=== PATIENT | female | born 2000 | race Caucasian/White ===

== ENCOUNTER 2018-04-25 20:24 | Emergency (ER) | payer OTHER ==
--- NOTE | 2018-04-25 21:20 | EDPHYS ---
Physician Documentation [facility] Name: Lara Zamorano Age: 17 yrs Sex: Female : 2000 Arrival Date: 04/25/2018 Time: 20:29 Bed 16 Private MD: Rajesh Ortega ED Physician Sami Alfaro HPI: 04/25 21:10 This 17 yrs old Female presents to ER via Ambulatory with complaints of Skin gs Problem. 21:10 The patient presents with an abscess of the right wrist, The patient presents with gs cellulitis of the right wrist. Description: The affected area is small, confluent, localized. Onset: The symptoms/episode began/occurred 5 day(s) ago. Associated signs and symptoms: Pertinent negatives: fever. Modifying factors: the symptoms are aggravated by squeezing the lesion and expressing the contents. Severity of symptoms: At their worst the symptoms were moderate, in the emergency department the symptoms are unchanged. The patient has experienced similar episodes in the past, a few times. 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 - Social history:: Smoking status: Patient/guardian denies using tobacco. - Ebola Screening: : Patient negative for fever greater than or equal to 101.5 degrees Fahrenheit, and additional compatible Ebola Virus Disease symptoms Patient denies exposure to infectious person Patient denies travel to an Ebola-affected area in the 21 days before illness onset No symptoms or risks identified at this time. ROS: 21:10 All other systems are negative. gs Exam: 21:10 Chest/axilla: Normal chest wall appearance and motion. Nontender with no deformity. gs No lesions are appreciated. Cardiovascular: Regular rate and rhythm with a normal S1 and S2. No gallops, murmurs, or rubs. Normal PMI, no JVD. No pulse deficits. Respiratory: Lungs have equal breath sounds bilaterally, clear to auscultation and percussion. No rales, rhonchi or wheezes noted. No increased work of breathing, no retractions or nasal flaring. Abdomen/GI: Soft, non-tender, with normal bowel sounds. No distension or tympany. No guarding or rebound. No evidence of tenderness throughout. Neuro: Awake and alert, GCS 15, oriented to person, place, time, and situation. Cranial nerves II-XII grossly intact. Motor strength 5/5 in all extremities. Sensory grossly intact. Cerebellar exam normal. Normal gait. 21:10 Constitutional: The patient appears alert, awake. 21:10 Musculoskeletal/extremity: ROM: no acute changes, Circulation is intact in all extremities. 21:10 Skin: abscess, that is small, with induration, cellulitis, that is mild, on the right wrist. Vital Signs: 20:34 BP 135 / 99; Pulse 104; Resp 20; Temp 98.6; Pulse Ox 98% on R/A; Weight 86.18 kg; aj Height 5 ft. 8 in. (172.72 cm); 21:41 BP 122 / 66; Pulse 80; Resp 18; Temp 98.2(O); Pulse Ox 98% on R/A; Pain 0/10; ea 20:34 Body Mass Index 28.89 (86.18 kg, 172.72 cm) MDM: 20:59 Patient medically screened. 21:10 Differential diagnosis: abscess, cellulitis, insect bite. Data reviewed: vital signs, nurses notes. ED course: discussed i and d lack of fluctuance pt would like to try abx for 2 days will return if worse. Administered Medications: 21:39 Drug: Clindamycin 300 mg Route: PO; ea 21:47 Follow up: Response: No adverse reaction ea Disposition: 04/25/18 21:20 Discharged to Home. Impression: Cutaneous abscess of right upper limb. - Condition is Stable. - Discharge Instructions: Skin Abscess. - Prescriptions for Clindamycin HCl 150 mg Oral Capsule - take 2 capsule by ORAL route every 8 hours for 7 days; 42 capsule. - Medication Reconciliation Form, Thank You Letter, Antibiotic Education, Prescription Opioid Use form. - Follow up: Private Physician; When: 2 - 3 days; Reason: Re-evaluation by your physician. Signatures: Margarita Al RN Winter Al RN RN ea Starr, Gregory, MD MD Corrections: (The following items were deleted from the chart) 21:47 21:20 04/25/2018 21:20 Discharged to Home. Impression: Cutaneous abscess of right upper ea limb. Condition is Stable. Forms are Medication Reconciliation Form, Thank You Letter, Antibiotic Education, Prescription Opioid Use. Follow up: Private Physician; When: 2 - 3 days; Reason: Re-evaluation by your physician. gs
--- NOTE | 2018-04-25 21:20 | ER ---
Nurse's Notes [facility] Name: Lara Zamorano Age: 17 yrs Sex: Female : 2000 Arrival Date: 04/25/2018 Time: 20:29 Bed 16 Private MD: Rajesh Ortega Diagnosis: Cutaneous abscess of right upper limb Presentation: 04/25 20:33 Presenting complaint: Patient states: Abscess to right forearm for 2 days. Transition aj of care: patient was not received from another setting of care. Onset of symptoms was April 23, 2018. Risk Assessment: Do you want to hurt yourself or someone else? Patient reports no desire to harm self or others. Initial Sepsis Screen: Does the patient meet any 2 criteria? No. Patient's initial sepsis screen is negative. Does the patient have a suspected source of infection? No. Patient's initial sepsis screen is negative. Care prior to arrival: None. 20:33 Method Of Arrival: Ambulatory aj 20:33 Acuity: SHEYLA 4 aj Triage Assessment: 20:34 General: Appears in no apparent distress. comfortable, Behavior is calm, cooperative, aj appropriate for age. Pain: Complains of pain in right wrist. Neuro: Level of Consciousness is awake, alert, obeys commands, Oriented to person, place, time, situation, Appropriate for age. Respiratory: Airway is patent Respiratory effort is even, unlabored, Respiratory pattern is regular, symmetrical. Derm: Skin is intact, is healthy with good turgor, Skin is pink, warm \T\ dry. normal, Abscess located on right wrist is nickel sized, is red, is raised. 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 - Social history:: Smoking status: Patient/guardian denies using tobacco. - Ebola Screening: : Patient negative for fever greater than or equal to 101.5 degrees Fahrenheit, and additional compatible Ebola Virus Disease symptoms Patient denies exposure to infectious person Patient denies travel to an Ebola-affected area in the 21 days before illness onset No symptoms or risks identified at this time. Screenin:52 Abuse screen: Denies threats or abuse. Nutritional screening: No deficits noted. ea Tuberculosis screening: No symptoms or risk factors identified. Fall Risk None identified. Assessment: 20:50 General: Appears in no apparent distress. Behavior is calm, cooperative, appropriate ea for age. Pain: Complains of pain in right wrist Pain does not radiate. Pain currently is 6 out of 10 on a pain scale. Quality of pain is described as tender, Pain began 2-3 days ago. Neuro: Level of Consciousness is awake, alert, obeys commands, Oriented to person, place, time, situation. Cardiovascular: Patient's skin is warm and dry. Respiratory: Airway is patent Respiratory effort is even, unlabored, Respiratory pattern is regular, symmetrical. GI: No signs and/or symptoms were reported involving the gastrointestinal system. : No signs and/or symptoms were reported regarding the genitourinary system. EENT: No signs and/or symptoms were reported regarding the EENT system. Derm: Abscess located on right wrist is nickel sized, has no drainage. 21:39 Reassessment: Patient and/or family updated on plan of care and expected duration. Pain ea level reassessed. Patient is alert, oriented x 3, equal unlabored respirations, skin warm/dry/pink. Discharge instructions given to patient, verbalized the understanding of instruction. Vital Signs: 20:34 BP 135 / 99; Pulse 104; Resp 20; Temp 98.6; Pulse Ox 98% on R/A; Weight 86.18 kg; aj Height 5 ft. 8 in. (172.72 cm); 21:41 BP 122 / 66; Pulse 80; Resp 18; Temp 98.2(O); Pulse Ox 98% on R/A; Pain 0/10; ea 20:34 Body Mass Index 28.89 (86.18 kg, 172.72 cm) aj ED Course: 20:29 Patient arrived in ED. do 20:29 Rajesh Ortega MD is Private Physician. do 20:34 Triage completed. aj 20:34 Arm band placed on left wrist. Patient placed in an exam room. aj 20:38 Sami Alfaro MD is Attending Physician. gs 20:50 Winter Haile, ASTRID is Primary Nurse. ea 20:53 Patient has correct armband on for positive identification. Bed in low position. Call ea light in reach. Side rails up X 1. 21:40 No provider procedures requiring assistance completed. Patient did not have IV access ea during this emergency room visit. Administered Medications: 21:39 Drug: Clindamycin 300 mg Route: PO; ea 21:47 Follow up: Response: No adverse reaction ea Outcome: 21:20 Discharge ordered by . gs 21:40 Condition: good ea 21:40 Discharge instructions given to patient, Instructed on discharge instructions, follow up and referral plans. medication usage, Demonstrated understanding of instructions, follow-up care, medications, Prescriptions given X 1. :47 Discharged to home ambulatory, with friend. ea 21:47 Patient left the ED. ea Signatures: Margarita Al, RN RN Haven Foley Elena RN Sami Chandler ea, MD MD
[2018-04-25] MEDS ORDERED: CLINDAMYCIN HCL 150 MG CAP ONE (21:38)
== END 2018-04-25 21:47 | disposition home or self-care (01) ==
LOC: ER 20:24
DX: L02.413 Cutaneous abscess of right upper limb (principal); Z88.4 Allergy status to anesthetic agent
CPT/HCPCS: 99283

== ENCOUNTER 2018-10-30 15:11 | Emergency (ER) | payer OTHER ==
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
[2018-10-30] MEDS ORDERED: IBUPROFEN 400 MG TAB ONE (16:49)
--- NOTE | 2018-10-30 17:01 | RAD REPORT ---
EXAM DESCRIPTION: RAD - Wrist Right 3 View - 10/30/2018 4:45 pm CLINICAL HISTORY: Wrist pain following trauma COMPARISON: None. FINDINGS: No fracture is identified. There is no dislocation or periosteal reaction noted. Epiphyses and growth plates are Normal in appearance. No foreign body or other soft tissue abnormality. IMPRESSION: Negative right wrist examination.
== END 2018-10-30 16:51 | disposition home or self-care (01) ==
LOC: ER 15:11
DX: M25.531 Pain in right wrist (principal); Z88.4 Allergy status to anesthetic agent
CPT/HCPCS: 99283

== ENCOUNTER 2023-08-21 21:55 | Observation (INO) | payer OTHER, SELFPAY ==
--- OUTSIDE RECORDS SUMMARY | 2023-08-21 22:05 | XMS REPORT | Continuity of Care Document ---
:2000 Author Organization [facility] t Address [address] [facility] [address] [place] [address] Care Team Providers Name Role Phone PCP, PATIENT DOES NOT HAVE A Primary Care Physician Unavaila moses VASQUEZ Attending Clinician Unavailable KATHY BEE Attending Clinician Unavailable KATHY BEE Attending Clinician Unavailable Avni Ackerman Attending Clinician [phone] MILAGRO FRANKLIN Attending Clinician Unavailable PEDRO Admitting Clinician Unavailable Payers Payer Name Policy Type Policy Number Effective Date Expiration Date Percy VÁSQUEZ - [id number] [employer]ET[employer] (PPO) 00:00:00 COMMERCIAL [id number] 2019 NON-CONTRACT 00:00:00 GENERIC CIGNA - ACS BENEFIT [id number] 2019 SERVICES (PPO) 00:00:00 Problems Condition Condition Condition Status Onset Resolution Last Treating Co mments Source Name Details Category Date Date Treatment Clinician Date Insomnia Insomnia Problem Active [facility] 5[facility]06 [facility] 00:[facility] ty [facility] Bulimia Bulimia Problem Active 2020-10 [place] nervosa, Nervosa, 1-10 [facility] i purging Purging 00:00: ty type Type 00 [facility] Active or Active or Problem Active Swe moiess passive Passive 7-14 [facility] immunizati Immunizati 00:00: ty on on [facility]ospita l Clinics Abnormal Abnormal Problem Active [facility] blood Blood 7-14 [facility] pressure Pressure 00:00: ty 00 [facility] Allergies, Adverse Reactions, Alerts Allergy Allergy Status Severity Reaction(s) Onset Inactive Treating Comm ents Source Name Type Date Date Clinician LIDOCAIN DRUG Active SOB 2019-10 [facility]y of 00:00: [address] NO KNOWN Drug Active Univers ALLERGIE Class [facility] Lidocain Allergy Active Severe Hives [place] e to [facility]i substanc ty e [facility]osp[facility] l Clinics Social History Smoking Status Start Date Stop Date Source Former Smoker [facility] Medications Ordered Filled Start Stop Current Ordering Indication Dosage Frequency Signature Comments Components Source Medication Medication Date Date Medication? Clinician (SIG) Name Name Kevin Brown CR No 1 Kevin JULIEN [place] 6.25 mg 6.25 mg 6.25 mg Commun i tablet,exte tablet,exte tablet,ext ty nded nded ended Hospita release release release l Take 1 Take 1 Take 1 Clinics tablet as tablet as tablet as needed by needed by needed by oral route oral route oral route at bedtime. at bedtime. at bedtime. ergocalcife ergocalcife No ergocalcif [place] rol rol ta [facility] (vitamin (vitamin (vitamin ty D2) 1,250 D2) 1,250 D2) 1,250 [facility]ospita mcg (50,000 mcg (50,000 mcg l unit) unit) (50,000 Clinics capsule capsule unit) TAKE 1 TAKE 1 capsule CAPSULE CAPSULE TAKE 1 EVERY WEEK EVERY WEEK CAPSULE BY ORAL BY ORAL EVERY WEEK ROUTE. ROUTE. BY ORAL ROUTE. lisinopril lisinopril No lisinopril [place] 10 mg 10 mg 10 mg [facility] tablet TAKE tablet TAKE tablet ty 1 TABLET BY 1 TABLET BY TAKE 1 Hospita MOUTH EVERY MOUTH EVERY TABLET BY l DAY DAY MOUTH Clinics EVERY DAY sertraline sertraline No sertraline [place] 100 mg 100 mg 100 mg [facility] tablet TAKE tablet TAKE tablet ty 1 TABLET BY 1 TABLET BY TAKE 1 [facility]ospita MOUTH EVERY MOUTH EVERY TABLET BY l DAY DAY MOUTH Clinics EVERY DAY acetaminoph acetaminoph No acetaminop [place] en 300 en 300 hen 300 [facility] mg-codeine mg-codeine mg-codeine ty 30 mg 30 mg 30 mg [facility]ospita tablet TAKE tablet TAKE tablet l 1 TABLET BY 1 TABLET BY TAKE 1 Clinics MOUTH EVERY MOUTH EVERY TABLET BY 6 HOURS 6 HOURS MOUTH NEEDED NEEDED EVERY 6 HOURS NEEDED drospirenon drospirenon No drospireno [place] e 3 e 3 ne 3 [facility] mg-ethinyl mg-ethinyl mg-ethinyl ty estradiol estradiol estradiol [facility]osp[facility] 0.02 mg 0.02 mg 0.02 mg l tablet Take tablet Take tablet Clinics 1 active 1 active Take 1 tablet tablet active orally once orally once tablet daily at daily at orally the same the same once daily time. Take time. Take at the active active same time. pills only. pills only. Take active pills only. ergocalcife ergocalcife No ergocalcif [place] rol rol ta [facility] (vitamin (vitamin (vitamin ty D2) 1,250 D2) 1,250 D2) 1,250 [facility] mcg (50,000 mcg (50,000 mcg l unit) unit) (50,000 Clinics capsule capsule unit) TAKE 1 TAKE 1 capsule CAPSULE CAPSULE TAKE 1 EVERY WEEK EVERY WEEK CAPSULE BY ORAL BY ORAL EVERY WEEK ROUTE. ROUTE. BY ORAL ROUTE. hydrochloro hydrochloro No 1capsul Q1D hydrochlor [place] thiazide thiazide e(s) othiazide Co mmuni 12.5 mg 12.5 mg 12.5 mg ty capsule capsule capsule Hospit a Take 1 Take 1 Take 1 l capsule capsule capsule Clinic s every day every day every day by oral by oral by oral route for route for route for 90 days. 90 days. 90 days. phentermine phentermine No 1 Q1D phentermin [place] 37.5 mg 37.5 mg e 37.5 mg Comm uni tablet Take tablet Take tablet ty 1 tablet 1 tablet Take 1 Hospi ta every day every day tablet l by oral by oral every day Clin ics route. route. by oral route. sertraline sertraline No sertraline [place] 100 mg 100 mg 100 mg [facility] tablet TAKE tablet TAKE tablet ty 1 TABLET BY 1 TABLET BY TAKE 1 [facility]ospita MOUTH EVERY MOUTH EVERY TABLET BY l DAY DAY MOUTH Clinics EVERY DAY zolpidem ER zolpidem ER No zolpidem [place] 6.25 mg 6.25 mg ER 6.25 mg Com yue tablet,exte tablet,exte tablet,ext ty nded nded ended [facility]ospita release,mul release,mul release,mu l tiphase tiphase ltiphase Clini cs TAKE 1 TAKE 1 TAKE 1 TABLET BY TABLET BY TABLET BY MOUTH EVERY MOUTH EVERY MOUTH DAY AT DAY AT EVERY DAY BEDTIME BEDTIME AT BEDTIME NEEDED NEEDED NEEDED Bystolic 10 Bystolic 10 No 1 Q1D Bystolic [place] mg tablet mg tablet 10 mg Comm uni Take 1 Take 1 tablet ty tablet tablet Take 1 Hospita every day every day tablet l by oral by oral every day Clin ics route for route for by oral 90 days. 90 days. route for 90 days. drospirenon drospirenon No drospireno [place] e 3 e 3 ne 3 [facility]i mg-ethinyl mg-ethinyl mg-ethinyl ty estradiol estradiol estradiol [facility]osp[facility] 0.02 mg 0.02 mg 0.02 mg l tablet Take tablet Take tablet Clinics 1 active 1 active Take 1 tablet tablet active orally once orally once tablet daily at daily at orally the same the same once daily time. Take time. Take at the active active same time. pills only. pills only. Take active pills only. ergocalcife ergocalcife No ergocalcif [place] rol rol ta [facility] (vitamin (vitamin (vitamin ty D2) 1,250 D2) 1,250 D2) 1,250 [facility] mcg (50,000 mcg (50,000 mcg l unit) unit) (50,000 Clinics capsule capsule unit) TAKE 1 TAKE 1 capsule CAPSULE CAPSULE TAKE 1 EVERY WEEK EVERY WEEK CAPSULE BY ORAL BY ORAL EVERY WEEK ROUTE. ROUTE. BY ORAL ROUTE. hydrochloro hydrochloro No 1 Q1D hydrochlor [place] thiazide 25 thiazide 25 othiazide Commun[facility] mg tablet mg tablet 25 mg ty Take 1 Take 1 tablet [facility]ospita tablet tablet Take 1 l every day every day tablet Cli nics by oral by oral every day route for route for by oral 90 days. 90 days. route for 90 days. sertraline sertraline No sertraline [place] 100 mg 100 mg 100 mg [facility] tablet TAKE tablet TAKE tablet ty 1 TABLET BY 1 TABLET BY TAKE 1 [facility]ospita MOUTH EVERY MOUTH EVERY TABLET BY l DAY DAY MOUTH Clinics EVERY DAY zolpidem ER zolpidem ER No zolpidem [place] 6.25 mg 6.25 mg ER 6.25 mg Com yue tablet,exte tablet,exte tablet,ext ty nded nded ended [facility]ospita release,mul release,mul release,mu l tiphase tiphase ltiphase Clini cs TAKE 1 TAKE 1 TAKE 1 TABLET BY TABLET BY TABLET BY MOUTH EVERY MOUTH EVERY MOUTH DAY AT DAY AT EVERY DAY BEDTIME BEDTIME AT BEDTIME NEEDED NEEDED NEEDED drospirenon drospirenon No drospireno [place] e 3 e 3 ne 3 [facility]i mg-ethinyl mg-ethinyl mg-ethinyl ty estradiol estradiol estradiol [facility]osp[facility] 0.02 mg 0.02 mg 0.02 mg l tablet Take tablet Take tablet Clinics 1 active 1 active Take 1 tablet tablet active orally once orally once tablet daily at daily at orally the same the same once daily time. Take time. Take at the active active same time. pills only. pills only. Take active pills only. ergocalcife ergocalcife No ergocalcif [place] rol rol ta [facility] (vitamin (vitamin (vitamin ty D2) 1,250 D2) 1,250 D2) 1,250 [facility] mcg (50,000 mcg (50,000 mcg l unit) unit) (50,000 Clinics capsule capsule unit) TAKE 1 TAKE 1 capsule CAPSULE CAPSULE TAKE 1 EVERY WEEK EVERY WEEK CAPSULE BY ORAL BY ORAL EVERY WEEK ROUTE. ROUTE. BY ORAL ROUTE. hydrochloro hydrochloro No hydrochlor [place] thiazide 25 thiazide 25 othiazide Communi mg tablet mg tablet 25 mg ty TAKE 1 TAKE 1 tablet [facility]ospita TABLET BY TABLET BY TAKE 1 l MOUTH EVERY MOUTH EVERY TABLET BY Clinics DAY DAY MOUTH EVERY DAY nebivolol nebivolol No nebivolol [place] 10 mg 10 mg 10 mg [facility] tablet TAKE tablet TAKE tablet ty 1 TABLET BY 1 TABLET BY TAKE 1 [facility]ospita MOUTH EVERY MOUTH EVERY TABLET BY l DAY DAY MOUTH Clinics EVERY DAY phentermine phentermine No phentermin [place] 37.5 mg 37.5 mg e 37.5 mg Comm uni tablet TAKE tablet TAKE tablet ty 1 TABLET BY 1 TABLET BY TAKE 1 [facility]ospita MOUTH EVERY MOUTH EVERY TABLET BY l DAY DAY MOUTH Clinics EVERY DAY sertraline sertraline No sertraline [place] 100 mg 100 mg 100 mg [facility] tablet TAKE tablet TAKE tablet ty 1 TABLET BY 1 TABLET BY TAKE 1 [facility]ospita MOUTH EVERY MOUTH EVERY TABLET BY l DAY DAY MOUTH Clinics EVERY DAY Ubrelvy 100 Ubrelvy 100 No Ubrelvy [place] mg tablet mg tablet 100 mg Com yue Take 1 Take 1 tablet ty tablet at tablet at Take 1 [facility] onset of onset of tablet at l headache, headache, onset of C linics may repeat may repeat headache, x 1 in 2 x 1 in 2 may repeat hours if hours if x 1 in 2 not not hours if relieved. relieved. not Max dose Max dose relieved. 200 mg/24 200 mg/24 Max dose hours hours 200 mg/24 hours zolpidem ER zolpidem ER No zolpidem [place] 6.25 mg 6.25 mg ER 6.25 mg Com yue tablet,exte tablet,exte tablet,ext ty nded nded ended [facility]osp[facility] release,mul release,mul release,mu l tiphase tiphase ltiphase Clini cs TAKE 1 TAKE 1 TAKE 1 TABLET BY TABLET BY TABLET BY MOUTH EVERY MOUTH EVERY MOUTH DAY AT DAY AT EVERY DAY BEDTIME BEDTIME AT BEDTIME NEEDED NEEDED NEEDED compounded compounded No compounded [place] medication medication medication [facility] semaglutide semaglutide semaglutid ty 0.3 ml 0.15 0.3 ml 0.15 e 0.3 ml Hospita ml today ml today 0.15 ml l (1st half (1st half today (1st Clinics dose) dose) half dose) $22.50 $22.50 $22.50 ergocalcife ergocalcife No ergocalcif [place] rol rol ta [facility] (vitamin (vitamin (vitamin ty D2) 1,250 D2) 1,250 D2) 1,250 [facility] mcg (50,000 mcg (50,000 mcg l unit) unit) (50,000 Clinics capsule capsule unit) TAKE 1 TAKE 1 capsule CAPSULE CAPSULE TAKE 1 EVERY WEEK EVERY WEEK CAPSULE BY ORAL BY ORAL EVERY WEEK ROUTE. ROUTE. BY ORAL ROUTE. hydrochloro hydrochloro No hydrochlor [place] thiazide 25 thiazide 25 othiazide Commun[facility] mg tablet mg tablet 25 mg ty TAKE 1 TAKE 1 tablet [facility]osp[facility] TABLET BY TABLET BY TAKE 1 l MOUTH EVERY MOUTH EVERY TABLET BY Clinics DAY DAY MOUTH EVERY DAY nebivolol nebivolol No nebivolol [place] 10 mg 10 mg 10 mg [facility] tablet TAKE tablet TAKE tablet ty 1 TABLET BY 1 TABLET BY TAKE 1 [facility]ospita MOUTH EVERY MOUTH EVERY TABLET BY l DAY DAY MOUTH Clinics EVERY DAY phentermine phentermine No 1 Q1D phentermin [place] 37.5 mg 37.5 mg e 37.5 mg Comm uni tablet Take tablet Take tablet ty 1 tablet 1 tablet Take 1 Hospi ta every day every day tablet l by oral by oral every day Clin ics route. route. by oral route. Qulipta 60 Qulipta 60 No Qulipta 60 [place] mg tablet mg tablet mg tablet Communi TAKE 1 TAKE 1 TAKE 1 ty TABLET BY TABLET BY TABLET BY [facility]ospita MOUTH EVERY MOUTH EVERY MOUTH l DAY FOR 30 DAY FOR 30 EVERY DAY Clinics DAYS DAYS FOR 30 DAYS sertraline sertraline No sertraline [place] 100 mg 100 mg 100 mg [facility] tablet TAKE tablet TAKE tablet ty 1 TABLET BY 1 TABLET BY TAKE 1 [facility]ospita MOUTH EVERY MOUTH EVERY TABLET BY l DAY DAY MOUTH Clinics EVERY DAY Ubrelvy 100 Ubrelvy 100 No Ubrelvy [place] mg tablet mg tablet 100 mg Com yue Take 1 Take 1 tablet ty tablet at tablet at Take 1 [facility] onset of onset of tablet at l headache, headache, onset of C linics may repeat may repeat headache, x 1 in 2 x 1 in 2 may repeat hours if hours if x 1 in 2 not not hours if relieved. relieved. not Max dose Max dose relieved. 200 mg/24 200 mg/24 Max dose hours hours 200 mg/24 hours zolpidem ER zolpidem ER No zolpidem [place] 6.25 mg 6.25 mg ER 6.25 mg Com yue tablet,exte tablet,exte tablet,ext ty nded nded ended [facility]ospita release,mul release,mul release,mu l tiphase tiphase ltiphase Clini cs TAKE 1 TAKE 1 TAKE 1 TABLET BY TABLET BY TABLET BY MOUTH EVERY MOUTH EVERY MOUTH DAY AT DAY AT EVERY DAY BEDTIME BEDTIME AT BEDTIME NEEDED NEEDED NEEDED compounded compounded No compounded [place] medication medication medication [facility] semaglutide semaglutide semaglutid ty 0.3 ml 0.15 0.3 ml 0.15 e 0.3 ml Hospita ml today ml today 0.15 ml l (1st half (1st half today (1st Clinics dose) dose) half dose) $22.50 $22.50 $22.50 compounded compounded No compounded [place] medication medication medication [facility]i semaglutide semaglutide semaglutid ty 0.3 ml 0.15 0.3 ml 0.15 e 0.3 ml [facility]ospita ml today ml today 0.15 ml l (1st half (1st half today (1st Clinics dose) dose) half dose) $22.50 $22.50 $22.50 ergocalcife ergocalcife No ergocalcif [place] nancy nancy chappell Laceyjohnnie (vitamin (vitamin (vitamin ty D2) 1,250 D2) 1,250 D2) 1,250 [facility] mcg (50,000 mcg (50,000 mcg l unit) unit) (50,000 Clinics capsule capsule unit) TAKE 1 TAKE 1 capsule CAPSULE CAPSULE TAKE 1 EVERY WEEK EVERY WEEK CAPSULE BY ORAL BY ORAL EVERY WEEK ROUTE. ROUTE. BY ORAL ROUTE. hydrochloro hydrochloro No hydrochlor [place] thiazide 25 thiazide 25 othiazide Communi mg tablet mg tablet 25 mg ty TAKE 1 TAKE 1 tablet [facility] TABLET BY TABLET BY TAKE 1 l MOUTH EVERY MOUTH EVERY TABLET BY Clinics DAY DAY MOUTH EVERY DAY nebivolol nebivolol No nebivolol [place] 10 mg 10 mg 10 mg [facility] tablet TAKE tablet TAKE tablet ty 1 TABLET BY 1 TABLET BY TAKE 1 [facility]ospita MOUTH EVERY MOUTH EVERY TABLET BY l DAY DAY MOUTH Clinics EVERY DAY ondansetron ondansetron No ondansetro [place] 4 mg 4 mg n 4 mg Communi disintegrat disintegrat disintegra ty ing tablet ing tablet ting [facility] ALLOW 2 ALLOW 2 tablet l TABLETS TO TABLETS TO ALLOW 2 Clinics DISSOLVE ON DISSOLVE ON TABLETS TO TOP OF THE TOP OF THE DISSOLVE TONGUE TONGUE ON TOP OF TWICE A DAY TWICE A DAY THE TONGUE TWICE A DAY Qulipta 60 Qulipta 60 No Qulipta 60 [place] mg tablet mg tablet mg tablet [facility]i TAKE 1 TAKE 1 TAKE 1 ty TABLET BY TABLET BY TABLET BY [facility]ospita MOUTH EVERY MOUTH EVERY MOUTH l DAY FOR 30 DAY FOR 30 EVERY DAY Clinics DAYS DAYS FOR 30 DAYS sertraline sertraline No sertraline [place] 100 mg 100 mg 100 mg [facility] tablet TAKE tablet TAKE tablet ty 1 TABLET BY 1 TABLET BY TAKE 1 [facility]ospita MOUTH EVERY MOUTH EVERY TABLET BY l DAY DAY MOUTH Clinics EVERY DAY Ubrelvy 100 Ubrelvy 100 No Ubrelvy [place] mg tablet mg tablet 100 mg Com yue Take 1 Take 1 tablet ty tablet at tablet at Take 1 [facility] onset of onset of tablet at l headache, headache, onset of C linics may repeat may repeat headache, x 1 in 2 x 1 in 2 may repeat hours if hours if x 1 in 2 not not hours if relieved. relieved. not Max dose Max dose relieved. 200 mg/24 200 mg/24 Max dose hours hours 200 mg/24 hours zolpidem ER zolpidem ER No zolpidem [place] 6.25 mg 6.25 mg ER 6.25 mg Com yue tablet,exte tablet,exte tablet,ext ty nded nded ended [facility] release,mul release,mul release,mu l tiphase tiphase ltiphase Clini cs TAKE 1 TAKE 1 TAKE 1 TABLET BY TABLET BY TABLET BY MOUTH AT MOUTH AT MOUTH AT BEDTIME BEDTIME BEDTIME NEEDED NEEDED NEEDED compounded compounded No compounded [place] medication medication medication [facility] Semaglutide Semaglutide Semaglutid ty one one e one [facility]ospita injections injections injections l [facility] compounded compounded No compounded [place] medication medication medication [facility] semaglutide semaglutide semaglutid ty 0.3 ml 0.15 0.3 ml 0.15 e 0.3 ml [facility]osp[facility] ml today ml today 0.15 ml l (1st half (1st half today (1st Clinics dose) dose) half dose) $22.50 $22.50 $22.50 compounded compounded No compounded [place] medication medication medication [facility] semaglutide semaglutide semaglutid ty 0.3 ml 0.15 0.3 ml 0.15 e 0.3 ml [facility]osp[facility] ml today ml today 0.15 ml l (1st half (1st half today (1st Clinics dose) dose) half dose) $22.50 $22.50 $22.50 ergocalcife ergocalcife No ergocalcif [place] rol rol ta [place] (vitamin (vitamin (vitamin ty D2) 1,250 D2) 1,250 D2) 1,250 [facility] mcg (50,000 mcg (50,000 mcg l unit) unit) (50,000 Clinics capsule capsule unit) TAKE 1 TAKE 1 capsule CAPSULE CAPSULE TAKE 1 EVERY WEEK EVERY WEEK CAPSULE BY ORAL BY ORAL EVERY WEEK ROUTE. ROUTE. BY ORAL ROUTE. ondansetron ondansetron No ondansetro [place] 4 mg 4 mg n 4 mg [facility] disintegrat disintegrat disintegra ty ing tablet ing tablet ting [facility] ALLOW 2 ALLOW 2 tablet l TABLETS TO TABLETS TO ALLOW 2 Clinics DISSOLVE ON DISSOLVE ON TABLETS TO TOP OF THE TOP OF THE DISSOLVE TONGUE TONGUE ON TOP OF TWICE A DAY TWICE A DAY THE TONGUE TWICE A DAY Qulipta 60 Qulipta 60 No Qulipta 60 [place] mg tablet mg tablet mg tablet [facility]i TAKE 1 TAKE 1 TAKE 1 ty TABLET BY TABLET BY TABLET BY [facility]ospita MOUTH EVERY MOUTH EVERY MOUTH l DAY FOR 30 DAY FOR 30 EVERY DAY Clinics DAYS DAYS FOR 30 DAYS sertraline sertraline No sertraline [place] 100 mg 100 mg 100 mg [facility] tablet TAKE tablet TAKE tablet ty 1 TABLET BY 1 TABLET BY TAKE 1 [facility]ospita MOUTH EVERY MOUTH EVERY TABLET BY l DAY DAY MOUTH Clinics EVERY DAY Ubrelvy 100 Ubrelvy 100 No Ubrelvy [place] mg tablet mg tablet 100 mg Com yue Take 1 Take 1 tablet ty tablet at tablet at Take 1 [facility] onset of onset of tablet at l headache, headache, onset of C linics may repeat may repeat headache, x 1 in 2 x 1 in 2 may repeat hours if hours if x 1 in 2 not not hours if relieved. relieved. not Max dose Max dose relieved. 200 mg/24 200 mg/24 Max dose hours hours 200 mg/24 hours zolpidem ER zolpidem ER No zolpidem [place] 6.25 mg 6.25 mg ER 6.25 mg Com yue tablet,exte tablet,exte tablet,ext ty nded nded ended [facility] release,mul release,mul release,mu l tiphase tiphase ltiphase Clini cs TAKE 1 TAKE 1 TAKE 1 TABLET BY TABLET BY TABLET BY MOUTH EVERY MOUTH EVERY MOUTH DAY AT DAY AT EVERY DAY BEDTIME BEDTIME AT BEDTIME NEEDED NEEDED NEEDED compounded compounded No compounded [place] medication medication medication [facility] semaglutide semaglutide semaglutid ty 0.3 ml 0.15 0.3 ml 0.15 e 0.3 ml [facility]osp[facility] ml today ml today 0.15 ml l (1st half (1st half today (1st Clinics dose) dose) half dose) $22.50 $22.50 $22.50 compounded compounded No compounded [place] medication medication medication [facility] Semaglutide Semaglutide Semaglutid ty one one e one [facility]osp[facility] injections [facility] compounded compounded No compounded [place] medication medication medication [facility] semaglutide semaglutide semaglutid ty 0.3 ml 0.15 0.3 ml 0.15 e 0.3 ml [facility]osp[facility] ml today ml today 0.15 ml l (1st half (1st half today (1st Clinics dose) dose) half dose) $22.50 $22.50 $22.50 Effexor XR Effexor XR No 1capsul Q1D Effexor XR [place] 75 mg 75 mg e(s) 75 mg [facility] capsule,ext capsule,ext capsule,ex ty ended ended tended [facility] release release release l Take 1 Take 1 Take 1 Clinics capsule capsule capsule every day every day every day by oral by oral by oral route for route for route for 90 days. 90 days. 90 days. ondansetron ondansetron No 2 BID ondansetro [place] 4 mg 4 mg n 4 mg [facility]i disintegrat disintegrat disintegra ty ing tablet ing tablet ting [facility] 2 Place 2 tablet l tablets tablets Place 2 Clinic s twice a day twice a day tablets by by twice a translingua translingua day by l route. l route. translingu al route. Qulipta 60 Qulipta 60 No Qulipta 60 [place] mg tablet mg tablet mg tablet [facility] TAKE 1 TAKE 1 TAKE 1 ty TABLE[facility]TH EVERY MOUTH l DAY FOR 30 DAY FOR 30 EVERY DAY Clinics DAYS DAYS FOR 30 DAYS trazodone trazodone No trazodone [place] 50 mg 50 mg 50 mg [facility] tablet Take tablet Take tablet ty 1-2 tablets 1-2 tablets Take 1-2 [facility]ospita PO PRN QHS PO PRN QHS tablets PO l PRN QHS Clinics Ubrelvy 100 Ubrelvy 100 No Ubrelvy [place] mg tablet mg tablet 100 mg Com yue Take 1 Take 1 tablet ty tablet at tablet at Take 1 [facility] onset of onset of tablet at l headache, headache, onset of C linics may repeat may repeat headache, x 1 in 2 x 1 in 2 may repeat hours if hours if x 1 in 2 not not hours if relieved. relieved. not Max dose Max dose relieved. 200 mg/24 200 mg/24 Max dose hours hours 200 mg/24 hours compounded compounded No compounded [place] medication medication medication [facility] semaglutide semaglutide semaglutid ty 0.3 ml 0.15 0.3 ml 0.15 e 0.3 ml [facility]osp[facility] ml today ml today 0.15 ml l (1st half (1st half today (1st Clinics dose) dose) half dose) $22.50 $22.50 $22.50 compounded compounded No compounded [place] medication medication medication [facility] semaglutide semaglutide semaglutid ty 0.3 ml 0.15 0.3 ml 0.15 e 0.3 ml [facility] ml today ml today 0.15 ml l (1st half (1st half today (1st Clinics dose) dose) half dose) $22.50 $22.50 $22.50 compounded compounded No compounded [place] medication medication medication [facility] Semaglutide Semaglutide Semaglutid ty one one e one [facility]osp[facility] injections injections injections l [facility] drospirenon drospirenon No drospireno [place] e 3 e 3 ne 3 [facility] mg-ethinyl mg-ethinyl mg-ethinyl ty estradiol estradiol estradiol [facility] 0.02 mg 0.02 mg 0.02 mg l tablet Take tablet Take tablet Clinics 1 active 1 active Take 1 tablet tablet active orally once orally once tablet daily at daily at orally the same the same once daily time. Take time. Take at the active active same time. pills only. pills only. Take active pills only. Effexor XR Effexor XR No 1capsul Q1D Effexor XR [place] 75 mg 75 mg e(s) 75 mg [facility] capsule,ext capsule,ext capsule,ex ty ended ended tended [facility] release release release l Take 1 Take 1 Take 1 Clinics capsule capsule capsule every day every day every day by oral by oral by oral route for route for route for 90 days. 90 days. 90 days. ondansetron ondansetron No 2 BID ondansetro [place] 4 mg 4 mg n 4 mg Communi disintegrat disintegrat disintegra ty ing tablet ing tablet ting [facility] 2 Place 2 tablet l tablets tablets Place 2 Clinic s twice a day twice a day tablets by by twice a translingua translingua day by l route. l route. translingu al route. Qulipta 60 Qulipta 60 No Qulipta 60 [place] mg tablet mg tablet mg tablet [facility]i TAKE 1 TAKE 1 TAKE 1 ty TABLET BY TABLET BY TABLET BY [facility]ospita MOUTH EVERY MOUTH EVERY MOUTH l DAY FOR 30 DAY FOR 30 EVERY DAY Clinics DAYS DAYS FOR 30 DAYS trazodone trazodone No trazodone [place] 50 mg 50 mg 50 mg [facility]i tablet Take tablet Take tablet ty 1-2 tablets 1-2 tablets Take 1-2 [facility]ospita PO PRN QHS PO PRN QHS tablets PO l PRN QHS Clinics Ubrelvy 100 Ubrelvy 100 No Ubrelvy [place] mg tablet mg tablet 100 mg Com yue Take 1 Take 1 tablet ty tablet at tablet at Take 1 [facility] onset of onset of tablet at l headache, headache, onset of C linics may repeat may repeat headache, x 1 in 2 x 1 in 2 may repeat hours if hours if x 1 in 2 not not hours if relieved. relieved. not Max dose Max dose relieved. 200 mg/24 200 mg/24 Max dose hours hours 200 mg/24 hours compounded compounded No compounded [place] medication medication medication [facility] semaglutide semaglutide semaglutid ty 0.3 ml 0.15 0.3 ml 0.15 e 0.3 ml [facility]osp[facility] ml today ml today 0.15 ml l (1st half (1st half today (1st Clinics dose) dose) half dose) $22.50 $22.50 $22.50 compounded compounded No compounded [place] medication medication medication [facility] semaglutide semaglutide semaglutid ty 0.3 ml 0.15 0.3 ml 0.15 e 0.3 ml [facility]osp[facility] ml today ml today 0.15 ml l (1st half (1st half today (1st Clinics dose) dose) half dose) $22.50 $22.50 $22.50 compounded compounded No compounded [place] medication medication medication [facility] Semaglutide Semaglutide Semaglutid ty one one e one [facility]ospita injections injections injections [facility] drospirenon drospirenon No drospireno [place] e 3 e 3 ne 3 Communi mg-ethinyl mg-ethinyl mg-ethinyl ty estradiol estradiol estradiol Hospita 0.02 mg 0.02 mg 0.02 mg l tablet Take tablet Take tablet Clinics 1 active 1 active Take 1 tablet tablet active orally once orally once tablet daily at daily at orally the same the same once daily time. Take time. Take at the active active same time. pills only. pills only. Take active pills only. Effexor XR Effexor XR No 1capsul Q1D Effexor XR [place] 75 mg 75 mg e(s) 75 mg Communi capsule,ext capsule,ext capsule,ex ty ended ended tended Hospita release release release l Take 1 Take 1 Take 1 Clinics capsule capsule capsule every day every day every day by oral by oral by oral route for route for route for 90 days. 90 days. 90 days. ondansetron ondansetron No 2 BID ondansetro [place] 4 mg 4 mg n 4 mg Communi disintegrat disintegrat disintegra ty ing tablet ing tablet ting [facility] 2 Place 2 tablet l tablets tablets Place 2 Clinic s twice a day twice a day tablets by by twice a translingua translingua day by l route. l route. translingu al route. Qulipta 60 Qulipta 60 No Qulipta 60 [place] mg tablet mg tablet mg tablet Communi TAKE 1 TAKE 1 TAKE 1 ty TABLET BY TABLET BY TABLET BY Hospita MOUTH EVERY MOUTH EVERY MOUTH l DAY FOR 30 DAY FOR 30 EVERY DAY Clinics DAYS DAYS FOR 30 DAYS trazodone trazodone No trazodone [place] 50 mg 50 mg 50 mg Communi tablet Take tablet Take tablet ty 1-2 tablets 1-2 tablets Take 1-2 Hospita PO PRN QHS PO PRN QHS tablets PO l PRN QHS Clinics Ubrelvy 100 Ubrelvy 100 No Ubrelvy [place] mg tablet mg tablet 100 mg Com yue Take 1 Take 1 tablet ty tablet at tablet at Take 1 Hos sage onset of onset of tablet at l headache, headache, onset of C linics may repeat may repeat headache, x 1 in 2 x 1 in 2 may repeat hours if hours if x 1 in 2 not not hours if relieved. relieved. not Max dose Max dose relieved. 200 mg/24 200 mg/24 Max dose hours hours 200 mg/24 hours Vraylar 1.5 Vraylar 1.5 No 1capsul Q1D Vraylar [place] mg capsule mg capsule e(s) 1.5 mg C ommuni Take 1 Take 1 capsule ty capsule capsule Take 1 Hospita every day every day capsule l by oral by oral every day Clin ics route for route for by oral 30 days. 30 days. route for 30 days. acetaminoph acetaminoph No acetaminop [place] en 300 en 300 hen 300 Communi mg-codeine mg-codeine mg-codeine ty 30 mg 30 mg 30 mg Hospita tablet TAKE tablet TAKE tablet l 1 TABLET BY 1 TABLET BY TAKE 1 Clinics MOUTH EVERY MOUTH EVERY TABLET BY 6 HOURS 6 HOURS MOUTH NEEDED NEEDED EVERY 6 HOURS NEEDED drospirenon drospirenon No drospireno [place] e 3 e 3 ne 3 Communi mg-ethinyl mg-ethinyl mg-ethinyl ty estradiol estradiol estradiol Hospita 0.02 mg 0.02 mg 0.02 mg l tablet Take tablet Take tablet Clinics 1 active 1 active Take 1 tablet tablet active orally once orally once tablet daily at daily at orally the same the same once daily time. Take time. Take at the active active same time. pills only. pills only. Take active pills only. ergocalcife ergocalcife No ergocalcif [place] rol rol ta Communi (vitamin (vitamin (vitamin ty D2) 1,250 D2) 1,250 D2) 1,250 Hospita mcg (50,000 mcg (50,000 mcg l unit) unit) (50,000 Clinics capsule capsule unit) TAKE 1 TAKE 1 capsule CAPSULE CAPSULE TAKE 1 EVERY WEEK EVERY WEEK CAPSULE BY ORAL BY ORAL EVERY WEEK ROUTE. ROUTE. BY ORAL ROUTE. lisinopril lisinopril No lisinopril [place] 10 mg 10 mg 10 mg [facility]i tablet TAKE tablet TAKE tablet ty 1 TABLET BY 1 TABLET BY TAKE 1 Hospita MOUTH EVERY MOUTH EVERY TABLET BY l DAY DAY MOUTH Clinics EVERY DAY phentermine phentermine No 1 Q1D phentermin [place] 37.5 mg 37.5 mg e 37.5 mg Comm uni tablet Take tablet Take tablet ty 1 tablet 1 tablet Take 1 Hospi ta every day every day tablet l by oral by oral every day Clin ics route. route. by oral route. sertraline sertraline No sertraline [place] 100 mg 100 mg 100 mg Communi tablet TAKE tablet TAKE tablet ty 1 TABLET BY 1 TABLET BY TAKE 1 Hospita MOUTH EVERY MOUTH EVERY TABLET BY l DAY DAY MOUTH Clinics EVERY DAY zolpidem ER zolpidem ER No zolpidem [place] 6.25 mg 6.25 mg ER 6.25 mg Com yue tablet,exte tablet,exte tablet,ext ty nded nded ended Hospita release,mul release,mul release,mu l tiphase tiphase ltiphase Clini cs TAKE 1 TAKE 1 TAKE 1 TABLET BY TABLET BY TABLET BY MOUTH EVERY MOUTH EVERY MOUTH DAY AT DAY AT EVERY DAY BEDTIME BEDTIME AT BEDTIME NEEDED NEEDED NEEDED lisinopril lisinopril No 1 Q1D lisinopril [place] 10 mg 10 mg 10 mg Communi tablet Take tablet Take tablet ty 1 tablet 1 tablet Take 1 Hospi ta every day every day tablet l by oral by oral every day Clin ics route for route for by oral 90 days. 90 days. route for 90 days. sertraline sertraline No sertraline [place] 100 mg 100 mg 100 mg Communi tablet tablet tablet ty [facility] ergocalcife ergocalcife No ergocalcif [place] rol rol ta Communi (vitamin (vitamin (vitamin ty D2) 1,250 D2) 1,250 D2) 1,250 Hospita mcg (50,000 mcg (50,000 mcg l unit) unit) (50,000 Clinics capsule capsule unit) TAKE 1 TAKE 1 capsule CAPSULE CAPSULE TAKE 1 EVERY WEEK EVERY WEEK CAPSULE BY ORAL BY ORAL EVERY WEEK ROUTE. ROUTE. BY ORAL ROUTE. lisinopril lisinopril No lisinopril [place] 10 mg 10 mg 10 mg Communi tablet TAKE tablet TAKE tablet ty 1 TABLET BY 1 TABLET BY TAKE 1 Hospita MOUTH EVERY MOUTH EVERY TABLET BY l DAY DAY MOUTH Clinics EVERY DAY sertraline sertraline No sertraline [place] 100 mg 100 mg 100 mg Communi tablet tablet tablet ty [facility] Immunizations Ordered Filled Immunization Date Status Comments [facility] e Immunization Name Name meningococcal MCV4P meningococcal MCV4P 2020-04-17 Completed [place] 11:48:00 [facility] meningococcal MCV4P meningococcal MCV4P 2020-04-17 Completed [place] 11:48:00 [facility] meningococcal MCV4P meningococcal MCV4P 2020-04-17 Completed [place] 11:48:00 [facility] meningococcal MCV4P meningococcal MCV4P 2020-04-17 Completed [place] 11:48:00 [facility] meningococcal MCV4P meningococcal MCV4P 2020-04-17 Completed [place] 11:48:00 [facility] meningococcal MCV4P meningococcal MCV4P 2020-04-17 Completed [place] 11:48:00 [facility] meningococcal MCV4P meningococcal MCV4P 2020-04-17 Completed [place] 11:48:00 [facility] meningococcal MCV4P meningococcal MCV4P 2020-04-17 Completed [place] 11:48:00 [facility] meningococcal MCV4P meningococcal MCV4P 2020-04-17 Completed [place] 11:48:00 [facility] meningococcal MCV4P meningococcal MCV4P 2020-04-17 Completed [place] 11:48:00 [facility] meningococcal MCV4P meningococcal MCV4P 2020-04-17 Completed [place] 11:48:00 [facility] meningococcal MCV4P meningococcal MCV4P 2020-04-17 Completed [place] 11:48:00 [facility] meningococcal MCV4P meningococcal MCV4P Unknown Completed [facility] Vital Signs Vital Name Observation Time Observation Value Comments Source Body Weight 2023-08-14 00:00:00 2928 [oz_av] [facility] Height 2023-08-14 00:00:00 68 [in_i] [facility] s BMI (Body Mass 2023-08-14 00:00:00 27.8 kg/m2 [facility] s BP Systolic 2023-05-19 00:00:00 140 mm[Hg] [facility] s Body Weight 2023-05-19 00:00:00 2666 [oz_av] [facility] s BP Diastolic 2023-05-19 00:00:00 87 mm[Hg] [facility] Height 2023-05-19 00:00:00 68 [in_i] [facility] s BMI (Body Mass 2023-05-19 00:00:00 25.3 kg/m2 [facility] s BP Diastolic 2023-04-14 00:00:00 74 mm[Hg] [facility] s Height 2023-04-14 00:00:00 68 [in_i] [facility] s BMI (Body Mass 2023-04-14 00:00:00 25.1 kg/m2 [facility] s BP Systolic 2023-04-14 00:00:00 111 mm[Hg] [facility] s Body Weight 2023-04-14 00:00:00 2645 [oz_av] [facility] s BP Diastolic 2023-01-01 00:00:00 77 mm[Hg] [facility] s Height 2023-01-01 00:00:00 68 [in_i] [facility] s BMI (Body Mass 2023-01-01 00:00:00 26.9 kg/m2 [facility] s BP Systolic 2023-01-01 00:00:00 109 mm[Hg] [facility] s Body Weight 2023-01-01 00:00:00 2832 [oz_av] [facility] s BP Diastolic 2022-12-03 00:00:00 84 mm[Hg] [facility] Height 2022-12-03 00:00:00 68 [in_i] [facility] s BMI (Body Mass 2022-12-03 00:00:00 27.8 kg/m2 [facility] s BP Systolic 2022-12-03 00:00:00 133 mm[Hg] [facility] Body Weight 2022-12-03 00:00:00 2930.4 [oz_av] [facility] s BP Diastolic 2022-10-31 00:00:00 84 mm[Hg] [facility] s Height 2022-10-31 00:00:00 68 [in_i] [facility] s BMI (Body Mass 2022-10-31 00:00:00 30.7 kg/m2 [facility] s BP Systolic 2022-10-31 00:00:00 140 mm[Hg] [facility] Body Weight 2022-10-31 00:00:00 3232 [oz_av] [facility] s BP Diastolic 2022-10-07 00:00:00 92 mm[Hg] [facility] Height 2022-10-07 00:00:00 68 [in_i] [facility] s BMI (Body Mass 2022-10-07 00:00:00 31.2 kg/m2 [facility]) [facility] s BP Systolic 2022-10-07 00:00:00 140 mm[Hg] [facility] Body Weight 2022-10-07 00:00:00 3280 [oz_av] [facility] s BP Diastolic 2022-09-03 00:00:00 99 mm[Hg] [facility] Height 2022-09-03 00:00:00 68 [in_i] [facility] s BMI (Body Mass 2022-09-03 00:00:00 30.2 kg/m2 [facility]) [facility] s BP Systolic 2022-09-03 00:00:00 147 mm[Hg] [facility] s Body Weight 2022-09-03 00:00:00 3176 [oz_av] [facility] s BP Diastolic 2022-07-31 00:00:00 92 mm[Hg] [facility] s Height 2022-07-31 00:00:00 68 [in_i] [facility] s BMI (Body Mass 2022-07-31 00:00:00 30.7 kg/m2 [facility] s BP Systolic 2022-07-31 00:00:00 144 mm[Hg] [facility] Body Weight 2022-07-31 00:00:00 3232 [oz_av] [facility] s BP Diastolic 2022-07-03 00:00:00 84 mm[Hg] [facility] Height 2022-07-03 00:00:00 68 [in_i] [facility] BMI (Body Mass 2022-07-03 00:00:00 30.7 kg/m2 [facility] s BP Systolic 2022-07-03 00:00:00 138 mm[Hg] [facility] s Body Weight 2022-07-03 00:00:00 3232 [oz_av] [facility] s BP Diastolic 2022-01-31 00:00:00 90 mm[Hg] [facility] s Height 2022-01-31 00:00:00 68 [in_i] [facility] s BMI (Body Mass 2022-01-31 00:00:00 31.6 kg/m2 [facility] BP Systolic 2022-01-31 00:00:00 149 mm[Hg] [facility] s Body Weight 2022-01-31 00:00:00 3328 [oz_av] [facility] s BMI (Body Mass 2021-08-14 00:00:00 28.9 kg/m2 [facility]) [facility] BP Systolic 2021-08-14 00:00:00 121 mm[Hg] [facility] s Body Weight 2021-08-14 00:00:00 3040 [oz_av] [facility] s BP Diastolic 2021-08-14 00:00:00 82 mm[Hg] [facility] Height 2021-08-14 00:00:00 68 [in_i] [facility] s BP Diastolic 2021-05-29 00:00:00 92 mm[Hg] [facility] Height 2021-05-29 00:00:00 68 [in_i] [facility] s BMI (Body Mass 2021-05-29 00:00:00 30.4 kg/m2 [facility] s BP Systolic 2021-05-29 00:00:00 143 mm[Hg] [facility] s Body Weight 2021-05-29 00:00:00 3200 [oz_av] [facility] s Procedures This patient has no known procedures. Plan of Care Planned Activity Planned Date Details Comments Source Diagnostic Test 2022-07-03 CMP, serum or [place] [facility] Pending 00:00:00 plasma [code = Hospital Clin ics CMP, serum or plasma] Diagnostic Test 2022-07-03 lipid panel, [place] [facility] Pending 00:00:00 serum [code = Hospital Clini cs lipid panel, serum] Diagnostic Test 2022-07-03 CBC w/ auto diff [facility] Pending 00:00:00 [code = CBC w/ Hospital Clin ics auto diff] Diagnostic Test 2022-07-03 vitamin D, [place] [facility] Pending 00:00:00 25-hydroxy, [facility] total, serum [code = vitamin D, 25-hydroxy, total, serum] Diagnostic Test 2022-07-03 HbA1c (hemoglobin [facility] Pending 00:00:00 A1c), blood [code [facility] linics = HbA1c (hemoglobin A1c), blood] Diagnostic Test 2022-07-03 TSH + free T4, [place] [facility]unity Pending 00:00:00 serum [code = TSH [facility] + free T4, serum] Diagnostic Test 2022-07-03 vitamin B12 + [place] [facility] Pending 00:00:00 folate, serum or Hospital Cl inics blood [code = vitamin B12 + folate, serum or blood] Future Appointment 2023-09-01 [place] Leal [facility] 13:30:00 Eulogio [facility] [address]; [place] [address] Encounters Start End Encounter Admission Attending Care Care Encounter Source Date/Time Date/Time Type Type Clinicians Facility Department ID 2023-08-14 2023-08-14 Outpatient NEREYDAKarly [facility] [id number] [place] 00:00:00 00:00:00 110 [facility] 2023-08-14 2023-08-14 [facility] [place] [id number] [place] 00:00:00 00:00:00 Tyron, [facility] MSN, [employer], Hospital - ty WELDING INSTRUCTOR-C: [address] [place] [facility] [address] [facility], Clinic s [address], [address], [place], [place] MSN, [employer]C [id number] , Ph. 2023-06-16 2023-06-16 Outpatient SISSON_C [facility] [id number] [place] 00:00:00 00:00:00 912 Commun i ty Hospita l [facility] 2023-05-25 2023-05-25 Outpatient R KATHY BEE [facility] [id number] [facility] 15:30:00 15:30:00 CRISTAL KATHY [facility] 2023-05-19 2023-05-19 Outpatient SISSON_C [facility] [id number] [place] 00:00:00 00:00:00 815 Commun i ty Hospita l Clinics 2023-05-19 2023-05-19 [facility] [place] 15 [place] 00:00:00 00:00:00 Tyron [facility] MSN, [employer], Hospital - ty WELDING INSTRUCTOR-C: [address] [place] [facility] [address] [facility], Clinic s [address], [address], [place], [place] MSN, [facility] [id number] , Ph. 2023-04-14 2023-04-14 Outpatient SISSON_C [facility] [id number] [place] 00:00:00 00:00:00 711 Commun i ty Hospita l [facility] 2023-04-14 2023-04-14 [facility] [place] [id number] [place] 00:00:00 00:00:00 [facility]ron[facility]N, [employer], Hospital - ty WELDING INSTRUCTOR-C: [address] [place] [address] [facility], Clinic s [address], [address], [place] MSN, [employer]C [id number] , Ph. 2023-02-12 2023-02-12 Outpatient SISSON_C [facility] [id number] [place] 00:00:00 00:00:00 511 Commun i ty Hospita l Clinics 2023-01-01 2023-01-01 Outpatient SISSON_C [facility] [id number] [place] 00:00:00 00:00:00 330 Commun i ty Hospita l Clinics 2023-01-01 2023-01-01 [facility] [place] 00:00:00 00:00:00 Tyron [facility] uni MSN, [employer], Hospital - ty WELDING INSTRUCTOR-C: [address] [place] [facility], [facility] s [address], [facility] [address], [place] MSN, [employer]C [id number] , Ph. 2022-12-03 2022-12-03 [facility] [place] 00:00:00 00:00:00 Tyron [facility] MSN, [employer], Hospital - ty WELDING INSTRUCTOR-C: [address] [place] [facility]. [facility], [facility] s [address], [facility] [address], [place] MSN, [employer]C [id number] , Ph. 2022-11-19 2022-11-19 Outpatient SISSON_C [facility] [id number] [place] 00:00:00 00:00:00 215 Commun i ty Hospita l Clinics 2022-11-19 2022-11-19 Outpatient SISSON_C [facility] [id number] [place] 00:00:00 00:00:00 301 Commun i ty Hospita l Clinics 2022-10-31 2022-10-31 Outpatient SISSON_C [facility] [id number] [place] 00:00:00 00:00:00 127 Commun i ty Hospita l [facility] 2022-10-31 2022-10-31 [facility] [place] 00:00:00 00:00:00 Tyron, [facility] MSN, [employer], Hospital - ty WELDING INSTRUCTOR-C: [address] [place] [facility] [address] [facility], Clinic s [address], [address], [place] MSN, [employer]C [id number] , Ph. 2022-10-08 2022-10-08 Outpatient SISSON_C [facility] [id number] [place] 00:00:00 00:00:00 104 [facility] i ty Hospita l Clinics 2022-10-07 2022-10-07 Outpatient SISSON_C [facility] [id number] [place] 00:00:00 00:00:00 103 Commun i ty Hospita l Clinics 2022-10-07 2022-10-07 [facility] [place] 00:00:00 00:00:00 Tyron [facility] MSN, [employer], Hospital - ty WELDING INSTRUCTOR-C: [address] [place] [address] [facility], Clinic s [address], [address], [place] MSN, [employer]C [id number] , Ph. 2022-09-03 2022-09-03 Outpatient SISSON_C [facility] [id number] [place] 00:00:00 00:00:00 130 Commun i ty Hospita l Clinics 2022-09-03 2022-09-03 [facility] [place] [id number] [place] 00:00:00 00:00:00 Tyron [facility] MSN, [employer], Hospital - ty WELDING INSTRUCTOR-C: [address] [place] [address] [facility], Clinic s [address], [address], [place] MSN, [employer]C [id number] , Ph. 2022-07-31 2022-07-31 Outpatient SISSON_C [facility] [id number] [place] 00:00:00 00:00:00 027 Commun i ty Hospita l Clinics 2022-07-31 2022-07-31 [facility] [place] 00:00:00 00:00:00 Tyron [facility] uni MSN, [employer]EL[employer], Hospital - ty WELDING INSTRUCTOR-C: [address] [place] [facility] [facility], Clinic s [address], [facility] [address], [place] MSN, [employer]C [id number] , Ph. 2022-07-03 2022-07-03 Outpatient SISSON_C [facility] [id number] [place] 00:00:00 00:00:00 929 Commun i ty Hospita l [facility] 2022-07-03 2022-07-03 [facility] [place] 00:00:00 00:00:00 Tyron [facility] MSN, [employer]ELTER LINER, Hospital - ty WELDING INSTRUCTOR-C: [address] [place] [facility] [facility], Clinic s [address], [facility] [address], [place] MSN, [employer]-C [id number] , Ph. 2022-05-13 2022-05-13 Outpatient SISSON_C [facility] [id number] [place] 00:00:00 00:00:00 809 Commun i ty Hospita l Clinics 2022-04-09 2022-04-09 Outpatient SISSON_C [facility] [id number] [place] 12:50:00 12:50:00 706 Commun i ty Hospita l Clinics 2022-03-04 2022-03-04 Outpatient SISSON_C [facility] [id number] [place] 01:10:00 01:10:00 531 Commun i ty Hospita l Clinics 2022-01-31 2022-01-31 Outpatient SISSON_C [facility] [id number] [place] 09:22:00 09:22:00 429 Commun i ty Hospita l Clinics 2022-01-31 2022-01-31 Avni [facility] [place] 00:00:00 00:00:00 TyronPatience [facility] MSN, SMELTER LINER, Hospital - ty WELDING INSTRUCTOR-C: [address] [place] [facility] [facility], Clinic s [address], [facility] [address], Tyron, [place], [place] MSN, [employer]C [address] , Ph. 2022-01-31 2022-01-31 Outpatient Tyron [facility] [id number] 00:00:00 00:00:00 Avni [id number] 2022-01-14 2022-01-14 Outpatient SISSON_C [facility] [id number] [place] 02:34:00 02:34:00 412 Commun i ty Hospita l Clinics 2021-12-10 2021-12-10 Outpatient SISSON_C [facility] [id number] [place] 02:49:00 02:49:00 308 Commun i ty Hospita l Clinics 2021-11-07 2021-11-07 Outpatient SISSON_C [facility] [id number] [place] 04:48:00 04:48:00 203 Commun i ty Hospita l Clinics 2021-11-05 2021-11-05 Outpatient SISSON_C [facility] [id number] [place] 02:12:00 02:12:00 201 Commun i ty Hospita l Clinics 2021-10-01 2021-10-01 Outpatient SISSON_C [facility] [id number] [place] 04:32:00 04:32:00 228 Commun i ty Hospita l Clinics 2021-08-14 2021-08-14 Outpatient SISSON_C [facility] [id number] [place] 04:01:00 04:01:00 110 Commun i ty H[facility]ita [facility] Clinics 2021-08-14 2021-08-14 [id number] 00:00:00 00:00:00 Avni [id number] 2021-08-14 2021-08-14 [facility] [place] [facility] [place] [id number] [place] 00:00:00 00:00:00 Tyron, [facility] MSN, SMELTER LINER, Hospital - ty WELDING INSTRUCTOR-C: [address] [place] [facility], [facility] s [address], [facility] [address], [place] MSN, [employer]-C [id number] , Ph. 2021-05-29 2021-05-29 Outpatient SISSON_C [facility] [id number] [place] 11:58:00 11:58:00 825 Commun i ty Hospita l [facility] 2021-05-29 2021-05-29 [facility] [id number] 00:00:00 00:00:00 Avni [id number] 2021-05-29 2021-05-29 [facility] [place] 00:00:00 00:00:00 Tyron, [facility] MSN, SMELTER LINER, Hospital - ty WELDING INSTRUCTOR-C: [address] [place] [facility], [facility] s [address], [facility] [address], [place], [place] MSN, WELDING IN[employer]CTOR-C [address] , Ph. 2021-05-28 2021-05-28 Outpatient SISSON_C [facility] [id number] [place] 04:39:00 04:39:00 824 Commun i ty Hospita [facility] Clinics 2020-07-30 2020-07-30 Outpatient [facility] [id number] [facility] 16:00:00 16:00:00 [facility] Results This patient has no known results.
[2023-08-21] MEDS ORDERED: MORPHINE 4 MG/ML SYR ONE ×2 (22:26→23:54)
[2023-08-21] MEDS ORDERED: CEFTRIAXONE 1000 MG/VIAL ONE (22:26)
[2023-08-21] MEDS ORDERED: NA CHLORIDE 0.9% 50 ML ONE (22:27)
[2023-08-21] MEDS ORDERED: NA CHLORIDE 0.9% 2,000 ML ONE (22:27)
[2023-08-21] MEDS ORDERED: METRONIDAZOLE 500mg IVPB 500 MG/100 ML BAG IV ONE (22:27)
[2023-08-21 22:36] LABS: Absolute Lymphocytes (CBC) 0.7 K/uL (0.7-4.9); Hematocrit 34.4 % (36.0-45.0); Lymphocytes % 4.2 % (15.3-44.8); MPV 7.2 fL (7.6-11.3); Platelets 391 thou/uL (152-406); RBC Red Blood Cell Count 3.86 M/uL (3.86-4.86)
[2023-08-21] MEDS ORDERED: ONDANSETRON 4 MG/2 ML VIAL ONE (22:42)
[2023-08-21 23:02] LABS: Albumin 3.8 g/dL (3.4-5.0); Bilirubin Total 0.7 mg/dL (0.2-1.0); Potassium 3.5 mEq/L (3.5-5.1); Protein, Total 7.3 g/dL (6.4-8.2)
[2023-08-21 23:17] LABS: Specific Gravity 1.012 (1.005-1.030); Urine Bacteria None Seen /HPF (<20); Urine Bilirubin NEGATIVE (Negative); Urine Blood Trace (Negative); Urine Clarity Turbid (Clear); Urine Color Colorless (Yellow); Urine Crystals Unidentified Few /HPF (None Seen); Urine Glucose NEGATIVE (Negative); Urine Protein NEGATIVE (Negative); Urine RBC <5 /HPF (None Seen); Urine Urobilinogen Normal (Normal); Urine WBC Clump Rare /HPF (None Seen); Urine pH 5.5 (5.0-7.0)
[2023-08-21 23:18] LABS: Urine Mucus Slight /HPF (None Seen)
[2023-08-22 00:12] LABS: Specific Gravity 1.012 (1.005-1.030)
[2023-08-22] MEDS ORDERED: FENTANYL CITR 100 MCG/2 ML ONE (00:40)
[2023-08-22] MEDS ORDERED: HALOPERIDOL LACT 5 MG/ML INJ ONE (00:41)
--- NOTE | 2023-08-22 02:40 | EDPHYS ---
Physician Documentation [facility] Name: Lara Zamorano Age: 22 yrs Sex: Female : 2000 Arrival Date: 08/21/2023 Time: 21:55 Bed 6 Private MD: ED Physician Ponce Caceres HPI: 08/21 22:09 This 22 yrs old Female presents to ER via EMS with complaints of abd pain. ec2 22:09 Patient arrives today for evaluation of right lower quadrant abdominal pain. States ec2 that the pain started approximately 10 hours prior to arrival. Patient reports associated nausea, fever, no diarrhea symptoms. Patient reports no previous abdominal surgeries, does have a history of ovarian cyst. Patient reports no urinary complaints or vaginal complaints. 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 - Social history:: Smoking status: Patient denies any tobacco usage or history of. ROS: 22:09 Constitutional: as per hpi ec2 Exam: 22:09 Constitutional: GEN: NAD Head: atraumatic Eyes: EOMI Ears: External ears are ec2 normal. CV: tachycardia LUNGS: no respiratory distress ABD: non-distended, soft, tender in the right lower quadrant, no guarding, not rigid SKIN: no evidence of rashes MSK: no evidence of trauma NEURO: moves all extremities equally Vital Signs: 22:03 BP 140 / 84; Pulse 132; Resp 17; Temp 100.4(O); Pulse Ox 98% on R/A; Weight 65 kg; Pain nw1 8/10; 1118 01:16 BP 112 / 80; Pulse 107; Resp 16; Pulse Ox 99% ; la4 03:22 BP 105 / 79; Pulse 108; Resp 16; Temp 99.7; Pulse Ox 99% on R/A; la4 08/21 22:03 Pain Scale: Adult nw1 08/21 22:03 with movement, 1/10 with no movement. nw [place] Coma Score: 08/22 01:16 Eye Response: spontaneous(4). Motor Response: obeys commands(6). Verbal Response: la4 oriented(5). Total: 15. MDM: 08/21 22:00 Patient medically screened. ec2 22:09 Data reviewed: vital signs. ED course: Patient arrives today due to concern for right ec2 lower quadrant abdominal pain. Examination remarkable for tachycardic individual was objectively febrile who has right lower quadrant TTP. Will obtain septic work-up, CT abdomen pelvis, treat the patient pain with IV morphine and Zofran and give her crystalloid as well. Currently considering processes such as UTI, pyelonephritis, appendicitis. Will empirically give antibiotic therapy for abdominal pathology however no source identified.. 23:24 ED course: CBC remarkable for leukocytosis at 15.4. Metabolic profile with appropriate ec2 renal function. Urine is pertinent for leuk esterase present. Lactic within normal ranges. Negative testing. . 08/22 00:36 ED course: CT abdomen pelvis negative per radiology. Will obtain pelvic ultrasound to [facility] evaluate for ovarian pathology. We will also send COVID and flu swab.. 02:17 ED course: Sided ovarian cysts. Does show thickened endometrium with questionable fluid ec2 collection, patient is negative for . . 08/21 22:09 Order name: Blood Culture Adult (2) ec2 08/21 22:09 Order name: CBC with Diff; Complete Time: 23:24 ec2 08/21 22:09 Order name: CMP; Complete Time: 23:24 ec2 08/21 22:09 Order name: Lactate w/ 2H reflex if indic.; Complete Time: 23:24 ec2 08/21 22:09 Order name: Urinalysis w/ reflexes; Complete Time: 00:15 ec2 08/21 23:09 Order name: Test, Urine; Complete Time: 00:15 EDMS 08/22 00:36 Order name: COVID-19 SARS RT PCR; Complete Time: 01:18 ec2 08/22 00:36 Order name: Influenza Screen (a \T\ B); Complete Time: 01:18 ec2 08/22 03:06 Order name: Basic Metabolic Panel EDMS 08/22 03:06 Order name: Basic Metabolic Panel EDMS 08/22 03:06 Order name: Basic Metabolic Panel EDMS 08/22 03:06 Order name: Basic Metabolic Panel EDMS 08/22 03:06 Order name: CBC with Automated Diff EDMS 08/22 03:06 Order name: CBC with Automated Diff EDMS 08/22 03:06 Order name: CBC with Automated Diff EDMS 08/22 03:06 Order name: CBC with Automated Diff EDMS 08/22 03:06 Order name: Magnesium EDMS 08/22 03:06 Order name: Magnesium EDMS 08/22 03:06 Order name: Magnesium EDMS 08/22 03:06 Order name: Magnesium EDMS 08/22 03:06 Order name: Phosphorus EDMS 08/22 03:06 Order name: Phosphorus EDMS 08/22 03:06 Order name: Phosphorus EDMS 08/22 03:06 Order name: Phosphorus EDMS 08/21 22:09 Order name: CT Abd/Pelvis - IV Contrast Only ec2 08/22 00:35 Order name: US Pelvis Complete ec2 08/21 22:09 Order name: EKG; Complete Time: 22:10 ec2 08/21 22:09 Order name: Accucheck; Complete Time: 00:18 ec2 08/21 22:09 Order name: Cardiac monitoring; Complete Time: 23:46 ec2 08/21 22:09 Order name: EKG - Nurse/Tech; Complete Time: 23:47 ec2 08/21 22:09 Order name: IV Saline Lock - Large Bore; Complete Time: 23:47 ec2 08/21 22:09 Order name: Labs collected and sent; Complete Time: 23:47 ec2 08/21 22:09 Order name: O2 Per Protocol; Complete Time: 23:47 ec2 08/21 22:09 Order name: O2 Sat Monitoring; Complete Time: 23:47 ec2 08/21 22:09 Order name: Vital Signs; Complete Time: 23:47 ec2 Administered Medications: 08/21 22:41 Drug: Rocephin IV 1 grams IV at calculated rate once; Given slow IV push per pharmacy la4 instructions Route: IV; Rate: calculated rate; Site: right hand; 22:42 Drug: metroNIDAZOLE IVPB 500 mg 100 ml IVPB at 200 ml/hr once over 30 mins Volume: 100 la4 ml; Route: IVPB; Rate: 200 ml/hr; Infused Over: 30 mins; Site: right hand; 22:42 Drug: morphine IVP or IV 4 mg IVP once over 4 mins Route: IVP; Infused Over: 4 mins; la4 Site: right hand; 22:42 Drug: NS 0.9% IV 1000 ml IV at 1 bolus Per protocol; 1000 mL bolus Route: IV; Rate: 1 la4 bolus; Site: right hand; 22:42 Drug: Ondansetron IVP 4 mg IVP once; over 2 minutes Route: IVP; Site: right hand; la4 23:46 Drug: morphine IVP or IV 4 mg IVP once over 4 mins Route: IVP; Infused Over: 4 mins; la4 Site: right hand; 08/22 00:43 Drug: Haloperidol IVP 2.5 mg/50 mL 2.5 mg IVP once; Place patient on a front desk monitor la4 Route: IVP; Site: right hand; 00:43 Drug: fentaNYL (PF) IVP 50 mcg IVP once Route: IVP; Site: right hand; la4 Disposition Summary: 08/22/23 02:40 Hospitalization Ordered Notes: Hospitalization Status: Inpatient Admission ec2 Location: Telemetry/[facility] (Inpatient) ec2 Condition: Stable ec2 Problem: new ec2 Symptoms: have improved ec2 Bed/Room Type: Standard ec2 Provider: Skip Aguilar(08/22/23 02:46) ec2 Room Assignment: [facility](08/22/23 03:05) rv1 Diagnosis - Abdominal pain, unspecified ec2 Forms: - Medication Reconciliation Form ec2 - SBAR form ec2 - Leadership Thank You Letter ec2 Signatures: Dispatcher [employer] [facility] Graciela Velasco rv1 Ponce Caceres MD MD ec2 Good Byrd RN RN la4 Lelia Kaur RN RN nw1 Corrections: (The following items were deleted from the chart) 08/21 23:09 22:10 TEST, SERUM+SC.LAB.BRZ ordered. [facility] 08/22 02:46 02:40 Nilson Yeboah ec2 ec2 03:05 02:40 ec2 rv1
--- NOTE | 2023-08-22 02:40 | ER ---
Nurse's Notes [facility] Name: Lara Zamorano Age: 22 yrs Sex: Female : 2000 Arrival Date: 08/21/2023 Time: 21:55 Bed 6 Private MD: Diagnosis: Abdominal pain, unspecified Presentation: 08/21 22:03 Chief complaint: EMS states: Non radiating RLQ pain since noon today. States vomiting nw1 x2 since 1700. 100mcg of fentanyl and 4 mg of Zofran given. Coronavirus screen: Client denies travel out of the [place] in the last 14 days. At this time, the client does not indicate any symptoms associated with coronavirus-19. Ebola Screen: Patient negative for fever greater than or equal to 101.5 degrees Fahrenheit, and additional compatible Ebola Virus Disease symptoms Patient denies exposure to infectious person. Patient denies travel to an Ebola-affected area in the 21 days before illness onset. Initial Sepsis Screen: Does the patient meet any 2 criteria? HR > 90 bpm. Does the patient have a suspected source of infection? No. Patient's initial sepsis screen is negative. Risk Assessment: Do you want to hurt yourself or someone else? Patient reports no desire to harm self or others. Onset of symptoms was August 21, 2023 at 12:00. 22:03 Method Of Arrival: EMS: [facility] nw1 22:03 Acuity: SHEYLA 3 nw1 Triage Assessment: 22:07 General: Appears uncomfortable, well groomed, well developed, well nourished, Behavior nw1 is calm, cooperative, appropriate for age. Pain: Complains of pain in right lower quadrant. 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 - Social history:: Smoking status: Patient denies any tobacco usage or history of. Screenin:09 [facility] ED Fall Risk Assessment (Adult) History of falling in the last 3 months, nw1 including since admission No falls in past 3 months (0 pts) Confusion or Disorientation No (0 pts) Intoxicated or Sedated No (0 pts) Impaired Gait No (0 pts) Mobility Assist Device Used No (0 pt) Altered Elimination No (0 pt) Score/Fall Risk Level 0 - 2 = Low Risk. Abuse screen: Denies threats or abuse. Denies injuries from another. Nutritional screening: No deficits noted. Tuberculosis screening: No symptoms or risk factors identified. Assessment: 22:09 General: Appears uncomfortable, well groomed, well developed, well nourished, Behavior nw1 is calm, cooperative, appropriate for age, Reports fever for 0-12 hours. Pain: Complains of pain in abdomen and right lower quadrant Pain does not radiate. Pain at worst was 8 out of 10 on a pain scale. Quality of pain is described as aching, Pain began at noon today (08/21/23). Cardiovascular: Capillary refill < 3 seconds Rhythm is sinus tachycardia. Respiratory: Airway is patent Respiratory effort is even, unlabored, Respiratory pattern is regular, symmetrical. GI: Reports nausea, vomiting, since 1700 today- 08/21/23. 08/22 00:43 General: Appears distressed, uncomfortable, Behavior is cooperative, appropriate for la4 age, doubled over in pain guarding right lower quadrant abdomen. Mother and at pt bedside. Dr. Caceres notified and additional pain medication ordered. In to speak to pt and family concerning CT results and updated on plan of care to obtain ultrasound of ovaries. LMP reported to have been 08/10/2023. GI: Abdomen is flat, non-distended, Bowel sounds present X 4 quads. Abdomen is tender to palpation in right lower quadrant Patient currently denies. 03:21 General: Attempted to call report, notified nurse Bob RESENDIZ who will be caring for la4 patient is not available at this time and will return call to [facility] [id number] when available. 03:57 General: Hydrocodone not given at this time due to pt sleeping.. la4 Vital Signs: 08/21 22:03 BP 140 / 84; Pulse 132; Resp 17; Temp 100.4(O); Pulse Ox 98% on R/A; Weight 65 kg; Pain nw1 05/14; 08/22 01:16 BP 112 / 80; Pulse 107; Resp 16; Pulse Ox 99% ; la4 03:22 BP 105 / 79; Pulse 108; Resp 16; Temp 99.7; Pulse Ox 99% on R/A; la4 08/21 22:03 Pain Scale: Adult nw1 08/21 22:03 with movement, 1/10 with no movement. nw1 [place] Coma Score: 08/22 01:16 Eye Response: spontaneous(4). Motor Response: obeys commands(6). Verbal Response: la4 oriented(5). Total: 15. ED Course: 08/21 22:00 Patient arrived in ED. rv1 22:00 Ponce Caceres MD is Attending Physician. ec2 22:03 Lelia Kaur RN is Primary Nurse. nw1 22:07 Triage completed. nw1 22:07 Arm band placed on right wrist. nw1 22:09 Patient has correct armband on for positive identification. Placed in gown. Bed in low nw1 position. Call light in reach. Side rails up X2. Adult w/ patient. Provided Education on: POC. Client placed on continuous cardiac and pulse oximetry monitoring. NIBP monitoring applied. copy chief on. Pulse ox on. NIBP on. Door closed. Noise minimized. Warm blanket given. Ice pack to injury. 22:09 No provider procedures requiring assistance completed. nw1 23:46 CT Abd/Pelvis - IV Contrast Only Sent. la4 23:59 CT Abd/Pelvis - IV Contrast Only In Process Unspecified. EDMS 08/22 00:39 COVID-19 SARS RT PCR Sent. nw1 00:39 Influenza Screen (a \T\ B) Sent. nw1 01:23 US Pelvis Complete Sent. la4 01:37 US Pelvis Complete In Process Unspecified. EDMS 02:40 Nilson Yeboah MD is Hospitalizing Provider. ec2 02:46 Skip Aguilar is Hospitalizing Provider. ec2 03:49 Patient admitted, IV remains in place. la4 Administered Medications: 08/21 22:41 Drug: Rocephin IV 1 grams IV at calculated rate once; Given slow IV push per pharmacy la4 instructions Route: IV; Rate: calculated rate; Site: right hand; 22:42 Drug: metroNIDAZOLE IVPB 500 mg 100 ml IVPB at 200 ml/hr once over 30 mins Volume: 100 la4 ml; Route: IVPB; Rate: 200 ml/hr; Infused Over: 30 mins; Site: right hand; 22:42 Drug: morphine IVP or IV 4 mg IVP once over 4 mins Route: IVP; Infused Over: 4 mins; la4 Site: right hand; 22:42 Drug: NS 0.9% IV 1000 ml IV at 1 bolus Per protocol; 1000 mL bolus Route: IV; Rate: 1 la4 bolus; Site: right hand; 22:42 Drug: Ondansetron IVP 4 mg IVP once; over 2 minutes Route: IVP; Site: right hand; la4 23:46 Drug: morphine IVP or IV 4 mg IVP once over 4 mins Route: IVP; Infused Over: 4 mins; la4 Site: right hand; 08/22 00:43 Drug: Haloperidol IVP 2.5 mg/50 mL 2.5 mg IVP once; Place patient on a private security guard la4 Route: IVP; Site: right hand; 00:43 Drug: fentaNYL (PF) IVP 50 mcg IVP once Route: IVP; Site: right hand; la4 Medication: 08/21 22:09 VIS not applicable for this client. nw1 Outcome: 08/22 02:40 Decision to Hospitalize by Provider. ec2 03:49 Admitted to Med/surg accompanied by tech, via stretcher, Report called to Bob segovia 03:49 Condition: stable 03:49 Instructed on the need for admit, 04:08 Patient left the ED. nw1 Signatures: Dispatcher [employer] Graciela Huerta rv1 Ponce Caceres MD MD ec2 Good Byrd RN RN la4 Lelia Kaur RN RN nw1
[2023-08-22] MEDS ORDERED: ACETAMINOPHEN 500 MG TAB PO PRN (03:00)
[2023-08-22] MEDS ORDERED: MAGNESIUM HYDROXIDE 8% 30 ML PO PRN (03:00)
[2023-08-22] MEDS ORDERED: SODIUM CHLORIDE 0.9% 10ML INJ IV PRN (03:07)
--- NOTE | 2023-08-22 03:15 | P.HP ---
Certification for Inpatient Patient admitted to: Observation With expected LOS: <2 Midnights Practitioner: I am a practitioner with admitting privileges, knowledge of patient current condition, hospital course, and medical plan of care. Services: Services provided to patient in accordance with Admission requirements found in Title 42 Section 412.3 of the Code of Federal Regulations Patient History Date of Service: 08/22/23 Reason for admission: Abdominal pain right lower quadrant History of Present Illness: Ms. Bermudez is a 22-year-old female patient presenting to the emergency room via EMS with complaints of abdominal pain patient reports that the pain started almost 10 hours before the patient's arrival to the ED. Patient report the pain is associated with nausea, fever. Patient patient reports the pain is on the right lower quadrant. Pain severity 10 out of 10 relieved with analgesics given in the emergency room. Patient denies no diarrhea symptoms. Patient denies chest pain, discomfort or shortness of breath. Patient reports her LMP is 08/10/2023. ED course Blood pressure 140/84, heart rate 132/min respiration 17, temperature 100.4, SPO2 98% on room air. EKG showing sinus tachycardia. Initial CBC remarkable for leukocytosis at 15.[address] abdomen and pelvis is negative. Patient is negative for . Admitting the patient for abdominal pain, UTI. Allergies lidocaine Allergy (Unverified 04/25/18 21:52) Unknown Home medications list reviewed: Yes - Past Medical/Surgical History Diabetic: No -: Left ovarian cyst rupture -: none Psychosocial/ Personal History: Lives at home - Family History Father -: Heart disease Mother -: Other (see notes) (Ovarian cyst) - Social History Smoking Status: Never smoker Alcohol use: Yes CD- Drugs: No Review of Systems 10-point ROS is otherwise unremarkable Physical Examination - Physical Exam General: Alert, Oriented x3 HEENT: Atraumatic, Normocephalic, PERRLA Neck: Supple, 2+ carotid pulse no bruit Respiratory: Clear to auscultation bilaterally, Normal air movement Cardiovascular: No edema, Normal pulses, Regular rate/rhythm, Normal S1 S2 Capillary refill: <2 Seconds Gastrointestinal: Normal bowel sounds, Soft and benign, Other (Right lower quadrant pain ), Tenderness, Guarding Musculoskeletal: No clubbing, No swelling, No contractures Integumentary: No rashes, No breakdown, No significant lesion Neurological: Normal gait, Normal speech, Normal affect - Studies Laboratory Data (last 24 hrs) 08/21/23 08/21/23 22:21 22:21 WBC 15.40 H Hgb 11.6 L Hct 34.4 L Plt Count 391 Sodium 135 L Potassium 3.5 BUN 12 Creatinine 0.71 Glucose 117 H Total Bilirubin 0.7 AST 19 ALT 25 Alkaline Phosphatase 61 Microbiology Data (last 24 hrs): 08/22/23 00:38 Nasopharnyx Influenza Type A Antigen Screen - Final 08/22/23 00:38 Nasopharnyx Influenza Type B Antigen Screen - Final Assessment and Plan - Problems (Diagnosis) (1) Abdominal pain, right lower quadrant Current Visit: No Status: Acute Plan: Acute, abdominal pain started about 10 hours before arriving to the ER. Patient is febrile, tachycardic. WBC 15.4, initial lactic acid is negative. Initial CT scan and ultrasound negative Patient was given analgesics in the ER Admitted the patient for further management of abdominal pain pain and to monitor IV hydration, antibiotics Start diet as tolerated (2) UTI (urinary tract infection) Current Visit: No Status: Acute Plan: Acute right lower abdominal pain UA shows very turbid urine Patient started on IV hydration IV antibiotics, will continue to monitor (3) Sepsis Current Visit: No Status: Acute Plan: Acute, likely secondary to UTI Patient meets SIRS criteria based on temperature > 100.4 F HR > 90 bpm, and WBC > 12,000 or < 4,000, or > 10% bands and the suspected source is unidentified. Vital signs blood pressure 140/84, heart rate 132, temperature 100.4, SPO2 98% on room air Initial leukocytosis 15.4, turbid urine normal lactic acid 1.4, Plan: - Sepsis order set was initiated - Initial Lactate was1.4 - Blood cultures drawn before antibiotics were given after antibiotics were given - Broad spectrum antibiotics started - In regards to fluids: Normal saline 100 mL/h, - 30 mL/kg of IV fluids was not administered given SBP > 90, MAP > 65, lactic acid < 4 Qualifiers: Sepsis type: sepsis due to unspecified organism Severe sepsis acute organ dysfunction type: unspecified Severe sepsis shock status: without septic shock Discharge Plan: Home Plan to discharge in: 24 Hours - Advance Directives Does patient have a Living Will: No Does patient have a Durable POA for Healthcare: No - Code Status/Comfort Care Code Status Assessed: Yes (Full code) Code Status: Full Code Physician Review: Patient Assessed, Agree with Above Assessment and Plan Critical Care: No Time Spent Managing Pts Care (In Minutes): 55 (Minutes)
[2023-08-22 04:15] VITALS: O2SAT 99
[2023-08-22] MEDS ORDERED: ONDANSETRON 4 MG/2 ML VIAL IV PRN (04:30)
[2023-08-22 04:39] VITALS: BMI 27.9
[2023-08-22] MEDS: NA CHLORIDE 0.9% 1,000 ML IV SCH ×2 (04:44→15:54)
[2023-08-22] MEDS ORDERED: POTASSIUM CL SA 10 MEQ TAB PO ONE (09:00)
[2023-08-22] MEDS ORDERED: METRONIDAZOLE 500mg IVPB 500 MG/100 ML BAG IV SCH (09:00)
[2023-08-22] MEDS ORDERED: PANTOPRAZOLE 40 MG INJ IVP SCH (09:00)
[2023-08-22] MEDS ORDERED: ENOXAPARIN 40 MG/0.4 ML SQ SCH (09:00)
[2023-08-22] MEDS ORDERED: CEFTRIAXONE 1,000 MG in NA CHLORIDE 0.9% 50 ML IVPB SCH (09:00)
[2023-08-22] MEDS ORDERED: HYDROCODONE/APAP 5/325 MG TAB PO ONE (09:01)
[2023-08-22 10:15] LABS: Absolute Lymphocytes (CBC) 0.6 K/uL (0.7-4.9); Hematocrit 37.4 % (36.0-45.0); MCV 89.6 fL (80-100); MPV 7.2 fL (7.6-11.3); Platelets 356 thou/uL (152-406); RBC Red Blood Cell Count 4.17 M/uL (3.86-4.86)
[2023-08-22 10:31] LABS: Potassium 3.6 mEq/L (3.5-5.1)
[2023-08-22] MEDS ORDERED: HYDROCODONE/APAP 5/325 MG TAB PO PRN (11:48)
[2023-08-22] MEDS ORDERED: KETOROLAC 30 MG/ML INJ IV ONE (15:49)
[2023-08-22 16:30] VITALS: BP 131/86; TEMP 97.8
--- NOTE | 2023-08-22 17:28 | P.DS ---
Admission Date: 08/22/23 Discharge Date: 08/22/23 Disposition: ROUTINE DISCHARGE Discharge Condition: FAIR Reason for Admission: Abdominal pain right lower quadrant - Problems (1) Abdominal pain, right lower quadrant Current Visit: No Status: Acute (2) Leukocytosis Current Visit: No Status: Acute (3) UTI (urinary tract infection) Current Visit: No Status: Acute (4) Sepsis Current Visit: No Status: Acute Qualifiers: Sepsis type: sepsis due to unspecified organism Severe sepsis acute organ dysfunction type: unspecified Severe sepsis shock status: without septic shock Brief History of Present Illness: Ms. Bermudez is a 22-year-old female patient presenting to the emergency room via EMS with complaints of abdominal pain. Patient reported that the pain started almost 10 hours before the patient's arrival to the ED. Patient the pain was associated with nausea, fever. Patient patient reports the pain is on the right lower quadrant. Pain severity 10 out of 10 relieved with analgesics given in the emergency room. Patient denies no diarrhea symptoms. Patient denies chest pain, discomfort or shortness of breath. Patient reports her LMP is 08/10/2023. ED course Blood pressure 140/84, heart rate 132/min respiration 17, temperature 100.4, SPO2 98% on room air. EKG showing sinus tachycardia. Initial CBC remarkable for leukocytosis at 15.[address] abdomen and pelvis is negative. test negative Patient hospitalized for further management. Hospital Course: Patient was treated with supportive measures including IV hydration, IV Rocephin for possible UTI. UA did not show significant evidence of UTI and did not meet criteria for culture. Patient nausea and vomiting resolved. She tolerated regular diet. She denied any dysuria or urinary frequency. She had initial leukocytosis which resolved. Patient's pain probably related to ovarian cyst. She is discharged with analgesics for pain and antibiotics for possible UTI. Vital Signs/Physical Exam: Temp Pulse Resp BP Pulse Ox 97.8 F 91 H 18 131/86 98 08/22/23 16:00 08/22/23 16:00 08/22/23 16:00 08/22/23 16:00 08/22/23 16:00 General: Alert, In no apparent distress HEENT: Mucous membr. moist/pink Neck: Supple, JVD not distended Respiratory: Clear to auscultation bilaterally, Normal air movement Cardiovascular: No edema, Regular rate/rhythm, Normal S1 S2 Gastrointestinal: Normal bowel sounds, Soft and benign, Non-distended Musculoskeletal: No swelling Integumentary: No rashes, No cyanosis Neurological: Normal strength at 5/5 x4 extr Laboratory Data at Discharge: WBC 7.60 thou/uL (4.3-10.9) 08/22/23 10:00 Hgb 12.6 g/dL (12.0-15.0) D 08/22/23 10:00 Hct 37.4 % (36.0-45.0) 08/22/23 10:00 Plt Count 356 thou/uL (152-406) 08/22/23 10:00 Sodium 139 mEq/L (136-145) 08/22/23 10:00 Potassium 3.6 mEq/L (3.5-5.1) 08/22/23 10:00 BUN 6 mg/dL (7-18) L 08/22/23 10:00 Creatinine 0.72 mg/dL (0.55-1.02) 08/22/23 10:00 Glucose 120 mg/dL (74-106) H 08/22/23 10:00 Total Bilirubin 0.7 mg/dL (0.2-1.0) 08/21/23 22:21 AST 19 U/L (15-37) 08/21/23 22:21 ALT 25 U/L (13-56) 08/21/23 22:21 Alkaline Phosphatase 61 U/L (45-117) 08/21/23 22:21 Home Medications: Cariprazine HCl [Vraylar] 1 tab PO DAILY 08/22/23 Ciprofloxacin HCl [Cipro] 500 mg PO BID #14 tab 08/22/23 Hydrocodone 10/APAP 325 [[place] 10/325] 1 tab PO Q6H PRN #15 tab 08/22/23 Venlafaxine HCl *Xr* [Effexor XR] 1 cap PO DAILY 08/22/23 New Medications: Ciprofloxacin HCl [Cipro] 500 mg PO BID #14 tab Hydrocodone 10/APAP 325 [[place] 10/325] 1 tab PO Q6H PRN #15 tab PRN Reason: Pain Diet: Regular Activity: Ad gaviota Followup: NONE,NONE [Primary Care Provider] - Time spent managing pt's care (in minutes): 28
--- NOTE | 2023-08-22 20:43 | RAD REPORT ---
EXAM DESCRIPTION: US - Pelvis Complete - 08/22/2023 1:35 am CLINICAL HISTORY: ABD PAIN TECHNIQUE: Real-time complete transabdominal pelvic ultrasound with image documentation. COMPARISON: Abdomen pelvis CT dated 08/21/2023 FINDINGS: Uterus/cervix: The uterus is anteverted and measures 7.3 x 3.2 x 4.8 cm. The endometri al stripe measures 15 mm in thickness. There is a small elongated area of fluid density within the endometrium measuring 11 x 4 mm. No myometrial mass. Right ovary: The right ovary measures 3.4 x 1.8 x 2.3 cm. Normal blood flow. Left ovary: The left ovary measures 4 x 3.3 x 3.8 cm. There is a 1.9 x 2.4 x 2.3 cm anechoic/simp le cyst. Normal blood flow. Free fluid: No free fluid. Bladder: Unremarkable as visualized. Wall is normal thickness for degree of distention. IMPRESSION: 1. 2.4 cm left ovarian cyst. No follow-up imaging is necessary. 2. Top normal thickness endometrium which can be seen during the secretory phase of menstruation. Small elongated fluid collection/cyst within the endometrium of uncertain etiology. This may repre sent small amount of endometrial fluid, a subendometrial cyst or in the appropriate clinical setting an early gestational sac. Please correlate clinically. If not already done, consider correlation with beta hCG levels. Electronically signed by: Brock Denis MD 08/22/2023 02:12 AM DENTURE WAXER Due to temporary technical issues with the PACS/Fluency reporting system, reports are being signed by the in house radiologists without review as a courtesy to insure prompt reporting. The interpreting radiologist is fully responsible for the content of the report.
== END 2023-08-22 18:06 | disposition home or self-care (01) ==
LOC: ER 21:55 → 4TH 08-22 03:28
PROVIDERS: ADMIT Internal Medicine; ATTEND Internal Medicine
DX: A41.9 Sepsis, unspecified organism (principal); D72.829 Elevated white blood cell count, unspecified; R10.31 Right lower quadrant pain; R11.2 Nausea with vomiting, unspecified; N83.202 Unspecified ovarian cyst, left side; Z11.52 Encounter for screening for COVID-19
CPT/HCPCS: 36415; 74177; 76856; 80048; 80053; 81001; 81025; 83605; 85025; 87040; 87635; 87804; 96374; 96375; 99285; C9113; G0378; J0696; J1630; J1650; J2405; J3010; J7030; Q9967

== ENCOUNTER → 2023-11-11 | Emergency (ER) | payer OTHER, SELFPAY ==
[~2023-11-11] MED LIST: HYDROCODONE/APAP 5/325 MG TAB ONE; IBUPROFEN 200 MG TAB PO ONE; MORPHINE 4 MG/ML SYR ONE
--- OUTSIDE RECORDS SUMMARY | 2023-11-11 17:11 | XMS REPORT | Continuity of Care Document ---
Author Name Unknown Address [address] [facility] [address] [place] [address] [facility] Address [address] [facility] [place] [address] Care Team Providers Care Dean For Student Affairs Name Role Phone AVNI ACKERMAN Primary Care Physician Unavailab le DAISHA_GCBZW_Kalylea_S Attending Clinician Unavaila ble SISSON_C Attending Clinician Unavailable GRACE SHIELDS Attending Clinician Unavailable Grace Shields NP Attending Clinician [phone] KATHY BEE Attending Clinician UnavailKATHY Giraldo Attending Clinician Unavaila Avni Loco Attending Clinician [phone] MILAGRO FRANKLIN Attending Clinician Unavailable DAISHA_GCBZW_Kadiyala_S Admitting Clinician Unavaila moses GOMESSON_C Admitting Clinician Unavailable GRACE SHIELSD Admitting Clinician Unavailable Payers Payer Name Policy Type Policy Number Effective Date Expirati on Date Source AETSAULO (PPO) [id number] 2002 00:00:00 2004 00:00:00 HARPER EDDY (PPO) [id number] 2022 00:00:00 TUTULAN SARAH BETH [id number] 2022 00:00:00 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 Active or passive immunizati on Active or Passive Immunizati on Problem Active 04-17 00:00: 00 [facility] Abnormal blood pressure Abnormal Blood Pressure Problem Active 04-17 00:00: 00 [facility] Allergies, Adverse Reactions, Alerts Allergy Name Allergy Type Status Severity Reaction(s) Onset Date Inactive Date Treating Clinician Comments Source Lidocain e Propensi ty to adverse reaction s Active Shortness of Breath 2019-10 00:00: 00 [facility] LIDOCAIN E DRUG INGREDI Active SOB 2019-10 00:00: 00 [facility] Lidocain e Allergy to substanc e Active Severe Hives [facility] NO KNOWN ALLERGIE S Drug Class Active [facility] Social History Social Habit Start Date Stop Date Quantity Comments [facility] use and exposure 2020-07-30 00:00:00 2020-07-30 00:00:00 Former smokeless tobacco user [facility] Alcohol intake 2020-07-30 00:00:00 2020-07-30 00:00:00 Current drinker of alcohol (finding) [facility] History of Social function 2020-07-30 00:00:00 2020-07-30 00:00:00 [facility] History of tobacco use 2019-09-28 00:00:00 Cigarette Smoker [facility] Sex Assigned At 2000 00:00:00 2000 00:00:00 [facility] Smoking Status Start Date Stop Date Source Ex-smoker 2020-07-30 00:00:2020-07-30 00:00:00 [facility] Medications Ordered Medication Name Filled Medication Name Start Date Stop Date Current Medication? Ordering Clinician Indication Dosage Frequency Signature (SIG) Comments Components Source naproxen (NAPROSYN) tablet 500 mg 10-28 23:00: 00 Yes 500mg 500 mg, Oral, BID MEALS, First dose on Thu10/28/23 at 1700, Until Discontinu ed, Routine [facility] iopamidol (ISOVUE 370-500 mL) injection 80 mL 10-28 19:30: 00 10-28 19:30 :00 No [id number] 80mL 80 mL, Intravenou s, ONCE, 1 dose, On Thu10/28/23 at 1330, Routine [facility] dicyclomine (BENTYL) tablet 20 mg 10-28 19:15: 00 10-28 19:23 :00 No 20mg 20 mg, Oral, ONCE, 1 dose, On Thu10/28/23 at 1315, DEVENDRA [facility] ketorolac (TORADOL) injection 30 mg 10-28 17:15: 00 10-28 16:22 :00 No 30mg 30 mg, Slow IV Push, ONCE, 1 dose, On Thu10/28/23 at 1115, Routine [facility] ondansetron (ZOFRAN (PF)) injection 4 mg 10-28 16:15: 00 10-28 16:21 :00 No 4mg 4 mg, Slow IV Push, ONCE, 1 dose, On Thu10/28/23 at 1015, DEVENDRA [facility] venlafaxine HCl (EFFEXOR ORAL) 10-28 14:04: 01 Yes Take by mouth. [facility] clonazepam (KLONOPIN ORAL) 10-28 14:04: 01 Yes Take by mouth. [facility] oxybutynin 10 mg 24 hr tablet 10-28 00:00: 00 Yes [id number] 10mg Take 1 tablet by mouth every 24 (twenty-fo ur) hours as needed for Pain (scale 4-6) or Pain (scale 7-10) for up to [address] [facility] naproxen 500 mg tablet 1-24 00:00: 00 11-05 05:59 :00 Yes [id number] 500mg Take 1 tablet by mouth in the morning and 1 tablet in the evening. Take with meals. Do all this for [address] [facility] LICE TREATMENT, PERMETHRIN, 1 % lotion 8-19 00:00: 00 10-28 00:00 :00 No APPLY TOPICALLY DIRECTED FOR [address] [facility] hydrOXYzine 25 mg tablet 7- 00:00: 10-28 00:00 :00 No 1 po q 4-6 hours as needed for itching [facility] Ambien CR 6.25 mg tablet,exte nded release Take 1 tablet as needed by oral route at bedtime. Ambien CR 6.25 mg tablet,exte nded release Take 1 tablet as needed by oral route at bedtime. No 1 Ambien CR 6.25 mg tablet,ext ended release Take 1 tablet as needed by oral route at bedtime. [facility] ergocalcife rol (vitamin D2) 1,250 mcg (50,000 unit) capsule TAKE 1 CAPSULE EVERY WEEK BY ORAL ROUTE. ergocalcife rol (vitamin D2) 1,250 mcg (50,000 unit) capsule TAKE 1 CAPSULE EVERY WEEK BY ORAL ROUTE. No ergocalcif ta (vitamin D2) 1,250 mcg (50,000 unit) capsule TAKE 1 CAPSULE EVERY WEEK BY ORAL ROUTE. [facility] lisinopril 10 mg tablet TAKE 1 TABLET BY MOUTH EVERY DAY lisinopril 10 mg tablet TAKE 1 TABLET BY MOUTH EVERY DAY No lisinopril 10 mg tablet TAKE 1 TABLET BY MOUTH EVERY DAY [facility] sertraline 100 mg tablet TAKE 1 TABLET BY MOUTH EVERY DAY sertraline 100 mg tablet TAKE 1 TABLET BY MOUTH EVERY DAY No sertraline 100 mg tablet TAKE 1 TABLET BY MOUTH EVERY DAY [facility] acetaminoph en 300 mg-codeine 30 mg tablet TAKE 1 TABLET BY MOUTH EVERY 6 HOURS NEEDED acetaminoph en 300 mg-codeine 30 mg tablet TAKE 1 TABLET BY MOUTH EVERY 6 HOURS NEEDED No acetaminop hen 300 mg-codeine 30 mg tablet TAKE 1 TABLET BY MOUTH EVERY 6 HOURS NEEDED [facility] drospirenon e 3 mg-ethinyl estradiol 0.02 mg tablet Take 1 active tablet orally once daily at the same time. Take active pills only. drospirenon e 3 mg-ethinyl estradiol 0.02 mg tablet Take 1 active tablet orally once daily at the same time. Take active pills only. No drospireno ne 3 mg-ethinyl estradiol 0.02 mg tablet Take 1 active tablet orally once daily at the same time. Take active pills only. [facility] ergocalcife rol (vitamin D2) 1,250 mcg (50,000 unit) capsule TAKE 1 CAPSULE EVERY WEEK BY ORAL ROUTE. ergocalcife rol (vitamin D2) 1,250 mcg (50,000 unit) capsule TAKE 1 CAPSULE EVERY WEEK BY ORAL ROUTE. No ergocalcif ta (vitamin D2) 1,250 mcg (50,000 unit) capsule TAKE 1 CAPSULE EVERY WEEK BY ORAL ROUTE. [facility] hydrochloro thiazide 12.5 mg capsule Take 1 capsule every day by oral route for 90 days. hydrochloro thiazide 12.5 mg capsule Take 1 capsule every day by oral route for 90 days. No 1capsul e(s) Q1D hydrochlor othiazide 12.5 mg capsule Take 1 capsule every day by oral route for 90 days. [facility] phentermine 37.5 mg tablet Take 1 tablet every day by oral route. phentermine 37.5 mg tablet Take 1 tablet every day by oral route. No 1 Q1D phentermin e 37.5 mg tablet Take 1 tablet every day by oral route. [facility] sertraline 100 mg tablet TAKE 1 TABLET BY MOUTH EVERY DAY sertraline 100 mg tablet TAKE 1 TABLET BY MOUTH EVERY DAY No sertraline 100 mg tablet TAKE 1 TABLET BY MOUTH EVERY DAY [facility] zolpidem ER 6.25 mg tablet,exte nded release,mul tiphase TAKE 1 TABLET BY MOUTH EVERY DAY AT BEDTIME NEEDED zolpidem ER 6.25 mg tablet,exte nded release,mul tiphase TAKE 1 TABLET BY MOUTH EVERY DAY AT BEDTIME NEEDED No zolpidem ER 6.25 mg tablet,ext ended release,mu ltiphase TAKE 1 TABLET BY MOUTH EVERY DAY AT BEDTIME NEEDED [facility] Bystolic 10 mg tablet Take 1 tablet every day by oral route for 90 days. Bystolic 10 mg tablet Take 1 tablet every day by oral route for 90 days. No 1 Q1D Bystolic 10 mg tablet Take 1 tablet every day by oral route for 90 days. [facility] drospirenon e 3 mg-ethinyl estradiol 0.02 mg tablet Take 1 active tablet orally once daily at the same time. Take active pills only. drospirenon e 3 mg-ethinyl estradiol 0.02 mg tablet Take 1 active tablet orally once daily at the same time. Take active pills only. No drospireno ne 3 mg-ethinyl estradiol 0.02 mg tablet Take 1 active tablet orally once daily at the same time. Take active pills only. [facility] ergocalcife rol (vitamin D2) 1,250 mcg (50,000 unit) capsule TAKE 1 CAPSULE EVERY WEEK BY ORAL ROUTE. ergocalcife rol (vitamin D2) 1,250 mcg (50,000 unit) capsule TAKE 1 CAPSULE EVERY WEEK BY ORAL ROUTE. No ergocalcif ta (vitamin D2) 1,250 mcg (50,000 unit) capsule TAKE 1 CAPSULE EVERY WEEK BY ORAL ROUTE. [facility] hydrochloro thiazide 25 mg tablet Take 1 tablet every day by oral route for 90 days. hydrochloro thiazide 25 mg tablet Take 1 tablet every day by oral route for 90 days. No 1 Q1D hydrochlor othiazide 25 mg tablet Take 1 tablet every day by oral route for 90 days. [facility] sertraline 100 mg tablet TAKE 1 TABLET BY MOUTH EVERY DAY sertraline 100 mg tablet TAKE 1 TABLET BY MOUTH EVERY DAY No sertraline 100 mg tablet TAKE 1 TABLET BY MOUTH EVERY DAY [facility] zolpidem ER 6.25 mg tablet,exte nded release,mul tiphase TAKE 1 TABLET BY MOUTH EVERY DAY AT BEDTIME NEEDED zolpidem ER 6.25 mg tablet,exte nded release,mul tiphase TAKE 1 TABLET BY MOUTH EVERY DAY AT BEDTIME NEEDED No zolpidem ER 6.25 mg tablet,ext ended release,mu ltiphase TAKE 1 TABLET BY MOUTH EVERY DAY AT BEDTIME NEEDED [facility] drospirenon e 3 mg-ethinyl estradiol 0.02 mg tablet Take 1 active tablet orally once daily at the same time. Take active pills only. drospirenon e 3 mg-ethinyl estradiol 0.02 mg tablet Take 1 active tablet orally once daily at the same time. Take active pills only. No drospireno ne 3 mg-ethinyl estradiol 0.02 mg tablet Take 1 active tablet orally once daily at the same time. Take active pills only. [facility] ergocalcife rol (vitamin D2) 1,250 mcg (50,000 unit) capsule TAKE 1 CAPSULE EVERY WEEK BY ORAL ROUTE. ergocalcife rol (vitamin D2) 1,250 mcg (50,000 unit) capsule TAKE 1 CAPSULE EVERY WEEK BY ORAL ROUTE. No ergocalcif ta (vitamin D2) 1,250 mcg (50,000 unit) capsule TAKE 1 CAPSULE EVERY WEEK BY ORAL ROUTE. [facility] hydrochloro thiazide 25 mg tablet TAKE 1 TABLET BY MOUTH EVERY DAY hydrochloro thiazide 25 mg tablet TAKE 1 TABLET BY MOUTH EVERY DAY No hydrochlor othiazide 25 mg tablet TAKE 1 TABLET BY MOUTH EVERY DAY [facility] nebivolol 10 mg tablet TAKE 1 TABLET BY MOUTH EVERY DAY nebivolol 10 mg tablet TAKE 1 TABLET BY MOUTH EVERY DAY No nebivolol 10 mg tablet TAKE 1 TABLET BY MOUTH EVERY DAY [facility] phentermine 37.5 mg tablet TAKE 1 TABLET BY MOUTH EVERY DAY phentermine 37.5 mg tablet TAKE 1 TABLET BY MOUTH EVERY DAY No phentermin e 37.5 mg tablet TAKE 1 TABLET BY MOUTH EVERY DAY [facility] sertraline 100 mg tablet TAKE 1 TABLET BY MOUTH EVERY DAY sertraline 100 mg tablet TAKE 1 TABLET BY MOUTH EVERY DAY No sertraline 100 mg tablet TAKE 1 TABLET BY MOUTH EVERY DAY [facility] Ubrelvy 100 mg tablet Take 1 tablet at onset of headache, may repeat x 1 in 2 hours if not relieved. Max dose 200 mg/24 hours Ubrelvy 100 mg tablet Take 1 tablet at onset of headache, may repeat x 1 in 2 hours if not relieved. Max dose 200 mg/24 hours No Ubrelvy 100 mg tablet Take 1 tablet at onset of headache, may repeat x 1 in 2 hours if not relieved. Max dose 200 mg/24 hours [facility] zolpidem ER 6.25 mg tablet,exte nded release,mul tiphase TAKE 1 TABLET BY MOUTH EVERY DAY AT BEDTIME NEEDED zolpidem ER 6.25 mg tablet,exte nded release,mul tiphase TAKE 1 TABLET BY MOUTH EVERY DAY AT BEDTIME NEEDED No zolpidem ER 6.25 mg tablet,ext ended release,mu ltiphase TAKE 1 TABLET BY MOUTH EVERY DAY AT BEDTIME NEEDED [facility] compounded medication semaglutide 0.3 ml 0.15 ml today (1st half dose) $22.50 compounded medication semaglutide 0.3 ml 0.15 ml today (1st half dose) $22.50 No compounded medication semaglutid e 0.3 ml 0.15 ml today (1st half dose) $22.50 [facility] ergocalcife rol (vitamin D2) 1,250 mcg (50,000 unit) capsule TAKE 1 CAPSULE EVERY WEEK BY ORAL ROUTE. ergocalcife rol (vitamin D2) 1,250 mcg (50,000 unit) capsule TAKE 1 CAPSULE EVERY WEEK BY ORAL ROUTE. No ergocalcif ta (vitamin D2) 1,250 mcg (50,000 unit) capsule TAKE 1 CAPSULE EVERY WEEK BY ORAL ROUTE. [facility] hydrochloro thiazide 25 mg tablet TAKE 1 TABLET BY MOUTH EVERY DAY hydrochloro thiazide 25 mg tablet TAKE 1 TABLET BY MOUTH EVERY DAY No hydrochlor othiazide 25 mg tablet TAKE 1 TABLET BY MOUTH EVERY DAY [facility] nebivolol 10 mg tablet TAKE 1 TABLET BY MOUTH EVERY DAY nebivolol 10 mg tablet TAKE 1 TABLET BY MOUTH EVERY DAY No nebivolol 10 mg tablet TAKE 1 TABLET BY MOUTH EVERY DAY [facility] phentermine 37.5 mg tablet Take 1 tablet every day by oral route. phentermine 37.5 mg tablet Take 1 tablet every day by oral route. No 1 Q1D phentermin e 37.5 mg tablet Take 1 tablet every day by oral route. [facility] Qulipta 60 mg tablet TAKE 1 TABLET BY MOUTH EVERY DAY FOR 30 DAYS Qulipta 60 mg tablet TAKE 1 TABLET BY MOUTH EVERY DAY FOR 30 DAYS No Qulipta 60 mg tablet TAKE 1 TABLET BY MOUTH EVERY DAY FOR 30 DAYS [facility] sertraline 100 mg tablet TAKE 1 TABLET BY MOUTH EVERY DAY sertraline 100 mg tablet TAKE 1 TABLET BY MOUTH EVERY DAY No sertraline 100 mg tablet TAKE 1 TABLET BY MOUTH EVERY DAY [facility] Ubrelvy 100 mg tablet Take 1 tablet at onset of headache, may repeat x 1 in 2 hours if not relieved. Max dose 200 mg/24 hours Ubrelvy 100 mg tablet Take 1 tablet at onset of headache, may repeat x 1 in 2 hours if not relieved. Max dose 200 mg/24 hours No Ubrelvy 100 mg tablet Take 1 tablet at onset of headache, may repeat x 1 in 2 hours if not relieved. Max dose 200 mg/24 hours [facility] zolpidem ER 6.25 mg tablet,exte nded release,mul tiphase TAKE 1 TABLET BY MOUTH EVERY DAY AT BEDTIME NEEDED zolpidem ER 6.25 mg tablet,exte nded release,mul tiphase TAKE 1 TABLET BY MOUTH EVERY DAY AT BEDTIME NEEDED No zolpidem ER 6.25 mg tablet,ext ended release,mu ltiphase TAKE 1 TABLET BY MOUTH EVERY DAY AT BEDTIME NEEDED [facility] compounded medication semaglutide 0.3 ml 0.15 ml today (1st half dose) $22.50 compounded medication semaglutide 0.3 ml 0.15 ml today (1st half dose) $22.50 No compounded medication semaglutid e 0.3 ml 0.15 ml today (1st half dose) $22.50 [facility] compounded medication semaglutide 0.3 ml 0.15 ml today (1st half dose) $22.50 compounded medication semaglutide 0.3 ml 0.15 ml today (1st half dose) $22.50 No compounded medication semaglutid e 0.3 ml 0.15 ml today (1st half dose) $22.50 [facility] ergocalcife rol (vitamin D2) 1,250 mcg (50,000 unit) capsule TAKE 1 CAPSULE EVERY WEEK BY ORAL ROUTE. ergocalcife rol (vitamin D2) 1,250 mcg (50,000 unit) capsule TAKE 1 CAPSULE EVERY WEEK BY ORAL ROUTE. No ergocalcif ta (vitamin D2) 1,250 mcg (50,000 unit) capsule TAKE 1 CAPSULE EVERY WEEK BY ORAL ROUTE. [facility] hydrochloro thiazide 25 mg tablet TAKE 1 TABLET BY MOUTH EVERY DAY hydrochloro thiazide 25 mg tablet TAKE 1 TABLET BY MOUTH EVERY DAY No hydrochlor othiazide 25 mg tablet TAKE 1 TABLET BY MOUTH EVERY DAY [facility] nebivolol 10 mg tablet TAKE 1 TABLET BY MOUTH EVERY DAY nebivolol 10 mg tablet TAKE 1 TABLET BY MOUTH EVERY DAY No nebivolol 10 mg tablet TAKE 1 TABLET BY MOUTH EVERY DAY [facility] ondansetron 4 mg disintegrat ing tablet ALLOW 2 TABLETS TO DISSOLVE ON TOP OF THE TONGUE TWICE A DAY ondansetron 4 mg disintegrat ing tablet ALLOW 2 TABLETS TO DISSOLVE ON TOP OF THE TONGUE TWICE A DAY No ondansetro n 4 mg disintegra ting tablet ALLOW 2 TABLETS TO DISSOLVE ON TOP OF THE TONGUE TWICE A DAY [facility] Qulipta 60 mg tablet TAKE 1 TABLET BY MOUTH EVERY DAY FOR 30 DAYS Qulipta 60 mg tablet TAKE 1 TABLET BY MOUTH EVERY DAY FOR 30 DAYS No Qulipta 60 mg tablet TAKE 1 TABLET BY MOUTH EVERY DAY FOR 30 DAYS [facility] sertraline 100 mg tablet TAKE 1 TABLET BY MOUTH EVERY DAY sertraline 100 mg tablet TAKE 1 TABLET BY MOUTH EVERY DAY No sertraline 100 mg tablet TAKE 1 TABLET BY MOUTH EVERY DAY [facility] Ubrelvy 100 mg tablet Take 1 tablet at onset of headache, may repeat x 1 in 2 hours if not relieved. Max dose 200 mg/24 hours Ubrelvy 100 mg tablet Take 1 tablet at onset of headache, may repeat x 1 in 2 hours if not relieved. Max dose 200 mg/24 hours No Ubrelvy 100 mg tablet Take 1 tablet at onset of headache, may repeat x 1 in 2 hours if not relieved. Max dose 200 mg/24 hours [facility] zolpidem ER 6.25 mg tablet,exte nded release,mul tiphase TAKE 1 TABLET BY MOUTH AT BEDTIME NEEDED zolpidem ER 6.25 mg tablet,exte nded release,mul tiphase TAKE 1 TABLET BY MOUTH AT BEDTIME NEEDED No zolpidem ER 6.25 mg tablet,ext ended release,mu ltiphase TAKE 1 TABLET BY MOUTH AT BEDTIME NEEDED [facility] compounded medication Semaglutide one injections welanny compounded medication Semaglutide one injections harley No compounded medication Semaglutid e one injections harley [facility] compounded medication semaglutide 0.3 ml 0.15 ml today (1st half dose) $22.50 compounded medication semaglutide 0.3 ml 0.15 ml today (1st half dose) $22.50 No compounded medication semaglutid e 0.3 ml 0.15 ml today (1st half dose) $22.50 [facility] compounded medication semaglutide 0.3 ml 0.15 ml today (1st half dose) $22.50 compounded medication semaglutide 0.3 ml 0.15 ml today (1st half dose) $22.50 No compounded medication semaglutid e 0.3 ml 0.15 ml today (1st half dose) $22.50 [facility] ergocalcife rol (vitamin D2) 1,250 mcg (50,000 unit) capsule TAKE 1 CAPSULE EVERY WEEK BY ORAL ROUTE. ergocalcife rol (vitamin D2) 1,250 mcg (50,000 unit) capsule TAKE 1 CAPSULE EVERY WEEK BY ORAL ROUTE. No ergocalcif ta (vitamin D2) 1,250 mcg (50,000 unit) capsule TAKE 1 CAPSULE EVERY WEEK BY ORAL ROUTE. [facility] ondansetron 4 mg disintegrat ing tablet ALLOW 2 TABLETS TO DISSOLVE ON TOP OF THE TONGUE TWICE A DAY ondansetron 4 mg disintegrat ing tablet ALLOW 2 TABLETS TO DISSOLVE ON TOP OF THE TONGUE TWICE A DAY No ondansetro n 4 mg disintegra ting tablet ALLOW 2 TABLETS TO DISSOLVE ON TOP OF THE TONGUE TWICE A DAY [facility] Qulipta 60 mg tablet TAKE 1 TABLET BY MOUTH EVERY DAY FOR 30 DAYS Qulipta 60 mg tablet TAKE 1 TABLET BY MOUTH EVERY DAY FOR 30 DAYS No Qulipta 60 mg tablet TAKE 1 TABLET BY MOUTH EVERY DAY FOR 30 DAYS [facility] sertraline 100 mg tablet TAKE 1 TABLET BY MOUTH EVERY DAY sertraline 100 mg tablet TAKE 1 TABLET BY MOUTH EVERY DAY No sertraline 100 mg tablet TAKE 1 TABLET BY MOUTH EVERY DAY [facility] Ubrelvy 100 mg tablet Take 1 tablet at onset of headache, may repeat x 1 in 2 hours if not relieved. Max dose 200 mg/24 hours Ubrelvy 100 mg tablet Take 1 tablet at onset of headache, may repeat x 1 in 2 hours if not relieved. Max dose 200 mg/24 hours No Ubrelvy 100 mg tablet Take 1 tablet at onset of headache, may repeat x 1 in 2 hours if not relieved. Max dose 200 mg/24 hours [facility] zolpidem ER 6.25 mg tablet,exte nded release,mul tiphase TAKE 1 TABLET BY MOUTH EVERY DAY AT BEDTIME NEEDED zolpidem ER 6.25 mg tablet,exte nded release,mul tiphase TAKE 1 TABLET BY MOUTH EVERY DAY AT BEDTIME NEEDED No zolpidem ER 6.25 mg tablet,ext ended release,mu ltiphase TAKE 1 TABLET BY MOUTH EVERY DAY AT BEDTIME NEEDED [facility] compounded medication semaglutide 0.3 ml 0.15 ml today (1st half dose) $22.50 compounded medication semaglutide 0.3 ml 0.15 ml today (1st half dose) $22.50 No compounded medication semaglutid e 0.3 ml 0.15 ml today (1st half dose) $22.50 [facility] compounded medication Semaglutide one injections weelky compounded medication Semaglutide one injections weleticiaindira No compounded medication Semaglutid e one injections helgaindira [facility] compounded medication semaglutide 0.3 ml 0.15 ml today (1st half dose) $22.50 compounded medication semaglutide 0.3 ml 0.15 ml today (1st half dose) $22.50 No compounded medication semaglutid e 0.3 ml 0.15 ml today (1st half dose) $22.50 [facility] Effexor XR 75 mg capsule,ext ended release Take 1 capsule every day by oral route for 90 days. Effexor XR 75 mg capsule,ext ended release Take 1 capsule every day by oral route for 90 days. No 1capsul e(s) Q1D Effexor XR 75 mg capsule,ex tended release Take 1 capsule every day by oral route for 90 days. [facility] ondansetron 4 mg disintegrat ing tablet Place 2 tablets twice a day by translingua l route. ondansetron 4 mg disintegrat ing tablet Place 2 tablets twice a day by translingua l route. No 2 BID ondansetro n 4 mg disintegra ting tablet Place 2 tablets twice a day by translingu al route. [facility] Qulipta 60 mg tablet TAKE 1 TABLET BY MOUTH EVERY DAY FOR 30 DAYS Qulipta 60 mg tablet TAKE 1 TABLET BY MOUTH EVERY DAY FOR 30 DAYS No Qulipta 60 mg tablet TAKE 1 TABLET BY MOUTH EVERY DAY FOR 30 DAYS [facility] trazodone 50 mg tablet Take 1-2 tablets PO PRN [facility]HS trazodone 50 mg tablet Take 1-2 tablets PO PRN [facility] No trazodone 50 mg tablet Take 1-2 tablets PO PRN QHS [facility] Ubrelvy 100 mg tablet Take 1 tablet at onset of headache, may repeat x 1 in 2 hours if not relieved. Max dose 200 mg/24 hours Ubrelvy 100 mg tablet Take 1 tablet at onset of headache, may repeat x 1 in 2 hours if not relieved. Max dose 200 mg/24 hours No Ubrelvy 100 mg tablet Take 1 tablet at onset of headache, may repeat x 1 in 2 hours if not relieved. Max dose 200 mg/24 hours [facility] compounded medication semaglutide 0.3 ml 0.15 ml today (1st half dose) $22.50 compounded medication semaglutide 0.3 ml 0.15 ml today (1st half dose) $22.50 No compounded medication semaglutid e 0.3 ml 0.15 ml today (1st half dose) $22.50 [facility] compounded medication semaglutide 0.3 ml 0.15 ml today (1st half dose) $22.50 compounded medication semaglutide 0.3 ml 0.15 ml today (1st half dose) $22.50 No compounded medication semaglutid e 0.3 ml 0.15 ml today (1st half dose) $22.50 [facility] compounded medication Semaglutide one injections weelky compounded medication Semaglutide one injections harley No compounded medication Semaglutid e one injections weleticiaky [facility] drospirenon e 3 mg-ethinyl estradiol 0.02 mg tablet Take 1 active tablet orally once daily at the same time. Take active pills only. drospirenon e 3 mg-ethinyl estradiol 0.02 mg tablet Take 1 active tablet orally once daily at the same time. Take active pills only. No drospireno ne 3 mg-ethinyl estradiol 0.02 mg tablet Take 1 active tablet orally once daily at the same time. Take active pills only. [facility] Effexor XR 75 mg capsule,ext ended release Take 1 capsule every day by oral route for 90 days. Effexor XR 75 mg capsule,ext ended release Take 1 capsule every day by oral route for 90 days. No 1capsul e(s) Q1D Effexor XR 75 mg capsule,ex tended release Take 1 capsule every day by oral route for 90 days. [facility] ondansetron 4 mg disintegrat ing tablet Place 2 tablets twice a day by translingua l route. ondansetron 4 mg disintegrat ing tablet Place 2 tablets twice a day by translingua l route. No 2 BID ondansetro n 4 mg disintegra ting tablet Place 2 tablets twice a day by translingu al route. [facility] Qulipta 60 mg tablet TAKE 1 TABLET BY MOUTH EVERY DAY FOR 30 DAYS Qulipta 60 mg tablet TAKE 1 TABLET BY MOUTH EVERY DAY FOR 30 DAYS No Qulipta 60 mg tablet TAKE 1 TABLET BY MOUTH EVERY DAY FOR 30 DAYS [facility] trazodone 50 mg tablet Take 1-2 tablets PO PRN QHS trazodone 50 mg tablet Take 1-2 tablets PO PRN QHS No trazodone 50 mg tablet Take 1-2 tablets PO PRN QHS [facility] Ubrelvy 100 mg tablet Take 1 tablet at onset of headache, may repeat x 1 in 2 hours if not relieved. Max dose 200 mg/24 hours Ubrelvy 100 mg tablet Take 1 tablet at onset of headache, may repeat x 1 in 2 hours if not relieved. Max dose 200 mg/24 hours No Ubrelvy 100 mg tablet Take 1 tablet at onset of headache, may repeat x 1 in 2 hours if not relieved. Max dose 200 mg/24 hours [facility] compounded medication semaglutide 0.3 ml 0.15 ml today (1st half dose) $22.50 compounded medication semaglutide 0.3 ml 0.15 ml today (1st half dose) $22.50 No compounded medication semaglutid e 0.3 ml 0.15 ml today (1st half dose) $22.50 [facility] compounded medication semaglutide 0.3 ml 0.15 ml today (1st half dose) $22.50 compounded medication semaglutide 0.3 ml 0.15 ml today (1st half dose) $22.50 No compounded medication semaglutid e 0.3 ml 0.15 ml today (1st half dose) $22.50 [facility] compounded medication Semaglutide one injections harley compounded medication Semaglutide one injections harley No compounded medication Semaglutid e one injections harley [facility] drospirenon e 3 mg-ethinyl estradiol 0.02 mg tablet Take 1 active tablet orally once daily at the same time. Take active pills only. drospirenon e 3 mg-ethinyl estradiol 0.02 mg tablet Take 1 active tablet orally once daily at the same time. Take active pills only. No drospireno ne 3 mg-ethinyl estradiol 0.02 mg tablet Take 1 active tablet orally once daily at the same time. Take active pills only. [facility] Effexor XR 75 mg capsule,ext ended release Take 1 capsule every day by oral route for 90 days. Effexor XR 75 mg capsule,ext ended release Take 1 capsule every day by oral route for 90 days. No 1capsul e(s) Q1D Effexor XR 75 mg capsule,ex tended release Take 1 capsule every day by oral route for 90 days. [facility] ondansetron 4 mg disintegrat ing tablet Place 2 tablets twice a day by translingua l route. ondansetron 4 mg disintegrat ing tablet Place 2 tablets twice a day by translingua l route. No 2 BID ondansetro n 4 mg disintegra ting tablet Place 2 tablets twice a day by translingu al route. [facility] Qulipta 60 mg tablet TAKE 1 TABLET BY MOUTH EVERY DAY FOR 30 DAYS Qulipta 60 mg tablet TAKE 1 TABLET BY MOUTH EVERY DAY FOR 30 DAYS No Qulipta 60 mg tablet TAKE 1 TABLET BY MOUTH EVERY DAY FOR 30 DAYS [facility] trazodone 50 mg tablet Take 1-2 tablets PO PRN QHS trazodone 50 mg tablet Take 1-2 tablets PO PRN [facility] No trazodone 50 mg tablet Take 1-2 tablets PO PRN QHS [facility] Ubrelvy 100 mg tablet Take 1 tablet at onset of headache, may repeat x 1 in 2 hours if not relieved. Max dose 200 mg/24 hours Ubrelvy 100 mg tablet Take 1 tablet at onset of headache, may repeat x 1 in 2 hours if not relieved. Max dose 200 mg/24 hours No Ubrelvy 100 mg tablet Take 1 tablet at onset of headache, may repeat x 1 in 2 hours if not relieved. Max dose 200 mg/24 hours [facility] Vraylar 1.5 mg capsule Take 1 capsule every day by oral route for 30 days. Vraylar 1.5 mg capsule Take 1 capsule every day by oral route for 30 days. No 1capsul e(s) Q1D Vraylar 1.5 mg capsule Take 1 capsule every day by oral route for 30 days. [facility] compounded medication semaglutide 0.3 ml 0.15 ml today (1st half dose) $22.50 compounded medication semaglutide 0.3 ml 0.15 ml today (1st half dose) $22.50 No compounded medication semaglutid e 0.3 ml 0.15 ml today (1st half dose) $22.50 [facility] compounded medication Semaglutide one injections weelky compounded medication Semaglutide one injections weelky No compounded medication Semaglutid e one injections weelky [facility] compounded medication semaglutide 0.3 ml 0.15 ml today (1st half dose) $22.50 compounded medication semaglutide 0.3 ml 0.15 ml today (1st half dose) $22.50 No compounded medication semaglutid e 0.3 ml 0.15 ml today (1st half dose) $22.50 [facility] Effexor XR 150 mg capsule,ext ended release Take 1 capsule every day by oral route for 90 days. Effexor XR 150 mg capsule,ext ended release Take 1 capsule every day by oral route for 90 days. No 1capsul e(s) Q1D Effexor XR 150 mg capsule,ex tended release Take 1 capsule every day by oral route for 90 days. [facility] Effexor XR 75 mg capsule,ext ended release Take 1 capsule every day by oral route for 90 days. Effexor XR 75 mg capsule,ext ended release Take 1 capsule every day by oral route for 90 days. No 1capsul e(s) Q1D Effexor XR 75 mg capsule,ex tended release Take 1 capsule every day by oral route for 90 days. [facility] hydrocodone 7.5 mg-acetamin ophen 325 mg tablet TAKE 1 TABLET BY MOUTH EVERY 6 HOURS NEEDED FOR PAIN hydrocodone 7.5 mg-acetamin ophen 325 mg tablet TAKE 1 TABLET BY MOUTH EVERY 6 HOURS NEEDED FOR PAIN No hydrocodon e 7.5 mg-acetami nophen 325 mg tablet TAKE 1 TABLET BY MOUTH EVERY 6 HOURS NEEDED FOR PAIN [facility] Klonopin 0.5 mg tablet Take 1 tablet 3 times a day by oral route as needed for 10 days. Klonopin 0.5 mg tablet Take 1 tablet 3 times a day by oral route as needed for 10 days. No 1 TID Klonopin 0.5 mg tablet Take 1 tablet 3 times a day by oral route as needed for 10 days. [facility] ondansetron 4 mg disintegrat ing tablet Place 2 tablets twice a day by translingua l route. ondansetron 4 mg disintegrat ing tablet Place 2 tablets twice a day by translingua l route. No 2 BID ondansetro n 4 mg disinte[address] ting tablet Place 2 tablets twice a day by translingu al route. [facility] oseltamivir 75 mg capsule Take 1 capsule twice a day by oral route. oseltamivir 75 mg capsule Take 1 capsule twice a day by oral route. No 1capsul e(s) BID oseltamivi r 75 mg capsule Take 1 capsule twice a day by oral route. [facility] Qulipta 60 mg tablet TAKE 1 TABLET BY MOUTH EVERY DAY FOR 30 DAYS Qulipta 60 mg tablet TAKE 1 TABLET BY MOUTH EVERY DAY FOR 30 DAYS No Qulipta 60 mg tablet TAKE 1 TABLET BY MOUTH EVERY DAY FOR 30 DAYS [facility] trazodone 50 mg tablet Take 1-2 tablets PO PRN QHS trazodone 50 mg tablet Take 1-2 tablets PO PRN QHS No trazodone 50 mg tablet Take 1-2 tablets PO PRN QHS [facility] Ubrelvy 100 mg tablet Take 1 tablet at onset of headache, may repeat x 1 in 2 hours if not relieved. Max dose 200 mg/24 hours Ubrelvy 100 mg tablet Take 1 tablet at onset of headache, may repeat x 1 in 2 hours if not relieved. Max dose 200 mg/24 hours No Ubrelvy 100 mg tablet Take 1 tablet at onset of headache, may repeat x 1 in 2 hours if not relieved. Max dose 200 mg/24 hours [facility] acetaminoph en 300 mg-codeine 30 mg tablet TAKE 1 TABLET BY MOUTH EVERY 6 HOURS NEEDED acetaminoph en 300 mg-codeine 30 mg tablet TAKE 1 TABLET BY MOUTH EVERY 6 HOURS NEEDED No acetaminop hen 300 mg-codeine 30 mg tablet TAKE 1 TABLET BY MOUTH EVERY 6 HOURS NEEDED [facility] drospirenon e 3 mg-ethinyl estradiol 0.02 mg tablet Take 1 active tablet orally once daily at the same time. Take active pills only. drospirenon e 3 mg-ethinyl estradiol 0.02 mg tablet Take 1 active tablet orally once daily at the same time. Take active pills only. No drospireno ne 3 mg-ethinyl estradiol 0.02 mg tablet Take 1 active tablet orally once daily at the same time. Take active pills only. [facility] ergocalcife rol (vitamin D2) 1,250 mcg (50,000 unit) capsule TAKE 1 CAPSULE EVERY WEEK BY ORAL ROUTE. ergocalcife rol (vitamin D2) 1,250 mcg (50,000 unit) capsule TAKE 1 CAPSULE EVERY WEEK BY ORAL ROUTE. No ergocalcif ta (vitamin D2) 1,250 mcg (50,000 unit) capsule TAKE 1 CAPSULE EVERY WEEK BY ORAL ROUTE. [facility] lisinopril 10 mg tablet TAKE 1 TABLET BY MOUTH EVERY DAY lisinopril 10 mg tablet TAKE 1 TABLET BY MOUTH EVERY DAY No lisinopril 10 mg tablet TAKE 1 TABLET BY MOUTH EVERY DAY [facility] phentermine 37.5 mg tablet Take 1 tablet every day by oral route. phentermine 37.5 mg tablet Take 1 tablet every day by oral route. No 1 Q1D phentermin e 37.5 mg tablet Take 1 tablet every day by oral route. [facility] sertraline 100 mg tablet TAKE 1 TABLET BY MOUTH EVERY DAY sertraline 100 mg tablet TAKE 1 TABLET BY MOUTH EVERY DAY No sertraline 100 mg tablet TAKE 1 TABLET BY MOUTH EVERY DAY [facility] zolpidem ER 6.25 mg tablet,exte nded release,mul tiphase TAKE 1 TABLET BY MOUTH EVERY DAY AT BEDTIME NEEDED zolpidem ER 6.25 mg tablet,exte nded release,mul tiphase TAKE 1 TABLET BY MOUTH EVERY DAY AT BEDTIME NEEDED No zolpidem ER 6.25 mg tablet,ext ended release,mu ltiphase TAKE 1 TABLET BY MOUTH EVERY DAY AT BEDTIME NEEDED [facility] lisinopril 10 mg tablet Take 1 tablet every day by oral route for 90 days. lisinopril 10 mg tablet Take 1 tablet every day by oral route for 90 days. No 1 Q1D lisinopril 10 mg tablet Take 1 tablet every day by oral route for 90 days. [facility] sertraline 100 mg tablet sertraline 100 mg tablet No sertraline 100 mg tablet [facility] ergocalcife rol (vitamin D2) 1,250 mcg (50,000 unit) capsule TAKE 1 CAPSULE EVERY WEEK BY ORAL ROUTE. ergocalcife rol (vitamin D2) 1,250 mcg (50,000 unit) capsule TAKE 1 CAPSULE EVERY WEEK BY ORAL ROUTE. No ergocalcif ta (vitamin D2) 1,250 mcg (50,000 unit) capsule TAKE 1 CAPSULE EVERY WEEK BY ORAL ROUTE. [facility] lisinopril 10 mg tablet TAKE 1 TABLET BY MOUTH EVERY DAY lisinopril 10 mg tablet TAKE 1 TABLET BY MOUTH EVERY DAY No lisinopril 10 mg tablet TAKE 1 TABLET BY MOUTH EVERY DAY [facility] sertraline 100 mg tablet sertraline 100 mg tablet No sertraline 100 mg tablet [facility] Immunizations Ordered Immunization Name Filled Immunization Name Date Status Comments Source meningococcal MCV4P meningococcal MCV4P 11:48:00 [facility] meningococcal MCV4P meningococcal MCV4P 11:48:00 [facility] meningococcal MCV4P meningococcal MCV4P 11:48:00 [facility] meningococcal MCV4P meningococcal MCV4P 11:48:00 [facility] meningococcal MCV4P meningococcal MCV4P 11:48:00 [facility] meningococcal MCV4P meningococcal MCV4P 11:48:00 Completed [facility] meningococcal MCV4P meningococcal MCV4P 11:48:00 Completed [facility] meningococcal MCV4P meningococcal MCV4P 11:48:00 Completed [facility] meningococcal MCV4P meningococcal MCV4P 11:48:00 Completed [facility] meningococcal MCV4P meningococcal MCV4P 11:48:00 Completed [facility] meningococcal MCV4P meningococcal MCV4P 11:48:00 Completed [facility] meningococcal MCV4P meningococcal MCV4P 11:48:00 Completed [facility] meningococcal MCV4P meningococcal MCV4P Unknown Completed [facility] meningococcal MCV4P meningococcal MCV4P Unknown Completed [facility] Vital Signs Vital Name Observation Time Observation Value Comments S ource Systolic blood pressure 2023-10-28 15:44:00 140 mm[Hg] [facility] Diastolic blood pressure 2023-10-28 15:44:00 99 mm[Hg] [facility] Heart rate 2023-10-28 15:44:00 94 /min [facility] Body temperature 2023-10-28 15:44:00 37 Venus [facility] Respiratory rate 2023-10-28 15:44:00 18 /min [facility] Body weight 2023-10-28 15:44:00 91.173 kg [facility] BMI 2023-10-28 15:44:00 30.56 kg/m2 [facility] Oxygen saturation in Arterial blood by Pulse oximetry 2023-10-28 15:44:00 99 /min [facility] BP Systolic 2023-09-08 00:00:00 121 mm[Hg] [facility] BP Diastolic 2023-09-08 00:00:00 84 mm[Hg] [facility] Height 2023-09-08 00:00:00 68 [in_i] [facility] BMI (Body Mass Index) 2023-09-08 00:00:00 28 kg/m2 [facility] Body Weight 2023-09-08 00:00:00 2943 [oz_av] [facility] Body Weight 2023-08-14 00:00:00 2928 [oz_av] [facility] Height 2023-08-14 00:00:00 68 [in_i] [facility] BMI (Body Mass Index) 2023-08-14 00:00:00 27.8 kg/m2 [facility] BP Systolic 2023-05-19 00:00:00 140 mm[Hg] [facility] Body Weight 2023-05-19 00:00:00 2666 [oz_av] [facility] BP Diastolic 2023-05-19 00:00:00 87 mm[Hg] [facility] Height 2023-05-19 00:00:00 68 [in_i] [facility] BMI (Body Mass Index) 2023-05-19 00:00:00 25.3 kg/m2 [facility] BP Diastolic 2023-04-14 00:00:00 74 mm[Hg] [facility] Height 2023-04-14 00:00:00 68 [in_i] [facility] BMI (Body Mass Index) 2023-04-14 00:00:00 25.1 kg/m2 [facility] BP Systolic 2023-04-14 00:00:00 111 mm[Hg] [facility] Body Weight 2023-04-14 00:00:00 2645 [oz_av] [facility] BP Diastolic 2023-01-01 00:00:00 77 mm[Hg] [facility] Height 2023-01-01 00:00:00 68 [in_i] [facility] BMI (Body Mass Index) 2023-01-01 00:00:00 26.9 kg/m2 [facility] BP Systolic 2023-01-01 00:00:00 109 mm[Hg] [facility] Body Weight 2023-01-01 00:00:00 2832 [oz_av] [facility] BP Diastolic 2022-12-03 00:00:00 84 mm[Hg] [facility] Height 2022-12-03 00:00:00 68 [in_i] [facility] BMI (Body Mass Index) 2022-12-03 00:00:00 27.8 kg/m2 [facility] BP Systolic 2022-12-03 00:00:00 133 mm[Hg] [facility] Body Weight 2022-12-03 00:00:00 2930.4 [oz_av] [facility] BP Diastolic 2022-10-31 00:00:00 84 mm[Hg] [facility] Height 2022-10-31 00:00:00 68 [in_i] [facility] BMI (Body Mass Index) 2022-10-31 00:00:00 30.7 kg/m2 [facility] BP Systolic 2022-10-31 00:00:00 140 mm[Hg] [facility] Body Weight 2022-10-31 00:00:00 3232 [oz_av] [facility] BP Diastolic 2022-10-07 00:00:00 92 mm[Hg] [facility] Height 2022-10-07 00:00:00 68 [in_i] [facility] BMI (Body Mass Index) 2022-10-07 00:00:00 31.2 kg/m2 [facility] BP Systolic 2022-10-07 00:00:00 140 mm[Hg] [facility] Body Weight 2022-10-07 00:00:00 3280 [oz_av] [facility] BP Diastolic 2022-09-03 00:00:00 99 mm[Hg] [facility] Height 2022-09-03 00:00:00 68 [in_i] [facility] BMI (Body Mass Index) 2022-09-03 00:00:00 30.2 kg/m2 [facility] BP Systolic 2022-09-03 00:00:00 147 mm[Hg] [facility] Body Weight 2022-09-03 00:00:00 3176 [oz_av] [facility] BP Diastolic 2022-07-31 00:00:00 92 mm[Hg] [facility] Height 2022-07-31 00:00:00 68 [in_i] [facility] BMI (Body Mass Index) 2022-07-31 00:00:00 30.7 kg/m2 [facility] BP Systolic 2022-07-31 00:00:00 144 mm[Hg] [facility] Body Weight 2022-07-31 00:00:00 3232 [oz_av] [facility] BP Diastolic 2022-07-03 00:00:00 84 mm[Hg] [facility] Height 2022-07-03 00:00:00 68 [in_i] [facility] BMI (Body Mass Index) 2022-07-03 00:00:00 30.7 kg/m2 [facility] BP Systolic 2022-07-03 00:00:00 138 mm[Hg] [facility] Body Weight 2022-07-03 00:00:00 3232 [oz_av] [facility] BP Diastolic 2022-01-31 00:00:00 90 mm[Hg] [facility] Height 2022-01-31 00:00:00 68 [in_i] [facility] BMI (Body Mass Index) 2022-01-31 00:00:00 31.6 kg/m2 [facility] BP Systolic 2022-01-31 00:00:00 149 mm[Hg] [facility] Body Weight 2022-01-31 00:00:00 3328 [oz_av] [facility] BMI (Body Mass Index) 2021-08-14 00:00:00 28.9 kg/m2 [facility] BP Systolic 2021-08-14 00:00:00 121 mm[Hg] [facility] Body Weight 2021-08-14 00:00:00 3040 [oz_av] [facility] BP Diastolic 2021-08-14 00:00:00 82 mm[Hg] [facility] Height 2021-08-14 00:00:00 68 [in_i] [facility] BP Diastolic 2021-05-29 00:00:00 92 mm[Hg] [facility] Height 2021-05-29 00:00:00 68 [in_i] [facility] BMI (Body Mass Index) 2021-05-29 00:00:00 30.4 kg/m2 [facility] BP Systolic 2021-05-29 00:00:00 143 mm[Hg] [facility] Body Weight 2021-05-29 00:00:00 3200 [oz_av] [facility] Procedures Procedure Date / Time Performed Performing Clinicia n Source CT ABDOMEN PELVIS W CONTRAST 2023-10-28 18:34:20 Grace Shields [facility] COMP. METABOLIC PANEL (63966) 2023-10-28 16:20:00 Grace Shields [facility] CBC WITH DIFF 2023-10-28 16:20:00 Grace Shields [facility] URINALYSIS 2023-10-28 16:17:00 Grace Shields [facility] POCT TEST 2023-10-28 16:17:00 Grace Shields [facility] NOTICE OF PRIVACY PRACTICES 2023-10-28 15:39:08 Doctor Unassigned, [place] [facility] CONSENT/REFUSAL FOR DIAGNOSIS AND TREATMENT 2023-10-28 15:38:38 Doctor Unassigned, [place] [facility] Plan of Care Planned Activity Planned Date Details Comments Source Diagnostic Test Pending 2022-07-03 00:00:00 CMP, serum or plasma [code = CMP, serum or plasma] [facility] Diagnostic Test Pending 2022-07-03 00:00:00 lipid panel, serum [code = lipid panel, serum] [facility] Diagnostic Test Pending 2022-07-03 00:00:00 CBC w/ auto diff [code = CBC w/ auto diff] [facility] Diagnostic Test Pending 2022-07-03 00:00:00 vitamin D, 25-hydroxy, total, serum [code = vitamin D, 25-hydroxy, total, serum] [facility] Diagnostic Test Pending 2022-07-03 00:00:00 HbA1c (hemoglobin A1c), blood [code = HbA1c (hemoglobin A1c), blood] [facility] Diagnostic Test Pending 2022-07-03 00:00:00 TSH + free T4, serum [code = TSH + free T4, serum] [facility] Diagnostic Test Pending 2022-07-03 00:00:00 vitamin B12 + folate, serum or blood [code = vitamin B12 + folate, serum or blood] [facility] Encounters Start Date/Time End Date/Time Encounter Type Admission Type Attending [facility] Facility Care Department Encounter ID Source 2023-10-31 00:00:00 2023-10-31 00:00:00 Outpatient [email or web address] diyala_S [facility] [id number] [facility] 2023-10-30 00:00:00 2023-10-30 00:00:00 Outpatient SISSON_C [facility] [id number] [place] [facility] 2023-10-28 09:45:00 2023-10-28 14:04:00 Emergency X GRACE SHIELDS [facility] ERT [id number] [facility] 2023-10-28 09:45:00 2023-10-28 14:04:00 Emergency Dannymehdi Grace [facility] [id number] [facility] 2023-10-21 00:00:00 2023-10-21 00:00:00 Outpatient SISSON_C [facility] [id number] [place] [facility] 2023-10-13 00:00:00 2023-10-13 00:00:00 Outpatient SISSON_C [facility] [id number] [place] [facility] 2023-10-02 00:00:00 2023-10-02 00:00:00 Outpatient [id number] diyala_S PRIV PRIV [id number] [facility] 2023-10-01 00:00:00 2023-10-01 00:00:00 Outpatient GC_GCBZW_Ka diyala_S PRIV PRIV [id number] [facility] 2023-09-25 00:00:00 2023-09-25 00:00:00 Outpatient SISSON_C [facility] [id number] [place] [facility] 2023-09-22 00:00:00 2023-09-22 00:00:00 Outpatient [id number]_Ka diyala_S PRIV PRIV [id number] [facility] 2023-09-21 00:00:00 2023-09-21 00:00:00 Outpatient GC_GCBZW_Ka diyala_S PRIV PRIV [id number] [facility] 2023-09-08 00:00:00 2023-09-08 00:00:00 Avni Ackerman, MSN, DIRECTOR QUALITY ASSURANCE, TURBINE OPERATOR-C: [address], [address], [place] [address] , Ph. [facility], Avni Ackerman, ALEJANDRO, TURBINE OPERATOR-C [id number] [facility] 2023-08-14 00:00:00 2023-08-14 00:00:00 Outpatient SISSON_C [facility] [id number] [place] 2023-08-14 00:00:00 2023-08-14 00:00:00 Outpatient SISSON_C [facility] [id number] [place] [facility] 2023-08-14 00:00:00 2023-08-14 00:00:00 Outpatient SISSON_C [facility] [id number] [place] [facility] 2023-08-14 00:00:00 2023-08-14 00:00:00 Avni Ackerman, MSN, DIRECTOR QUALITY ASSURANCE, TURBINE OPERATOR-C: [address], [place] [address] , Ph. [facility], Avni Ackerman, MSN, TURBINE OPERATOR-C [id number] [facility] 2023-06-16 00:00:00 2023-06-16 00:00:00 Outpatient SISSON_C [facility] [facility] [id number] 2023-05-25 15:30:00 2023-05-25 15:30:00 Outpatient KATHY JONES CHERYAL [facility] [id number] [facility] 2023-05-19 00:00:00 2023-05-19 00:00:00 Outpatient SISSON_C [facility] [id number] [facility] 2023-05-19 00:00:00 2023-05-19 00:00:00 Avni Ackerman MSN, DIRECTOR QUALITY ASSURANCE, TURBINE OPERATOR-C: [address], [address], [place] [address] , Ph. [facility], Avni Ackerman, MSN, TURBINE OPERATOR-C [id number] [facility] 2023-04-14 00:00:00 2023-04-14 00:00:00 Outpatient SISSON_C [facility] [id number] [facility] 2023-04-14 00:00:00 2023-04-14 00:00:00 Avni Ackerman MSN, DIRECTOR QUALITY ASSURANCE, TURBINE OPERATOR-C: [address], [address], [place] [address] , Ph. [facility], Avni Ackerman, MSN, TURBINE OPERATOR-C [id number] [facility] 2023-02-12 00:00:00 2023-02-12 00:00:00 Outpatient SISSON_C [facility] [id number] [facility] 2023-01-01 00:00:00 2023-01-01 00:00:00 Outpatient SISSON_C [facility] [id number] [facility] 2023-01-01 00:00:00 2023-01-01 00:00:00 Avni Ackerman, MSN, DIRECTOR QUALITY ASSURANCE, TURBINE OPERATOR-C: Justin Lozano, [address], [place] [address] , Ph. [facility], Avni Ackerman MSN, TURBINE OPERATOR-C [id number] [facility] 2022-12-03 00:00:00 2022-12-03 00:00:00 ALEJANDRO Leal, DIRECTOR QUALITY ASSURANCE, TURBINE OPERATOR-C: Justin Lozano, [address], [place] [address] , Ph. [facility], ALEJANDRO Leal, TURBINE OPERATOR-C [id number] [facility] 2022-11-19 00:00:00 2022-11-19 00:00:00 Outpatient SISSON_C [facility] [id number] [facility] 2022-11-19 00:00:00 2022-11-19 00:00:00 Outpatient SISSON_C [facility] [id number] [facility] 2022-10-31 00:00:00 2022-10-31 00:00:00 Outpatient SISSON_C [facility] [id number] [facility] 2022-10-31 00:00:00 2022-10-31 00:00:00 ALEJANDRO Leal, DIRECTOR QUALITY ASSURANCE, TURBINE OPERATOR-C: Justin Lozano, [address], [place] [address] , Ph. [facility], ALEJANDRO Leal, TURBINE OPERATOR-C [id number] [facility] 2022-10-08 00:00:00 2022-10-08 00:00:00 Outpatient SISSON_C [facility] [id number] [facility] 2022-10-07 00:00:00 2022-10-07 00:00:00 Outpatient SISSON_C [facility] [id number] [facility] 2022-10-07 00:00:00 2022-10-07 00:00:00 ALEJANDRO Leal, DIRECTOR QUALITY ASSURANCE, TURBINE OPERATOR-C: Justin Lozano, [address], [place] [address] , Ph. [facility], ALEJANDRO Leal, TURBINE OPERATOR-C [id number] [facility] 2022-09-03 00:00:00 2022-09-03 00:00:00 Outpatient SISSON_C [facility] [id number] [facility] 2022-09-03 00:00:00 2022-09-03 00:00:00 Avni Ackerman MSN, DIRECTOR QUALITY ASSURANCE, TURBINE OPERATOR-C: Justin Lozano, [address], [place] [address] , Ph. [facility], Avni Ackerman, MSN, TURBINE OPERATOR-C [id number] [facility] 2022-07-31 00:00:00 2022-07-31 00:00:00 Outpatient SISSON_C [facility] [id number] [facility] 2022-07-31 00:00:00 2022-07-31 00:00:00 Avni Ackerman, MSN, DIRECTOR QUALITY ASSURANCE, TURBINE OPERATOR-C: [address], [address], [place] [address] , Ph. [facility], Avni Ackerman, MSN, TURBINE OPERATOR-C [id number] [facility] 2022-07-03 00:00:00 2022-07-03 00:00:00 Outpatient SISSON_C [facility] [id number] [facility] 2022-07-03 00:00:00 2022-07-03 00:00:00 Avni Ackerman MSN, DIRECTOR QUALITY ASSURANCE, TURBINE OPERATOR-C: [address], [address], [place] [address] , Ph. [facility], Avni Ackerman, MSN, TURBINE OPERATOR-C [id number] [facility] 2022-05-13 00:00:00 2022-05-13 00:00:00 Outpatient SISSON_C [facility] [id number] [facility] 2022-04-09 12:50:00 2022-04-09 12:50:00 Outpatient SISSON_C [facility] [id number] [facility] 2022-03-04 01:10:00 2022-03-04 01:10:00 Outpatient SISSON_C [facility] [id number] [facility] 2022-01-31 09:22:00 2022-01-31 09:22:00 Outpatient SISSON_C [facility] [id number] [facility] 2022-01-31 00:00:00 2022-01-31 00:00:00 Avni Ackerman, MSN, DIRECTOR QUALITY ASSURANCE, TURBINE OPERATOR-C: [address], [address], [place] [address] , Ph. [facility], Avni Ackerman, MSN, TURBINE OPERATOR-C [id number] [facility] 2022-01-31 00:00:00 2022-01-31 00:00:00 Outpatient TyronAvni [facility] [id number] 2022-01-14 02:34:00 2022-01-14 02:34:00 Outpatient SISSON_C [facility] [id number] [facility] 2021-12-10 02:49:00 2021-12-10 02:49:00 Outpatient SISSON_C [facility] [id number] [facility] 2021-11-07 04:48:00 2021-11-07 04:48:00 Outpatient SISSON_C [facility] [id number] [facility] 2021-11-05 02:12:00 2021-11-05 02:12:00 Outpatient SISSON_C [facility] [id number] [facility] 2021-10-01 04:32:00 2021-10-01 04:32:00 Outpatient SISSON_C [facility] [id number] [facility] 2021-08-14 04:01:00 2021-08-14 04:01:00 Outpatient SISSON_C [facility] [id number] [facility] 2021-08-14 00:00:00 2021-08-14 00:00:00 Outpatient Avni Ackerman [facility] [id number] 2021-08-14 00:00:00 2021-08-14 00:00:00 Avni Ackerman, MSN, DIRECTOR QUALITY ASSURANCE, TURBINE OPERATOR-C: [address], [address], [place] [address] , Ph. [facility], Avni Ackerman, MSN, TURBINE OPERATOR-C [id number] [facility] 2021-05-29 11:58:00 2021-05-29 11:58:00 Outpatient SISSON_C [facility] [id number] [facility] 2021-05-29 00:00:00 2021-05-29 00:00:00 Outpatient Avni Ackerman [facility] [id number] 2021-05-29 00:00:00 2021-05-29 00:00:00 Avni Ackerman, MSN, DIRECTOR QUALITY ASSURANCE, TURBINE OPERATOR-C: [address], [address], [place] [address] , Ph. [facility], Avni Ackerman, MSN, TURBINE OPERATOR-C [id number] [facility] 2021-05-28 04:39:00 2021-05-28 04:39:00 Outpatient SISSON_C [facility] [id number] [facility] 2020-07-30 16:00:00 2020-07-30 16:00:00 Outpatient MILAGRO HARRISON [facility] [id number] [facility] Results Test Description Test Time Test Comments Results Result Comments Source CT ABDOMEN PELVIS W CONTRAST 2023-10 18:46:[address] Abdomen and Pelvis with intravenous contrast. CLINICAL HISTORY: RLQ Abdominal pain. DOSE: Up-to-date CT equipment and radiation dose reduction techniques wereemployed. CTDIvol: ?10.13 mGy. DLP: ?554.58 mGy-cm. TECHNIQUE : Contiguous axial imaging from the level of the lung basesthrough the pubic symphysis were performed after the uncomplicatedadministration of 80 mL of nonionic contrast material. ?Coronal andsagittal reconstructions were obtained. Auto mA and/or iterativereconstruction were used to reduce radiation dose. FINDINGS: ? Lower lungs: Clear. No pleural effusion or pericardial effusion. Liver, Gallbladder and Spleen: Liver is 16.4 cm in length and showed nofocal enhancing lesions. Spleen measures approximately 10.4 x 3.6 cm. Nocalcified gallstones or any CT findings of acute cholecystitis. Peritoneum: ?No free air or free fluid. Subcentimeter small size lymphnodes are seen in the right lower quadrant of the abdomen. Pancreas and Adrenals: ?Unremarkable pancreas and adrenal glands. Kidneys and Ureters: ?No visible calculi in the renal collecting systems. No hydroureter or hydronephrosis. No enhancing kidney lesions. Vessels: Normal. Circumaortic left renal veins noted. Retroperitoneum: No abnormal fluid or lymphadenopathy. Bowel: ?No signs of acute appendicitis. Mild diverticulosis of the sigmoidcolon noted without any definite CT findings of acute diverticulitis. Smallbowel gas pattern is unremarkable. Bladder and Reproductive Organs: ?Free fluid is seen in the cul-de-sac andovaries contain small cysts, largest of 18 mm size in the right ovary,consistent with physiologic changes. Grossly unremarkable unopacifiedurinary bladder. Bones: ?No acute findings. Soft tissues: Unremarkable. CONCLUSION:1. No acute findings detected in CT scan of abdomen and pelvis. Mildcolonic diverticulosis noted without any acute changes.2. Bilateral ovarian cysts, largest over 18 mm in the right ovary withsmall amount of fluid in the cul-de-sac, consistent with physiologicchanges. [facility] WITH [id number] 16:35:58* Test Item Value Reference Range Interpretation Comme nts WBC (test code = 6690-2) 9.98 See_Comment [Automated Meas[employer]abla [employer]] The system which generated this result transmitted reference range: 4.30 - 11.10 10*3/?L. The reference range was not used to interpret this result as normal/abnormal. RBC (test code = 789-8) 4.32 See_Comment [Automated messa ge] The system which generated this result transmitted reference range: 3.93 - 5.25 10*6/?L. The reference range was not used to interpret this result as normal/abnormal. HGB (test code = 718-7) 13.3 g/dL 11.6-15.0 HCT (test code = 4544-3) 39.7 % 35.7-45.2 MCV (test code = 787-2) 91.9 fL 80.6-95.5 MCH (test code = 785-6) 30.8 pg 25.9-32.8 MCHC (test code = 786-4) 33.5 g/dL 31.6-35.1 RDW-SD (test code = 53453-7) 42.3 fL 39.0-49.9 RDW-CV (test code = 788-0) 12.5 % 12.0-15.5 PLT (test code = 777-3) 431 See_Comment H [Automated messa ge] The system which generated this result transmitted reference range: 166 - 358 10*3/?L. The reference range was not used to interpret this result as normal/abnormal. MPV (test code = 83425-8) 9.0 fL 9.5-12.9 L NRBC/100 WBC (test code = 6391014087) 0.0 See_Comment [Automated Cordium ssage] The system which generated this result transmitted reference range: 0.0 - 10.0 /100 WBCs. The reference range was not used to interpret this result as normal/abnormal. NRBC x10^3 (test code = 1489892534) See_Comment [Automated messa ge] The system which generated this result transmitted reference range: 10*3/?L. The reference range was not used to interpret this result as normal/abnormal. GRAN MAT (NEUT) % (test code = 770-8) 67.8 % IMM GRAN % (test code = 2715532204) 0.30 % LYMPH % (test code = 736-9) 23.1 % MONO % (test code = 5905-5) 6.6 % EOS % (test code = 713-8) 1.6 % BASO % (test code = 706-2) 0.6 % GRAN MAT x10^3(ANC) (test code = 4627046088) 6.76 10*3/uL 1.88-7.09 IMM GRAN x10^3 (test code = 1551181828) 0.03 10*3/uL 0.00-0.06 LYMPH x10^3 (test code = 731-0) 2.31 10*3/uL 1.32-3.29 MONO x10^3 (test code = 742-7) 0.66 10*3/uL 0.33-0.92 EOS x10^3 (test code = 711-2) 0.16 10*3/uL 0.03-0.39 BASO x10^3 (test code = 704-7) 0.06 10*3/uL 0.01-0.07 Lab Interpretation (test code = 31624-7) [id number] 16:17:00* Test Item Value Reference Range Interpretation Comme nts POCT PREG (test code = 1605) Negative On board controls acceptable with C Line (test code = 3574) Yes POCT PREG LOT # (test code = 3575) [id number] POCT PREG TEST DATE ( test code = 3576) 01-10-25 Lab Interpretation (test cod e = 28843-3) Normal [facility] Notes Date/Time Note Provider Source 2023-10-28 13:29:39 8ZpsX3n9vK0sivk13BJx DWgUo1W4Q7GJo CQ5Dvc1arbIAdtnmepRr2xLxQHcz9za67 28-10-23T13:29:39 Patient discharged. Pain controlled. Follow up with OBGYN. 03272-2Edjsjqgre department OcnfAO5095-41-21J93:29:55Emergenc y department NoteTXT1.2.840.513693.1.13.104.2. 7.2.879256|[id number] for patient svld06678-4QstaZIOLDKGSZPCKyaxisx ed C-CDA narrative textUT99 Smith StreetWvirVhebrkaiaGfnlezaxrKMQP7781010 509MKKGVIFKMZRELHPTZABPZL5617-84- 24T13:29:551.2.840.877410.1.72.3. 15|1.2.840.193657.1.13.104.2.7.2. [id number] [facility] 2023-10-28 09:42:41 aQ6OZqFGtrt01XiVnJtj awAgMB2luHcqo TSDI4I28nkmiPViay95Y+Kig2S2aDwJ76 28-10-23T09:42:41 Patient to ED RLQ pain that started at 2 am. Reports she had the same pain that happened last month and went to [facility] and was diagnosed with a UTI and cyst on left ovary. Reports this feels the same. Reports of nausea and 1 episode of vomiting at 4 am. 45880-7Tffyfcqpx department Triage fsxkDT9478-79-06Q81:44:27[facility] Triage noteTXT1.2.840.280889.1.13.104.2. 7.2.908216|[id number] for patient juzq38804-8Npsneueau department NoteLNNARRATIVEFormatted C-CDA narrative [id number] LOYD30 [address] StreetGalvestonGalvestonTXTX7755577 583XCZEVMYUAMYGYNTUTVVVDE5484-64- 24T09:44:271.2.840.375042.1.72.3. 15|1.2.840.467577.1.13.104.2.7.2. [id number] Edison Nielson RN [facility]"
--- NOTE | 2023-11-11 19:32 | RAD REPORT ---
EXAM DESCRIPTION: RAD - Ankle Right 3 View - 11/11/2023 6:12 pm CLINICAL HISTORY: PAIN COMPARISON: No comparisons TECHNIQUE: Right ankle, 3 views. FINDINGS: No fracture, dislocation or periosteal reaction. No joint effusion seen. No joint space na rrowing. Soft tissue swelling most pronounced laterally. IMPRESSION: No acute osseous abnormality. Soft tissue swelling most pronounced laterally.
--- NOTE | 2023-11-11 19:49 | ER ---
Nurse's Notes [facility] Name: Lara Zamorano Age: 22 yrs Sex: Female : 2000 Arrival Date: 11/11/2023 Time: 17:08 Bed 10 Private MD: Diagnosis: Sprain of ankle Presentation: 11/11 17:24 Chief complaint: Patient states: she fell off a 3ft stool today at 1600. patient also ap3 reports she took a 7.5mg hydrocodone at the same time. patient complains of pain to her right ankle. Coronavirus screen: At this time, the client does not indicate any symptoms associated with coronavirus-19. Ebola Screen: No symptoms or risks identified at this time. Initial Sepsis Screen: Does the patient meet any 2 criteria? No. Patient's initial sepsis screen is negative. Does the patient have a suspected source of infection? No. Patient's initial sepsis screen is negative. Risk Assessment: Do you want to hurt yourself or someone else? Patient reports no desire to harm self or others. Onset of symptoms was November 11, 2023 at 16:00. 17:24 Method Of Arrival: Wheelchair ap3 17:24 Acuity: SHEYLA 4 ap3 Triage Assessment: 17:29 General: Appears uncomfortable, Behavior is calm, cooperative, appropriate for age. ap3 Pain: Complains of pain in right ankle Pain currently is 10 out of 10 on a pain scale. Neuro: Level of Consciousness is awake, alert, obeys commands, Oriented to person, place, time, situation, Appropriate for age. Cardiovascular: Patient's skin is warm and dry. Respiratory: Airway is patent Respiratory effort is even, unlabored, Respiratory pattern is regular, symmetrical. Musculoskeletal: Swelling present in right ankle. Historical: - Allergies: 17:26 Lidocaine; ap3 - Home Meds: 17:27 Caplyta oral [Active]; Effexor Oral [Active]; trazodone Oral [Active]; Ambien Oral ap3 [Active]; hydrocodone-acetaminophen 7.5-325 mg Oral tablet [Active]; - PMHx: 17:26 DVT; Bipolar disorder; ap3 - Immunization history:: Client reports receiving the 2nd dose of the Covid vaccine, Flu vaccine is not up to date. - Social history:: Smoking status: Reported history of juuling and/or vaping. Screenin:30 Abuse screen: Denies threats or abuse. Nutritional screening: No deficits noted. ap3 Tuberculosis screening: No symptoms or risk factors identified. Assessment: 19:21 General: Appears uncomfortable, Behavior is cooperative. Pain: Complains of pain in ha1 right ankle Pain does not radiate. Pain currently is 5 out of 10 on a pain scale. Quality of pain is described as throbbing, Pain began gradually. Neuro: Level of Consciousness is awake, alert, obeys commands, Oriented to person, place, time, situation. Cardiovascular: Patient's skin is warm and dry. Respiratory: Airway is patent Respiratory effort is even, unlabored, Respiratory pattern is regular, symmetrical. Musculoskeletal: Circulation, motion, and sensation intact. 20:04 Reassessment: Patient and/or family updated on plan of care and expected duration. Pain ha1 level reassessed. Patient is alert, oriented x 3, equal unlabored respirations, skin warm/dry/pink. Vital Signs: 17:24 BP 132 / 98; Pulse 95; Resp 17; Temp 98.7; Pulse Ox 100% ; Weight 90.72 kg; Pain 10/10; ap3 20:04 BP 135 / 90; Pulse 98; Resp 17 S; Pulse Ox 100% on R/A; ha1 17:24 Pain Scale: Adult ap3 ED Course: 17:12 Patient arrived in ED. im 17:16 Florencia [facility]-C [facility] kb 17:16 Naeem Sanders MD is Attending Physician. kb 17:26 Triage completed. ap3 17:30 Arm band placed on right wrist. ap3 17:30 Patient has correct armband on for positive identification. Call light in reach. Adult ap3 w/ patient. Pulse ox on. NIBP on. 18:13 Ankle Right 3 View XRAY In Process Unspecified. EDMS 20:05 Provided Education on: following up with orthopedic. ha1 20:05 No provider procedures requiring assistance completed. Patient did not have IV access ha1 during this emergency room visit. Administered Medications: 17:49 Drug: Ibuprofen PO 800 mg PO once Route: PO; ap3 18:30 Drug: HYDROcodone-acetaminophen PO 5 mg-325 mg 1 tabs PO once Route: PO; ap3 19:00 Follow up: Response: No adverse reaction; Pain is unchanged, physician notified ha1 19:40 Drug: morphine IM 4 mg IM once Route: IM; Site: right deltoid; ha1 20:06 Follow up: Response: No adverse reaction; Pain is decreased; RASS: Alert and Calm (0) ha1 Medication: 20:06 VIS not applicable for this client. ha1 Outcome: 19:48 Discharge ordered by MD. laughlin 20:05 Discharged to home with crutches, with family, ha1 20:05 Condition: stable 20:05 Discharge instructions given to patient, family, Instructed on discharge instructions, follow up and referral plans. Demonstrated understanding of instructions, follow-up care, 20:06 Patient left the ED. ha1 Signatures: Dispatcher [employer] EDMS Florencia Santos, ALEYDA-C ALEYDA-Margarita Colin RN RN ap3 Ansley Peres RN RN ha1 Lisset Benavides
--- NOTE | 2023-11-11 19:49 | EDPHYS ---
Physician Documentation [facility] Name: Lara Zamorano Age: 22 yrs Sex: Female : 2000 Arrival Date: 11/11/2023 Time: 17:08 Bed 10 Private MD: ED Physician Naeem Sanders HPI: 11/11 20:50 This 22 yrs old Female presents to ER via Wheelchair with complaints of Ankle Injury - kb Right. 20:50 Patient is a 22-year-old female who presents for right ankle pain and swelling that kb started at 4:00 today after falling off of a 3 foot stool and twisting ankle. States she has fracture that ankle before and believes that she refractured it today. Unable to bear weight. Patient reports she took half of a [place] 7.5 prior to arrival. Historical: - Allergies: 17:26 Lidocaine; ap3 - Home Meds: 17:27 Caplyta oral [Active]; Effexor Oral [Active]; trazodone Oral [Active]; Ambien Oral ap3 [Active]; hydrocodone-acetaminophen 7.5-325 mg Oral tablet [Active]; - PMHx: 17:26 DVT; Bipolar disorder; ap3 - Immunization history:: Client reports receiving the 2nd dose of the Covid vaccine, Flu vaccine is not up to date. - Social history:: Smoking status: Reported history of juuling and/or vaping. ROS: 20:50 Constitutional: Negative for fever, chills, and weight loss, kb 20:50 MS/extremity: Positive for decreased range of motion, pain, swelling, tenderness, of the right ankle, 20:50 All other systems are negative, Exam: 20:50 Constitutional: This is a well developed, well nourished patient who is awake, alert, kb and in no acute distress. Head/Face: Normocephalic, atraumatic. ENT: Moist Mucous membranes Cardiovascular: Regular rate Respiratory: Respirations even and unlabored. No increased work of breathing. Talking in full sentences Skin: Warm, dry with normal turgor. Normal color. Neuro: Awake and alert, GCS 15, oriented to person, place, time, and situation. Moves all extremities. Normal gait. 20:50 Musculoskeletal/extremity: Extremities: grossly normal except: noted in the right ankle: decreased ROM, pain, swelling, tenderness, ROM: limited active range of motion due to pain, Circulation is intact in all extremities. Sensation intact. Weight bearing: is unable to bear weight, Vital Signs: 17:24 BP 132 / 98; Pulse 95; Resp 17; Temp 98.7; Pulse Ox 100% ; Weight 90.72 kg; Pain 10/10; ap3 20:04 BP 135 / 90; Pulse 98; Resp 17 S; Pulse Ox 100% on R/A; ha1 17:24 Pain Scale: Adult ap3 MDM: 17:16 Patient medically screened. kb 20:50 Differential diagnosis: fracture, sprain. Data reviewed: vital signs, nurses notes. kb 20:51 Counseling: I had a detailed discussion with the patient and/or guardian regarding the kb historical points, exam findings, and any diagnostic results supporting the discharge/admit diagnosis, radiology results, the need for outpatient follow up, a orthopedic surgeon, to return to the emergency department if symptoms worsen or persist or if there are any questions or concerns that arise at home. 11/11 17:26 Order name: Ankle Right 3 View XRAY; Complete Time: 19:35 kb 11/11 17:26 Order name: Ice pack; Complete Time: 17:49 kb 11/11 19:35 Order name: Crutches; Complete Time: 19:54 kb 11/11 19:56 Order name: Walking boot; Complete Time: 20:01 kb Administered Medications: 17:49 Drug: Ibuprofen PO 800 mg PO once Route: PO; ap3 18:30 Drug: HYDROcodone-acetaminophen PO 5 mg-325 mg 1 tabs PO once Route: PO; ap3 19:00 Follow up: Response: No adverse reaction; Pain is unchanged, physician notified ha1 19:40 Drug: morphine IM 4 mg IM once Route: IM; Site: right deltoid; ha1 20:06 Follow up: Response: No adverse reaction; Pain is decreased; RASS: Alert and Calm (0) ha1 Disposition Summary: 11/11/23 19:48 Discharge Ordered Notes: Location: Home Condition: Stable kb Diagnosis - Sprain of ankle kb Followup: kb - With: Emergency Department - When: As needed - Reason: Worsening of condition Followup: kb - With: Private Physician - When: 2 - 3 days - Reason: Recheck today's complaints, Continuance of care, Re-evaluation by your physician Discharge Instructions: - Discharge Summary Sheet kb - Ankle Sprain, Kkzy-gh-Zaxc kb Forms: - Medication Reconciliation Form kb - Thank You Letter kb - Antibiotic Education kb - Prescription Opioid Use kb - Patient Portal Instructions kb - Leadership Thank You Letter kb - Work release form ha1 Signatures: Dispatcher [employer] EDFlorencia Sparrow FNP-C FNP-Ckb Prokisch, Amanda, RN RN ap3 Ansley Peres RN RN ha1 Corrections: (The following items were deleted from the chart) 19:54 19:35 Splint - Leg: Short Leg ordered. kb ha1
== END ==
LOC: ER 17:08
DX: S93.401A Sprain of unspecified ligament of right ankle, initial encounter (principal); Z88.4 Allergy status to anesthetic agent

== ENCOUNTER 2024-01-18 12:12 | Emergency (ER) | payer OTHER ==
--- OUTSIDE RECORDS SUMMARY | 2024-01-18 12:16 | XMS REPORT | Continuity of Care Document ---
Author Name Unknown Address [address] [facility] [place] [address] [facility] thconnect Address [address] [facility] [address] [place] [address] Care Team Providers Care Bond Clerk Name Role Phone AVNI ACKERMAN Primary Care Physician Unavailab melanie VASQUEZ Attending Clinician Unavailable EZEQUIEL_Mercedes_[place] Attending Clinician UnavailGRACE Gutierrez Attending Clinician Unavailable Grace Naqvi NP Attending Clinician [phone] KATHY BEE Attending Clinician UnavailKATHY Giraldo Attending Clinician UnavailAvni Crabtree Attending Clinician [phone] MILAGRO FRANKLIN Attending Clinician Unavailable SISWILSON_Karly Admitting Clinician Unavailable EZEQUIEL_Mercedes_S Admitting Clinician UnavailGRACE Gutierrez Admitting Clinician Unavailable Payers Payer Name Policy Type Policy Number Effective Date Expirati on Date Source HARPER EDDY (PPO) [id number] 2022 00:00:00 [employer] (PPO) [id number] 2002 00:00:00 2004 00:00:00 MULTIPLAN SARAH BETH [id number] 2022 00:00:00 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 2019 00:00:00 [employer] - [employer]IT [employer] (PPO) [id number] 2019 00:00:00 Problems Condition Name Condition Details Condition Category Status Onset Date Resolution Date Last Treatment Date Treating Clinician Comments Source Insomnia Insomnia Problem Active -06 00:00: 00 [facility] Bulimia nervosa, purging type Bulimia Nervosa, Purging Type Problem Active 2020-10 00:00: 00 [facility] Dysmenorrh ea Dysmenorrh ea Disease Active 2019-10 00:00: 00 [facility] Active or passive immunizati on Active or Passive Immunizati on Problem Active 04-17 00:00: 00 [facility] Abnormal blood pressure Abnormal Blood Pressure Problem Active 04-17 00:00: 00 [facility] Allergies, Adverse Reactions, Alerts Allergy Name Allergy Type Status Severity Reaction(s) Onset Date Inactive Date Treating Clinician Comments Source Lidocain e Propensi ty to adverse reaction s Active Shortness of Breath 2019-10 00:00: 00 [facility] LIDOCAIN E DRUG INGREDI Active SOB 2019-10 00:00: 00 [facility] Lidocain e Allergy to substanc e Active Severe Hives [facility] NO KNOWN ALLERGIE S Drug Class Active [facility] Social History Social Habit Start Date Stop Date Quantity Comments [facility] use and exposure 2020-07-30 00:00:00 2020-07-30 00:00:00 Former smokeless tobacco user [facility] Alcohol intake 2020-07-30 00:00:00 2020-07-30 00:00:00 Current drinker of alcohol (finding) [facility] History of Social function 2020-07-30 00:00:00 2020-07-30 00:00:00 [facility] History of tobacco use 2019-09-28 00:00:00 Cigarette Smoker [facility] Sex Assigned At 2000 00:00:00 2000 00:00:00 [facility] Smoking Status Start Date Stop Date Source Ex-smoker 2020-07-30 00:00:00 2020-07-30 00:00:00 [facility] Medications Ordered Medication Name Filled Medication Name Start Date Stop Date Current Medication? Ordering Clinician Indication Dosage Frequency Signature (SIG) Comments Components Source iopamidol (ISOVUE 370-500 mL) injection 80 mL 10-28 19:30: 00 10-28 19:30 :00 No [id number] 80mL 80 mL, Intravenou s, ONCE, 1 dose, On Thu10/28/23 at 1330, Routine [facility] dicyclomine (BENTYL) tablet 20 mg 10-28 19:15: 00 10-28 19:23 :00 No 20mg 20 mg, Oral, ONCE, 1 dose, On Thu10/28/23 at 1315, DEVENDRA [facility] ketorolac (TORADOL) injection 30 mg 10-28 17:15: 00 10-28 16:22 :00 No 30mg 30 mg, Slow IV Push, ONCE, 1 dose, On Thu10/28/23 at 1115, Routine [facility] ondansetron (ZOFRAN (PF)) injection 4 mg 10-28 16:15: 00 10-28 16:21 :00 No 4mg 4 mg, Slow IV Push, ONCE, 1 dose, On Thu10/28/23 at 1015, DEVENDRA [facility] venlafaxine HCl (EFFEXOR ORAL) 10-28 14:04: 01 Yes Take by mouth. [facility] naproxen 500 mg tablet 10-28 00:00: 00 11-05 05:59 :00 Yes [id number] 500mg Take 1 tablet by mouth in the morning and 1 tablet in the evening. Take with meals. Do all this for 7 days. [facility] LICE TREATMENT, PERMETHRIN, 1 % lotion 05-23 00:00: 00 10-28 00:00 :00 No APPLY TOPICALLY DIRECTED FOR 1 DOSE [facility] hydrOXYzine 25 mg tablet 04-25 00:00: 00 10-28 00:00 :00 No 1 po q 4-6 hours as needed for itching [facility] Ambien CR 6.25 mg tablet,exte nded release Take 1 tablet as needed by oral route at bedtime. Ambien CR 6.25 mg tablet,exte nded release Take 1 tablet as needed by oral route at bedtime. No 1 Ambien CR 6.25 mg tablet,ext ended release Take 1 tablet as needed by oral route at bedtime. [facility] ergocalcife rol (vitamin D2) 1,250 mcg (50,000 unit) capsule TAKE 1 CAPSULE EVERY WEEK BY ORAL ROUTE. ergocalcife rol (vitamin D2) 1,250 mcg (50,000 unit) capsule TAKE 1 CAPSULE EVERY WEEK BY ORAL ROUTE. No ergocalcif ta (vitamin D2) 1,250 mcg (50,000 unit) capsule TAKE 1 CAPSULE EVERY WEEK BY ORAL ROUTE. [facility] lisinopril 10 mg tablet TAKE 1 TABLET BY MOUTH EVERY DAY lisinopril 10 mg tablet TAKE 1 TABLET BY MOUTH EVERY DAY No lisinopril 10 mg tablet TAKE 1 TABLET BY MOUTH EVERY DAY [facility] sertraline 100 mg tablet TAKE 1 TABLET BY MOUTH EVERY DAY sertraline 100 mg tablet TAKE 1 TABLET BY MOUTH EVERY DAY No sertraline 100 mg tablet TAKE 1 TABLET BY MOUTH EVERY DAY [facility] acetaminoph en 300 mg-codeine 30 mg tablet TAKE 1 TABLET BY MOUTH EVERY 6 HOURS NEEDED acetaminoph en 300 mg-codeine 30 mg tablet TAKE 1 TABLET BY MOUTH EVERY 6 HOURS NEEDED No acetaminop hen 300 mg-codeine 30 mg tablet TAKE 1 TABLET BY MOUTH EVERY 6 HOURS NEEDED [facility] drospirenon e 3 mg-ethinyl estradiol 0.02 mg [...] the same time. Take active pills only. [facility] ergocalcife rol (vitamin D2) 1,250 mcg (50,000 unit) capsule TAKE 1 CAPSULE EVERY WEEK BY ORAL ROUTE. ergocalcife rol (vitamin D2) 1,250 mcg (50,000 unit) capsule TAKE 1 CAPSULE EVERY WEEK BY ORAL ROUTE. No ergocalcif ta (vitamin D2) 1,250 mcg (50,000 unit) capsule TAKE 1 CAPSULE EVERY WEEK BY ORAL ROUTE. [facility] hydrochloro thiazide 12.5 mg capsule Take 1 capsule every day by oral route for 90 days. hydrochloro thiazide 12.5 mg capsule Take 1 capsule every day by oral route for 90 days. No 1capsul e(s) Q1D hydrochlor othiazide 12.5 mg capsule Take 1 capsule every day by oral route for 90 days. [facility] phentermine 37.5 mg tablet Take 1 tablet every day by oral route. phentermine 37.5 mg tablet Take 1 tablet every day by oral route. No 1 Q1D phentermin e 37.5 mg tablet Take 1 tablet every day by oral route. [facility] sertraline 100 mg tablet TAKE 1 TABLET BY MOUTH EVERY DAY sertraline 100 mg tablet TAKE 1 TABLET BY MOUTH EVERY DAY No sertraline 100 mg tablet TAKE 1 TABLET BY MOUTH EVERY DAY [facility] zolpidem ER 6.25 mg tablet,exte nded release,mul tiphase TAKE 1 TABLET BY MOUTH EVERY DAY AT BEDTIME NEEDED zolpidem ER 6.25 mg tablet,exte nded release,mul tiphase TAKE 1 TABLET BY MOUTH EVERY DAY AT BEDTIME NEEDED No zolpidem ER 6.25 mg tablet,ext ended release,mu ltiphase TAKE 1 TABLET BY MOUTH EVERY DAY AT BEDTIME NEEDED [facility] Bystolic 10 mg tablet Take 1 tablet every day by oral route for 90 days. Bystolic 10 mg tablet Take 1 tablet every day by oral route for 90 days. No 1 Q1D Bystolic 10 mg tablet Take 1 tablet every day by oral route for 90 days. [facility] drospirenon e 3 mg-ethinyl estradiol 0.02 mg [...] the same time. Take active pills only. [facility] ergocalcife rol (vitamin D2) 1,250 mcg (50,000 unit) capsule TAKE 1 CAPSULE EVERY WEEK BY ORAL ROUTE. ergocalcife rol (vitamin D2) 1,250 mcg (50,000 unit) capsule TAKE 1 CAPSULE EVERY WEEK BY ORAL ROUTE. No ergocalcif ta (vitamin D2) 1,250 mcg (50,000 unit) capsule TAKE 1 CAPSULE EVERY WEEK BY ORAL ROUTE. [facility] hydrochloro thiazide 25 mg tablet Take 1 tablet every day by oral route for 90 days. hydrochloro thiazide 25 mg tablet Take 1 tablet every day by oral route for 90 days. No 1 Q1D hydrochlor othiazide 25 mg tablet Take 1 tablet every day by oral route for 90 days. [facility] sertraline 100 mg tablet TAKE 1 TABLET BY MOUTH EVERY DAY sertraline 100 mg tablet TAKE 1 TABLET BY MOUTH EVERY DAY No sertraline 100 mg tablet TAKE 1 TABLET BY MOUTH EVERY DAY [facility] zolpidem ER 6.25 mg tablet,exte nded release,mul tiphase TAKE 1 TABLET BY MOUTH EVERY DAY AT BEDTIME NEEDED zolpidem ER 6.25 mg tablet,exte nded release,mul tiphase TAKE 1 TABLET BY MOUTH EVERY DAY AT BEDTIME NEEDED No zolpidem ER 6.25 mg tablet,ext ended release,mu ltiphase TAKE 1 TABLET BY MOUTH EVERY DAY AT BEDTIME NEEDED [facility] drospirenon e 3 mg-ethinyl estradiol 0.02 mg [...] the same time. Take active pills only. [facility] ergocalcife rol (vitamin D2) 1,250 mcg (50,000 unit) capsule TAKE 1 CAPSULE EVERY WEEK BY ORAL ROUTE. ergocalcife rol (vitamin D2) 1,250 mcg (50,000 unit) capsule TAKE 1 CAPSULE EVERY WEEK BY ORAL ROUTE. No ergocalcif ta (vitamin D2) 1,250 mcg (50,000 unit) capsule TAKE 1 CAPSULE EVERY WEEK BY ORAL ROUTE. [facility] hydrochloro thiazide 25 mg tablet TAKE 1 TABLET BY MOUTH EVERY DAY hydrochloro thiazide 25 mg tablet TAKE 1 TABLET BY MOUTH EVERY DAY No hydrochlor othiazide 25 mg tablet TAKE 1 TABLET BY MOUTH EVERY DAY [facility] nebivolol 10 mg tablet TAKE 1 TABLET BY MOUTH EVERY DAY nebivolol 10 mg tablet TAKE 1 TABLET BY MOUTH EVERY DAY No nebivolol 10 mg tablet TAKE 1 TABLET BY MOUTH EVERY DAY [facility] phentermine 37.5 mg tablet TAKE 1 TABLET BY MOUTH EVERY DAY phentermine 37.5 mg tablet TAKE 1 TABLET BY MOUTH EVERY DAY No phentermin e 37.5 mg tablet TAKE 1 TABLET BY MOUTH EVERY DAY [facility] sertraline 100 mg tablet TAKE 1 TABLET BY MOUTH EVERY DAY sertraline 100 mg tablet TAKE 1 TABLET BY MOUTH EVERY DAY No sertraline 100 mg tablet TAKE 1 TABLET BY MOUTH EVERY DAY [facility] Ubrelvy 100 mg tablet Take 1 tablet [...] not relieved. Max dose 200 mg/24 hours [facility] zolpidem ER 6.25 mg tablet,exte nded release,mul tiphase TAKE 1 TABLET BY MOUTH EVERY DAY AT BEDTIME NEEDED zolpidem ER 6.25 mg tablet,exte nded release,mul tiphase TAKE 1 TABLET BY MOUTH EVERY DAY AT BEDTIME NEEDED No zolpidem ER 6.25 mg tablet,ext ended release,mu ltiphase TAKE 1 TABLET BY MOUTH EVERY DAY AT BEDTIME NEEDED [facility] compounded medication semaglutide 0.3 ml 0.15 ml today (1st half dose) $22.50 compounded medication semaglutide 0.3 ml 0.15 ml today (1st half dose) $22.50 No compounded medication semaglutid e 0.3 ml 0.15 ml today (1st half dose) $22.50 [facility] ergocalcife rol (vitamin D2) 1,250 mcg (50,000 unit) capsule TAKE 1 CAPSULE EVERY WEEK BY ORAL ROUTE. ergocalcife rol (vitamin D2) 1,250 mcg (50,000 unit) capsule TAKE 1 CAPSULE EVERY WEEK BY ORAL ROUTE. No ergocalcif ta (vitamin D2) 1,250 mcg (50,000 unit) capsule TAKE 1 CAPSULE EVERY WEEK BY ORAL ROUTE. [facility] hydrochloro thiazide 25 mg tablet TAKE 1 TABLET BY MOUTH EVERY DAY hydrochloro thiazide 25 mg tablet TAKE 1 TABLET BY MOUTH EVERY DAY No hydrochlor othiazide 25 mg tablet TAKE 1 TABLET BY MOUTH EVERY DAY [facility] nebivolol 10 mg tablet TAKE 1 TABLET BY MOUTH EVERY DAY nebivolol 10 mg tablet TAKE 1 TABLET BY MOUTH EVERY DAY No nebivolol 10 mg tablet TAKE 1 TABLET BY MOUTH EVERY DAY [facility] phentermine 37.5 mg tablet Take 1 tablet every day by oral route. phentermine 37.5 mg tablet Take 1 tablet every day by oral route. No 1 Q1D phentermin e 37.5 mg tablet Take 1 tablet every day by oral route. [facility] Qulipta 60 mg tablet TAKE 1 TABLET BY MOUTH EVERY DAY FOR 30 DAYS Qulipta 60 mg tablet TAKE 1 TABLET BY MOUTH EVERY DAY FOR 30 DAYS No Qulipta 60 mg tablet TAKE 1 TABLET BY MOUTH EVERY DAY FOR 30 DAYS [facility] sertraline 100 mg tablet TAKE 1 TABLET BY MOUTH EVERY DAY sertraline 100 mg tablet TAKE 1 TABLET BY MOUTH EVERY DAY No sertraline 100 mg tablet TAKE 1 TABLET BY MOUTH EVERY DAY [facility] Ubrelvy 100 mg tablet Take 1 tablet [...] not relieved. Max dose 200 mg/24 hours [facility] zolpidem ER 6.25 mg tablet,exte nded release,mul tiphase TAKE 1 TABLET BY MOUTH EVERY DAY AT BEDTIME NEEDED zolpidem ER 6.25 mg tablet,exte nded release,mul tiphase TAKE 1 TABLET BY MOUTH EVERY DAY AT BEDTIME NEEDED No zolpidem ER 6.25 mg tablet,ext ended release,mu ltiphase TAKE 1 TABLET BY MOUTH EVERY DAY AT BEDTIME NEEDED [facility] compounded medication semaglutide 0.3 ml 0.15 ml today (1st half dose) $22.50 compounded medication semaglutide 0.3 ml 0.15 ml today (1st half dose) $22.50 No compounded medication semaglutid e 0.3 ml 0.15 ml today (1st half dose) $22.50 [facility] ergocalcife rol (vitamin D2) 1,250 mcg (50,000 unit) capsule TAKE 1 CAPSULE EVERY WEEK BY ORAL ROUTE. ergocalcife rol (vitamin D2) 1,250 mcg (50,000 unit) capsule TAKE 1 CAPSULE EVERY WEEK BY ORAL ROUTE. No ergocalcif ta (vitamin D2) 1,250 mcg (50,000 unit) capsule TAKE 1 CAPSULE EVERY WEEK BY ORAL ROUTE. [facility] hydrochloro thiazide 25 mg tablet TAKE 1 TABLET BY MOUTH EVERY DAY hydrochloro thiazide 25 mg tablet TAKE 1 TABLET BY MOUTH EVERY DAY No hydrochlor othiazide 25 mg tablet TAKE 1 TABLET BY MOUTH EVERY DAY [facility] nebivolol 10 mg tablet TAKE 1 TABLET BY MOUTH EVERY DAY nebivolol 10 mg tablet TAKE 1 TABLET BY MOUTH EVERY DAY No nebivolol 10 mg tablet TAKE 1 TABLET BY MOUTH EVERY DAY [facility] ondansetron 4 mg disintegrat ing tablet ALLOW 2 TABLETS TO DISSOLVE ON TOP OF THE TONGUE TWICE A DAY ondansetron 4 mg disintegrat ing tablet ALLOW 2 TABLETS TO DISSOLVE ON TOP OF THE TONGUE TWICE A DAY No ondansetro n 4 mg disintegra ting tablet ALLOW 2 TABLETS TO DISSOLVE ON TOP OF THE TONGUE TWICE A DAY [facility] Qulipta 60 mg tablet TAKE 1 TABLET BY MOUTH EVERY DAY FOR 30 DAYS Qulipta 60 mg tablet TAKE 1 TABLET BY MOUTH EVERY DAY FOR 30 DAYS No Qulipta 60 mg tablet TAKE 1 TABLET BY MOUTH EVERY DAY FOR 30 DAYS [facility] sertraline 100 mg tablet TAKE 1 TABLET BY MOUTH EVERY DAY sertraline 100 mg tablet TAKE 1 TABLET BY MOUTH EVERY DAY No sertraline 100 mg tablet TAKE 1 TABLET BY MOUTH EVERY DAY [facility] Ubrelvy 100 mg tablet Take 1 tablet [...] not relieved. Max dose 200 mg/24 hours [facility] zolpidem ER 6.25 mg tablet,exte nded release,mul tiphase TAKE 1 TABLET BY MOUTH AT BEDTIME NEEDED zolpidem ER 6.25 mg tablet,exte nded release,mul tiphase TAKE 1 TABLET BY MOUTH AT BEDTIME NEEDED No zolpidem ER 6.25 mg tablet,ext ended release,mu ltiphase TAKE 1 TABLET BY MOUTH AT BEDTIME NEEDED [facility] compounded medication Semaglutide one injections welanny compounded medication Semaglutide one injections welanny No compounded medication Semaglutid e one injections welanny [facility] compounded medication semaglutide 0.3 ml 0.15 ml today (1st half dose) $22.50 compounded medication semaglutide 0.3 ml 0.15 ml today (1st half dose) $22.50 No compounded medication semaglutid e 0.3 ml 0.15 ml today (1st half dose) $22.50 [facility] ergocalcife rol (vitamin D2) 1,250 mcg (50,000 unit) capsule TAKE 1 CAPSULE EVERY WEEK BY ORAL ROUTE. ergocalcife rol (vitamin D2) 1,250 mcg (50,000 unit) capsule TAKE 1 CAPSULE EVERY WEEK BY ORAL ROUTE. No ergocalcif ta (vitamin D2) 1,250 mcg (50,000 unit) capsule TAKE 1 CAPSULE EVERY WEEK BY ORAL ROUTE. [facility] ondansetron 4 mg disintegrat ing tablet ALLOW 2 TABLETS TO DISSOLVE ON TOP OF THE TONGUE TWICE A DAY ondansetron 4 mg disintegrat ing tablet ALLOW 2 TABLETS TO DISSOLVE ON TOP OF THE TONGUE TWICE A DAY No ondansetro n 4 mg disintegra ting tablet ALLOW 2 TABLETS TO DISSOLVE ON TOP OF THE TONGUE TWICE A DAY [facility] Qulipta 60 mg tablet TAKE 1 TABLET BY MOUTH EVERY DAY FOR 30 DAYS Qulipta 60 mg tablet TAKE 1 TABLET BY MOUTH EVERY DAY FOR 30 DAYS No Qulipta 60 mg tablet TAKE 1 TABLET BY MOUTH EVERY DAY FOR 30 DAYS [facility] sertraline 100 mg tablet TAKE 1 TABLET BY MOUTH EVERY DAY sertraline 100 mg tablet TAKE 1 TABLET BY MOUTH EVERY DAY No sertraline 100 mg tablet TAKE 1 TABLET BY MOUTH EVERY DAY [facility] Ubrelvy 100 mg tablet Take 1 tablet [...] not relieved. Max dose 200 mg/24 hours [facility] zolpidem ER 6.25 mg tablet,exte nded release,mul tiphase TAKE 1 TABLET BY MOUTH EVERY DAY AT BEDTIME NEEDED zolpidem ER 6.25 mg tablet,exte nded release,mul tiphase TAKE 1 TABLET BY MOUTH EVERY DAY AT BEDTIME NEEDED No zolpidem ER 6.25 mg tablet,ext ended release,mu ltiphase TAKE 1 TABLET BY MOUTH EVERY DAY AT BEDTIME NEEDED [facility] compounded medication semaglutide 0.3 ml 0.15 ml today (1st half dose) $22.50 compounded medication semaglutide 0.3 ml 0.15 ml today (1st half dose) $22.50 No compounded medication semaglutid e 0.3 ml 0.15 ml today (1st half dose) $22.50 [facility] compounded medication Semaglutide one injections gerardelky compounded medication Semaglutide one injections harley No compounded medication Semaglutid e one injections weelindira [facility] Effexor XR 75 mg capsule,ext ended release Take 1 capsule every day by oral route for 90 days. Effexor XR 75 mg capsule,ext ended release Take 1 capsule every day by oral route for 90 days. No 1capsul e(s) Q1D Effexor XR 75 mg capsule,ex tended release Take 1 capsule every day by oral route for 90 days. [facility] ondansetron 4 mg disintegrat ing tablet Place 2 tablets twice a day by translingua l route. ondansetron 4 mg disintegrat ing tablet Place 2 tablets twice a day by translingua l route. No 2 BID ondansetro n 4 mg disintegra ting tablet Place 2 tablets twice a day by translingu al route. [facility] Qulipta 60 mg tablet TAKE 1 TABLET BY MOUTH EVERY DAY FOR 30 DAYS Qulipta 60 mg tablet TAKE 1 TABLET BY MOUTH EVERY DAY FOR 30 DAYS No Qulipta 60 mg tablet TAKE 1 TABLET BY MOUTH EVERY DAY FOR 30 DAYS [facility] trazodone 50 mg tablet Take 1-2 tablets PO PRN QHS trazodone 50 mg tablet Take 1-2 tablets PO PRN QHS No trazodone 50 mg tablet Take 1-2 tablets PO PRN QHS [facility] Ubrelvy 100 mg tablet Take 1 tablet [...] not relieved. Max dose 200 mg/24 hours [facility] compounded medication semaglutide 0.3 ml 0.15 ml today (1st half dose) $22.50 compounded medication semaglutide 0.3 ml 0.15 ml today (1st half dose) $22.50 No compounded medication semaglutid e 0.3 ml 0.15 ml today (1st half dose) $22.50 [facility] compounded medication Semaglutide one injections weelky compounded medication Semaglutide one injections welanny No compounded medication Semaglutid e one injections weleticiaky [facility] drospirenon e 3 mg-ethinyl estradiol 0.02 mg [...] the same time. Take active pills only. [facility] Effexor XR 75 mg capsule,ext ended release Take 1 capsule every day by oral route for 90 days. Effexor XR 75 mg capsule,ext ended release Take 1 capsule every day by oral route for 90 days. No 1capsul e(s) Q1D Effexor XR 75 mg capsule,ex tended release Take 1 capsule every day by oral route for 90 days. [facility] ondansetron 4 mg disintegrat ing tablet Place 2 tablets twice a day by translingua l route. ondansetron 4 mg disintegrat ing tablet Place 2 tablets twice a day by translingua l route. No 2 BID ondansetro n 4 mg disintegra ting tablet Place 2 tablets twice a day by translingu al route. [facility] Qulipta 60 mg tablet TAKE 1 TABLET BY MOUTH EVERY DAY FOR 30 DAYS Qulipta 60 mg tablet TAKE 1 TABLET BY MOUTH EVERY DAY FOR 30 DAYS No Qulipta 60 mg tablet TAKE 1 TABLET BY MOUTH EVERY DAY FOR 30 DAYS [facility] trazodone 50 mg tablet Take 1-2 tablets PO PRN QHS trazodone 50 mg tablet Take 1-2 tablets PO PRN QHS No trazodone 50 mg tablet Take 1-2 tablets PO PRN QHS [facility] Ubrelvy 100 mg tablet Take 1 tablet [...] not relieved. Max dose 200 mg/24 hours [facility] compounded medication semaglutide 0.3 ml 0.15 ml today (1st half dose) $22.50 compounded medication semaglutide 0.3 ml 0.15 ml today (1st half dose) $22.50 No compounded medication semaglutid e 0.3 ml 0.15 ml today (1st half dose) $22.50 [facility] compounded medication Semaglutide one injections harley compounded medication Semaglutide one injections harley No compounded medication Semaglutid e one injections weelky [facility] drospirenon e 3 mg-ethinyl estradiol 0.02 mg [...] the same time. Take active pills only. [facility] Effexor XR 75 mg capsule,ext ended release Take 1 capsule every day by oral route for 90 days. Effexor XR 75 mg capsule,ext ended release Take 1 capsule every day by oral route for 90 days. No 1capsul e(s) Q1D Effexor XR 75 mg capsule,ex tended release Take 1 capsule every day by oral route for 90 days. [facility] ondansetron 4 mg disintegrat ing tablet Place 2 tablets twice a day by translingua l route. ondansetron 4 mg disintegrat ing tablet Place 2 tablets twice a day by translingua l route. No 2 BID ondansetro n 4 mg disintegra ting tablet Place 2 tablets twice a day by translingu al route. [facility] Qulipta 60 mg tablet TAKE 1 TABLET BY MOUTH EVERY DAY FOR 30 DAYS Qulipta 60 mg tablet TAKE 1 TABLET BY MOUTH EVERY DAY FOR 30 DAYS No Qulipta 60 mg tablet TAKE 1 TABLET BY MOUTH EVERY DAY FOR 30 DAYS [facility] trazodone 50 mg tablet Take 1-2 tablets PO PRN QHS trazodone 50 mg tablet Take 1-2 tablets PO PRN QHS No trazodone 50 mg tablet Take 1-2 tablets PO PRN QHS [facility] Ubrelvy 100 mg tablet Take 1 tablet [...] not relieved. Max dose 200 mg/24 hours [facility] Vraylar 1.5 mg capsule Take 1 capsule every day by oral route for 30 days. Vraylar 1.5 mg capsule Take 1 capsule every day by oral route for 30 days. No 1capsul e(s) Q1D Vraylar 1.5 mg capsule Take 1 capsule every day by oral route for 30 days. [facility] compounded medication semaglutide 0.3 ml 0.15 ml today (1st half dose) $22.50 compounded medication semaglutide 0.3 ml 0.15 ml today (1st half dose) $22.50 No compounded medication semaglutid e 0.3 ml 0.15 ml today (1st half dose) $22.50 [facility] compounded medication Semaglutide one injections weelindira compounded medication Semaglutide one injections helgaindira No compounded medication Semaglutid e one injections weleticiaky [facility] Effexor XR 150 mg capsule,ext ended release Take 1 capsule every day by oral route for 90 days. Effexor XR 150 mg capsule,ext ended release Take 1 capsule every day by oral route for 90 days. No 1capsul e(s) Q1D Effexor XR 150 mg capsule,ex tended release Take 1 capsule every day by oral route for 90 days. [facility] Effexor XR 75 mg capsule,ext ended release Take 1 capsule every day by oral route for 90 days. Effexor XR 75 mg capsule,ext ended release Take 1 capsule every day by oral route for 90 days. No 1capsul e(s) Q1D Effexor XR 75 mg capsule,ex tended release Take 1 capsule every day by oral route for 90 days. [facility] hydrocodone 7.5 mg-acetamin ophen 325 mg tablet TAKE 1 TABLET BY MOUTH EVERY 6 HOURS NEEDED FOR PAIN hydrocodone 7.5 mg-acetamin ophen 325 mg tablet TAKE 1 TABLET BY MOUTH EVERY 6 HOURS NEEDED FOR PAIN No hydrocodon e 7.5 mg-acetami nophen 325 mg tablet TAKE 1 TABLET BY MOUTH EVERY 6 HOURS NEEDED FOR PAIN [facility] Klonopin 0.5 mg tablet Take 1 tablet 3 times a day by oral route as needed for 10 days. Klonopin 0.5 mg tablet Take 1 tablet 3 times a day by oral route as needed for 10 days. No 1 TID Klonopin 0.5 mg tablet Take 1 tablet 3 times a day by oral route as needed for 10 days. [facility] ondansetron 4 mg disintegrat ing tablet Place 2 tablets twice a day by translingua l route. ondansetron 4 mg disintegrat ing tablet Place 2 tablets twice a day by translingua l route. No 2 BID ondansetro n 4 mg disinte[address] ting tablet Place 2 tablets twice a day by translingu al route. [facility] oseltamivir 75 mg capsule Take 1 capsule twice a day by oral route. oseltamivir 75 mg capsule Take 1 capsule twice a day by oral route. No 1capsul e(s) BID oseltamivi r 75 mg capsule Take 1 capsule twice a day by oral route. [facility] Qulipta 60 mg tablet TAKE 1 TABLET BY MOUTH EVERY DAY FOR 30 DAYS Qulipta 60 mg tablet TAKE 1 TABLET BY MOUTH EVERY DAY FOR 30 DAYS No Qulipta 60 mg tablet TAKE 1 TABLET BY MOUTH EVERY DAY FOR 30 DAYS [facility] trazodone 50 mg tablet Take 1-2 tablets PO PRN QHS trazodone 50 mg tablet Take 1-2 tablets PO PRN [facility] No trazodone 50 mg tablet Take 1-2 tablets PO PRN QHS [facility] Ubrelvy 100 mg tablet Take 1 tablet [...] not relieved. Max dose 200 mg/24 hours [facility] acetaminoph en 300 mg-codeine 30 mg tablet Take 1 tablet every 6 hours by oral route as needed. acetaminoph en 300 mg-codeine 30 mg tablet Take 1 tablet every 6 hours by oral route as needed. No 1 Q6H acetaminop hen 300 mg-codeine 30 mg tablet Take 1 tablet every 6 hours by oral route as needed. [facility] clonazepam 0.5 mg tablet TAKE 1 TABLET BY MOUTH THREE TIMES A DAY NEEDED FOR 10 DAYS clonazepam 0.5 mg tablet TAKE 1 TABLET BY MOUTH THREE TIMES A DAY NEEDED FOR 10 DAYS No clonazepam 0.5 mg tablet TAKE 1 TABLET BY MOUTH THREE TIMES A DAY NEEDED FOR 10 DAYS [facility] compounded medication Semaglutide one injections welanny compounded medication Semaglutide one injections weleticiaindira No compounded medication Semaglutid e one injections weleticiaky [facility] compounded medication semaglutide 0.3 ml 0.15 ml today (1st half dose) $22.50 compounded medication semaglutide 0.3 ml 0.15 ml today (1st half dose) $22.50 No compounded medication semaglutid e 0.3 ml 0.15 ml today (1st half dose) $22.50 [facility] Effexor XR 75 mg capsule,ext ended release Take 1 capsule every day by oral route for 90 days. Effexor XR 75 mg capsule,ext ended release Take 1 capsule every day by oral route for 90 days. No 1capsul e(s) Q1D Effexor XR 75 mg capsule,ex tended release Take 1 capsule every day by oral route for 90 days. [facility] eszopiclone 2 mg tablet eszopiclone 2 mg tablet No eszopiclon e 2 mg tablet [facility] hydrocodone 7.5 mg-acetamin ophen 325 mg tablet TAKE 1 TABLET BY MOUTH EVERY 6 HOURS NEEDED FOR PAIN hydrocodone 7.5 mg-acetamin ophen 325 mg tablet TAKE 1 TABLET BY MOUTH EVERY 6 HOURS NEEDED FOR PAIN No hydrocodon e 7.5 mg-acetami nophen 325 mg tablet TAKE 1 TABLET BY MOUTH EVERY 6 HOURS NEEDED FOR PAIN [facility] naproxen 500 mg tablet naproxen 500 mg tablet No naproxen 500 mg tablet [facility] ondansetron 4 mg disintegrat ing tablet Place 2 tablets twice a day by translingua l route. ondansetron 4 mg disintegrat ing tablet Place 2 tablets twice a day by translingua l route. No 2 BID ondansetro n 4 mg disintegra ting tablet Place 2 tablets twice a day by translingu al route. [facility] oseltamivir 75 mg capsule Take 1 capsule twice a day by oral route. oseltamivir 75 mg capsule Take 1 capsule twice a day by oral route. No 1capsul e(s) BID oseltamivi r 75 mg capsule Take 1 capsule twice a day by oral route. [facility] oxybutynin chloride ER 10 mg tablet,exte nded release 24 hr oxybutynin chloride ER 10 mg tablet,exte nded release 24 hr No oxybutynin chloride ER 10 mg tablet,ext ended release 24 hr [facility] Qulipta 60 mg tablet TAKE 1 TABLET BY MOUTH EVERY DAY FOR 30 DAYS Qulipta 60 mg tablet TAKE 1 TABLET BY MOUTH EVERY DAY FOR 30 DAYS No Qulipta 60 mg tablet TAKE 1 TABLET BY MOUTH EVERY DAY FOR 30 DAYS [facility] trazodone 50 mg tablet Take 1-2 tablets PO PRN QHS trazodone 50 mg tablet Take 1-2 tablets PO PRN QHS No trazodone 50 mg tablet Take 1-2 tablets PO PRN QHS [facility] Ubrelvy 100 mg tablet Take 1 tablet [...] not relieved. Max dose 200 mg/24 hours [facility] venlafaxine ER 150 mg capsule,ext ended release 24 hr Take 1 capsule every day by oral route for 90 days. venlafaxine ER 150 mg capsule,ext ended release 24 hr Take 1 capsule every day by oral route for 90 days. No venlafaxin e ER 150 mg capsule,ex tended release 24 hr Take 1 capsule every day by oral route for 90 days. [facility] zolpidem 10 mg tablet Take 1 tablet every day by oral route for 30 days. zolpidem 10 mg tablet Take 1 tablet every day by oral route for 30 days. No 1 Q1D zolpidem 10 mg tablet Take 1 tablet every day by oral route for 30 days. [facility] acetaminoph en 300 mg-codeine 30 mg tablet TAKE 1 TABLET BY MOUTH EVERY 6 HOURS NEEDED acetaminoph en 300 mg-codeine 30 mg tablet TAKE 1 TABLET BY MOUTH EVERY 6 HOURS NEEDED No acetaminop hen 300 mg-codeine 30 mg tablet TAKE 1 TABLET BY MOUTH EVERY 6 HOURS NEEDED [facility] drospirenon e 3 mg-ethinyl estradiol 0.02 mg [...] the same time. Take active pills only. [facility] ergocalcife rol (vitamin D2) 1,250 mcg (50,000 unit) capsule TAKE 1 CAPSULE EVERY WEEK BY ORAL ROUTE. ergocalcife rol (vitamin D2) 1,250 mcg (50,000 unit) capsule TAKE 1 CAPSULE EVERY WEEK BY ORAL ROUTE. No ergocalcif ta (vitamin D2) 1,250 mcg (50,000 unit) capsule TAKE 1 CAPSULE EVERY WEEK BY ORAL ROUTE. [facility] lisinopril 10 mg tablet TAKE 1 TABLET BY MOUTH EVERY DAY lisinopril 10 mg tablet TAKE 1 TABLET BY MOUTH EVERY DAY No lisinopril 10 mg tablet TAKE 1 TABLET BY MOUTH EVERY DAY [facility] phentermine 37.5 mg tablet Take 1 tablet every day by oral route. phentermine 37.5 mg tablet Take 1 tablet every day by oral route. No 1 Q1D phentermin e 37.5 mg tablet Take 1 tablet every day by oral route. [facility] sertraline 100 mg tablet TAKE 1 TABLET BY MOUTH EVERY DAY sertraline 100 mg tablet TAKE 1 TABLET BY MOUTH EVERY DAY No sertraline 100 mg tablet TAKE 1 TABLET BY MOUTH EVERY DAY [facility] zolpidem ER 6.25 mg tablet,exte nded release,mul tiphase TAKE 1 TABLET BY MOUTH EVERY DAY AT BEDTIME NEEDED zolpidem ER 6.25 mg tablet,exte nded release,mul tiphase TAKE 1 TABLET BY MOUTH EVERY DAY AT BEDTIME NEEDED No zolpidem ER 6.25 mg tablet,ext ended release,mu ltiphase TAKE 1 TABLET BY MOUTH EVERY DAY AT BEDTIME NEEDED [facility] lisinopril 10 mg tablet Take 1 tablet every day by oral route for 90 days. lisinopril 10 mg tablet Take 1 tablet every day by oral route for 90 days. No 1 Q1D lisinopril 10 mg tablet Take 1 tablet every day by oral route for 90 days. [facility] sertraline 100 mg tablet sertraline 100 mg tablet No sertraline 100 mg tablet [facility] Immunizations Ordered Immunization Name Filled Immunization Name Date Status Comments Source meningococcal MCV4P meningococcal MCV4P 11:48:00 Completed [facility] meningococcal MCV4P meningococcal MCV4P 11:48:00 Completed [facility] meningococcal MCV4P meningococcal MCV4P 11:48:00 Completed [facility] meningococcal MCV4P meningococcal MCV4P 11:48:00 Completed [facility] meningococcal MCV4P meningococcal MCV4P 11:48:00 Completed [facility] meningococcal MCV4P meningococcal MCV4P 11:48:00 Completed [facility] meningococcal MCV4P meningococcal MCV4P 11:48:00 Completed [facility] meningococcal MCV4P meningococcal MCV4P 11:48:00 Completed [facility] meningococcal MCV4P meningococcal MCV4P 11:48:00 Completed [facility] meningococcal MCV4P meningococcal MCV4P 11:48:00 Completed [facility] meningococcal MCV4P meningococcal MCV4P 11:48:00 Completed [facility] meningococcal MCV4P meningococcal MCV4P 11:48:00 Completed [facility] meningococcal MCV4P meningococcal MCV4P Unknown Completed [facility] meningococcal MCV4P meningococcal MCV4P Unknown Completed [facility] meningococcal MCV4P meningococcal MCV4P Unknown Completed [facility] Vital Signs Vital Name Observation Time Observation Value Comments S ource BP Diastolic 2023-11-20 00:00:00 98 mm[Hg] [facility] BMI (Body Mass Index) 2023-11-20 00:00:00 32.8 kg/m2 [facility] Height 2023-11-20 00:00:00 68 [in_i] [facility] Body Weight 2023-11-20 00:00:00 3450 [oz_av] [facility] BP Systolic 2023-11-20 00:00:00 143 mm[Hg] [facility] Systolic blood pressure 2023-10-28 15:44:00 140 mm[Hg] [facility] Diastolic blood pressure 2023-10-28 15:44:00 99 mm[Hg] [facility] Heart rate 2023-10-28 15:44:00 94 /min [facility] Body temperature 2023-10-28 15:44:00 37 [facility] Respiratory rate 2023-10-28 15:44:00 18 /min [facility] Body weight 2023-10-28 15:44:00 91.173 kg [facility] BMI 2023-10-28 15:44:00 30.56 kg/m2 [facility] Oxygen saturation in Arterial blood by Pulse oximetry 2023-10-28 15:44:00 99 /min [facility] BP Systolic 2023-09-08 00:00:00 121 mm[Hg] [facility] BP Diastolic 2023-09-08 00:00:00 84 mm[Hg] [facility] Height 2023-09-08 00:00:00 68 [in_i] [facility] BMI (Body Mass Index) 2023-09-08 00:00:00 28 kg/m2 [facility] Body Weight 2023-09-08 00:00:00 2943 [oz_av] [facility] Body Weight 2023-08-14 00:00:00 2928 [oz_av] [facility] Height 2023-08-14 00:00:00 68 [in_i] [facility] BMI (Body Mass Index) 2023-08-14 00:00:00 27.8 kg/m2 [facility] BP Systolic 2023-05-19 00:00:00 140 mm[Hg] [facility] Body Weight 2023-05-19 00:00:00 2666 [oz_av] [facility] BP Diastolic 2023-05-19 00:00:00 87 mm[Hg] [facility] Height 2023-05-19 00:00:00 68 [in_i] [facility] BMI (Body Mass Index) 2023-05-19 00:00:00 25.3 kg/m2 [facility] BP Diastolic 2023-04-14 00:00:00 74 mm[Hg] [facility] Height 2023-04-14 00:00:00 68 [in_i] [facility] BMI (Body Mass Index) 2023-04-14 00:00:00 25.1 kg/m2 [facility] BP Systolic 2023-04-14 00:00:00 111 mm[Hg] [facility] Body Weight 2023-04-14 00:00:00 2645 [oz_av] [facility] BP Diastolic 2023-01-01 00:00:00 77 mm[Hg] [facility] Height 2023-01-01 00:00:00 68 [in_i] [facility] BMI (Body Mass Index) 2023-01-01 00:00:00 26.9 kg/m2 [facility] BP Systolic 2023-01-01 00:00:00 109 mm[Hg] [facility] Body Weight 2023-01-01 00:00:00 2832 [oz_av] [facility] BP Diastolic 2022-12-03 00:00:00 84 mm[Hg] [facility] Height 2022-12-03 00:00:00 68 [in_i] [facility] BMI (Body Mass Index) 2022-12-03 00:00:00 27.8 kg/m2 [facility] BP Systolic 2022-12-03 00:00:00 133 mm[Hg] [facility] Body Weight 2022-12-03 00:00:00 2930.4 [oz_av] [facility] BP Diastolic 2022-10-31 00:00:00 84 mm[Hg] [facility] Height 2022-10-31 00:00:00 68 [in_i] [facility] BMI (Body Mass Index) 2022-10-31 00:00:00 30.7 kg/m2 [facility] BP Systolic 2022-10-31 00:00:00 140 mm[Hg] [facility] Body Weight 2022-10-31 00:00:00 3232 [oz_av] [facility] BP Diastolic 2022-10-07 00:00:00 92 mm[Hg] [facility] Height 2022-10-07 00:00:00 68 [in_i] [facility] BMI (Body Mass Index) 2022-10-07 00:00:00 31.2 kg/m2 [facility] BP Systolic 2022-10-07 00:00:00 140 mm[Hg] [facility] Body Weight 2022-10-07 00:00:00 3280 [oz_av] [facility] BP Diastolic 2022-09-03 00:00:00 99 mm[Hg] [facility] Height 2022-09-03 00:00:00 68 [in_i] [facility] BMI (Body Mass Index) 2022-09-03 00:00:00 30.2 kg/m2 [facility] BP Systolic 2022-09-03 00:00:00 147 mm[Hg] [facility] Body Weight 2022-09-03 00:00:00 3176 [oz_av] [facility] BP Diastolic 2022-07-31 00:00:00 92 mm[Hg] [facility] Height 2022-07-31 00:00:00 68 [in_i] [facility] BMI (Body Mass Index) 2022-07-31 00:00:00 30.7 kg/m2 [facility] BP Systolic 2022-07-31 00:00:00 144 mm[Hg] [facility] Body Weight 2022-07-31 00:00:00 3232 [oz_av] [facility] BP Diastolic 2022-07-03 00:00:00 84 mm[Hg] [facility] Height 2022-07-03 00:00:00 68 [in_i] [facility] BMI (Body Mass Index) 2022-07-03 00:00:00 30.7 kg/m2 [facility] BP Systolic 2022-07-03 00:00:00 138 mm[Hg] [facility] Body Weight 2022-07-03 00:00:00 3232 [oz_av] [facility] BP Diastolic 2022-01-31 00:00:00 90 mm[Hg] [facility] Height 2022-01-31 00:00:00 68 [in_i] [facility] BMI (Body Mass Index) 2022-01-31 00:00:00 31.6 kg/m2 [facility] BP Systolic 2022-01-31 00:00:00 149 mm[Hg] [facility] Body Weight 2022-01-31 00:00:00 3328 [oz_av] [facility] BMI (Body Mass Index) 2021-08-14 00:00:00 28.9 kg/m2 [facility] BP Systolic 2021-08-14 00:00:00 121 mm[Hg] [facility] Body Weight 2021-08-14 00:00:00 3040 [oz_av] [facility] BP Diastolic 2021-08-14 00:00:00 82 mm[Hg] [facility] Height 2021-08-14 00:00:00 68 [in_i] [facility] BP Diastolic 2021-05-29 00:00:00 92 mm[Hg] [facility] Height 2021-05-29 00:00:00 68 [in_i] [facility] BMI (Body Mass Index) 2021-05-29 00:00:00 30.4 kg/m2 [facility] BP Systolic 2021-05-29 00:00:00 143 mm[Hg] [facility] Body Weight 2021-05-29 00:00:00 3200 [oz_av] [facility] Procedures Procedure Date / Time Performed Performing Clinician Source MRI, ankle, w/o contrast 2023-11-20 00:00:00 [facility] XR, ankle, 3 or more view 2023-11-18 00:00:[address] [facility] [address] ABDOMEN PELVIS W CONTRAST 2023-10-28 18:34:20 Grace Naqvi [facility] COMP. METABOLIC PANEL ([id number]) 2023-10-28 16:20:00 Grace Naqvi [facility] CBC WITH DIFF 2023-10-28 16:20:00 Grace Naqvi [facility] URINALYSIS 2023-10-28 16:17:00 Grace Naqvi [facility] POCT TEST 2023-10-28 16:17:00 Grace Naqvi [facility] NOTICE OF PRIVACY PRACTICES 2023-10-28 15:39:08 Doctor Unassigned, [facility] CONSENT/REFUSAL FOR DIAGNOSIS AND TREATMENT 2023-10-28 15:38:38 Doctor Unassigned, [facility] Tonsillectomy [facility] Plan of Care Planned Activity Planned Date Details Comments Source Diagnostic Test Pending 2022-07-03 00:00:00 CMP, serum or plasma [code = CMP, serum or plasma] [facility] Diagnostic Test Pending 2022-07-03 00:00:00 lipid panel, serum [code = lipid panel, serum] [facility] Diagnostic Test Pending 2022-07-03 00:00:00 CBC w/ auto diff [code = CBC w/ auto diff] [facility] Diagnostic Test Pending 2022-07-03 00:00:00 vitamin D, 25-hydroxy, total, serum [code = vitamin D, 25-hydroxy, total, serum] [facility] Diagnostic Test Pending 2022-07-03 00:00:00 HbA1c (hemoglobin A1c), blood [code = HbA1c (hemoglobin A1c), blood] [facility] Diagnostic Test Pending 2022-07-03 00:00:00 TSH + free T4, serum [code = TSH + free T4, serum] [facility] Diagnostic Test Pending 2022-07-03 00:00:00 vitamin B12 + folate, serum or blood [code = vitamin B12 + folate, serum or blood] [facility] Encounters Start Date/Time End Date/Time Encounter Type Admission Type Attending [facility] Facility Care Department Encounter ID Source 2023-12-04 00:00:00 2023-12-04 00:00:00 [facility] [id number] [facility] 2023-11-28 00:00:00 2023-11-28 00:00:00 Outpatient GC_GCBZW_Ka diyala_S PRIV PRIV [id number] [facility] 2023-11-20 00:00:00 2023-11-20 00:00:00 [facility] [id number] [facility] 2023-11-20 00:00:00 2023-11-20 00:00:00 ALEJANDRO Leal, SQL APPLICATION DEVELOPER, CORN SHREDDER-C: [address], [address] [place] [address] , Ph. [facility], ALEJANDRO Leal, CORN SHREDDER-C [id number] [facility] 2023-10-31 00:00:00 2023-10-31 00:00:00 Outpatient GC_GCBZW_Ka diyala_S PRIV PRIV [id number] [facility] 2023-10-30 00:00:00 2023-10-30 00:00:00 Outpatient SISSON_C [facility] [id number] [facility] 2023-10-28 09:45:00 2023-10-28 14:04:00 Emergency X GRACE NAQVI [facility] ERT [id number] [facility] 2023-10-28 09:45:00 2023-10-28 14:04:00 Emergency Grace Naqvi [facility] [id number] [facility] 2023-10-21 00:00:00 2023-10-21 00:00:00 Outpatient [facility]_C [facility] [id number] [facility] 2023-10-13 00:00:00 2023-10-13 00:00:00 Outpatient [facility] [id number] [facility] 2023-10-02 00:00:00 2023-10-02 00:00:00 Outpatient GC_GCBZW_Ka diyala_S PRIV PRIV [id number] [facility] 2023-10-01 00:00:00 2023-10-01 00:00:00 Outpatient GC_GCBZW_Ka diyala_S PRIV PRIV [id number] [facility] 2023-09-25 00:00:00 2023-09-25 00:00:00 Outpatient [facility]C [facility] [id number] [facility] 2023-09-22 00:00:00 2023-09-22 00:00:00 Outpatient GC_GCBZW_Ka diyala_S PRIV PRIV [id number] [facility] 2023-09-21 00:00:00 2023-09-21 00:00:00 Outpatient GC_GCBZW_Ka diyala_S PRIV PRIV [id number] [facility] 2023-09-08 00:00:00 2023-09-08 00:00:00 Avni Ackerman, MSN, SQL APPLICATION DEVELOPER, CORN SHREDDER-C: [address], [place] [address] , Ph. [facility], Avni Ackerman, MSN, CORN SHREDDER-C [id number] [facility] 2023-08-14 00:00:00 2023-08-14 00:00:00 Outpatient [facility]C [facility] [id number] [facility] 2023-08-14 00:00:00 2023-08-14 00:00:00 Outpatient [facility] [id number] [facility] 2023-08-14 00:00:00 2023-08-14 00:00:00 Outpatient [facility]C [facility] [id number] [facility] 2023-08-14 00:00:00 2023-08-14 00:00:00 Avni Ackerman, MSN, SQL APPLICATION DEVELOPER, CORN SHREDDER-C: [address], [address], [place] [address] , Ph. [facility], Avni Ackerman, MSN, CORN SHREDDER-C [id number] [facility] 2023-06-16 00:00:00 2023-06-16 00:00:00 Outpatient [facility] [id number] [facility] 2023-05-25 15:30:00 2023-05-25 15:30:00 Outpatient KATHY JONES [facility] [id number] [facility] 2023-05-19 00:00:00 2023-05-19 00:00:00 Outpatient [facility] [id number] 2023-05-19 00:00:00 2023-05-19 00:00:00 Avni Ackerman MSN, SQL APPLICATION DEVELOPER, CORN SHREDDER-C: Justin Lozano, [address], [place] [address] , Ph. [facility], Avni Ackerman MSN, CORN SHREDDER-C [id number] [facility] 2023-04-14 00:00:00 2023-04-14 00:00:00 Outpatient [facility] [id number] 2023-04-14 00:00:00 2023-04-14 00:00:00 Avni Ackerman MSN, SQL APPLICATION DEVELOPER, CORN SHREDDER-C: Justin Lozano, [address], [place] [address] , Ph. [facility], Avni Ackerman MSN, CORN SHREDDER-C [id number] [facility] 2023-02-12 00:00:00 2023-02-12 00:00:00 Outpatient [facility] [id number] [facility] 2023-01-01 00:00:00 2023-01-01 00:00:00 Outpatient [facility]C [facility] [id number] [facility] 2023-01-01 00:00:00 2023-01-01 00:00:00 Avni Ackerman MSN, SQL APPLICATION DEVELOPER, CORN SHREDDER-C: Justin Lozano, [address], [place] [address] , Ph. [facility], Avni Ackerman MSN, CORN SHREDDER-C [id number] [facility] 2022-12-03 00:00:00 2022-12-03 00:00:00 Avni Ackerman, MSN, SQL APPLICATION DEVELOPER, CORN SHREDDER-C: Justin Lozano, [address], [place] [address] , Ph. [facility], ALEJANDRO Leal, CORN SHREDDER-C [id number] [facility] 2022-11-19 00:00:00 2022-11-19 00:00:00 Outpatient [facility]C [facility] [id number] 2022-11-19 00:00:00 2022-11-19 00:00:00 Outpatient [facility]C [facility] [id number] [facility] 2022-10-31 00:00:00 2022-10-31 00:00:00 Outpatient [facility]C [facility] [id number] [facility] 2022-10-31 00:00:00 2022-10-31 00:00:00 ALEJANDRO Leal, SQL APPLICATION DEVELOPER, CORN SHREDDER-C: Justin Lozano, [address], [place] [address] , Ph. [facility], ALEJANDRO Leal, CORN SHREDDER-C [id number] [facility] 2022-10-08 00:00:00 2022-10-08 00:00:00 Outpatient SISSON_C [facility] [id number] [facility] 2022-10-07 00:00:00 2022-10-07 00:00:00 Outpatient SISSON_C [facility] [id number] [facility] 2022-10-07 00:00:00 2022-10-07 00:00:00 ALEJANDRO Leal, SQL APPLICATION DEVELOPER, CORN SHREDDER-C: Justin Lozano [address], [address], [place] [address] , Ph. [facility], Avni Ackerman, MSN, CORN SHREDDER-C [id number] [facility] 2022-09-03 00:00:00 2022-09-03 00:00:00 Outpatient SISSON_C [facility] [id number] [facility] 2022-09-03 00:00:00 2022-09-03 00:00:00 Avni Ackerman, MSN, SQL APPLICATION DEVELOPER, CORN SHREDDER-C: Justin Lozano [address], [address], [place] [address] , Ph. [facility], Avni Ackerman, MSN, CORN SHREDDER-C [id number] [facility] 2022-07-31 00:00:00 2022-07-31 00:00:00 Outpatient SISSON_C [facility] [id number] [facility] 2022-07-31 00:00:00 2022-07-31 00:00:00 Avni Ackerman, MSN, SQL APPLICATION DEVELOPER, CORN SHREDDER-C: Justin Lozano [address], [address], [place] [address] , Ph. [facility], Avni Ackerman, MSN, CORN SHREDDER-C [id number] [facility] 2022-07-03 00:00:00 2022-07-03 00:00:00 Outpatient SISSON_C [facility] [id number] [facility] 2022-07-03 00:00:00 2022-07-03 00:00:00 Avni Ackerman, MSN, SQL APPLICATION DEVELOPER, CORN SHREDDER-C: Justin Lozano [address], [address], [place] [address] , Ph. [facility], Avni Ackerman, MSN, CORN SHREDDER-C [id number] [facility] 2022-05-13 00:00:00 2022-05-13 00:00:00 Outpatient SISSON_C [facility] [id number] [facility] 2022-04-09 12:50:00 2022-04-09 12:50:00 Outpatient SISSON_C [facility] [id number] [facility] 2022-03-04 01:10:00 2022-03-04 01:10:00 Outpatient SISSON_C [facility] [id number] [facility] 2022-01-31 09:22:00 2022-01-31 09:22:00 Outpatient SISSON_C [facility] [id number] [facility] 2022-01-31 00:00:00 2022-01-31 00:00:00 Avni Ackerman, MSN, SQL APPLICATION DEVELOPER, CORN SHREDDER-C: Eulogio Morataya, [facility] [address], [address], [place] [address] , Ph. [facility], Avni Ackerman, MSN, CORN SHREDDER-C [id number] [facility] 2022-01-31 00:00:00 2022-01-31 00:00:00 Outpatient Avni Ackerman [facility] [id number] 2022-01-14 02:34:00 2022-01-14 02:34:00 Outpatient SISSON_C [facility] [id number] [facility] 2021-12-10 02:49:00 2021-12-10 02:49:00 Outpatient SISSON_C [facility] [id number] [facility] 2021-11-07 04:48:00 2021-11-07 04:48:00 Outpatient SISSON_C [facility] [id number] [facility] 2021-11-05 02:12:00 2021-11-05 02:12:00 Outpatient SISSON_C [facility] [id number] [facility] 2021-10-01 04:32:00 2021-10-01 04:32:00 Outpatient SISSON_C [facility] [id number] [facility] 2021-08-14 04:01:00 2021-08-14 04:01:00 Outpatient SISSON_C [facility] [id number] [facility] 2021-08-14 00:00:00 2021-08-14 00:00:00 Outpatient Tyron Avni [facility] [id number] 2021-08-14 00:00:00 2021-08-14 00:00:00 ALEJANDRO Leal, SQL APPLICATION DEVELOPER, CORN SHREDDER-C: Eulogio Mor[address]aya, [address] [place] [address] , Ph. [facility], ALEJANDRO eLal, CORN SHREDDER-C [id number] [facility] 2021-05-29 11:58:00 2021-05-29 11:58:00 Outpatient SISSON_C [facility] [id number] [facility] 2021-05-29 00:00:00 2021-05-29 00:00:00 Outpatient Avni Ackerman [facility] [id number] 2021-05-29 00:00:00 2021-05-29 00:00:00 Avni Ackerman, MSN, SQL APPLICATION DEVELOPER, CORN SHREDDER-C: [address], [address], [place] [address] , Ph. [facility], Avni Ackerman, ALEJANDRO, CORN SHREDDER-C [id number] [facility] 2021-05-28 04:39:00 2021-05-28 04:39:00 Outpatient TYRON_Karly [facility] [id number] 2020-07-30 16:00:00 2020-07-30 16:00:00 Outpatient MILAGRO [facility] [id number] [facility] Results Test Description Test Time Test Comments [...] fluid in the cul-de-sac, consistent with physiologicchanges. [facility] WITH [id number] 16:35:58* Test Item Value Reference Range Interpretation Comme nts WBC (test code = 6690-2) 9.98 See_Comment [Automated [employer]] The system which generated this result transmitted reference range: 4.30 - 11.10 10*3/?L. The reference range was not used to interpret this result as normal/abnormal. RBC (test code = 789-8) 4.32 See_Comment [Automated [employer]] The system which generated this result transmitted [...] 33.5 g/dL 31.6-35.1 RDW-SD (test code = 45497-4) 42.3 fL 39.0-49.9 RDW-CV (test code = 788-0) 12.5 % 12.0-15.5 PLT (test code = 777-3) 431 See_Comment H [Automated [employer]] The system which generated this result transmitted reference range: 166 - 358 10*3/?L. The reference range was not used to interpret this result as normal/abnormal. MPV (test code = 32764-1) 9.0 fL 9.5-12.9 L NRBC/100 WBC (test code = 7944136566) 0.0 See_Comment [Automated me ssage] The system which generated this result transmitted reference range: 0.0 - 10.0 /100 WBCs. The reference range was not used to interpret this result as normal/abnormal. NRBC x10^3 (test code = 6520583606) See_Comment [Automated messa ge] The system which generated this result transmitted reference range: 10*3/?L. The reference range was not used to interpret this result as normal/abnormal. GRAN MAT (NEUT) % (test code = 770-8) 67.8 % IMM GRAN % (test code = 9782710232) 0.30 % LYMPH % (test code = 736-9) 23.1 % MONO % (test code = 5905-5) 6.6 % EOS % (test code = 713-8) 1.6 % BASO % (test code = 706-2) 0.6 % GRAN MAT x10^3(ANC) (test code = 9984715138) 6.76 10*3/uL 1.88-7.09 IMM GRAN x10^3 (test code = 8282672672) 0.03 10*3/uL 0.00-0.06 LYMPH x10^3 (test code = 731-0) 2.31 10*3/uL 1.32-3.29 MONO x10^3 (test code = 742-7) 0.66 10*3/uL 0.33-0.92 EOS x10^3 (test code = 711-2) 0.16 10*3/uL 0.03-0.39 BASO x10^3 (test code = 704-7) 0.06 10*3/uL 0.01-0.07 Lab Interpretation (test code = 73193-4) [id number] 16:17:00* Test Item Value Reference Range Interpretation Comme nts POCT PREG (test code = 1605) Negative On board controls acceptable with C Line (test code = 3574) Yes POCT PREG LOT # (test code = 3575) [id number] POCT PREG TEST DATE ( test code = 3576) 01-10-25 Lab Interpretation (test cod e = 33290-1) Normal [facility] Notes Date/Time Note Provider Source 2023-10-28 13:29:39 1UsbY2n7aK8zdis96TDo LRkVa8N4I2UXg TA7Gqd1ydwBKcmcoqaIm2fFjLNux1vi53 28-10-23T13:29:39 Patient discharged. Pain controlled. Follow up with OBGYN. 16685-5Cyaazzmyi department NusgSS6738-88-20A22:29:55Emergen y department NoteTXT1.2.840.120267.1.13.104.2. 7.2.772006|[id number] for patient yyhw49924-0WssyVLDAOWSJNAHPhbpgvb ed C-CDA narrative text[address] FwotLbmipeglqCgxqvjoioRNNL8133221 130TRAYKCNSLNMOFUGVEOZMEI6276-14- 24T13:29:551.2.840.824851.1.72.3. 15|1.2.840.916385.1.13.104.2.7.2. [id number] [facility] 2023-10-28 09:42:41 bQ5QWmNDawe02CzWcOah xbDlBF7fzRlww CXDF6F75ixdbCGjmg59D+Oap5T4nSwU30 28-10-23T09:42:41 Patient to ED RLQ pain that started at 2 am. Reports she had the same pain that happened last month and went to [facility] and was diagnosed with a UTI and cyst on left ovary. Reports this feels the same. Reports of nausea and 1 episode of vomiting at 4 am. 58401-6Ainvcrycf department Triage dootWC3711-71-97K12:44:27[facility] Triage noteTXT1.2.840.600329.1.13.104.2. 7.2.668540|[id number] for patient mgob59812-1Pnmnmhsbu department NoteLNNARRATIVEFormatted C-CDA narrative [id number] D Wierzbicki RN[address] Z[id number] 271ODNFWGVSKRCESXVHXTRQRF6970-59- 24T09:44:271.2.840.279988.1.72.3. 15|1.2.840.236401.1.13.104.2.7.2. [id number] Edison Nielson RN [facility]"
[2024-01-18] MEDS ORDERED: BUPIVACAINE 0.5% PF 10 ML VIAL ONE (12:46)
--- NOTE | 2024-01-18 13:14 | EDPHYS ---
Physician Documentation [facility] Name: Lara Pina Age: 23 yrs Sex: Female : 2000 Arrival Date: 01/18/2024 Time: 12:12 Bed 9 Private MD: Avni Ackerman ED Physician Ponce Caceres HPI: 01/17 12:28 This 23 yrs old Female presents to ER via Ambulatory with complaints of Laceration To sb4 Hand. 12:28 The patient has a laceration related to: cooking, from a knife, occurred at home, and sb4 there are no complicating factors. The injury was accidental. The laceration(s) is(are) located on the Left first web space. Onset: The symptoms/episode began/occurred just prior to arrival. patient states she sustained a laceration to her hand 1 week ago while cutting an apple, went to [place], had tetanus shot, dermabond, steri strips. states she accidentally cut the same area today. 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 - Infectious Disease History:: Denies. - Social history:: Smoking status: Reported history of juuling and/or vaping. Patient denies any tobacco usage or history of. ROS: 12:28 Constitutional: Negative for fever, chills, and weight loss, sb4 12:28 Skin: Positive for laceration(s), of the Left first web space, 12:28 All other systems are negative, Exam: 12:28 Constitutional: This is a well developed, well nourished patient who is awake, alert, sb4 and in no acute distress. Head/Face: Normocephalic, atraumatic. Eyes: Extra-ocular motions intact. Periorbital areas with no swelling, redness, or edema. ENT: Mucous membranes moist. MS/ Extremity: Pulses equal, no cyanosis. Neurovascular intact. Full, normal range of motion. Neuro: Awake and alert, GCS 15, oriented to person, place, time, and situation. Motor strength 5/5 in all extremities. Sensory grossly intact. 12:28 Skin: injury, laceration(s), the wound is approximately 3 cm(s), with a depth of .5 cm(s), of the Left first web space, that can be described as clean, no foreign body, linear, with mild bleeding, Vital Signs: 12:22 BP 155 / 95; Pulse 102; Resp 16; Temp 97.9; Pulse Ox 98% ; Weight 97.52 kg; Height 5 ll1 ft. 8 in. ; Pain 8/10; 13:44 BP 129 / 91; Pulse 92; Resp 16; Pulse Ox 98% ; Pain 6/10; ll1 12:22 Body Mass Index 32.69 (97.52 kg, 172.72 cm) ll1 12:22 Pain Scale: Adult ll1 13:44 Pain Scale: Adult ll1 Laceration: 13:11 Wound Repair of 4cm ( 1.6in ) subcutaneous laceration to Left first web space. Distal sb4 neuro/vascular/tendon intact. Anesthesia: Local anesthetic administered with 4 mls of 0.25% marcaine. Wound prep: Extensive cleansing, Wound irrigation with saline by ok, Copious irrigation. Skin closed with 4 5-0 Prolene using simple sutures and sterile technique. Dressed with Kerlix. Patient tolerated well. MDM: 12:21 Patient medically screened. sb4 13:12 Data reviewed: vital signs, nurses notes, and as a result, I will discharge patient. sb4 Counseling: I had a detailed discussion with the patient and/or guardian regarding the historical points, exam findings, and any diagnostic results supporting the discharge/admit diagnosis, the need for outpatient follow up, for suture removal in 10 days, to return to the emergency department if symptoms worsen or persist or if there are any questions or concerns that arise at home. 01/17 13:11 Order name: Wound dressing; Complete Time: 13:44 sb4 Administered Medications: 13:11 Drug: Bupivacaine Infiltration (0.5 %) 10 ml 10 ml Infiltration once Volume: 10 ml; sb4 Route: Infiltration; 13:47 Follow up: Response: No adverse reaction; RASS: Alert and Calm (0) ll1 Disposition Summary: 01/18/24 13:13 Discharge Ordered Notes: Location: Home sb4 Problem: new sb4 Symptoms: have improved sb4 Condition: Stable sb4 Diagnosis - Laceration without foreign body of left hand, initial encounter sb4 Followup: sb4 - With: Private Physician - When: 7 - 10 days - Reason: Staple/Suture removal Discharge Instructions: - Discharge Summary Sheet sb4 - Laceration Care, Adult sb4 Forms: - Thank You Letter sb4 - Patient Portal Instructions sb4 - Leadership Thank You Letter sb4 Addendum: 01/19/2024 16:06 I was immediately available for consultation during this patient's visit. I did not e c2 personally see the patient or discuss the patient with the KATHYA. . Signatures: Jesus Sanford RN RN ll1 Feli Stacy PA-C PA-C sb4 Ponce Caceres MD MD ec2
--- NOTE | 2024-01-18 13:14 | ER ---
Nurse's Notes [facility] Name: Lara Pina Age: 23 yrs Sex: Female : 2000 Arrival Date: 01/18/2024 Time: 12:12 Bed 9 Private MD: Avni Ackerman Diagnosis: Laceration without foreign body of left hand, initial encounter Presentation: 01/17 12:22 Chief complaint: Patient states: Accidentally cut webbing of L hand at 1145 today while ll1 cutting a apple. Coronavirus screen: Client denies travel out of the [place] in the last 14 days. At this time, the client does not indicate any symptoms associated with coronavirus-19. Ebola Screen: Patient denies travel to an Ebola-affected area in the 21 days before illness onset. Complicating Factors: There are no complicating factors for this patient. Initial Sepsis Screen: Does the patient meet any 2 criteria? No. Patient's initial sepsis screen is negative. Does the patient have a suspected source of infection? No. Patient's initial sepsis screen is negative. Risk Assessment: Do you want to hurt yourself or someone else? Patient reports no desire to harm self or others. Onset of symptoms was January 18, 2024. 12:22 Method Of Arrival: Ambulatory ll1 12:22 Acuity: SHEYLA 4 ll1 Triage Assessment: 12:22 General: Appears uncomfortable, Behavior is calm, cooperative, appropriate for age. ll1 Pain: Complains of pain in left hand Quality of pain is described as aching. Derm: Reports laceration webbing of L hand. Musculoskeletal: Circulation, motion, and sensation intact. Capillary refill < 3 seconds. Injury Description: Laceration. 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 - Infectious Disease History:: Denies. - Social history:: Smoking status: Reported history of juuling and/or vaping. Patient denies any tobacco usage or history of. Screenin:46 [facility] ED Fall Risk Assessment (Adult) History of falling in the last 3 months, ll1 including since admission No falls in past 3 months (0 pts) Confusion or Disorientation No (0 pts) Intoxicated or Sedated No (0 pts) Impaired Gait No (0 pts) Mobility Assist Device Used No (0 pt) Altered Elimination No (0 pt) Score/Fall Risk Level 0 - 2 = Low Risk Maintained a safe environment, Hourly rounding (assess needs \T\ fall precautionary measures) done. Abuse screen: Denies threats or abuse. Nutritional screening: No deficits noted. Tuberculosis screening: No symptoms or risk factors identified. Assessment: 13:45 Reassessment: No changes from previously documented assessment. Patient and/or family ll1 updated on plan of care and expected duration. Pain level reassessed. Patient is alert, oriented x 3, equal unlabored respirations, skin warm/dry/pink. 13:46 Injury Description: Laceration is clean. ll1 Vital Signs: 12:22 BP 155 / 95; Pulse 102; Resp 16; Temp 97.9; Pulse Ox 98% ; Weight 97.52 kg; Height 5 ll1 ft. 8 in. ; Pain 8/10; 13:44 BP 129 / 91; Pulse 92; Resp 16; Pulse Ox 98% ; Pain 6/10; ll1 12:22 Body Mass Index 32.69 (97.52 kg, 172.72 cm) ll1 12:22 Pain Scale: Adult ll1 13:44 Pain Scale: Adult ll1 ED Course: 12:14 Patient arrived in ED. mr 12:14 Feli Stacy [facility]. sb4 12:14 Ponce Caceres MD is Attending Physician. sb4 12:14 Avni Ackerman is Private Physician. mr 12:23 Triage completed. ll1 12:23 Arm band placed on. ll1 13:40 Patient did not have IV access during this emergency room visit. Wound care: to ll1 laceration located on Left first web space was dressed with 4X4s, Kerlix, cling, Patient tolerated well. 13:46 Patient has correct armband on for positive identification. Provided Education on: ll1 watch for signs of infection. 13:46 No provider procedures requiring assistance completed. ll1 Administered Medications: 13:11 Drug: Bupivacaine Infiltration (0.5 %) 10 ml 10 ml Infiltration once Volume: 10 ml; sb4 Route: Infiltration; 13:47 Follow up: Response: No adverse reaction; RASS: Alert and Calm (0) ll1 Medication: 13:47 VIS not applicable for this client. ll1 Outcome: 13:13 Discharge ordered by . sb4 13:46 Discharged to home ambulatory, ll1 13:46 Condition: stable 13:46 Discharge instructions given to patient, Instructed on discharge instructions, follow up and referral plans. wound care, Demonstrated understanding of instructions, follow-up care, wound care, 13:47 Patient left the ED. ll1 Signatures: Mami Thompson, Franklin Reid mr Jesus Sanford, RN RN ll1 Feli Stacy, PA-C PA-C sb4
[2024-01-18 15:28] VITALS: BP 129/91; TEMP 97.9; O2SAT 98
== END 2024-01-18 13:47 | disposition home or self-care (01) ==
LOC: ER 12:12
PROC: 0HQGXZZ Repair Left Hand Skin, External Approach (ICD-10-PCS; principal; 2024-01-18)
DX: S61.412A Laceration without foreign body of left hand, initial encounter (principal); Z88.5 Allergy status to narcotic agent; Z88.8 Allergy status to other drugs, medicaments and biological substances
CPT/HCPCS: 99283

== ENCOUNTER 2024-01-22 13:21 | Emergency (ER) | payer OTHER ==
--- OUTSIDE RECORDS SUMMARY | 2024-01-22 13:24 | XMS REPORT | Continuity of Care Document ---
Author Name Unknown Address [address] [facility] [address]. [address] [place] [address] [facility] thconnect Address [address] [facility]. [address] [place] [address] Care Team Providers Care Physicians And Surgeons Name Role Phone AVNI ACKERMAN Primary Care Physician Unavailab melanie ACKERMAN_Karly Attending Clinician Unavailable DAISHA_GHANSHYAM_Mercedes_S Attending Clinician UnavailGRACE Gutierrez Attending Clinician Unavailable Alyson IT DIRECTORGrace Attending Clinician [phone] KATHY BEE Attending Clinician UnavailKATHY Giraldo Attending Clinician UnavailAvni Crabtree Attending Clinician [phone] MILAGRO FRANKLIN Attending Clinician Unavailable SISWILSON_Karly Admitting Clinician Unavailable DAISHA_GHANSHYAM_Mercedes_S Admitting Clinician UnavailGRACE Gutierrez Admitting Clinician Unavailable Payers Payer Name Policy Type Policy Number Effective Date Expirati on Date Source HARPER EDDY (PPO) [id number] 2022 00:00:00 [employer] (PPO) [id number] 2002 00:00:00 2004 00:00:00 MULTIPLAN SARAH BETH [id number] 2022 00:00:00 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 [id number] 2019 00:00:00 [employer] - [employer] BENEFIT SERVICES (PPO) [id number] 2019 00:00:00 Problems Condition Name Condition Details Condition Category Status Onset Date Resolution Date Last Treatment Date Treating Clinician Comments Source Insomnia Insomnia Problem Active -06 [facility]:00[facility] Bulimia nervosa, purging type Bulimia Nervosa, Purging Type Problem Active 2020-10 00:00: 00 [facility] Dysmenorrh ea Dysmenorrh ea Disease Active 2019-10 00:00: 00 [facility] Active or passive immunizati on Active or Passive Immunizati on Problem Active 04-17 00:00: 00 [facility] Abnormal blood pressure Abnormal Blood Pressure Problem Active 04-17 00:00: 00 [facility] Allergies, Adverse Reactions, Alerts Allergy Name Allergy Type Status Severity Reaction(s) Onset Date Inactive Date Treating Clinician Comments Source Lidocain e Propensi ty to adverse reaction s Active Shortness of Breath 2019-10 00:00: 00 [facility] LIDOCAIN E DRUG INGREDI Active SOB 2019-10 00:00: 00 [facility] Lidocain e Allergy to substanc e Active Severe Hives [facility] NO KNOWN ALLERGIE S Drug Class Active [facility] Social History Social Habit Start Date Stop Date Quantity Comments Source [facility] Tobacco use and exposure 2020-07-30 00:00:00 2020-07-30 00:00:00 Former smokeless tobacco user [facility] Alcohol intake 2020-07-30 00:00:00 2020-07-30 00:00:00 Current drinker of alcohol (finding) [facility] History of Social function 2020-07-30 00:00:00 2020-07-30 00:00:00 [facility] History of tobacco use 2019-09-28 00:00:00 Cigarette Smoker [facility] Sex Assigned At 2000 00:00:00 2000 00:00:00 [facility] Smoking Status Start Date Stop Date Source Ex-smoker 2020-07-30 00:002020-07-30 00:00:00 [facility] Medications Ordered Medication Name Filled Medication Name Start Date Stop Date Current Medication? Ordering Clinician Indication Dosage Frequency Signature (SIG) Comments Components Source iopamidol (ISOVUE 370-500 mL) injection 80 mL 10-28 19:30: 00 10-28 19:30 :00 No [id number] 80mL 80 mL, Intravenou s, ONCE, 1 dose, On Thu10/28/23 at 1330, Routine [facility] dicyclomine (BENTYL) tablet 20 mg 10-28 19:15: 00 10-28 19:23 :00 No 20mg 20 mg, Oral, ONCE, 1 dose, On Thu10/28/23 at 1315, DEVENDRA [facility] ketorolac (TORADOL) injection 30 mg 10-28 17:15: 00 10-28 16:22 :00 No 30mg 30 mg, Slow IV Push, ONCE, 1 dose, On Thu10/28/23 at 1115, Routine [facility] ondansetron (ZOFRAN (PF)) injection 4 mg 10-28 16:15: 00 10-28 16:21 :00 No 4mg 4 mg, Slow IV Push, ONCE, 1 dose, On Thu10/28/23 at 1015, DEVENDRA [facility] venlafaxine HCl (EFFEXOR ORAL) 10-28 14:04: 01 Yes Take by mouth. [facility] naproxen 500 mg tablet 10-28 00:00: 00 11-05 05:59 :00 Yes [id number] 500mg Take 1 tablet by mouth in the morning and 1 tablet in the evening. Take with meals. Do all this for 7 days. [facility] LICE TREATMENT, PERMETHRIN, 1 % lotion 05-23 00:00: 00 10-28 00:00 :00 No APPLY TOPICALLY DIRECTED FOR 1 DOSE [facility] hydrOXYzine 25 mg tablet 04-25 00:00: 00 10-28 00:00 :00 No 1 po q 4-6 hours as needed for itching [facility] Ambien CR 6.25 mg tablet,exte nded release Take 1 tablet as needed by oral route at bedtime. Ambien CR 6.25 mg tablet,exte nded release Take 1 tablet as needed by oral route at bedtime. No 1 Ambien CR 6.25 mg tablet,ext ended release Take 1 tablet as needed by oral route at bedtime. [facility] ergocalcife rol (vitamin D2) 1,250 mcg (50,000 unit) capsule TAKE 1 CAPSULE EVERY WEEK BY ORAL ROUTE. ergocalcife rol (vitamin D2) 1,250 mcg (50,000 unit) capsule TAKE 1 CAPSULE EVERY WEEK BY ORAL ROUTE. No ergocalcif ta (vitamin D2) 1,250 mcg (50,000 unit) capsule TAKE 1 CAPSULE EVERY WEEK BY ORAL ROUTE. [facility] lisinopril 10 mg tablet TAKE 1 TABLET BY MOUTH EVERY DAY lisinopril 10 mg tablet TAKE 1 TABLET BY MOUTH EVERY DAY No lisinopril 10 mg tablet TAKE 1 TABLET BY MOUTH EVERY DAY [facility] sertraline 100 mg tablet TAKE 1 TABLET BY MOUTH EVERY DAY sertraline 100 mg tablet TAKE 1 TABLET BY MOUTH EVERY DAY No sertraline 100 mg tablet TAKE 1 TABLET BY MOUTH EVERY DAY [facility] acetaminoph en 300 mg-codeine 30 mg tablet TAKE 1 TABLET BY MOUTH EVERY 6 HOURS NEEDED acetaminoph en 300 mg-codeine 30 mg tablet TAKE 1 TABLET BY MOUTH EVERY 6 HOURS NEEDED No acetaminop hen 300 mg-codeine 30 mg tablet TAKE 1 TABLET BY MOUTH EVERY 6 HOURS NEEDED [facility] drospirenon e 3 mg-ethinyl estradiol 0.02 [...] the same time. Take active pills only. [facility] ergocalcife rol (vitamin D2) 1,250 mcg (50,000 unit) capsule TAKE 1 CAPSULE EVERY WEEK BY ORAL ROUTE. ergocalcife rol (vitamin D2) 1,250 mcg (50,000 unit) capsule TAKE 1 CAPSULE EVERY WEEK BY ORAL ROUTE. No ergocalcif ta (vitamin D2) 1,250 mcg (50,000 unit) capsule TAKE 1 CAPSULE EVERY WEEK BY ORAL ROUTE. [facility] hydrochloro thiazide 12.5 mg capsule Take 1 capsule every day by oral route for 90 days. hydrochloro thiazide 12.5 mg capsule Take 1 capsule every day by oral route for 90 days. No 1capsul e(s) Q1D hydrochlor othiazide 12.5 mg capsule Take 1 capsule every day by oral route for 90 days. [facility] phentermine 37.5 mg tablet Take 1 tablet every day by oral route. phentermine 37.5 mg tablet Take 1 tablet every day by oral route. No 1 Q1D phentermin e 37.5 mg tablet Take 1 tablet every day by oral route. [facility] sertraline 100 mg tablet TAKE 1 TABLET BY MOUTH EVERY DAY sertraline 100 mg tablet TAKE 1 TABLET BY MOUTH EVERY DAY No sertraline 100 mg tablet TAKE 1 TABLET BY MOUTH EVERY DAY [facility] zolpidem ER 6.25 mg tablet,exte nded release,mul tiphase TAKE 1 TABLET BY MOUTH EVERY DAY AT BEDTIME NEEDED zolpidem ER 6.25 mg tablet,exte nded release,mul tiphase TAKE 1 TABLET BY MOUTH EVERY DAY AT BEDTIME NEEDED No zolpidem ER 6.25 mg tablet,ext ended release,mu ltiphase TAKE 1 TABLET BY MOUTH EVERY DAY AT BEDTIME NEEDED [facility] Bystolic 10 mg tablet Take 1 tablet every day by oral route for 90 days. Bystolic 10 mg tablet Take 1 tablet every day by oral route for 90 days. No 1 Q1D Bystolic 10 mg tablet Take 1 tablet every day by oral route for 90 days. [facility] drospirenon e 3 mg-ethinyl estradiol 0.02 [...] the same time. Take active pills only. [facility] ergocalcife rol (vitamin D2) 1,250 mcg (50,000 unit) capsule TAKE 1 CAPSULE EVERY WEEK BY ORAL ROUTE. ergocalcife rol (vitamin D2) 1,250 mcg (50,000 unit) capsule TAKE 1 CAPSULE EVERY WEEK BY ORAL ROUTE. No ergocalcif ta (vitamin D2) 1,250 mcg (50,000 unit) capsule TAKE 1 CAPSULE EVERY WEEK BY ORAL ROUTE. [facility] hydrochloro thiazide 25 mg tablet Take 1 tablet every day by oral route for 90 days. hydrochloro thiazide 25 mg tablet Take 1 tablet every day by oral route for 90 days. No 1 Q1D hydrochlor othiazide 25 mg tablet Take 1 tablet every day by oral route for 90 days. [facility] sertraline 100 mg tablet TAKE 1 TABLET BY MOUTH EVERY DAY sertraline 100 mg tablet TAKE 1 TABLET BY MOUTH EVERY DAY No sertraline 100 mg tablet TAKE 1 TABLET BY MOUTH EVERY DAY [facility] zolpidem ER 6.25 mg tablet,exte nded release,mul tiphase TAKE 1 TABLET BY MOUTH EVERY DAY AT BEDTIME NEEDED zolpidem ER 6.25 mg tablet,exte nded release,mul tiphase TAKE 1 TABLET BY MOUTH EVERY DAY AT BEDTIME NEEDED No zolpidem ER 6.25 mg tablet,ext ended release,mu ltiphase TAKE 1 TABLET BY MOUTH EVERY DAY AT BEDTIME NEEDED [facility] drospirenon e 3 mg-ethinyl estradiol 0.02 [...] the same time. Take active pills only. [facility] ergocalcife rol (vitamin D2) 1,250 mcg (50,000 unit) capsule TAKE 1 CAPSULE EVERY WEEK BY ORAL ROUTE. ergocalcife rol (vitamin D2) 1,250 mcg (50,000 unit) capsule TAKE 1 CAPSULE EVERY WEEK BY ORAL ROUTE. No ergocalcif ta (vitamin D2) 1,250 mcg (50,000 unit) capsule TAKE 1 CAPSULE EVERY WEEK BY ORAL ROUTE. [facility] hydrochloro thiazide 25 mg tablet TAKE 1 TABLET BY MOUTH EVERY DAY hydrochloro thiazide 25 mg tablet TAKE 1 TABLET BY MOUTH EVERY DAY No hydrochlor othiazide 25 mg tablet TAKE 1 TABLET BY MOUTH EVERY DAY [facility] nebivolol 10 mg tablet TAKE 1 TABLET BY MOUTH EVERY DAY nebivolol 10 mg tablet TAKE 1 TABLET BY MOUTH EVERY DAY No nebivolol 10 mg tablet TAKE 1 TABLET BY MOUTH EVERY DAY [facility] phentermine 37.5 mg tablet TAKE 1 TABLET BY MOUTH EVERY DAY phentermine 37.5 mg tablet TAKE 1 TABLET BY MOUTH EVERY DAY No phentermin e 37.5 mg tablet TAKE 1 TABLET BY MOUTH EVERY DAY [facility] sertraline 100 mg tablet TAKE 1 TABLET BY MOUTH EVERY DAY sertraline 100 mg tablet TAKE 1 TABLET BY MOUTH EVERY DAY No sertraline 100 mg tablet TAKE 1 TABLET BY MOUTH EVERY DAY [facility] Ubrelvy 100 mg tablet Take 1 [...] not relieved. Max dose 200 mg/24 hours [facility] zolpidem ER 6.25 mg tablet,exte nded release,mul tiphase TAKE 1 TABLET BY MOUTH EVERY DAY AT BEDTIME NEEDED zolpidem ER 6.25 mg tablet,exte nded release,mul tiphase TAKE 1 TABLET BY MOUTH EVERY DAY AT BEDTIME NEEDED No zolpidem ER 6.25 mg tablet,ext ended release,mu ltiphase TAKE 1 TABLET BY MOUTH EVERY DAY AT BEDTIME NEEDED [facility] compounded medication semaglutide 0.3 ml 0.15 ml today (1st half dose) $22.50 compounded medication semaglutide 0.3 ml 0.15 ml today (1st half dose) $22.50 No compounded medication semaglutid e 0.3 ml 0.15 ml today (1st half dose) $22.50 [facility] ergocalcife rol (vitamin D2) 1,250 mcg (50,000 unit) capsule TAKE 1 CAPSULE EVERY WEEK BY ORAL ROUTE. ergocalcife rol (vitamin D2) 1,250 mcg (50,000 unit) capsule TAKE 1 CAPSULE EVERY WEEK BY ORAL ROUTE. No ergocalcif ta (vitamin D2) 1,250 mcg (50,000 unit) capsule TAKE 1 CAPSULE EVERY WEEK BY ORAL ROUTE. [facility] hydrochloro thiazide 25 mg tablet TAKE 1 TABLET BY MOUTH EVERY DAY hydrochloro thiazide 25 mg tablet TAKE 1 TABLET BY MOUTH EVERY DAY No hydrochlor othiazide 25 mg tablet TAKE 1 TABLET BY MOUTH EVERY DAY [facility] nebivolol 10 mg tablet TAKE 1 TABLET BY MOUTH EVERY DAY nebivolol 10 mg tablet TAKE 1 TABLET BY MOUTH EVERY DAY No nebivolol 10 mg tablet TAKE 1 TABLET BY MOUTH EVERY DAY [facility] phentermine 37.5 mg tablet Take 1 tablet every day by oral route. phentermine 37.5 mg tablet Take 1 tablet every day by oral route. No 1 Q1D phentermin e 37.5 mg tablet Take 1 tablet every day by oral route. [facility] Qulipta 60 mg tablet TAKE 1 TABLET BY MOUTH EVERY DAY FOR 30 DAYS Qulipta 60 mg tablet TAKE 1 TABLET BY MOUTH EVERY DAY FOR 30 DAYS No Qulipta 60 mg tablet TAKE 1 TABLET BY MOUTH EVERY DAY FOR 30 DAYS [facility] sertraline 100 mg tablet TAKE 1 TABLET BY MOUTH EVERY DAY sertraline 100 mg tablet TAKE 1 TABLET BY MOUTH EVERY DAY No sertraline 100 mg tablet TAKE 1 TABLET BY MOUTH EVERY DAY [facility] Ubrelvy 100 mg tablet Take 1 [...] not relieved. Max dose 200 mg/24 hours [facility] zolpidem ER 6.25 mg tablet,exte nded release,mul tiphase TAKE 1 TABLET BY MOUTH EVERY DAY AT BEDTIME NEEDED zolpidem ER 6.25 mg tablet,exte nded release,mul tiphase TAKE 1 TABLET BY MOUTH EVERY DAY AT BEDTIME NEEDED No zolpidem ER 6.25 mg tablet,ext ended release,mu ltiphase TAKE 1 TABLET BY MOUTH EVERY DAY AT BEDTIME NEEDED [facility] compounded medication semaglutide 0.3 ml 0.15 ml today (1st half dose) $22.50 compounded medication semaglutide 0.3 ml 0.15 ml today (1st half dose) $22.50 No compounded medication semaglutid e 0.3 ml 0.15 ml today (1st half dose) $22.50 [facility] ergocalcife rol (vitamin D2) 1,250 mcg (50,000 unit) capsule TAKE 1 CAPSULE EVERY WEEK BY ORAL ROUTE. ergocalcife rol (vitamin D2) 1,250 mcg (50,000 unit) capsule TAKE 1 CAPSULE EVERY WEEK BY ORAL ROUTE. No ergocalcif ta (vitamin D2) 1,250 mcg (50,000 unit) capsule TAKE 1 CAPSULE EVERY WEEK BY ORAL ROUTE. [facility] hydrochloro thiazide 25 mg tablet TAKE 1 TABLET BY MOUTH EVERY DAY hydrochloro thiazide 25 mg tablet TAKE 1 TABLET BY MOUTH EVERY DAY No hydrochlor othiazide 25 mg tablet TAKE 1 TABLET BY MOUTH EVERY DAY [facility] nebivolol 10 mg tablet TAKE 1 TABLET BY MOUTH EVERY DAY nebivolol 10 mg tablet TAKE 1 TABLET BY MOUTH EVERY DAY No nebivolol 10 mg tablet TAKE 1 TABLET BY MOUTH EVERY DAY [facility] ondansetron 4 mg disintegrat ing tablet ALLOW 2 TABLETS TO DISSOLVE ON TOP OF THE TONGUE TWICE A DAY ondansetron 4 mg disintegrat ing tablet ALLOW 2 TABLETS TO DISSOLVE ON TOP OF THE TONGUE TWICE A DAY No ondansetro n 4 mg disintegra ting tablet ALLOW 2 TABLETS TO DISSOLVE ON TOP OF THE TONGUE TWICE A DAY [facility] Qulipta 60 mg tablet TAKE 1 TABLET BY MOUTH EVERY DAY FOR 30 DAYS Qulipta 60 mg tablet TAKE 1 TABLET BY MOUTH EVERY DAY FOR 30 DAYS No Qulipta 60 mg tablet TAKE 1 TABLET BY MOUTH EVERY DAY FOR 30 DAYS [facility] sertraline 100 mg tablet TAKE 1 TABLET BY MOUTH EVERY DAY sertraline 100 mg tablet TAKE 1 TABLET BY MOUTH EVERY DAY No sertraline 100 mg tablet TAKE 1 TABLET BY MOUTH EVERY DAY [facility] Ubrelvy 100 mg tablet Take 1 [...] not relieved. Max dose 200 mg/24 hours [facility] zolpidem ER 6.25 mg tablet,exte nded release,mul tiphase TAKE 1 TABLET BY MOUTH AT BEDTIME NEEDED zolpidem ER 6.25 mg tablet,exte nded release,mul tiphase TAKE 1 TABLET BY MOUTH AT BEDTIME NEEDED No zolpidem ER 6.25 mg tablet,ext ended release,mu ltiphase TAKE 1 TABLET BY MOUTH AT BEDTIME NEEDED [facility] compounded medication Semaglutide one injections welanny compounded medication Semaglutide one injections harley No compounded medication Semaglutid e one injections welanny [facility] compounded medication semaglutide 0.3 ml 0.15 ml today (1st half dose) $22.50 compounded medication semaglutide 0.3 ml 0.15 ml today (1st half dose) $22.50 No compounded medication semaglutid e 0.3 ml 0.15 ml today (1st half dose) $22.50 [facility] ergocalcife rol (vitamin D2) 1,250 mcg (50,000 unit) capsule TAKE 1 CAPSULE EVERY WEEK BY ORAL ROUTE. ergocalcife rol (vitamin D2) 1,250 mcg (50,000 unit) capsule TAKE 1 CAPSULE EVERY WEEK BY ORAL ROUTE. No ergocalcif ta (vitamin D2) 1,250 mcg (50,000 unit) capsule TAKE 1 CAPSULE EVERY WEEK BY ORAL ROUTE. [facility] ondansetron 4 mg disintegrat ing tablet ALLOW 2 TABLETS TO DISSOLVE ON TOP OF THE TONGUE TWICE A DAY ondansetron 4 mg disintegrat ing tablet ALLOW 2 TABLETS TO DISSOLVE ON TOP OF THE TONGUE TWICE A DAY No ondansetro n 4 mg disintegra ting tablet ALLOW 2 TABLETS TO DISSOLVE ON TOP OF THE TONGUE TWICE A DAY [facility] Qulipta 60 mg tablet TAKE 1 TABLET BY MOUTH EVERY DAY FOR 30 DAYS Qulipta 60 mg tablet TAKE 1 TABLET BY MOUTH EVERY DAY FOR 30 DAYS No Qulipta 60 mg tablet TAKE 1 TABLET BY MOUTH EVERY DAY FOR 30 DAYS [facility] sertraline 100 mg tablet TAKE 1 TABLET BY MOUTH EVERY DAY sertraline 100 mg tablet TAKE 1 TABLET BY MOUTH EVERY DAY No sertraline 100 mg tablet TAKE 1 TABLET BY MOUTH EVERY DAY [facility] Ubrelvy 100 mg tablet Take 1 [...] not relieved. Max dose 200 mg/24 hours [facility] zolpidem ER 6.25 mg tablet,exte nded release,mul tiphase TAKE 1 TABLET BY MOUTH EVERY DAY AT BEDTIME NEEDED zolpidem ER 6.25 mg tablet,exte nded release,mul tiphase TAKE 1 TABLET BY MOUTH EVERY DAY AT BEDTIME NEEDED No zolpidem ER 6.25 mg tablet,ext ended release,mu ltiphase TAKE 1 TABLET BY MOUTH EVERY DAY AT BEDTIME NEEDED [facility] compounded medication semaglutide 0.3 ml 0.15 ml today (1st half dose) $22.50 compounded medication semaglutide 0.3 ml 0.15 ml today (1st half dose) $22.50 No compounded medication semaglutid e 0.3 ml 0.15 ml today (1st half dose) $22.50 [facility] compounded medication Semaglutide one injections gerardelindira compounded medication Semaglutide one injections harley No compounded medication Semaglutid e one injections weelindira [facility] Effexor XR 75 mg capsule,ext ended release Take 1 capsule every day by oral route for 90 days. Effexor XR 75 mg capsule,ext ended release Take 1 capsule every day by oral route for 90 days. No 1capsul e(s) Q1D Effexor XR 75 mg capsule,ex tended release Take 1 capsule every day by oral route for 90 days. [facility] ondansetron 4 mg disintegrat ing tablet Place 2 tablets twice a day by translingua l route. ondansetron 4 mg disintegrat ing tablet Place 2 tablets twice a day by translingua l route. No 2 BID ondansetro n 4 mg disintegra ting tablet Place 2 tablets twice a day by translingu al route. [facility] Qulipta 60 mg tablet TAKE 1 TABLET BY MOUTH EVERY DAY FOR 30 DAYS Qulipta 60 mg tablet TAKE 1 TABLET BY MOUTH EVERY DAY FOR 30 DAYS No Qulipta 60 mg tablet TAKE 1 TABLET BY MOUTH EVERY DAY FOR 30 DAYS [facility] trazodone 50 mg tablet Take 1-2 tablets PO PRN QHS trazodone 50 mg tablet Take 1-2 tablets PO PRN QHS No trazodone 50 mg tablet Take 1-2 tablets PO PRN QHS [facility] Ubrelvy 100 mg tablet Take 1 [...] not relieved. Max dose 200 mg/24 hours [facility] compounded medication semaglutide 0.3 ml 0.15 ml today (1st half dose) $22.50 compounded medication semaglutide 0.3 ml 0.15 ml today (1st half dose) $22.50 No compounded medication semaglutid e 0.3 ml 0.15 ml today (1st half dose) $22.50 [facility] compounded medication Semaglutide one injections weelky compounded medication Semaglutide one injections welanny No compounded medication Semaglutid e one injections weleticiaky [facility] drospirenon e 3 mg-ethinyl estradiol 0.02 [...] the same time. Take active pills only. [facility] Effexor XR 75 mg capsule,ext ended release Take 1 capsule every day by oral route for 90 days. Effexor XR 75 mg capsule,ext ended release Take 1 capsule every day by oral route for 90 days. No 1capsul e(s) Q1D Effexor XR 75 mg capsule,ex tended release Take 1 capsule every day by oral route for 90 days. [facility] ondansetron 4 mg disintegrat ing tablet Place 2 tablets twice a day by translingua l route. ondansetron 4 mg disintegrat ing tablet Place 2 tablets twice a day by translingua l route. No 2 BID ondansetro n 4 mg disintegra ting tablet Place 2 tablets twice a day by translingu al route. [facility] Qulipta 60 mg tablet TAKE 1 TABLET BY MOUTH EVERY DAY FOR 30 DAYS Qulipta 60 mg tablet TAKE 1 TABLET BY MOUTH EVERY DAY FOR 30 DAYS No Qulipta 60 mg tablet TAKE 1 TABLET BY MOUTH EVERY DAY FOR 30 DAYS [facility] trazodone 50 mg tablet Take 1-2 tablets PO PRN QHS trazodone 50 mg tablet Take 1-2 tablets PO PRN QHS No trazodone 50 mg tablet Take 1-2 tablets PO PRN QHS [facility] Ubrelvy 100 mg tablet Take 1 [...] not relieved. Max dose 200 mg/24 hours [facility] compounded medication semaglutide 0.3 ml 0.15 ml today (1st half dose) $22.50 compounded medication semaglutide 0.3 ml 0.15 ml today (1st half dose) $22.50 No compounded medication semaglutid e 0.3 ml 0.15 ml today (1st half dose) $22.50 [facility] compounded medication Semaglutide one injections harley compounded medication Semaglutide one injections harley No compounded medication Semaglutid e one injections welanny [facility] drospirenon e 3 mg-ethinyl estradiol 0.02 [...] the same time. Take active pills only. [facility] Effexor XR 75 mg capsule,ext ended release Take 1 capsule every day by oral route for 90 days. Effexor XR 75 mg capsule,ext ended release Take 1 capsule every day by oral route for 90 days. No 1capsul e(s) Q1D Effexor XR 75 mg capsule,ex tended release Take 1 capsule every day by oral route for 90 days. [facility] ondansetron 4 mg disintegrat ing tablet Place 2 tablets twice a day by translingua l route. ondansetron 4 mg disintegrat ing tablet Place 2 tablets twice a day by translingua l route. No 2 BID ondansetro n 4 mg disintegra ting tablet Place 2 tablets twice a day by translingu al route. [facility] Qulipta 60 mg tablet TAKE 1 TABLET BY MOUTH EVERY DAY FOR 30 DAYS Qulipta 60 mg tablet TAKE 1 TABLET BY MOUTH EVERY DAY FOR 30 DAYS No Qulipta 60 mg tablet TAKE 1 TABLET BY MOUTH EVERY DAY FOR 30 DAYS [facility] trazodone 50 mg tablet Take 1-2 tablets PO PRN QHS trazodone 50 mg tablet Take 1-2 tablets PO PRN QHS No trazodone 50 mg tablet Take 1-2 tablets PO PRN QHS [facility] Ubrelvy 100 mg tablet Take 1 [...] not relieved. Max dose 200 mg/24 hours [facility] Vraylar 1.5 mg capsule Take 1 capsule every day by oral route for 30 days. Vraylar 1.5 mg capsule Take 1 capsule every day by oral route for 30 days. No 1capsul e(s) Q1D Vraylar 1.5 mg capsule Take 1 capsule every day by oral route for 30 days. [facility] compounded medication semaglutide 0.3 ml 0.15 ml today (1st half dose) $22.50 compounded medication semaglutide 0.3 ml 0.15 ml today (1st half dose) $22.50 No compounded medication semaglutid e 0.3 ml 0.15 ml today (1st half dose) $22.50 [facility] compounded medication Semaglutide one injections weelky compounded medication Semaglutide one injections weleticiaindira No compounded medication Semaglutid e one injections weleticiaky [facility] Effexor XR 150 mg capsule,ext ended release Take 1 capsule every day by oral route for 90 days. Effexor XR 150 mg capsule,ext ended release Take 1 capsule every day by oral route for 90 days. No 1capsul e(s) Q1D Effexor XR 150 mg capsule,ex tended release Take 1 capsule every day by oral route for 90 days. [facility] Effexor XR 75 mg capsule,ext ended release Take 1 capsule every day by oral route for 90 days. Effexor XR 75 mg capsule,ext ended release Take 1 capsule every day by oral route for 90 days. No 1capsul e(s) Q1D Effexor XR 75 mg capsule,ex tended release Take 1 capsule every day by oral route for 90 days. [facility] hydrocodone 7.5 mg-acetamin ophen 325 mg tablet TAKE 1 TABLET BY MOUTH EVERY 6 HOURS NEEDED FOR PAIN hydrocodone 7.5 mg-acetamin ophen 325 mg tablet TAKE 1 TABLET BY MOUTH EVERY 6 HOURS NEEDED FOR PAIN No hydrocodon e 7.5 mg-acetami nophen 325 mg tablet TAKE 1 TABLET BY MOUTH EVERY 6 HOURS NEEDED FOR PAIN [facility] Klonopin 0.5 mg tablet Take 1 tablet 3 times a day by oral route as needed for 10 days. Klonopin 0.5 mg tablet Take 1 tablet 3 times a day by oral route as needed for 10 days. No 1 TID Klonopin 0.5 mg tablet Take 1 tablet 3 times a day by oral route as needed for 10 days. [facility] ondansetron 4 mg disintegrat ing tablet Place 2 tablets twice a day by translingua l route. ondansetron 4 mg disintegrat ing tablet Place 2 tablets twice a day by translingua l route. No 2 BID ondansetro n 4 mg disintegra ting tablet Place 2 tablets twice a day by translingu al route. [facility] oseltamivir 75 mg capsule Take 1 capsule twice a day by oral route. oseltamivir 75 mg capsule Take 1 capsule twice a day by oral route. No 1capsul e(s) BID oseltamivi r 75 mg capsule Take 1 capsule twice a day by oral route. [facility] Qulipta 60 mg tablet TAKE 1 TABLET BY MOUTH EVERY DAY FOR 30 DAYS Qulipta 60 mg tablet TAKE 1 TABLET BY MOUTH EVERY DAY FOR 30 DAYS No Qulipta 60 mg tablet TAKE 1 TABLET BY MOUTH EVERY DAY FOR 30 DAYS [facility] trazodone 50 mg tablet Take 1-2 tablets PO PRN [facility]HS trazodone 50 mg tablet Take 1-2 tablets PO PRN [facility] No trazodone 50 mg tablet Take 1-2 tablets PO PRN QHS [facility] Ubrelvy 100 mg tablet Take 1 [...] not relieved. Max dose 200 mg/24 hours [facility] acetaminoph en 300 mg-codeine 30 mg tablet Take 1 tablet every 6 hours by oral route as needed. acetaminoph en 300 mg-codeine 30 mg tablet Take 1 tablet every 6 hours by oral route as needed. No 1 Q6H acetaminop hen 300 mg-codeine 30 mg tablet Take 1 tablet every 6 hours by oral route as needed. [facility] clonazepam 0.5 mg tablet TAKE 1 TABLET BY MOUTH THREE TIMES A DAY NEEDED FOR 10 DAYS clonazepam 0.5 mg tablet TAKE 1 TABLET BY MOUTH THREE TIMES A DAY NEEDED FOR 10 DAYS No clonazepam 0.5 mg tablet TAKE 1 TABLET BY MOUTH THREE TIMES A DAY NEEDED FOR 10 DAYS [facility] compounded medication Semaglutide one injections gerardleticiaindira compounded medication Semaglutide one injections helgaindira No compounded medication Semaglutid e one injections harley [facility] compounded medication semaglutide 0.3 ml 0.15 ml today (1st half dose) $22.50 compounded medication semaglutide 0.3 ml 0.15 ml today (1st half dose) $22.50 No compounded medication semaglutid e 0.3 ml 0.15 ml today (1st half dose) $22.50 [facility] Effexor XR 75 mg capsule,ext ended release Take 1 capsule every day by oral route for 90 days. Effexor XR 75 mg capsule,ext ended release Take 1 capsule every day by oral route for 90 days. No 1capsul e(s) Q1D Effexor XR 75 mg capsule,ex tended release Take 1 capsule every day by oral route for 90 days. [facility] eszopiclone 2 mg tablet eszopiclone 2 mg tablet No eszopiclon e 2 mg tablet [facility] hydrocodone 7.5 mg-acetamin ophen 325 mg tablet TAKE 1 TABLET BY MOUTH EVERY 6 HOURS NEEDED FOR PAIN hydrocodone 7.5 mg-acetamin ophen 325 mg tablet TAKE 1 TABLET BY MOUTH EVERY 6 HOURS NEEDED FOR PAIN No hydrocodon e 7.5 mg-acetami nophen 325 mg tablet TAKE 1 TABLET BY MOUTH EVERY 6 HOURS NEEDED FOR PAIN [facility] naproxen 500 mg tablet naproxen 500 mg tablet No naproxen 500 mg tablet [facility] ondansetron 4 mg disintegrat ing tablet Place 2 tablets twice a day by translingua l route. ondansetron 4 mg disintegrat ing tablet Place 2 tablets twice a day by translingua l route. No 2 BID ondansetro n 4 mg disinte[address] ting tablet Place 2 tablets twice a day by translingu al route. [facility] oseltamivir 75 mg capsule Take 1 capsule twice a day by oral route. oseltamivir 75 mg capsule Take 1 capsule twice a day by oral route. No 1capsul e(s) BID oseltamivi r 75 mg capsule Take 1 capsule twice a day by oral route. [facility] oxybutynin chloride ER 10 mg tablet,exte nded release 24 hr oxybutynin chloride ER 10 mg tablet,exte nded release 24 hr No oxybutynin chloride ER 10 mg tablet,ext ended release 24 hr [facility] Qulipta 60 mg tablet TAKE 1 TABLET BY MOUTH EVERY DAY FOR 30 DAYS Qulipta 60 mg tablet TAKE 1 TABLET BY MOUTH EVERY DAY FOR 30 DAYS No Qulipta 60 mg tablet TAKE 1 TABLET BY MOUTH EVERY DAY FOR 30 DAYS [facility] trazodone 50 mg tablet Take 1-2 tablets PO PRN [facility]HS trazodone 50 mg tablet Take 1-2 tablets PO PRN QHS No trazodone 50 mg tablet Take 1-2 tablets PO PRN QHS [facility] Ubrelvy 100 mg tablet Take 1 [...] not relieved. Max dose 200 mg/24 hours [facility] venlafaxine ER 150 mg capsule,ext ended release 24 hr Take 1 capsule every day by oral route for 90 days. venlafaxine ER 150 mg capsule,ext ended release 24 hr Take 1 capsule every day by oral route for 90 days. No venlafaxin e ER 150 mg capsule,ex tended release 24 hr Take 1 capsule every day by oral route for 90 days. [facility] zolpidem 10 mg tablet Take 1 tablet every day by oral route for 30 days. zolpidem 10 mg tablet Take 1 tablet every day by oral route for 30 days. No 1 Q1D zolpidem 10 mg tablet Take 1 tablet every day by oral route for 30 days. [facility] acetaminoph en 300 mg-codeine 30 mg tablet TAKE 1 TABLET BY MOUTH EVERY 6 HOURS NEEDED acetaminoph en 300 mg-codeine 30 mg tablet TAKE 1 TABLET BY MOUTH EVERY 6 HOURS NEEDED No acetaminop hen 300 mg-codeine 30 mg tablet TAKE 1 TABLET BY MOUTH EVERY 6 HOURS NEEDED [facility] drospirenon e 3 mg-ethinyl estradiol 0.02 [...] the same time. Take active pills only. [facility] ergocalcife rol (vitamin D2) 1,250 mcg (50,000 unit) capsule TAKE 1 CAPSULE EVERY WEEK BY ORAL ROUTE. ergocalcife rol (vitamin D2) 1,250 mcg (50,000 unit) capsule TAKE 1 CAPSULE EVERY WEEK BY ORAL ROUTE. No ergocalcif ta (vitamin D2) 1,250 mcg (50,000 unit) capsule TAKE 1 CAPSULE EVERY WEEK BY ORAL ROUTE. [facility] lisinopril 10 mg tablet TAKE 1 TABLET BY MOUTH EVERY DAY lisinopril 10 mg tablet TAKE 1 TABLET BY MOUTH EVERY DAY No lisinopril 10 mg tablet TAKE 1 TABLET BY MOUTH EVERY DAY [facility] phentermine 37.5 mg tablet Take 1 tablet every day by oral route. phentermine 37.5 mg tablet Take 1 tablet every day by oral route. No 1 Q1D phentermin e 37.5 mg tablet Take 1 tablet every day by oral route. [facility] sertraline 100 mg tablet TAKE 1 TABLET BY MOUTH EVERY DAY sertraline 100 mg tablet TAKE 1 TABLET BY MOUTH EVERY DAY No sertraline 100 mg tablet TAKE 1 TABLET BY MOUTH EVERY DAY [facility] zolpidem ER 6.25 mg tablet,exte nded release,mul tiphase TAKE 1 TABLET BY MOUTH EVERY DAY AT BEDTIME NEEDED zolpidem ER 6.25 mg tablet,exte nded release,mul tiphase TAKE 1 TABLET BY MOUTH EVERY DAY AT BEDTIME NEEDED No zolpidem ER 6.25 mg tablet,ext ended release,mu ltiphase TAKE 1 TABLET BY MOUTH EVERY DAY AT BEDTIME NEEDED [facility] lisinopril 10 mg tablet Take 1 tablet every day by oral route for 90 days. lisinopril 10 mg tablet Take 1 tablet every day by oral route for 90 days. No 1 Q1D lisinopril 10 mg tablet Take 1 tablet every day by oral route for 90 days. [facility] sertraline 100 mg tablet sertraline 100 mg tablet No sertraline 100 mg tablet [facility] Immunizations Ordered Immunization Name Filled Immunization Name Date Status Comments Source meningococcal MCV4P meningococcal MCV4P 11:48:00 Completed [facility] meningococcal MCV4P meningococcal MCV4P 11:48:00 Completed [facility] meningococcal MCV4P meningococcal MCV4P 11:48:00 Completed [facility] meningococcal MCV4P meningococcal MCV4P 11:48:00 Completed [facility] meningococcal MCV4P meningococcal MCV4P 11:48:00 Completed [facility] meningococcal MCV4P meningococcal MCV4P 11:48:00 Completed [facility] meningococcal MCV4P meningococcal MCV4P 11:48:00 Completed [facility] meningococcal MCV4P meningococcal MCV4P 11:48:00 Completed [facility] meningococcal MCV4P meningococcal MCV4P 11:48:00 Completed [facility] meningococcal MCV4P meningococcal MCV4P 11:48:00 Completed [facility] meningococcal MCV4P meningococcal MCV4P 11:48:00 Completed [facility] meningococcal MCV4P meningococcal MCV4P 11:48:00 Completed [facility] meningococcal MCV4P meningococcal MCV4P Unknown Completed [facility] meningococcal MCV4P meningococcal MCV4P Unknown Completed [facility] meningococcal MCV4P meningococcal MCV4P Unknown Completed [facility] Vital Signs Vital Name Observation Time Observation Value Comments S ource BP Diastolic 2023-11-20 00:00:00 98 mm[Hg] [facility] BMI (Body Mass Index) 2023-11-20 00:00:00 32.8 kg/m2 [facility] Height 2023-11-20 00:00:00 68 [in_i] [facility] Body Weight 2023-11-20 00:00:00 3450 [oz_av] [facility] BP Systolic 2023-11-20 00:00:00 143 mm[Hg] [facility] Systolic blood pressure 2023-10-28 15:44:00 140 mm[Hg] [facility] Diastolic blood pressure 2023-10-28 15:44:00 99 mm[Hg] [facility] Heart rate 2023-10-28 15:44:00 94 /min [facility] Body temperature 2023-10-28 15:44:00 37 Venus [facility] Respiratory rate 2023-10-28 15:44:00 18 /min [facility] Body weight 2023-10-28 15:44:00 91.173 kg [facility] BMI 2023-10-28 15:44:00 30.56 kg/m2 [facility] Oxygen saturation in Arterial blood by Pulse oximetry 2023-10-28 15:44:00 99 /min [facility] BP Systolic 2023-09-08 00:00:00 121 mm[Hg] [facility] BP Diastolic 2023-09-08 00:00:00 84 mm[Hg] [facility] Height 2023-09-08 00:00:00 68 [in_i] [facility] BMI (Body Mass Index) 2023-09-08 00:00:00 28 kg/m2 [facility] Body Weight 2023-09-08 00:00:00 2943 [oz_av] [facility] Body Weight 2023-08-14 00:00:00 2928 [oz_av] [facility] Height 2023-08-14 00:00:00 68 [in_i] [facility] BMI (Body Mass Index) 2023-08-14 00:00:00 27.8 kg/m2 [facility] BP Systolic 2023-05-19 00:00:00 140 mm[Hg] [facility] Body Weight 2023-05-19 00:00:00 2666 [oz_av] [facility] BP Diastolic 2023-05-19 00:00:00 87 mm[Hg] [facility] Height 2023-05-19 00:00:00 68 [in_i] [facility] BMI (Body Mass Index) 2023-05-19 00:00:00 25.3 kg/m2 [facility] BP Diastolic 2023-04-14 00:00:00 74 mm[Hg] [facility] Height 2023-04-14 00:00:00 68 [in_i] [facility] BMI (Body Mass Index) 2023-04-14 00:00:00 25.1 kg/m2 [facility] BP Systolic 2023-04-14 00:00:00 111 mm[Hg] [facility] Body Weight 2023-04-14 00:00:00 2645 [oz_av] [facility] BP Diastolic 2023-01-01 00:00:00 77 mm[Hg] [facility] Height 2023-01-01 00:00:00 68 [in_i] [facility] BMI (Body Mass Index) 2023-01-01 00:00:00 26.9 kg/m2 [facility] BP Systolic 2023-01-01 00:00:00 109 mm[Hg] [facility] Body Weight 2023-01-01 00:00:00 2832 [oz_av] [facility] BP Diastolic 2022-12-03 00:00:00 84 mm[Hg] [facility] Height 2022-12-03 00:00:00 68 [in_i] [facility] BMI (Body Mass Index) 2022-12-03 00:00:00 27.8 kg/m2 [facility] BP Systolic 2022-12-03 00:00:00 133 mm[Hg] [facility] Body Weight 2022-12-03 00:00:00 2930.4 [oz_av] [facility] BP Diastolic 2022-10-31 00:00:00 84 mm[Hg] [facility] Height 2022-10-31 00:00:00 68 [in_i] [facility] BMI (Body Mass Index) 2022-10-31 00:00:00 30.7 kg/m2 [facility] BP Systolic 2022-10-31 00:00:00 140 mm[Hg] [facility] Body Weight 2022-10-31 00:00:00 3232 [oz_av] [facility] BP Diastolic 2022-10-07 00:00:00 92 mm[Hg] [facility] Height 2022-10-07 00:00:00 68 [in_i] [facility] BMI (Body Mass Index) 2022-10-07 00:00:00 31.2 kg/m2 [facility] BP Systolic 2022-10-07 00:00:00 140 mm[Hg] [facility] Body Weight 2022-10-07 00:00:00 3280 [oz_av] [facility] BP Diastolic 2022-09-03 00:00:00 99 mm[Hg] [facility] Height 2022-09-03 00:00:00 68 [in_i] [facility] BMI (Body Mass Index) 2022-09-03 00:00:00 30.2 kg/m2 [facility] BP Systolic 2022-09-03 00:00:00 147 mm[Hg] [facility] Body Weight 2022-09-03 00:00:00 3176 [oz_av] [facility] BP Diastolic 2022-07-31 00:00:00 92 mm[Hg] [facility] Height 2022-07-31 00:00:00 68 [in_i] [facility] BMI (Body Mass Index) 2022-07-31 00:00:00 30.7 kg/m2 [facility] BP Systolic 2022-07-31 00:00:00 144 mm[Hg] [facility] Body Weight 2022-07-31 00:00:00 3232 [oz_av] [facility] BP Diastolic 2022-07-03 00:00:00 84 mm[Hg] [facility] Height 2022-07-03 00:00:00 68 [in_i] [facility] BMI (Body Mass Index) 2022-07-03 00:00:00 30.7 kg/m2 [facility] BP Systolic 2022-07-03 00:00:00 138 mm[Hg] [facility] Body Weight 2022-07-03 00:00:00 3232 [oz_av] [facility] BP Diastolic 2022-01-31 00:00:00 90 mm[Hg] [facility] Height 2022-01-31 00:00:00 68 [in_i] [facility] BMI (Body Mass Index) 2022-01-31 00:00:00 31.6 kg/m2 [facility] BP Systolic 2022-01-31 00:00:00 149 mm[Hg] [facility] Body Weight 2022-01-31 00:00:00 3328 [oz_av] [facility] BMI (Body Mass Index) 2021-08-14 00:00:00 28.9 kg/m2 [facility] BP Systolic 2021-08-14 00:00:00 121 mm[Hg] [facility] Body Weight 2021-08-14 00:00:00 3040 [oz_av] [facility] BP Diastolic 2021-08-14 00:00:00 82 mm[Hg] [facility] Height 2021-08-14 00:00:00 68 [in_i] [facility] BP Diastolic 2021-05-29 00:00:00 92 mm[Hg] [facility] Height 2021-05-29 00:00:00 68 [in_i] [facility] BMI (Body Mass Index) 2021-05-29 00:00:00 30.4 kg/m2 [facility] BP Systolic 2021-05-29 00:00:00 143 mm[Hg] [facility] Body Weight 2021-05-29 00:00:00 3200 [oz_av] [facility] Procedures Procedure Date / Time Performed Performing Clinician Source MRI, ankle, w/o contrast 2023-11-20 00:00:00 [facility] XR, ankle, 3 or more view 2023-11-18 00:00:[address] [facility] [address] ABDOMEN PELVIS W CONTRAST 2023-10-28 18:34:20 Grace Shields [facility] COMP. METABOLIC PANEL (80993) 2023-10-28 16:20:00 Grace Shields [facility] CBC WITH DIFF 2023-10-28 16:20:00 Grace Shields [facility] URINALYSIS 2023-10-28 16:17:00 Grace Shields [facility] POCT TEST 2023-10-28 16:17:00 Grace Shields [facility] NOTICE OF PRIVACY PRACTICES 2023-10-28 15:39:08 Doctor Unassigned, [place] [facility] CONSENT/REFUSAL FOR DIAGNOSIS AND TREATMENT 2023-10-28 15:38:38 Doctor Unassigned, [place] [facility] Tonsillectomy [facility] Plan of Care Planned Activity Planned Date Details Comments Source Diagnostic Test Pending 2022-07-03 00:00:00 CMP, serum or plasma [code = CMP, serum or plasma] [facility] Diagnostic Test Pending 2022-07-03 00:00:00 lipid panel, serum [code = lipid panel, serum] [facility] Diagnostic Test Pending 2022-07-03 00:00:00 CBC w/ auto diff [code = CBC w/ auto diff] [facility] Diagnostic Test Pending 2022-07-03 00:00:00 vitamin D, 25-hydroxy, total, serum [code = vitamin D, 25-hydroxy, total, serum] [facility] Diagnostic Test Pending 2022-07-03 00:00:00 HbA1c (hemoglobin A1c), blood [code = HbA1c (hemoglobin A1c), blood] [facility] Diagnostic Test Pending 2022-07-03 00:00:00 TSH + free T4, serum [code = TSH + free T4, serum] [facility] Diagnostic Test Pending 2022-07-03 00:00:00 vitamin B12 + folate, serum or blood [code = vitamin B12 + folate, serum or blood] [facility] Encounters Start Date/Time End Date/Time Encounter Type Admission Type Attending [facility] Care Department Encounter ID Source 2023-12-04 00:00:00 2023-12-04 00:00:00 [facility] [id number] [facility] 2023-11-28 00:00:00 2023-11-28 00:00:00 Outpatient GC_GCBZW_Ka diyala_S PRIV PRIV [id number] [facility] 2023-11-20 00:00:00 2023-11-20 00:00:00 [facility]patient [facility] [id number] [facility] 2023-11-20 00:00:00 2023-11-20 00:00:00 ALEJANDRO Leal, FIELD ADJUSTER, TYPEWRITER REPAIRER-C: [address], [address] [place] [address] , Ph. [facility], ALEJANDRO Leal, TYPEWRITER REPAIRER-C [id number] [facility] 2023-10-31 00:00:00 2023-10-31 00:00:00 Outpatient GC_GCBZW_Ka diyala_S PRIV PRIV [id number] [facility] 2023-10-30 00:00:00 2023-10-30 00:00:00 Outpatient [facility] [id number] [facility] 2023-10-28 09:45:00 2023-10-28 14:04:00 Emergency X GRACE SHIELDS [facility] ERT [id number] [facility] 2023-10-28 09:45:00 2023-10-28 14:04:00 Emergency Grace Shields [facility] [id number] [facility] 2023-10-21 00:00:00 2023-10-21 00:00:00 Outpatient [facility] [id number] 2023-10-13 00:00:00 2023-10-13 00:00:00 Outpatient [facility] [id number] [facility] 2023-10-02 00:00:00 2023-10-02 00:00:00 Outpatient GC_GCBZW_Ka diyala_S PRIV PRIV [id number] [facility] 2023-10-01 00:00:00 2023-10-01 00:00:00 Outpatient GC_GCBZW_Ka diyala_S PRIV PRIV [id number] [facility] 2023-09-25 00:00:00 2023-09-25 00:00:00 Outpatient [facility] [id number] 2023-09-22 00:00:00 2023-09-22 00:00:00 Outpatient GC_GCBZW_Ka diyala_S PRIV PRIV [id number] [facility] 2023-09-21 00:00:00 2023-09-21 00:00:00 Outpatient GC_GCBZW_Ka diyala_S PRIV PRIV [id number] [facility] 2023-09-08 00:00:00 2023-09-08 00:00:00 Avni Ackerman, MSN, FIELD ADJUSTER, TYPEWRITER REPAIRER-C: [address], [address], [place] [address] , Ph. [facility], Avni Ackerman, MSN, TYPEWRITER REPAIRER-C [id number] [facility] 2023-08-14 00:00:00 2023-08-14 00:00:00 Outpatient [facility] [id number] [facility] 2023-08-14 00:00:00 2023-08-14 00:00:00 Outpatient [facility] [id number] [facility] 2023-08-14 00:00:00 2023-08-14 00:00:00 Outpatient [facility] [id number] [facility] 2023-08-14 00:00:00 2023-08-14 00:00:00 Avni Ackerman MSN, FIELD ADJUSTER, TYPEWRITER REPAIRER-C: Justin Lozano, [address], [place] [address] , Ph. [facility], Avni Ackerman, MSN, TYPEWRITER REPAIRER-C [id number] [facility] 2023-06-16 00:00:00 2023-06-16 00:00:00 Outpatient [facility] [id number] [facility] 2023-05-25 15:30:00 2023-05-25 15:30:00 Outpatient KATHY JONES CHERYAL [facility] [id number] [facility] 2023-05-19 00:00:00 2023-05-19 00:00:00 Outpatient [facility] [id number] 2023-05-19 00:00:00 2023-05-19 00:00:00 Avni Ackerman MSN, FIELD ADJUSTER, TYPEWRITER REPAIRER-C: Justin [address]oz[address], [address], [place] [address] , Ph. [facility], Avni Ackerman, MSN, TYPEWRITER REPAIRER-C [id number] [facility] 2023-04-14 00:00:00 2023-04-14 00:00:00 Outpatient [facility] [id number] [facility] 2023-04-14 00:00:00 2023-04-14 00:00:00 Avni Ackerman MSN, FIELD ADJUSTER, TYPEWRITER REPAIRER-C: Justin Lozano, [address], [place] [address] , Ph. [facility], Avni Ackerman, MSN, TYPEWRITER REPAIRER-C [id number] [facility] 2023-02-12 00:00:00 2023-02-12 00:00:00 Outpatient [facility] [id number] [facility] 2023-01-01 00:00:00 2023-01-01 00:00:00 Outpatient [facility] [id number] [facility] 2023-01-01 00:00:00 2023-01-01 00:00:00 Avni Ackerman MSN, FIELD ADJUSTER, TYPEWRITER REPAIRER-C: Justin Lozano, [address], [place] [address] , Ph. [facility], Avni Ackerman MSN, TYPEWRITER REPAIRER-C [id number] [facility] 2022-12-03 00:00:00 2022-12-03 00:00:00 Avni Ackerman, MSN, FIELD ADJUSTER, TYPEWRITER REPAIRER-C: Justin Lozano, [address], [place] [address] , Ph. [facility], ALEJANDRO Leal, TYPEWRITER REPAIRER-C [id number] [facility] 2022-11-19 00:00:00 2022-11-19 00:00:00 Outpatient [facility] [id number] [facility] 2022-11-19 00:00:00 2022-11-19 00:00:00 Outpatient [facility] [id number] [facility] 2022-10-31 00:00:00 2022-10-31 00:00:00 Outpatient [facility] [id number] [facility] 2022-10-31 00:00:00 2022-10-31 00:00:00 ALEJANDRO Leal, FIELD ADJUSTER, TYPEWRITER REPAIRER-C: Justin Lozano, [place] [address] , Ph. [facility], ALEJANDRO Leal, TYPEWRITER REPAIRER-C [id number] [facility] 2022-10-08 00:00:00 2022-10-08 00:00:00 Outpatient [facility] [id number] [facility] 2022-10-07 00:00:00 2022-10-07 00:00:00 Outpatient [facility] [id number] [facility] 2022-10-07 00:00:00 2022-10-07 00:00:00 ALEJANDRO Leal, FIELD ADJUSTER, TYPEWRITER REPAIRER-C: Justin Lozano [address], [address], [place] [address] , Ph. [facility], Avni Ackerman, MSN, TYPEWRITER REPAIRER-C [id number] [facility] 2022-09-03 00:00:00 2022-09-03 00:00:00 Outpatient [facility] [id number] [facility] 2022-09-03 00:00:00 2022-09-03 00:00:00 Avni Ackerman, MSN, FIELD ADJUSTER, TYPEWRITER REPAIRER-C: Justin Lozano [address], [address], [place] [address] , Ph. [facility], Avni Ackerman, MSN, TYPEWRITER REPAIRER-C [id number] [facility] 2022-07-31 00:00:00 2022-07-31 00:00:00 Outpatient [facility] [id number] [facility] 2022-07-31 00:00:00 2022-07-31 00:00:00 Avni Ackerman, MSN, FIELD ADJUSTER, TYPEWRITER REPAIRER-C: Justin Lozano [address], [address], [place] [address] , Ph. [facility], Avni Ackerman, MSN, TYPEWRITER REPAIRER-C [id number] [facility] 2022-07-03 00:00:00 2022-07-03 00:00:00 Outpatient [facility] [id number] [facility] 2022-07-03 00:00:00 2022-07-03 00:00:00 Avni Ackerman, MSN, FIELD ADJUSTER, TYPEWRITER REPAIRER-C: Justin Lozano E, [place] [address] , Ph. [facility], Avni Ackerman, MSN, TYPEWRITER REPAIRER-C [id number] [facility] 2022-05-13 00:00:00 2022-05-13 00:00:00 Outpatient [facility] [id number] [facility] 2022-04-09 12:50:00 2022-04-09 12:50:00 Outpatient [facility] [id number] [facility] 2022-03-04 01:10:00 2022-03-04 01:10:00 Outpatient [facility] [id number] [facility] 2022-01-31 09:22:00 2022-01-31 09:22:00 Outpatient [facility] [id number] [facility] 2022-01-31 00:00:00 2022-01-31 00:00:00 Avni Ackerman, MSN, FIELD ADJUSTER, TYPEWRITER REPAIRER-C: Eulogio Morataya, [facility] [address], [place] [address] , Ph. [facility], Avni Ackerman, MSN, TYPEWRITER REPAIRER-C [id number] [facility] 2022-01-31 00:00:00 2022-01-31 00:00:00 Outpatient Avni Ackerman [facility] [id number] 2022-01-14 02:34:00 2022-01-14 02:34:00 Outpatient [facility] [id number] [facility] 2021-12-10 02:49:00 2021-12-10 02:49:00 Outpatient [facility] [id number] [facility] 2021-11-07 04:48:00 2021-11-07 04:48:00 Outpatient [facility] [id number] [facility] 2021-11-05 02:12:00 2021-11-05 02:12:00 Outpatient [facility] [id number] [facility] 2021-10-01 04:32:00 2021-10-01 04:32:00 Outpatient [facility] [id number] [facility] 2021-08-14 04:01:00 2021-08-14 04:01:00 Outpatient [facility] [id number] [facility] 2021-08-14 00:00:00 2021-08-14 00:00:00 Outpatient TyronSunithaAvni [facility] [id number] 2021-08-14 00:00:00 2021-08-14 00:00:00 ALEJANDRO Leal, FIELD ADJUSTER, TYPEWRITER REPAIRER-C: Eulogio Mor[address]aya, [address], [place] [address] , Ph. [facility], ALEJANDRO Leal, TYPEWRITER REPAIRER-C [id number] [facility] 2021-05-29 11:58:00 2021-05-29 11:58:00 Outpatient [facility] [id number] [facility] 2021-05-29 00:00:00 2021-05-29 00:00:00 Outpatient Tyron Avni [facility] [id number] 2021-05-29 00:00:00 2021-05-29 00:00:00 Avni Ackerman, MSN, FIELD ADJUSTER, TYPEWRITER REPAIRER-C: [address], [address], [place] [address] , Ph. [facility], Avni Ackerman, ALEJANDRO, TYPEWRITER REPAIRER-C [id number] [facility] 2021-05-28 04:39:00 2021-05-28 04:39:00 Outpatient TYRON_Karly [facility] [id number] 2020-07-30 16:00:00 2020-07-30 16:00:00 Outpatient MILAGRO HARRISON [facility] [id number] [facility] Results Test Description Test Time Test [...] fluid in the cul-de-sac, consistent with physiologicchanges. [facility] WITH [id number] 16:35:58* Test Item Value Reference Range Interpretation Comme nts WBC (test code = 6690-2) 9.98 See_Comment [Automated [employer]] The system which generated this result transmitted reference range: 4.30 - 11.10 10*3/?L. The reference range was not used to interpret this result as normal/abnormal. RBC (test code = 789-8) 4.32 See_Comment [Automated [employer]] The system which generated this result transmitted [...] 33.5 g/dL 31.6-35.1 RDW-SD (test code = 10904-7) 42.3 fL 39.0-49.9 RDW-CV (test code = 788-0) 12.5 % 12.0-15.5 PLT (test code = 777-3) 431 See_Comment H [Automated [employer]] The system which generated this result transmitted reference range: 166 - 358 10*3/?L. The reference range was not used to interpret this result as normal/abnormal. MPV (test code = 55127-4) 9.0 fL 9.5-12.9 L NRBC/100 WBC (test code = 6783824089) 0.0 See_Comment [Automated me ssage] The system which generated this result transmitted reference range: 0.0 - 10.0 /100 WBCs. The reference range was not used to interpret this result as normal/abnormal. NRBC x10^3 (test code = 3150630606) See_Comment [Automated messa ge] The system which generated this result transmitted reference range: 10*3/?L. The reference range was not used to interpret this result as normal/abnormal. GRAN MAT (NEUT) % (test code = 770-8) 67.8 % IMM GRAN % (test code = 1258012068) 0.30 % LYMPH % (test code = 736-9) 23.1 % MONO % (test code = 5905-5) 6.6 % EOS % (test code = 713-8) 1.6 % BASO % (test code = 706-2) 0.6 % GRAN MAT x10^3(ANC) (test code = 3131084259) 6.76 10*3/uL 1.88-7.09 IMM GRAN x10^3 (test code = 7193317734) 0.03 10*3/uL 0.00-0.06 LYMPH x10^3 (test code = 731-0) 2.31 10*3/uL 1.32-3.29 MONO x10^3 (test code = 742-7) 0.66 10*3/uL 0.33-0.92 EOS x10^3 (test code = 711-2) 0.16 10*3/uL 0.03-0.39 BASO x10^3 (test code = 704-7) 0.06 10*3/uL 0.01-0.07 Lab Interpretation (test code = 99833-9) Abnormal [facility] [id number] 16:17:00* Test Item Value Reference Range Interpretation Comme nts POCT PREG (test code = 1605) Negative On board controls acceptable with C Line (test code = 3574) Yes POCT PREG LOT # (test code = 3575) [id number] POCT PREG TEST DATE ( test code = 3576) 01-10-25 Lab Interpretation (test cod e = 71833-9) Normal [facility] Notes Date/Time Note Provider Source 2023-10-28 13:29:39 3DcmZ2x0xR8nrui55ZNf SEfFj5B6A2ASe TO1Pnf5klsNClyedluMg5oCbTFhs1kh92 28-10-23T13:29:39 Patient discharged. Pain controlled. Follow up with OBGYN. 95728-3Clbnhgehh department ZimbOM5764-62-00N23:29:55Emergen y department NoteTXT1.2.840.401904.1.13.104.2. 7.2.918846|[id number] for patient ayfv62255-9ExccMLEGVFAVOEFHeuhwfw ed C-CDA narrative text[address] Ml[id number] 680WAXOPQNBDFYWGJUABASYRW3216-71- 24T13:29:551.2.840.630861.1.72.3. 15|1.2.840.470206.1.13.104.2.7.2. [id number] [facility] 2023-10-28 09:42:41 kK1QMyUGuts47LpWkFap shCiDA7ilLcrw AEJP6D51zexlNZtmz01R+Jvq9L1aKvK56 28-10-23T09:42:41 Patient to ED RLQ pain that started at 2 am. Reports she had the same pain that happened last month and went to [facility] and was diagnosed with a UTI and cyst on left ovary. Reports this feels the same. Reports of nausea and 1 episode of vomiting at 4 am. 64325-8Aqbygaaqf department Triage xdnbUL6038-41-94Q17:44:27[facility] hospital department Triage noteTXT1.2.840.723692.1.13.104.2. 7.2.103866|[id number] for patient spnz88931-8Vairtqzty department NoteLNNARRATIVEFormatted C-CDA narrative [id number] D Wierzbicki RN[address] LxofPnicgqbshKwnwookdtAVNL8555376 960OKWSMUSENVNEHDZBCFINBV8546-10- 24T09:44:271.2.840.659450.1.72.3. 15|1.2.840.955231.1.13.104.2.7.2. [id number] Edison Nielson RN [facility]"
[2024-01-22] MEDS ORDERED: MORPHINE 4 MG/ML SYR ONE ×2 (13:53→14:35)
[2024-01-22] MEDS ORDERED: ONDANSETRON 4 MG/2 ML VIAL ONE (13:53)
[2024-01-22] MEDS ORDERED: KETOROLAC 30 MG/ML INJ ONE (14:35)
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
[2024-01-22 15:36] VITALS: BP 150/104; TEMP 98.4; O2SAT 98
== END 2024-01-22 15:17 | disposition home or self-care (01) ==
LOC: ER 13:21
DX: T24.501A Corrosion of first degree of unspecified site of right lower limb, except ankle and foot, initial encounter (principal); Z88.5 Allergy status to narcotic agent
CPT/HCPCS: 96375; 96374; 99284; J2405

== ENCOUNTER 2025-02-11 14:52 | Emergency (ER) | payer SELFPAY ==
--- OUTSIDE RECORDS SUMMARY | 2025-02-11 14:58 | XMS REPORT | Continuity of Care Document ---
Author Name Unknown Address [address] [facility] [address] [place] [address] [facility] [address] [facility] [place] [address] Care Team Providers Care Brand Strategy Manager Name Role Phone Avni Ackerman Primary Care Physician [phone] Xin Ulrich MD Attending Clinician [phone] Aparna Maza Attending Clinician Unavailable XIN ULRICH Attending Clinician Unavailable Lalita Bañuelos DO Attending Clinician [phone] [facility], Care Transition Attending Clinician Unavailable MICHELLE SHANKS Attending Clinician Unavailable MICHELLE SHANKS Attending Clinician Unavailable Michelle Crowell Attending Clinician [phone] LALITA BAÑUELOS Attending Clinician Unavailab LALITA Britton Attending Clinician Unavailab Marlene Palm Attending Clinician [phone] Anabelle Neville DO Attending Clinician [phone] ANABELLE NEVILLE Attending Clinician Unavailable PEDRO Attending Clinician Unavailable [email or web address]_S Attending Clinician UnavailMERA Gutierrez Attending Clinician Unavailable MERA NAQVI Attending Clinician Unavailable KATHY BEE Attending Clinician UnavailKATHY Giraldo Attending Clinician Unavaila moses Ackerman Chesney Attending Clinician [phone] MIL[place] FONSECA Attending Clinician Unavailable Aparna Maza Admitting Clinician Unavailable XIN ULRICH Admitting Clinician Unavailable Xin Ulrich MD Admitting Clinician [phone] MICHELLE SHANKS Admitting Clinician Unavailable LALITA BAÑUELOS Admitting Clinician UnavailAnabelle Mueller DO Admitting Clinician [phone] ANABELLE NEVILLE Admitting Clinician Unavailable TAMMIE_Karly Admitting Clinician Unavailable [email or web address]_S Admitting Clinician UnavailMERA Gutierrez Admitting Clinician Unavailable Payers Payer Name Policy Type Policy Number Effective Date Expirati on Date Source 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 [id number] 2019 00:00:00 HARPER V[employer]SQUEZ - AETNA (PPO) [id number] 2022 00:00:00 [employer]ET[employer] (PPO) [id number] 2002 00:00:00 2004 00:00:00 MULTIPLAN SARAH BETH [id number] 2022 00:00:00 [employer] - [employer] BENEFIT SERVICES (PPO) [id number] 2019 00:00:00 Problems Condition Name Condition Details Condition Category Status Onset Date Resolution Date Last Treatment Date Treating Clinician Comments Source 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 - 00:00: 00 [facility] Neutrophil ia Neutrophil ia Disease Active 11-03 00:00: 00 [facility] Acute nonintract able headache, unspecifie d headache type Acute nonintract able headache, unspecifie d headache type Disease Active 11-02 00:00: 00 [facility] Cat bite, initial encounter Cat bite, initial encounter Disease Active 05-31 00:00: 00 [facility] Obesity (BMI 30-39.9) Obesity (BMI 30-39.9) Disease Active 05-31 00:00: 00 [facility] Insomnia Insomnia Problem Active 02-07 00:00: 00 [facility] Bulimia nervosa, purging type Bulimia Nervosa, Purging Type Problem Active 2020-10 00:00: 00 [facility] Dysmenorrh ea Dysmenorrh ea Disease Active 2019-10 0 00:00: 00 [facility] Active or passive immunizati on Active or Passive Immunizati on Problem Active 04-17 00:00: 00 [facility] Abnormal blood pressure Abnormal Blood Pressure Problem Active 04-17 00:00: 00 [facility] Allergies, Adverse Reactions, Alerts Allergy Name Allergy Type Status Severity Reaction(s) Onset Date Inactive Date Treating Clinician Comments Source lidocain e DA Active U "ALLERGIC TO INJECTABLE ONLY", UNK 11-13 00:00: 00 [facility] tramadol DA Active U "ITCHY/HIVES " 11-13 00:00: 00 [facility] trazodon e DA Active U UNKNOWN 11-13 00:00: 00 [facility] TRAMADOL DRUG INGREDI Active ITCHING 05-31 00:00: 00 [facility] TRAZODON E DRUG INGREDI Active Other-Cmnt 05-31 00:00: 00 [facility] Tramadol Propensi ty to adverse reaction s Active Itching 05-31 00:00: 00 [facility] Trazodon e Propensi ty to adverse reaction s Active Other - See comments 05-31 00:00: 00 "Gives me lesions" as per patient [facility] Lidocain e Propensi ty to adverse reaction s Active Shortness of Breath 2019-10 0 00:00: 00 [facility] LIDOCAIN E DRUG INGREDI Active SOB 2019-10 0 00:00: 00 [facility] Lidocain e Allergy to substanc e Active Severe Hives [facility] NO KNOWN ALLERGIE S Drug Class Active [facility] Family History Family Member Diagnosis Comments Start Date Stop Date Sourc e Natural father Other - see comments [facility] Natural father Coronary Heart Disease [facility] Hy[facility] Maternal grandmother Blood Disease [facility] Maternal grandmother Diabetes [facility]m [facility] Paternal grandfather Neurological [facility] Social History Social Habit Start Date Stop Date Quantity Comments Source Sexual orientation U [facility] Alcoholic beverage intake 2024-11-03 00:00:00 2024-11-03 00:00:00 Current drinker of alcohol (finding) [facility] Tobacco Comment 2024-11-02 00:00:00 2024-11-02 00:00:00 She vapes Nicotine [facility] Tobacco use and exposure 2024-11-02 00:00:00 2024-11-02 00:00:00 Smokeless tobacco non-user [facility] History of Social function 2024-06-01 00:00:00 2024-06-01 00:00:00 [facility] Alcohol intake 2020-07-30 00:00:00 2020-07-30 00:00:00 Current drinker of alcohol (finding) [facility] History of tobacco use 2019-09-28 00:00:00 Cigarette Smoker [facility] Sex assigned at 2000 00:00:00 2000 00:00:00 [facility] Smoking Status Start Date Stop Date Source Ex-smoker 2024-11-02 00:00:00 2024-11-02 00:00:00 U [facility] Medications Ordered Medication Name Filled Medication Name Start Date Stop Date Current Medication? Ordering Clinician Indication Dosage Frequency Signature (SIG) Comments Components Source atogepant 30 mg Tab tablet 11-04 12:23: 09 Yes 30mg Take 1 tablet by mouth in the morning. [facility] ubrogepant 50 mg tablet 11-04 12:23: 09 Yes Take by mouth ONCE PRN. [facility] rimegepant (NURTEC ODT) 75 mg TbDL 11-04 12:23: 09 Yes 75mg Take 1 tablet by mouth as needed (MIGRAINE) . [facility] LORazepam (ATIVAN) injection 1 mg 11-04 03:15: 00 11-04 03:36 :00 No 1mg 1 mg, Slow IV Push, ONCE, 1 dose, On Alanna 11/03/24 at 2115, Routine [facility] atorvastati n (LIPITOR) tablet 20 mg 11-04 03:00: 00 Yes 20mg 20 mg, Enteral, QHS, First dose on Alanna 11/03/24 at 2100, Until Discontinu ed, Routine [facility] venlafaxine XR (EFFEXOR XR) 24 hr capsule 75 mg 11-04 03:00: 00 11-04 18:23 :09 No 75mg 75 mg, Oral, QHS, First dose on Alanna 11/03/24 at 2100, Until Discontinu ed [facility] aspirin 81 mg chewable tablet 11-04 00:00: 00 02-03 04:59 :00 No [id number] 81mg Take 1 tablet by mouth in the morning for 90 days. [facility] atorvastati n 20 mg tablet 11-04 00:00: 00 02-03 04:59 :00 No [id number] 20mg Take 1 tablet through enteral tube at bedtime for 90 days. [facility] clopidogreL 75 mg tablet 11-04 00:00: 00 02-03 04:59 :00 No [id number] 75mg Take 1 tablet by mouth in the morning for 90 days. [facility] HYDROcodone -acetaminop hen 10-325 mg tablet 11-04 00:00: 00 11-12 05:59 :00 No [id number] 1{tbl} Take 1 tablet by mouth every 4 (four) hours as needed for Pain (scale 4-6) for up to 7 days. Indication s: acute pain [facility] iopamidol (ISOVUE 300-100 mL) injection 300 mL 11-03 23:30: 00 11-03 23:30 :00 No [id number] 300mL 300 mL, Intravenou s, ONCE, 1 dose, On Thu11/03/24 at 1730, Routine [facility] ceFAZolin (ANCEF) injection 11-03 21:38: 32 11-03 21:38 :32 No Slow IV Push, PRN, Starting on Thu11/03/24 at 1538, Until Alanna 11/03/24 at 1538, DEVENDRA, Intra-op [facility] FENTanyl (PF) (SUBLIMAZE) injection 11-03 21:12: 17 11-03 21:30 :00 No Slow IV Push, PRN, Starting on Thu11/03/24 at 1512, Until Alanna 11/03/24 at 1530, Routine, Intra-op [facility] midazolam (VERSED) injection 11-03 21:11: 42 11-03 21:30 :00 No IV Push, PRN, Starting on Thu11/03/24 at 1511, Until Alanna 11/03/24 at 1530, Routine, Intra-op [facility] HYDROcodone -acetaminop hen (NORCO) 10-325 mg tablet 1 tablet 11-03 20:16: 59 Yes 1{tbl} 1 tablet, Oral, Q4HPRN, Starting on Thu11/03/24 at 1416, Until Discontinu ed, Routine, Pain (scale 4-6) [facility] LORazepam (ATIVAN) tablet 1 mg 11-03 17:45: 00 11-03 17:52 :00 No 1mg 1 mg, Oral, ONCE, 1 dose, On Thu11/03/24 at 1145, Routine [facility] diphenhydrA MINE (BENADRYL) tablet 25 mg 11-03 17:00: 00 11-04 18:23 :09 No 25mg 25 mg, Oral, Q6HPRN, Starting on Thu11/03/24 at 1100, Until Thu11/04/24 at 1223, Routine, migraine [facility] proCHLORper azine (COMPAZINE) injection 5 mg 11-03 17:00: 00 11-04 18:23 :09 No 5mg 5 mg, Slow IV Push, Q6HPRN, Starting on Alanna 11/03/24 at 1100, Until Thu11/04/24 at 1223, Routine, Nausea and Vomiting (N/V) [facility] ketorolac (TORADOL) injection 15 mg 11-03 17:00: 11-03 20:18 :19 No 15mg 15 mg, Slow IV Push, Q6HPRN, 2 doses, Starting on Alanna 11/03/24 at 1100, Until Thu11/03/24 at 1418, Routine, Pain (scale 7-10) [facility] fentanyl PF (SUBLIMAZE (PF)) injection 25 mcg 11-03 16:17: 00 11-03 17:00 :00 No 25ug 25 mcg, Slow IV Push, ONCE, 1 dose, On Alanna 11/03/24 at 1030, Routine [facility] aspirin chewable tablet 81 mg 11-03 15:00: 00 Yes 81mg 81 mg, Oral, DAILY, First dose on Alanna 11/03/24 at 0900, Until Discontinu ed, Routine [facility] clopidogreL (PLAVIX) 75 mg tablet 75 mg 11-03 15:00: 00 Yes 75mg 75 mg, Oral, DAILY, First dose on Thu11/03/24 at 0900, Until Discontinu ed, Routine, pricing/signage team member approving Restricted medication : XIN ULRICH [facility] enoxaparin (LOVENOX) injection 40 mg 11-03 15:00: 00 11-04 18:23 :09 No 40mg [facility] NaCl 0.9% (NS) IV infusion 1,000 mL 11-03 14:00: 00 11-04 18:23 :09 No 1000mL at 100 mL/hr, IV Infusion, CONTINUOUS , Starting on Thu11/03/24 at 0800, Until Thu11/04/24 at 1223, DEVENDRA [facility] butalbital- acetaminoph en-caff (ESGIC) 50-325-40 mg tablet 1 tablet 11-03 05:11: 51 11-03 17:30 :00 No 1{tbl} 1 tablet, Oral, Q4HPRN, Starting on Thu11/02/24 at 2311, Until Thu11/03/24 at 1130, Routine, Pain (scale 7-10) [facility] magnesium sulfate in water 2 gram/50 mL (4 %) infusion 2 g 11-03 04:30: 00 11-03 06:41 :00 No 2g 2 g, IV Piggyback, Administer over 60 Minutes, ONCE, 1 dose, On Thu11/02/24 at 2230, Routine [facility] pantoprazol e (PROTONIX) EC tablet 40 mg 11-03 03:45: 00 11-04 18:23 :09 No 40mg 40 mg, Oral, DAILY, First dose on Thu11/02/24 at 2145, Until Discontinu ed, Routine [facility] glucagon HCL injection 1 mg 11-03 03:33: 44 11-04 18:23 :09 No 1mg [facility] dextrose 50 % in water (D50W) injection 25 mL 11-03 03:33: 44 11-04 18:23 :09 No 25mL [facility] labetaloL (NORMODYNE) 5 mg/mL injection 10 mg 11-03 03:33: 44 11-04 18:23 :09 No 10mg [facility] cyclobenzap rine (FLEXERIL) tablet 10 mg 11-03 03:32: 20 11-04 18:23 :09 No 10mg [facility] NaCl 0.9% (NS) IV infusion 1,000 mL 11-03 00:15: 00 11-03 03:43 :12 No 1000mL at 100 mL/hr, Intravenou s, CONTINUOUS , Starting on Thu11/02/24 at 1815, Until Thu11/02/24 at 2143, [facility] clopidogreL (PLAVIX) 300 mg tablet 300 mg 11-03 00:00: 00 11-02 23:28 :00 No 300mg 300 mg, Oral, ONCE, 1 dose, On Thu11/02/24 at 1800, Routine [facility] fentanyl PF (SUBLIMAZE (PF)) injection 50 mcg 11-02 23:45: 00 11-03 00:11 :00 No 50ug 50 mcg, Slow IV Push, ONCE, 1 dose, On Thu11/02/24 at 1745, Routine [facility] aspirin tablet 650 mg 11-02 23:15: 00 11-02 23:36 :00 No 650mg 650 mg, Oral, ONCE, 1 dose, On Thu11/02/24 at 1715, STAT [facility] SUMAtriptan (IMITREX) injection 6 mg 11-02 20:15: 00 11-02 20:34 :00 No 6mg 6 mg, Subcutaneo us, ONCE, 1 dose, On Thu11/02/24 at 1415, [facility] NaCl 0.9% (NS) bolus infusion 1,000 mL 11-02 19:00: 00 11-02 23:34 :00 No 1000mL at 999 mL/hr, 1,000 mL, IV Infusion, ONCE, 1 dose, On Thu11/02/24 at 1300, [facility] diphenhydrA MINE (BENADRYL) injection 25 mg 11-02 18:15: 00 11-02 18:14 :00 No 25mg 25 mg, Slow IV Push, ONCE, 1 dose, On Thu11/02/24 at 1215, STAT [facility] metoclopram césar HCl (REGLAN) injection 10 mg 11-02 18:15: 00 11-02 18:14 :00 No 10mg 10 mg, Slow IV Push, ONCE, 1 dose, On Thu11/02/24 at 1215, DEVENDRA [facility] butalbital- acetaminoph en-caff (ESGIC) 50-325-40 mg tablet 1 tablet 11-02 03:15: 00 11-02 03:19 :00 No 1{tbl} 1 tablet, Oral, ONCE, 1 dose, On Thu11/01/24 at 2115, DEVENDRA [facility] iopamidol (ISOVUE 370-500 mL) injection 88 mL 11-02 03:15: 00 11-02 03:15 :00 No [id number] 88mL 88 mL, Intravenou s, ONCE, 1 dose, On Thu11/01/24 at 2115, Routine [facility] ketorolac (TORADOL) injection 30 mg 11-02 03:13: 00 11-02 03:15 :00 No 30mg 30 mg, Slow IV Push, Once, 1 dose, [facility] Thu11/01/24 at 2115[facility]os [facility] 10 mg 11-02 01:45: 00 11-02 02:05 :00 No 10mg 10 mg, Slow IV Push, ONCE, 1 dose, On Thu11/01/24 at 1945, 1 mL [facility] diphenhydrA MINE (BENADRYL) injection 25 mg 11-02 01:45: 00 11-02 02:04 :00 No 25mg 25 mg, Slow IV Push, ONCE, 1 dose, On Thu11/01/24 at 1945, STAT [facility] metoclopram césar HCl (REGLAN) injection 10 mg 11-02 01:45: 00 11-02 02:08 :00 No 10mg 10 mg, Slow IV Push, ONCE, 1 dose, On Thu11/01/24 at 1945, [facility] NaCl 0.9% (NS) IV infusion 1,000 mL 11-02 01:30: 00 11-02 04:37 :00 No 1000mL at 999 mL/hr, Intravenou s, ONCE, 1 dose, On Thu11/01/24 at 1945, DEVENDRA [facility] ketorolac 10 mg tablet 11-01 00:00: 00 Yes [id number] 10mg Take 1 tablet by mouth 3 (three) times daily as needed for Pain (scale 7-10). [facility] ketorolac (TORADOL) injection 30 mg 2023-1008 16:15: 00 07-12 16:06 :00 No 30mg 30 mg, Slow IV Push, ONCE, 1 dose, On Thu07/12/24 at 1115, Routine [facility] dexamethaso ne sod phos PF injection 10 mg 2023-1008 15:30: 00 07-12 16:05 :00 No 10mg 10 mg, Slow IV Push, ONCE, 1 dose, On Thu07/12/24 at 1030, 1 mL [facility] diphenhydrA MINE (BENADRYL) injection 25 mg 2023-1008 15:30: 00 07-12 16:06 :00 No 25mg 25 mg, Slow IV Push, ONCE, 1 dose, On Thu07/12/24 at 1030, STAT [facility] metoclopram césar HCl (REGLAN) injection 10 mg 2023-10 15:30: 00 07-12 16:05 :00 No 10mg 10 mg, Slow IV Push, ONCE, 1 dose, On Thu07/12/24 at 1030, DEVENDRA [facility] cyclobenzap rine 10 mg tablet 2023-10 0 00:00: 00 Yes [id number] 10mg Take 1 tablet by mouth 3 (three) times daily as needed for Muscle Spasms. [facility] lumateperon e (CAPLYTA) 10.5 mg Cap 9-11 16:29: 11 Yes 10.5mg Take 10.5 mg by mouth in the morning. [facility] amitriptyli ne 50 mg tablet 06-15 16:29: 11 Yes 50mg Take 1 tablet by mouth at bedtime. [facility] doxepin 10 mg capsule 06-15 16:29: 11 Yes 10mg Take 1 capsule by mouth at bedtime. [facility] clonazePAM 0.5 mg disintegrat ing tablet 06-15 16:29: 11 11-04 00:00 :00 No .5mg Take 1 tablet by mouth 3 (three) times daily as needed for Anxiety. [facility] amLODIPine 5 mg tablet 06-03 00:00: 00 07-04 04:59 :00 No [id number] 5mg Take 1 tablet by mouth in the morning for 30 days. Hold for systolic blood pressure less than 120 [facility] KCL (KLOR-CON M20) tablet 20 mEq 06-02 15:00: 00 06-02 15:44 :00 No 20meq 20 mEq, Oral, ONCE, 1 dose, On Alanna 06/02/24 at 1000, Routine [facility] venlafaxine (EFFEXOR) tablet 150 mg 06-02 14:00: 00 Yes 150mg 150 mg, Oral, DAILY, First dose (after last modificati on) on Alanna 06/02/24 at 0900, Until Discontinu ed [facility] ketorolac (TORADOL) injection 15 mg 06-02 12:52: 26 06-04 12:51 :26 No 15mg 15 mg, Slow IV Push, Q8HPRN, Starting on Alanna 06/02/24 at 0752, Until 06/04/24 at 0751, Routine, Pain (scale 7-10) [facility] HYDROcodone -acetaminop hen (NORCO) 10-325 mg tablet 1 tablet 06-02 12:51: 59 Yes 1{tbl} 1 tablet, Oral, Q6HPRN, Starting on Alanna 06/02/24 at 0751, Until Discontinu ed, Routine, Pain (scale 4-6) [facility] venlafaxine HCl (VENLAFAXIN E ORAL) 06-02 12:23: 56 Yes 150mg Take 150 mg by mouth in the morning. [facility] lumateperon e (CAPLYTA) 10.5 mg Cap 06-02 12:23: 56 Yes 10.5mg Take 10.5 mg by mouth in the morning. [facility] amitriptyli ne 50 mg tablet 06-02 12:23: 56 Yes 50mg Take 1 tablet by mouth at bedtime. [facility] clonazePAM 0.5 mg disintegrat ing tablet 06-02 12:23: 56 Yes .5mg Take 1 tablet by mouth 3 (three) times daily as needed for Anxiety. [facility] doxepin 10 mg capsule 06-02 12:23: 56 Yes 10mg Take 1 capsule by mouth at bedtime. [facility] doxycycline monohydrate 100 mg capsule 06-02 00:00: 00 06-12 04:59 :00 No [id number] 100mg Take 1 capsule by mouth in the morning and 1 capsule in the evening. Do all this for 9 days. [facility] amoxicillin -clavulanat e (AUGMENTIN) 875-125 mg per tablet 06-02 00:00: 00 06-12 04:59 :00 No [id number] 1{tbl} Take 1 tablet by mouth in the morning and 1 tablet in the evening. Do all this for 9 days. [facility] acetaminoph en-codeine 300-30 mg tablet 06-02 00:00: 00 06-10 04:59 :00 No [id number] 1{tbl} Take 1 tablet by mouth every 6 (six) hours as needed for Pain (scale 4-6) for up to 7 days. Indication s: acute pain [facility] doxycycline (VIBRAMYCIN ) 100 mg in NaCl 0.9% (NS) 100 mL MINI-BAG 06-01 19:15: 00 06-11 19:14 :00 No 100mg 100 mg, IV Piggyback, Q12H ABX, 20 doses, First dose on Thu06/01/24 at 1415, Last dose on Thu06/11/24 at 0215, Administer over 60 Minutes, 100 mL, Reason for Anti-Infec tive: Documented Infection, Documented Infection Site: Skin / Soft Tissue, Duration of Therapy: 10 days [facility] amLODIPine (NORVASC) tablet 5 mg 06-01 18:15: 00 Yes 5mg 5 mg, Oral, DAILY, First dose on Thu06/01/24 at 1315, Until Discontinu ed, Routine [facility] venlafaxine (EFFEXOR) tablet 150 mg 06-01 14:00: 00 06-01 19:26 :50 No 150mg 150 mg, Oral, DAILY, First dose on Thu06/01/24 at 0900, Until Discontinu ed [facility] amitriptyli ne (ELAVIL) tablet 50 mg 06-01 02:00: 00 Yes 50mg 50 mg, Oral, QHS, First dose on Thu05/31/24 at 2100, Until Discontinu ed, Routine [facility] ampicillin- sulbactam (UNASYN) 3 g in NaCl 0.9% (NS) 100 mL MINI-BAG 06-01 00:45: 00 06-08 00:44 :00 No 3g 3 g, IV Piggyback, Q6H ABX, 28 doses, First dose (after last modificati on) on Thu05/31/24 at 1945, Last dose on Thu06/07/24 at 1345, Administer over 30 Minutes, 100 mL, Reason for Anti-Infec tive: Documented Infection, Documented Infection Site: Skin / Soft Tissue, Duration of Therapy: 7 days [facility] clonazePAM (KLONOPIN) tablet 0.5 mg 06-01 00:01: 25 Yes .5mg 0.5 mg, Oral, TIDPRN, Starting on Thu05/31/24 at 1901, Until Discontinu ed, Routine, anxiety [facility] acetaminoph en-codeine (TYLENOL #3) 300-30 mg tablet 1 tablet 05-31 23:25: 48 06-02 12:52 :44 No 1{tbl} 1 tablet, Oral, Q4HPRN, Starting on Thu05/31/24 at 1825, Until Thu06/02/24 at 0752, Routine, Pain (scale 4-6) [facility] morphine (2 mg/mL) injection 2 mg 05-31 23:23: 45 06-02 12:52 :44 No 2mg 2 mg, Slow IV Push, Q4HPRN, Starting on Thu05/31/24 at 1823, Until Thu06/02/24 at 0752, Routine, Pain (scale 7-10) [facility] enoxaparin (LOVENOX) injection 40 mg 05-31 22:00: 00 Yes 40mg 40 mg, Subcutaneo us, DAILY, First dose on Thu05/31/24 at 1700, Until Discontinu ed, Routine [facility] ondansetron (ZOFRAN (PF)) injection 4 mg 05-31 21:00: 00 05-31 20:13 :00 No 4mg 4 mg, Slow IV Push, ONCE, 1 dose, On Thu05/31/24 at 1600, DEVENDRA [facility] ondansetron (ZOFRAN (PF)) injection 4 mg 05-31 20:15: 07 Yes 4mg 4 mg, Slow IV Push, Q6HPRN, Starting on Thu05/31/24 at 1515, Until Discontinu ed, Routine, Nausea and Vomiting (N/V) [facility] morpHINE (4 mg/mL) injection 4 mg 05-31 20:00: 00 05-31 20:15 :00 No 4mg 4 mg, Slow IV Push, ONCE, 1 dose, On Thu05/31/24 at 1500, STAT [facility] ketorolac (TORADOL) injection 15 mg 05-31 18:15: 00 05-31 18:25 :00 No 15mg 15 mg, Slow IV Push, ONCE, 1 dose, On Thu05/31/24 at 1315, DEVENDRA [facility] NaCl 0.9% (NS) bolus infusion 1,000 mL 05-31 17:30: 00 05-31 19:09 :00 No 1000mL at 999 mL/hr, 1,000 mL, IV Infusion, ONCE, 1 dose, On Thu05/31/24 at 1230, STAT [facility] ampicillin- sulbactam (UNASYN) 3 g in NaCl 0.9% (NS) 100 mL MINI-BAG 05-31 17:15: 00 05-31 19:09 :00 No 3g 3 g, IV Piggyback, ONCE, 1 dose, On Thu05/31/24 at 1215, Administer over 30 Minutes, 100 mL, Reason for Anti-Infec tive: Documented Infection, Documented Infection Site: Skin / Soft Tissue, Duration of Therapy: Once (ED) [facility] naproxen (NAPROSYN) tablet 500 mg 10-28 23:00: 00 Yes 500mg 500 mg, Oral, BID MEALS, First dose on Thu10/28/23 at 1700, Until Discontinu ed, Routine [facility] iopamidol (ISOVUE 370-500 mL) injection 80 mL 10-28 19:30: 00 10-28 19:30 :00 No [id number] 80mL 80 mL, Intravenou s, ONCE, 1 dose, On Thu10/28/23 at 1330, Routine [facility] dicyclomine (BENTYL) tablet 20 mg 10-28 19:15: 00 10-28 19:23 :00 No 20mg 20 mg, Oral, ONCE, 1 dose, On Thu10/28/23 at 1315, DEVENDRA [facility] ketorolac (TORADOL) injection 30 mg 10-28 17:15: 00 10-28 16:22 :00 No 30mg 30 mg, Slow IV Push, ONCE, 1 dose, On Thu10/28/23 at 1115, Routine [facility] ondansetron (ZOFRAN (PF)) injection 4 mg 10-28 16:15: 00 10-28 16:21 :00 No 4mg 4 mg, Slow IV Push, ONCE, 1 dose, On Thu10/28/23 at 1015, DEVENDRA [facility] venlafaxine HCl (VENLAFAXIN E ORAL) 10-28 14:04: 01 11-04 00:00 :00 No 150mg Take 150 mg by mouth in the morning. [facility] oxybutynin 10 mg 24 hr tablet 10-28 00:00: 00 Yes [id number] 10mg Take 1 tablet by mouth every 24 (twenty-fo ur) hours as needed for Pain (scale 4-6) or Pain (scale 7-10) for up to 7 doses. [facility] naproxen 500 mg tablet 10-28 00:00: 00 11-05 05:59 :00 No [id number] 500mg Take 1 tablet by mouth in the morning and 1 tablet in the evening. Take with meals. Do all this for 7 days. [facility] LICE TREATMENT, PERMETHRIN, 1 % lotion 8-19 00:00: 00 10-28 00:00 :00 No APPLY TOPICALLY DIRECTED FOR 1 DOSE [facility] hydrOXYzine 25 mg tablet 7-22 00:00: 00 10-28 00:00 :00 No 1 po q 4-6 hours as needed for itching [facility] Ubrelvy 100 mg tablet Take 1 [...] not relieved. Max dose 200 mg/24 hours [facility] Qulipta 60 mg tablet Take 1 tablet every day by oral route for 90 days. Qulipta 60 mg tablet Take 1 tablet every day by oral route for 90 days. No 1 Q1D Qulipta 60 mg tablet Take 1 tablet every day by oral route for 90 days. [facility] ondansetron 4 mg disintegrat ing tablet Place 2 tablets twice a day by translingua l route. ondansetron 4 mg disintegrat ing tablet Place 2 tablets twice a day by translingua l route. No 2 BID ondansetro n 4 mg disintegra ting tablet Place 2 tablets twice a day by translingu al route. [facility] hydrocodone 7.5 mg-acetamin ophen 325 mg tablet TAKE 1 TABLET BY MOUTH EVERY 6 HOURS NEEDED FOR PAIN hydrocodone 7.5 mg-acetamin ophen 325 mg tablet TAKE 1 TABLET BY MOUTH EVERY 6 HOURS NEEDED FOR PAIN No hydrocodon e 7.5 mg-acetami nophen 325 mg tablet TAKE 1 TABLET BY MOUTH EVERY 6 HOURS NEEDED FOR PAIN [facility] oseltamivir 75 mg capsule Take 1 capsule twice a day by oral route. oseltamivir 75 mg capsule Take 1 capsule twice a day by oral route. No 1capsul e(s) BID oseltamivi r 75 mg capsule Take 1 capsule twice a day by oral route. [facility] Silvadene 1 % topical cream APPLY A 1/16 [facility] (1.5 MM) THICK LAYER TO ENTIRE BURN AREA BY TOPICAL ROUTE 2 TIMES PER DAY Silvadene 1 % topical cream APPLY A 1/16 [facility] (1.5 MM) THICK LAYER TO ENTIRE BURN AREA BY TOPICAL ROUTE 2 TIMES PER DAY No Silvadene 1 % topical cream APPLY A 1/16 [facility] (1.5 MM) THICK LAYER TO ENTIRE BURN AREA BY TOPICAL ROUTE 2 TIMES PER DAY [facility] amitriptyli ne 50 mg tablet Take 1 tablet every day by oral route at bedtime for 90 days. amitriptyli ne 50 mg tablet Take 1 tablet every day by oral route at bedtime for 90 days. No 1 Q1D amitriptyl ine 50 mg tablet Take 1 tablet every day by oral route at bedtime for 90 days. [facility] cariprazine 3 mg capsule Take 1 capsule every day by oral route. cariprazine 3 mg capsule Take 1 capsule every day by oral route. No 1capsul e(s) Q1D cariprazin e 3 mg capsule Take 1 capsule every day by oral route. [facility] Effexor XR 150 mg capsule,ext ended release Take 1 capsule every day by oral route for 90 days. Effexor XR 150 mg capsule,ext ended release Take 1 capsule every day by oral route for 90 days. No 1capsul e(s) Q1D Effexor XR 150 mg capsule,ex tended release Take 1 capsule every day by oral route for 90 days. [facility] mupirocin 2 % topical ointment APPLY A SMALL AMOUNT TO Each Nare BY TOPICAL ROUTE 2 TIMES PER DAY x 10 days mupirocin 2 % topical ointment APPLY A SMALL AMOUNT TO Each Nare BY TOPICAL ROUTE 2 TIMES PER DAY x 10 days No mupirocin 2 % topical ointment APPLY A SMALL AMOUNT TO Each Nare BY TOPICAL ROUTE 2 TIMES PER DAY x 10 days [facility] Pepcid 20 mg tablet Take 1 tablet twice a day by oral route for 14 days. Pepcid 20 mg tablet Take 1 tablet twice a day by oral route for 14 days. No 1 BID Pepcid 20 mg tablet Take 1 tablet twice a day by oral route for 14 days. [facility] promethazin e 25 mg tablet Take 1 tablet every 4 hours by oral route as needed for 5 days. promethazin e 25 mg tablet Take 1 tablet every 4 hours by oral route as needed for 5 days. No 1 Q4H promethazi ne 25 mg tablet Take 1 tablet every 4 hours by oral route as needed for 5 days. [facility] Zyrtec 10 mg tablet Take 1 tablet every day by oral route for 14 days. Zyrtec 10 mg tablet Take 1 tablet every day by oral route for 14 days. No 1 Q1D Zyrtec 10 mg tablet Take 1 tablet every day by oral route for 14 days. [facility] Immunizations Ordered Immunization Name Filled Immunization Name Date Status Comments Source Influenza Virus Vaccine Quad .5 mL IM 6+ MO (FLUZONE/FLULAVAL/F LUARIX) 2024-03-19 00:00:00 [facility] Influenza Virus Vaccine Quad .5 mL IM 6+ MO (FLUZONE/FLULAVAL/F LUARIX) Unknown Completed [facility] meningococcal MCV4P meningococcal MCV4P Unknown Completed [facility] Vital Signs Vital Name Observation Time Observation Value Comments S ource Systolic blood pressure 2024-11-04 13:32:00 143 mm[Hg] [facility] Diastolic blood pressure 2024-11-04 13:32:00 106 mm[Hg] [facility] Heart rate 2024-11-04 13:32:00 84 /min [facility] Body temperature 2024-11-04 13:32:00 36.17 [facility] Respiratory rate 2024-11-04 13:32:00 16 /min [facility] Oxygen saturation in Arterial blood by Pulse oximetry 2024-11-04 13:32:00 99 /min [facility] Body height 2024-11-03 02:37:00 172.7 cm [facility] Body weight 2024-11-03 02:37:00 99.791 kg [facility] BMI 2024-11-03 02:37:00 33.45 kg/m2 [facility] Systolic blood pressure 2024-11-02 04:00:00 124 mm[Hg] [facility] Diastolic blood pressure 2024-11-02 04:00:00 81 mm[Hg] [facility] Heart rate 2024-11-02 04:00:00 95 /min [facility] Respiratory rate 2024-11-02 04:00:00 18 /min [facility] Oxygen saturation in Arterial blood by Pulse oximetry 2024-11-02 04:00:00 99 /min [facility] Body temperature 2024-11-02 00:39:00 36.78 [facility] Body height 2024-11-02 00:39:00 172.7 cm [facility] Body weight 2024-11-02 00:39:00 99.791 kg [facility] BMI 2024-11-02 00:39:00 33.45 kg/m2 [facility] Systolic blood pressure 2024-07-12 15:18:00 156 mm[Hg] [facility] Diastolic blood pressure 2024-07-12 15:18:00 105 mm[Hg] [facility] Heart rate 2024-07-12 15:18:00 97 /min [facility] Body temperature 2024-07-12 15:18:00 36.78 [facility] Respiratory rate 2024-07-12 15:18:00 16 /min [facility] Body height 2024-07-12 15:18:00 172.7 cm [facility] Body weight 2024-07-12 15:18:00 99.791 kg [facility] BMI 2024-07-12 15:18:00 33.45 kg/m2 [facility] Oxygen saturation in Arterial blood by Pulse oximetry 2024-07-12 15:18:00 99 /min [facility] Body Weight 2024-06-22 00:00:00 3524 [oz_av] [facility] Height 2024-06-22 00:00:00 68 [in_i] [facility] BP Diastolic 2024-06-22 00:00:00 99 mm[Hg] [facility] BMI (Body Mass Index) 2024-06-22 00:00:00 33.5 kg/m2 [facility] BP Systolic 2024-06-22 00:00:00 142 mm[Hg] [facility] Body temperature 2024-06-02 12:24:00 36.22 [facility] Respiratory rate 2024-06-02 12:24:00 20 /min [facility] Oxygen saturation in Arterial blood by Pulse oximetry 2024-06-02 12:24:00 100 /min [facility] Systolic blood pressure 2024-06-02 12:24:00 136 mm[Hg] [facility] Diastolic blood pressure 2024-06-02 12:24:00 89 mm[Hg] [facility] Heart rate 2024-06-02 12:24:00 75 /min [facility] Body weight 2024-06-02 08:36:00 103.964 kg [facility] BMI 2024-06-02 08:36:00 34.85 kg/m2 [facility] Body height 2024-05-31 22:16:00 172.7 cm [facility] Height 2024-01-28 00:00:00 68 [in_i] [facility] BP Diastolic 2023-11-20 00:00:00 98 mm[Hg] [facility] BMI (Body Mass Index) 2023-11-20 00:00:00 32.8 kg/m2 [facility] Height 2023-11-20 00:00:00 68 [in_i] [facility] Body Weight 2023-11-20 00:00:00 3450 [oz_av] [facility] BP Systolic 2023-11-20 00:00:00 143 mm[Hg] [facility] Systolic blood pressure 2023-10-28 15:44:00 140 mm[Hg] [facility] Diastolic blood pressure 2023-10-28 15:44:00 99 mm[Hg] [facility] Heart rate 2023-10-28 15:44:00 94 /min [facility] Body temperature 2023-10-28 15:44:00 37 [facility] Respiratory rate 2023-10-28 15:44:00 18 /min [facility] Body weight 2023-10-28 15:44:00 91.173 kg [facility] BMI 2023-10-28 15:44:00 30.56 kg/m2 [facility] Oxygen saturation in Arterial blood by Pulse oximetry 2023-10-28 15:44:00 99 /min [facility] BP Systolic 2023-09-08 00:00:00 121 mm[Hg] [facility] BP Diastolic 2023-09-08 00:00:00 84 mm[Hg] [facility] Height 2023-09-08 00:00:00 68 [in_i] [facility] BMI (Body Mass Index) 2023-09-08 00:00:00 28 kg/m2 [facility] Body Weight 2023-09-08 00:00:00 2943 [oz_av] [facility] Body Weight 2023-08-14 00:00:00 2928 [oz_av] [facility] Height 2023-08-14 00:00:00 68 [in_i] [facility] BMI (Body Mass Index) 2023-08-14 00:00:00 27.8 kg/m2 [facility] BP Systolic 2023-05-19 00:00:00 140 mm[Hg] [facility] Body Weight 2023-05-19 00:00:00 2666 [oz_av] [facility] BP Diastolic 2023-05-19 00:00:00 87 mm[Hg] [facility] Height 2023-05-19 00:00:00 68 [in_i] [facility] BMI (Body Mass Index) 2023-05-19 00:00:00 25.3 kg/m2 [facility] BP Diastolic 2023-04-14 00:00:00 74 mm[Hg] [facility] Height 2023-04-14 00:00:00 68 [in_i] [facility] BMI (Body Mass Index) 2023-04-14 00:00:00 25.1 kg/m2 [facility] BP Systolic 2023-04-14 00:00:00 111 mm[Hg] [facility] Body Weight 2023-04-14 00:00:00 2645 [oz_av] [facility] BP Diastolic 2023-01-01 00:00:00 77 mm[Hg] [facility] Height 2023-01-01 00:00:00 68 [in_i] [facility] BMI (Body Mass Index) 2023-01-01 00:00:00 26.9 kg/m2 [facility] BP Systolic 2023-01-01 00:00:00 109 mm[Hg] [facility] Body Weight 2023-01-01 00:00:00 2832 [oz_av] [facility] BP Diastolic 2022-12-03 00:00:00 84 mm[Hg] [facility] Height 2022-12-03 00:00:00 68 [in_i] [facility] BMI (Body Mass Index) 2022-12-03 00:00:00 27.8 kg/m2 [facility] BP Systolic 2022-12-03 00:00:00 133 mm[Hg] [facility] Body Weight 2022-12-03 00:00:00 2930.4 [oz_av] [facility] BP Diastolic 2022-10-31 00:00:00 84 mm[Hg] [facility] Height 2022-10-31 00:00:00 68 [in_i] [facility] BMI (Body Mass Index) 2022-10-31 00:00:00 30.7 kg/m2 [facility] BP Systolic 2022-10-31 00:00:00 140 mm[Hg] [facility] Body Weight 2022-10-31 00:00:00 3232 [oz_av] [facility] BP Diastolic 2022-10-07 00:00:00 92 mm[Hg] [facility] Height 2022-10-07 00:00:00 68 [in_i] [facility] BMI (Body Mass Index) 2022-10-07 00:00:00 31.2 kg/m2 [facility] BP Systolic 2022-10-07 00:00:00 140 mm[Hg] [facility] Body Weight 2022-10-07 00:00:00 3280 [oz_av] [facility] BP Diastolic 2022-09-03 00:00:00 99 mm[Hg] [facility] Height 2022-09-03 00:00:00 68 [in_i] [facility] BMI (Body Mass Index) 2022-09-03 00:00:00 30.2 kg/m2 [facility] BP Systolic 2022-09-03 00:00:00 147 mm[Hg] [facility] Body Weight 2022-09-03 00:00:00 3176 [oz_av] [facility] BP Diastolic 2022-07-31 00:00:00 92 mm[Hg] [facility] Height 2022-07-31 00:00:00 68 [in_i] [facility] BMI (Body Mass Index) 2022-07-31 00:00:00 30.7 kg/m2 [facility] BP Systolic 2022-07-31 00:00:00 144 mm[Hg] [facility] Body Weight 2022-07-31 00:00:00 3232 [oz_av] [facility] BP Diastolic 2022-07-03 00:00:00 84 mm[Hg] [facility] Height 2022-07-03 00:00:00 68 [in_i] [facility] BMI (Body Mass Index) 2022-07-03 00:00:00 30.7 kg/m2 [facility] BP Systolic 2022-07-03 00:00:00 138 mm[Hg] [facility] Body Weight 2022-07-03 00:00:00 3232 [oz_av] [facility] BP Diastolic 2022-01-31 00:00:00 90 mm[Hg] [facility] Height 2022-01-31 00:00:00 68 [in_i] [facility] BMI (Body Mass Index) 2022-01-31 00:00:00 31.6 kg/m2 [facility] BP Systolic 2022-01-31 00:00:00 149 mm[Hg] [facility] Body Weight 2022-01-31 00:00:00 3328 [oz_av] [facility] BMI (Body Mass Index) 2021-08-14 00:00:00 28.9 kg/m2 [facility] BP Systolic 2021-08-14 00:00:00 121 mm[Hg] [facility] Body Weight 2021-08-14 00:00:00 3040 [oz_av] [facility] BP Diastolic 2021-08-14 00:00:00 82 mm[Hg] [facility] Height 2021-08-14 00:00:00 68 [in_i] [facility] BP Diastolic 2021-05-29 00:00:00 92 mm[Hg] [facility] Height 2021-05-29 00:00:00 68 [in_i] [facility] BMI (Body Mass Index) 2021-05-29 00:00:00 30.4 kg/m2 [facility] BP Systolic 2021-05-29 00:00:00 143 mm[Hg] [facility] Body Weight 2021-05-29 00:00:00 3200 [oz_av] [facility] Systolic blood pressure 2024-11-04 13:32:00 143 mm[Hg] [facility] Diastolic blood pressure 2024-11-04 13:32:00 106 mm[Hg] [facility] Heart rate 2024-11-04 13:32:00 84 /min [facility] Body temperature 2024-11-04 13:32:00 36.17 [facility] Respiratory rate 2024-11-04 13:32:00 16 /min [facility] Oxygen saturation in Arterial blood by Pulse oximetry 2024-11-04 13:32:00 99 /min [facility] Body height 2024-11-03 02:37:00 172.7 cm [facility] Body weight 2024-11-03 02:37:00 99.791 kg [facility] BMI 2024-11-03 02:37:00 33.45 kg/m2 [facility] Procedures Procedure Date / Time Performed Performing Clinician Source URINALYSIS 2024-11-04 15:16:00 Bella Chou [facility] URINALYSIS 2024-11-04 15:16:00 Bella Chou [facility] MAGNESIUM 2024-11-04 10:17:00 Rodríguez, Yumeng [facility] BASIC METABOLIC PANEL (NA, K, CL, CO2, GLUCOSE, BUN, CREATININE, CA) 2024-11-04 10:17:00 Marcos [facility] CBC WITH DIFF 2024-11-04 10:17:00 Rodríguez [facility] MAGNESIUM 2024-11-04 10:17[facility] (NA, K, CL, CO2, GLUCOSE, BUN, CREATININE, CA) 2024-11-04 10:17:00 Marcos [facility] CBC WITH DIFF 2024-11-04 10:17:00 Marcos [facility] MR STROKE BRAIN WO CONTRAST 2024-11-04 04:14:16 Marcos [facility] MR STROKE BRAIN WO CONTRAST 2024-11-04 04:14:16 Marcos [facility] PROTHROMBIN TIME / INR 2024-11-03 18:03:00 Yvonne Ulrich [facility] PROTHROMBIN TIME / INR 2024-11-03 18:03:00 Yvonne Ulrich [facility] XR CHEST 1 VW 2024-11-03 14:40:00 [facility] XR CHEST 1 VW 2024-11-03 14:40:00 Marcos [facility] MAGNESIUM 2024-11-03 11:01:00 [facility] BASIC METABOLIC PANEL (NA, K, CL, CO2, GLUCOSE, BUN, CREATININE, CA) 2024-11-03 11:01:00 [facility] 2024-11-03 11:01:00 [facility] 2024-11-03 11:01:00 [facility] 2024-11-03 11:01:00 [facility] BASIC METABOLIC PANEL (NA, K, CL, CO2, GLUCOSE, BUN, CREATININE, CA) 2024-11-03 11:01:00 Jude [facility] ANGIOGRAM HEAD 2024-11-02 02:26:[address] [facility] [address] ANGIOGRAM NECK 2024-11-02 02:26:[address] [facility] [address] HEAD WO CONTRAST 2024-11-02 02:24:45 Raine [facility] POCT TEST 2024-11-02 02:03:00 Dimitris [facility] POCT TEST 2024-11-02 02:03:00 Dimitris [facility] COMP. METABOLIC PANEL ([id number]) 2024-11-02 01:56:00 Dimitris [facility] CBC WITH DIFF 2024-11-02 01:56:00 Dimitris [facility] URINALYSIS 2024-11-02 01:56:00 Dimitris [facility] LIPID PANEL ([id number])(TOTAL CHOLESTEROL, TRIGLYCERIDES, HDL) 2024-11-02 01:56:00 [facility] GLYCOSYLATED HEMOGLOBIN (A1C) 2024-11-02 01:56:00 [facility] CBC WITH DIFF 2024-11-02 01:56:00 Dimitris [facility] COMP. METABOLIC PANEL ([id number]) 2024-11-02 01:56:00 Dimitris [facility] URINALYSIS 2024-11-02 01:56:00 Dimitris [facility] LIPID PANEL ([id number])(TOTAL CHOLESTEROL, TRIGLYCERIDES, HDL) 2024-11-02 01:56:00 [facility] GLYCOSYLATED HEMOGLOBIN (A1C) 2024-11-02 01:56:00 RenettaJude brown [facility] HEAD WO CONTRAST 2024-07-12 17:29:55 Michelle Bañuelos ra [facility] MAGNESIUM 2024-06-02 08:51:00 Jon Stock [facility] BASIC METABOLIC PANEL (NA, K, CL, CO2, GLUCOSE, BUN, CREATININE, CA) 2024-06-02 08:51:00 Jon Stock [facility] CBC WITH DIFF 2024-06-02 08:51:00 Jon Stock [facility] BASIC METABOLIC PANEL (NA, K, CL, CO2, GLUCOSE, BUN, CREATININE, CA) 2024-06-01 09:44:00 Julee [facility] CBC WITH DIFF 2024-06-01 09:44:00 Julee [facility] MRSA / MSSA SCREEN BY PCR, TYRELL 2024-05-31 23:06:00 Anabelle [facility] LACTIC ACID WHOLE BLOOD 2024-05-31 23:04:00 Tj [facility] COMP. METABOLIC PANEL ([id number]) 2024-05-31 17:42:00 Marlene [facility] CBC WITH DIFF 2024-05-31 17:42:00 Marlene Henderson [facility] MRI, ankle, w/o contrast 2023-11-20 00:00:00 [facility] XR, ankle, 3 or more view 2023-11-18 00:00:[address] [facility] [address] ABDOMEN PELVIS W CONTRAST 2023-10-28 18:34:20 Mera Naqvi [facility] COMP. METABOLIC PANEL ([id number]) 2023-10-28 16:20:00 Mera Naqvi [facility] CBC WITH DIFF 2023-10-28 16:20:00 Mera Naqvi [facility] URINALYSIS 2023-10-28 16:17:00 Mera Naqvi [facility] POCT TEST 2023-10-28 16:17:00 Mera Naqvi [facility] NOTICE OF PRIVACY PRACTICES 2023-10-28 15:39:08 Doctor Unassigned, [facility] CONSENT/REFUSAL FOR DIAGNOSIS AND TREATMENT 2023-10-28 15:38:38 Doctor Unassigned, [facility] LAB ONLY PAP SMEAR-LIQUID BASED 2020-07-30 21:26:00 Milagro Fonseca [facility] Tonsillectomy [facility] Encounters Start Date/Time End Date/Time Encounter Type Admission Type Attending Clinicians Care Facility Care Department Encounter ID Source 2024-11-22 00:00:00 2024-11-23 14:42:41 Telephone Serg [facility] OFFICE BUILDING 1.2.840.114 350.1.13.10 4.2.7.2.686 [id number] [facility] 2024-11-14 00:00:00 2024-11-15 14:21:37 Refill Serg [facility] MEDICAL OFFICE BUILDING 1.2.840.114 350.1.13.10 4.2.7.2.686 [id number] [facility] 2024-11-13 11:59:00 2024-11-14 15:01:00 Inpatient Aparna Mejia [facility] MEDI.01 [id number] 34 [facility] 2024-11-08 00:00:00 2024-11-10 16:13:28 [facility] MEDICAL OFFICE BUILDING 1.2.840.114 350.1.13.10 4.2.7.2.686 [id number] [facility] 2024-11-08 00:00:00 2024-11-09 11:15:27 Telephone Serg [facility] OFFICE BUILDING 1.2.840.114 350.1.13.10 4.2.7.2.686 [id number] [facility] 2024-11-02 11:16:00 2024-11-04 12:17:00 Inpatient X XIN ULRICH [facility] [id number] [facility] 2024-11-02 11:16:00 2024-11-04 12:17:00 Hospital Encounter Michelle Bañuelosra Mario Xin Ulrich 1.2.840.1 [id number] 3.104.2.7 .3.184353 .[id number] [facility] 2024-11-03 00:00:00 2024-11-03 00:00:00 [facility] Care Transition 1.2.840.1 [id number] 3.104.2.7 .[id number] .[id number] [facility] 2024-11-03 00:00:00 2024-11-03 00:00:00 Travel 1.2.840.1 [id number] 3.104.2.7 .3.255512 .8 [id number] 350.1.13.10 4.2.7.3.698 [id number] [facility] 2024-11-01 18:43:00 2024-11-01 22:49:00 Emergency X MICHELLE SHANKS SHINTA [facility] [id number] [facility] 2024-11-01 18:43:00 2024-11-01 22:49:00 Emergency Michelle Shanks 1.2.840.1 [id number] 3.104.2.7 .3.702069 .8 [id number] [facility] 2024-11-01 00:00:00 2024-11-01 00:00:00 Travel 1.2.840.1 [id number] 3.104.2.7 .3.863054 .8 1.2.840.114 350.1.13.10 4.2.7.3.698 [id number] [facility] 2024-07-12 10:24:00 2024-07-12 13:25:00 Emergency X LALITA BAÑUELOS SANDRA [facility] [id number] [facility] 2024-07-12 10:24:00 2024-07-12 13:25:00 Emergency Lalita Bañuelos [facility] 1.2.840.114 350.1.13.10 4.2.7.2.686 [id number] [facility] 2024-06-22 00:00:00 2024-06-22 00:00:00 Avni Ackerman, MSN, OPERATIONS LEAD, NAPHTHALENE OPERATOR HELPER-C: [address], [address], [place] [address] , Ph. [facility], Avni Ackerman, MSN, NAPHTHALENE OPERATOR HELPER-C [id number] [place] [address] 2024-05-31 11:18:00 2024-06-02 11:50:00 Hospital Encounter BeatrizMarlene winters David [facility] 1.2.840.114 350.1.13.10 4.2.7.2.686 [id number] [facility] 2024-05-31 11:18:00 2024-06-02 11:50:00 Inpatient X [facility] [id number] [facility] 2024-05-31 11:18:00 2024-06-02 11:50:00 Inpatient Nessa ANABELLE NEVILLE [facility] [id number] [facility] 2024-01-28 00:00:00 2024-01-28 00:00:00 Avni Ackerman, MSN, OPERATIONS LEAD, NAPHTHALENE OPERATOR HELPER-C: [address], [address], [place] [address] , Ph. [facility], Avni Ackerman, MSN, NAPHTHALENE OPERATOR HELPER-C [id number] [facility] 2023-12-04 00:00:00 2023-12-04 00:00:00 Outpatient SISSON_C [facility] [id number] 2023-11-28 00:00:00 2023-11-28 00:00:00 Outpatient GC_GCBZW_Ka diyala_S PRIV PRIV [id number] [facility] 2023-11-20 00:00:00 2023-11-20 00:00:00 Outpatient SISSON_C [facility] [id number] [facility] 2023-11-20 00:00:00 2023-11-20 00:00:00 Avni Ackerman, MSN, OPERATIONS LEAD, NAPHTHALENE OPERATOR HELPER-C: [address], [address], [place] [address] , Ph. [facility], Avni Ackerman, MSN, NAPHTHALENE OPERATOR HELPER-C [id number] [facility] 2023-10-31 00:00:00 2023-10-31 00:00:00 Outpatient GC_GCBZW_Ka diyala_S PRIV PRIV [id number] [facility] 2023-10-30 00:00:00 2023-10-30 00:00:00 Outpatient SISSON_C [facility] [id number] [facility] 2023-10-28 09:45:00 2023-10-28 14:04:00 Emergency X MERA NAQVI [facility] ERT [id number] [facility] 2023-10-28 09:45:00 2023-10-28 14:04:00 Emergency Mera Naqvi [facility] [id number] [facility] 2023-10-21 00:00:00 2023-10-21 00:00:00 Outpatient SISSON_C [facility] [id number] [facility] 2023-10-13 00:00:00 2023-10-13 00:00:00 Outpatient SISSON_C [facility] [id number] [facility] 2023-10-02 00:00:00 2023-10-02 00:00:00 Outpatient GC_GCBZW_Ka diyala_S PRIV PRIV [id number] [facility] 2023-10-01 00:00:00 2023-10-01 00:00:00 Outpatient GC_GCBZW_Ka diyala_S PRIV PRIV [id number] [facility] 2023-09-25 00:00:00 2023-09-25 00:00:00 Outpatient SISSON_C [facility] [id number] [facility] 2023-09-22 00:00:00 2023-09-22 00:00:00 Outpatient GC_GCBZW_Ka diyala_S PRIV PRIV [id number] [facility] 2023-09-21 00:00:00 2023-09-21 00:00:00 Outpatient GC_GCBZW_Ka diyala_S PRIV PRIV [id number] [facility] 2023-09-08 00:00:00 2023-09-08 00:00:00 Avni Ackerman, ALEJANDRO, OPERATIONS LEAD, NAPHTHALENE OPERATOR HELPER-C: [address], [address], [place] [address] , Ph. [facility], ALEJANDRO Leal, NAPHTHALENE OPERATOR HELPER-C [id number] [facility] 2023-08-14 00:00:00 2023-08-14 00:00:00 Outpatient SISSON_C [facility] [id number] [facility] 2023-08-14 00:00:00 2023-08-14 00:00:00 Outpatient SISSON_C [facility] [id number] [facility] 2023-08-14 00:00:00 2023-08-14 00:00:00 Outpatient SISSON_C [facility] [id number] [facility] 2023-08-14 00:00:00 2023-08-14 00:00:00 Avni Ackerman, MSN, OPERATIONS LEAD, NAPHTHALENE OPERATOR HELPER-C: [address], [address], [place] [address] , Ph. [facility], Avni Ackerman, MSN, NAPHTHALENE OPERATOR HELPER-C [id number] [facility] 2023-06-16 00:00:00 2023-06-16 00:00:00 Outpatient SISSON_C [facility] [id number] [facility] 2023-05-25 15:30:00 2023-05-25 15:30:00 Outpatient KATHY JONES CHERYAL [facility] [id number] [facility] 2023-05-19 00:00:00 2023-05-19 00:00:00 Outpatient SISSON_C [facility] [id number] [facility] 2023-05-19 00:00:00 2023-05-19 00:00:00 Avni Ackerman, MSN, OPERATIONS LEAD, NAPHTHALENE OPERATOR HELPER-C: [address], [address], [place] [address] , Ph. [facility], Avni Ackerman, MSN, NAPHTHALENE OPERATOR HELPER-C [id number] [facility] 2023-04-14 00:00:00 2023-04-14 00:00:00 Outpatient SISSON_C [facility] [id number] [facility] 2023-04-14 00:00:00 2023-04-14 00:00:00 Avni Ackerman, MSN, OPERATIONS LEAD, NAPHTHALENE OPERATOR HELPER-C: [address], [place] [address] , Ph. [facility], Avni Ackerman, MSN, NAPHTHALENE OPERATOR HELPER-C [id number] [facility] 2023-02-12 00:00:00 2023-02-12 00:00:00 Outpatient SISSON_C [facility] [id number] [facility] 2023-01-01 00:00:00 2023-01-01 00:00:00 Outpatient SISSON_C [facility] [id number] [facility] 2023-01-01 00:00:00 2023-01-01 00:00:00 Avni Ackerman MSN, OPERATIONS LEAD, NAPHTHALENE OPERATOR HELPER-C: [address], [address], [place] [address] , Ph. [facility], Avni Ackerman, MSN, NAPHTHALENE OPERATOR HELPER-C [id number] [facility] 2022-12-03 00:00:00 2022-12-03 00:00:00 Avni Ackerman MSN, OPERATIONS LEAD, NAPHTHALENE OPERATOR HELPER-C: [address], [address], [place] [address] , Ph. [facility], Avni Ackerman, MSN, NAPHTHALENE OPERATOR HELPER-C [id number] [facility] 2022-11-19 00:00:00 2022-11-19 00:00:00 Outpatient SISSON_C [facility] [id number] [facility] 2022-11-19 00:00:00 2022-11-19 00:00:00 Outpatient SISSON_C [facility] [id number] [facility] 2022-10-31 00:00:00 2022-10-31 00:00:00 Outpatient SISSON_C [facility] [id number] [facility] 2022-10-31 00:00:00 2022-10-31 00:00:00 Avni Ackerman, MSN, OPERATIONS LEAD, NAPHTHALENE OPERATOR HELPER-C: [address], [address], [place] [address] , Ph. [facility], Avni Ackerman, MSN, NAPHTHALENE OPERATOR HELPER-C [id number] [facility] 2022-10-08 00:00:00 2022-10-08 00:00:00 Outpatient SISSON_C [facility] [id number] [facility] 2022-10-07 00:00:00 2022-10-07 00:00:00 Outpatient SISSON_C [facility] [id number] [facility] 2022-10-07 00:00:00 2022-10-07 00:00:00 ALEJANDRO Leal, OPERATIONS LEAD, NAPHTHALENE OPERATOR HELPER-C: [address], [address], [place] [address] , Ph. [facility], Avni Ackerman, MSN, NAPHTHALENE OPERATOR HELPER-C [id number] [facility] 2022-09-03 00:00:00 2022-09-03 00:00:00 Outpatient SISSON_C [facility] [id number] [facility] 2022-09-03 00:00:00 2022-09-03 00:00:00 Avni Ackerman MSN, OPERATIONS LEAD, NAPHTHALENE OPERATOR HELPER-C: [address], [address], [place] [address] , Ph. [facility], Avni Ackerman, MSN, NAPHTHALENE OPERATOR HELPER-C [id number] [facility] 2022-07-31 00:00:00 2022-07-31 00:00:00 Outpatient SISSON_C [facility] [id number] [facility] 2022-07-31 00:00:00 2022-07-31 00:00:00 Avni Ackerman, MSN, OPERATIONS LEAD, NAPHTHALENE OPERATOR HELPER-C: [address], [address], [place] [address] , Ph. [facility], Avni Ackerman, MSN, NAPHTHALENE OPERATOR HELPER-C [id number] [facility] 2022-07-03 00:00:00 2022-07-03 00:00:00 Outpatient SISSON_C [facility] [id number] [facility] 2022-07-03 00:00:00 2022-07-03 00:00:00 Avni Ackerman, MSN, OPERATIONS LEAD, NAPHTHALENE OPERATOR HELPER-C: [address], [address], [place] [address] , Ph. [facility], Avni Ackerman, MSN, NAPHTHALENE OPERATOR HELPER-C [id number] [facility] 2022-05-13 00:00:00 2022-05-13 00:00:00 Outpatient SISSON_C [facility] [id number] [facility] 2022-04-09 12:50:00 2022-04-09 12:50:00 Outpatient SISSON_C [facility] [id number] [facility] 2022-03-04 01:10:00 2022-03-04 01:10:00 Outpatient SISSON_C [facility] [id number] [facility] 2022-01-31 09:22:00 2022-01-31 09:22:00 Outpatient SISSON_C [facility] [id number] [facility] 2022-01-31 00:00:00 2022-01-31 00:00:00 Avni Ackerman, MSN, OPERATIONS LEAD, NAPHTHALENE OPERATOR HELPER-C: [address], [address], [place] [address] , Ph. [facility], Avni Ackerman, MSN, NAPHTHALENE OPERATOR HELPER-C [id number] [facility] 2022-01-31 00:00:00 2022-01-31 00:00:00 Outpatient Avni Ackerman [facility] [id number] 2022-01-14 02:34:00 2022-01-14 02:34:00 Outpatient SISSON_C [facility] [id number] [facility] 2021-12-10 02:49:00 2021-12-10 02:49:00 Outpatient SISSON_C [facility] [id number] [facility] 2021-11-07 04:48:00 2021-11-07 04:48:00 Outpatient SISSON_C [facility] [id number] [facility] 2021-11-05 02:12:00 2021-11-05 02:12:00 Outpatient SISSON_C [facility] [id number] [facility] 2021-10-01 04:32:00 2021-10-01 04:32:00 Outpatient SISSON_C [facility] [id number] [facility] 2021-08-14 04:01:00 2021-08-14 04:01:00 Outpatient SISSON_C [facility] [id number] [facility] 2021-08-14 00:00:00 2021-08-14 00:00:00 Outpatient Avni Ackerman [facility] [id number] 2021-08-14 00:00:00 2021-08-14 00:00:00 Avni Ackerman, MSN, OPERATIONS LEAD, NAPHTHALENE OPERATOR HELPER-C: [address], [place] [address] , Ph. [facility], Avni Ackerman, MSN, NAPHTHALENE OPERATOR HELPER-C [id number] [facility] 2021-05-29 11:58:00 2021-05-29 11:58:00 Outpatient MIREYASON_C [facility] [id number] [facility] 2021-05-29 00:00:00 2021-05-29 00:00:00 Outpatient Avni Ackerman [facility] [id number] 2021-05-29 00:00:00 2021-05-29 00:00:00 Avni Ackerman, MSN, OPERATIONS LEAD, NAPHTHALENE OPERATOR HELPER-C: [address], [address], [place] [address] , Ph. [facility], Avni Ackerman, MSN, NAPHTHALENE OPERATOR HELPER-C [id number] [facility] 2021-05-28 04:39:00 2021-05-28 04:39:00 Outpatient SISSON_C [facility] [id number] [facility] 2020-07-30 16:00:00 2020-07-30 16:00:00 Outpatient MILAGRO HARRISON [facility] [id number] [facility] Results Test Description Test Time Test Comments Results Result Co mments Source CBC W/AUTO [id number] 05:36:00* Test Item Value Reference Range Interpretation Comme nts WHITE BLOOD CELL (test code = WBC) 9.8 x10 3/uL 4.5-11.0 N RED BLOOD CELL (test code = RBC) 4.04 x10 6/uL 3.54-5.02 N HEMOGLOBIN (test code = HGB) 12.0 g/dL 11.0-15.0 N HEMATOCRIT (test code = HCT) 36.4 % 33.0-45.0 N MEAN CELL VOLUME (test code = MCV) 90.1 fL 81.0-99.0 N MEAN CELL HGB (test code = MCH) 29.7 pg 27.0-33.0 N MEAN CELL HGB CONCETRATION (test code = MCHC) 33.0 g/dL 33.0-37.0 N RED CELL DISTRIBUTION WIDTH CV (test code = RDW) 12.9 % 11.5-14.5 N RED CELL DISTRIBUTION WIDTH SD (test code = RDW-SD) 42.4 fL 37.0-54.0 N PLATELET COUNT (test code = PLT) 475 x10 3/uL 150-400 H MEAN PLATELET VOLUME (test c ode = MPV) 9.6 fL 7.0-9.0 H NEUTROPHIL % (test code = NT%) 57.7 % 56.0-77.0 N IMMATURE GRANULOCYTE % (test code = IG%) 0.4 % 0.0-2.0 N LYMPHOCYTE % (test code = LY%) 30.9 % 14.0-32.0 N MONOCYTE % (test code = MO%) 7.8 % 4.8-9.0 N EOSINOPHIL % (test code = EO%) 3.0 % 0.3-3.7 N BASOPHIL % (test code = BA%) 0.2 % 0.0-2.0 N NUCLEATED RBC % (test code = NRBC%) 0.0 % 0-0 N NEUTROPHIL # (test code = NT#) 5.63 x10 3/uL 2.0-7.6 N IMMATURE GRANULOCYTE # (test code = IG#) 0.04 x10 3/uL 0.00-0.03 H LYMPHOCYTE # (test code = LY#) 3.02 x10 3/uL 1.0-3.8 N MONOCYTE # (test code = MO#) 0.76 x10 3/uL 0.1-0.8 N EOSINOPHIL # (test code = EO#) 0.29 x10 3/uL 0.0-0.2 H BASOPHIL # (test code = BA#) 0.02 x10 3/uL 0.0-0.2 N NUCLEATED RBC # (test code = NRBC#) 0.00 x10 3/uL 0.0-0.1 N DRUGS OF ABUSE SCREEN [id number] 00:49:00* Test Item Value Reference Range Interpretation Comme nts URN COCAINE (test code = COCAURN) NEGATIVE NEGATIVE URN CANNABINOIDS (test code = CANNABURN) NEGATIVE NEGATIVE URN AMPHETAMINE (test code = AMPHETURN) NEGATIVE NEGATIVE URN BARBITURATE (test code = BARBITURN) NEGATIVE NEGATIVE URN BENZODIAZEPINE (test code = BENZOURN) NEGATIVE NEGATIVE Cut-off v alue:200 ng/mL URN OPIATES (test code = OPIATURN) POSITIVE NEGATIVE A Cut-off value:20 00 ng/mL URN PHENCYCLIDINE (PCP) (test code = PHENCURN) NEGATIVE NEGATIVE Cutoffs:B arbiturates 200 ng/mLBenzodiazepines 200 ng/mLTHC Cannabinoids 50 ng/mLOpiates(Morphine) 2000 ng/mLAmphetamine 1000 ng/mLCocaine 300 ng/mLPCP phencyclidine 25 ng/mL Unconfirmed screening results shouldnot be used for non-medical purposes. TROP-I HIGH [id number] 13:03:00* Test Item Value Reference Range Interpretation Comme nts TROP-I HIGH SENSITIVITY (test code = TROPIHS) < 3 ng/L 0-34 N CAUTION: Units o f the current test methodology (ng/L) differfrom the prior test methodology (ng/mL) by a factor of 1000. 99th Percentile Upper Reference Limit (URL): Females: 34 ng/LMales: 54 ng/L In order to distinguish acute elevations of high sensitivitytroponin from other clinical conditions, the FourthUniversal Definition of Myocardial Infarction stressesclinical assessment and the demonstration of a rise and/orfall in serial troponin results above the URL. These results were obtained using Siemens AtellBuzzStarter IM TnIHreagent. Results from different methodologies should not becompared to one another as quantitative results and URLs mayvary by method. BASIC METABOLIC [id number] 13:03:00* Test Item Value Reference Range Interpretation Comme nts SODIUM (test code = NA) 139 mEq/L 134-147 N POTASSIUM (test code = K) 4.1 mEq/L 3.4-5.0 N CHLORIDE (test code = CL) 106 mEq/L 100-108 N CARBON DIOXIDE (test code = CO2) 26 mEq/l 21-33 N ANION GAP (test code = GAP) 11 0-20 N GLUCOSE (test code = GLU) 143 mg/dL 77-141 H BLOOD UREA NITROGEN (test code = BUN) 11 mg/dL 7-25 N GLOMERULAR FILTRATION RATE (test code = GFR) 91.0 110-120 L The Glomerular Filtration Rate is a calculated parameterbased on serum Creatinine, patient age and sex. GFR valuesless than 60 mL/min/1.73 square meters are indicative ofChronic Kidney Disease. Values less than 15 mL/min/1.73square meters indicate Kidney failure. The calculation forGFR is based on the CKD-EPI (2020) calculation. This formulais race indifferent and is the recommended formula for GFRby the National Kidney Foundation for Adults.The GFR will not calculate if the sex is unknown or if thepatient's age is <18 years. CREATININE (test code = CREAT) 0.9 mg/dL 0.6-1.3 N CALCIUM (test code = CA) 8.6 mg/dL 8.0-10.5 N PROTHROMBIN [id number] 12:50:00* Test Item Value Reference Range Interpretation Comme nts PROTHROMBIN TIME PATIENT (test code = PTP) 11.0 SECONDS 9.3-12.9 N INTERNATIONAL NORMAL RATIO (test code = INR) 1.0 0.8-1.2 N TARGET INR BY INDICATION Indication INR1. Prophylaxis of venous thrombosis 2.0 - 3.0 (orthopedic surgery), Prophylaxis of venous thrombosis (other than high-risk surgery), Treatment of Deep Vein Thrombosis/Pulmonary Embolism, Prevention of systemic embolism - Tissue heart valves, Acute Myocardial Infarction (to prevent systemic embolism), Valvular heart disease, Atrial Fibrillation, Bileaflet mechanical valve in aortic position.2. Mechanical prosthetic valves (high risk), 2.5 - 3.5 Presence of Lupus Anticoagulant or Antiphospholipid Antibodies, Prevention of systemic embolism - Acute Myocardial Infarction (to prevent recurrent infarct). COMMENTS: Code Stroke: Call with results if INR greater than 1.7 or PT greaterComment: than 15COMMENTS: Code Stroke: Call with results if PTT greater than 40THROMBOPLASTIN TIME [id number] 12:50:00* Test Item Value Reference Range Interpretation Comme nts THROMBOPLASTIN TIME PARTIAL (test code = PTT) 30.9 Seconds 25.0-39.5 N Therapeutic Rang e: 58.8 - 96.0 Seconds Effective 07/29/2024 COMMENTS: Code Stroke: Call with results if INR greater than 1.7 or PT greaterComment: than 15COMMENTS: Code Stroke: Call with results if PTT greater than 40CBC W/O [id number] 12:43:00* Test Item Value Reference Range Interpretation Comme nts WHITE BLOOD CELL (test code = WBC) 8.2 x10 3/uL 4.5-11.0 N RED BLOOD CELL (test code = RBC) 3.85 x10 6/uL 3.54-5.02 N HEMOGLOBIN (test code = HGB) 11.3 g/dL 11.0-15.0 N HEMATOCRIT (test code = HCT) 35.2 % 33.0-45.0 N MEAN CELL VOLUME (test code = MCV) 91.4 fL 81.0-99.0 N MEAN CELL HGB (test code = MCH) 29.4 pg 27.0-33.0 N MEAN CELL HGB CONCETRATION (test code = MCHC) 32.1 g/dL 33.0-37.0 L RED CELL DISTRIBUTION WIDTH CV (test code = RDW) 13.2 % 11.5-14.5 N RED CELL DISTRIBUTION WIDTH SD (test code = RDW-SD) 43.3 fL 37.0-54.0 N PLATELET COUNT (test code = PLT) 494 x10 3/uL 150-400 H MEAN PLATELET VOLUME (test c ode = MPV) 9.5 fL 7.0-9.0 H COMMENTS: Code Stroke: Call with results if platelet count is less than Comment: 100,000/mm3MR Stroke brain wo [id number] 15:44:27EXAM: MR STROKE BRAIN WO CONTRAST HISTORY: Headache. R vert acute dissection on recent CTA head and neck s/pDAPT load. DSA shows bilateral vertebral artery dissections. ? TECHNIQUE: Multiplanar and multisequence MRI imaging of the brain wasobtained without contrast. COMPARISON: Concurrent CT and CTA FINDINGS: The ventricles and cerebral sulci are normal in caliber and configuration.No midline shift or pathological extra-axial fluid collection is present.The basal cisterns are unremarkable. No restricted diffusion is present. No parenchymal signal abnormality isseen. ?No abnormal parenchymal susceptibility signal loss or gradientblooming is otherwise seen. No abnormal fluid signal is present in the mastoid air cells or paranasalair sinuses.[facility] 1 [id number] 22:49:31Study: Single view chest. Ordering Physician: PADMINI ULRICH Date: 11/03/2024 8:00 AM History:infection COMPARISON: None. Findings: Single frontal view chest demonstrates a normal heart size. Thelungs are clear without infiltrate, pleural effusion or pneumothorax. Noacute osseous abnormality is identified.[facility] HospitalFasting Lipd Panel (79219)(TOTAL CHOLESTEROL, TRIGLYCERIDES, HDL)2024-11-03 10:02:21* Test Item Value Reference Range Interpretation Comme nts CHOL (test code = 2877102820) 220 mg/dL 120-200 H HDL (test code = 0074553765) 54 mg/dL >=50 HDLC RATIO (test code = 6554503220) 4.1 <=4.5 TRIG (test code = 8617390582) 228 mg/dL 30-170 H LDL CHOL (test code = 77587-5) 120 mg/dL <=160 VLDL (test code = 3868444321) 46 mg/dL 5-60 Lab Interpretation (test cod e = 08174-7) Abnormal [facility]Gly[facility] Hemoglobin (A1C)2024-11-03 08:43:43* Test Item Value Reference Range Interpretation Comme nts HGB A1C (test code = 4548-4) 5.6 % 4.0-5.7 JOSHUA (test code = JOSHUA) Reference RangesNormal: <5.7%Prediabetes: 5.7 - 6.4%Diabetes: > 6.5% Lab Interpretation (test code = 57593-7) Normal [facility] [id number] 14:52:22Exam: CT ANGIOGRAM NECK, CT ANGIOGRAM HEAD HISTORY: intense head ache, family hx of brain aneurysm TECHNIQUE: Axial CTA imaging of the head and neck was obtained after theadministration of contrast. Coronal and sagittal reformats wereconstructed. If requested, post processing was performed utilizing [employer]. COMPARISON: ?Same day CT head FINDINGS: CTA head: The PICA origin is visualized bila terally. The basilar artery is normal incaliber. The superior cerebellar arteries are unremarkable.The posteriorcerebral arteries are unremarkable. Posterior communicating arteries arepresent. The distal cervical, petrous, cavernous and supraclinoid internal carotidarteries are unremarkable. The middle cerebral arteries are unremarkable.The anterior cerebral arteries are unremarkable. An anterior communicatingartery is visualized. Patent dural venous sinuses including superior sagittal, straight, bothtransverse and both sigmoid sinuses. CTA neck: The ostia of major neck vessels are free of severe stenosis. The subclavian and innominate arteries are patent. The bilateral common carotid arteries, carotid bulbs and internal carotidarteries are patent without high- grade stenosis by NASCET classification. The vertebral arteries are patent from their origins to the vertebrobasilarjunction. There is a long segment moderate to high-grade stenosis of theright V3 (3:82-61) with luminal irregularity and normal caliber in theadjacent V2 and V4 segments.[facility] [id number] 14:52:22Exam: CT ANGIOGRAM NECK, CT ANGIOGRAM HEAD HISTORY: intense head ache, family hx of brain aneurysm TECHNIQUE: Axial CTA imaging of the head and neck was obtained after theadministration of contrast. Coronal and sagittal reformats wereconstructed. If requested, post processing was performed utilizing [employer]. COMPARISON: ?Same day CT head FINDINGS: CTA head: The PICA origin is visualized bilaterally. The basilar artery is normal incaliber. The superior cerebellar arteries are unremarkable. The posteriorcerebral arteries are unremarkable. Posterior communicating arteries arepresent. The distal cervical, petrous, cavernous and supraclinoid internal carotidarteries are unremarkable. The middle cerebral arteries are unremarkable.The anterior cerebral arteries are unremarkable. An anterior communicatingartery is visualized. Patent dural venous sinuses including superior sagittal, straight, bothtransverse and both sigmoid sinuses. CTA neck: The ostia of major neck vessels are free of severe stenosis. The subclavian and innominate arteries are patent. The bilateral common carotid arteries, carotid bulbs and internal carotidarteries are patent without high-grade stenosis by NASCET classification. The vertebral arteries are patent from their origins to the vertebrobasilarjunction. There is a long segment moderate to high-grade stenosis of theright V3 (3:82-61) with luminal irregularity and normal caliber in theadjacent V2 and V4 segments.[id number] 13:57:38EXAM: CT HEAD WO CONTRAST HISTORY: 23 years-old Female; Provided indication: Cerebral hemorrhagesuspected intense head ache, family hx of brain aneurysm . TECHNIQUE: Axial CT of the head was performed and reconstructed at 5 mmintervals. Coronal and sagittal reformatted images were generated. COMPARISON: None FINDINGS: The ventricles and cerebral sulci are normal in caliber and configuration.No midline shift or pathological extra-axial fluid collection is present.The basal cisterns are unremarkable. No acute intracranial hemorrhage or significant mass effect is visualized.No parenchymal attenuation abnormality is seen. The ramirez-white matterdifferentiation is preserved. The mastoid air cells and paranasal sinuses are unremarkable. The calvariumand central skull base are unremarkable.[facility] ([id number] 02:26:13* Test Item Value Reference Range Interpretation Comme nts NA (test code = [id number]) 139 mmol/L 135-145 K (test code = 7489202948) 4.1 mmol/L 3.5-5.0 CL (test code = 5475996501) 102 mmol/L 98-108 CO2 TOTAL (test code = 6260068582) 27 mmol/L 23-31 AGAP (test code = 2999974221) 10 2-16 BUN (test code = 9686933471) 9 mg/dL 7-23 GLUCOSE (test code = 6019221423) 110 mg/dL 70-110 CREATININE (test code = 2160-0) 0.61 mg/dL 0.50-1.04 TOTAL BILI (test code = 1327558843) 1.1 mg/dL 0.1-1.1 CALCIUM (test code = 6277375883) 9.9 mg/dL 8.6-10.6 T PROTEIN (test code = 8642039524) 8.7 g/dL 6.3-8.2 H ALBUMIN (test code = 3092419589) 5.0 g/dL 3.5-5.0 ALK PHOS (test code = 5740132418) 85 U/L 34-122 ALTv (test code = 1742-6) 41 U/L 5-35 H AST(SGOT) (test code = 6130623567) 29 U/L 13-40 eGFR (test code = 15496-5) 127.4 mL/min/1.73m2 CKD-EPI eGFR (2020). Assuming creatinine has been stable day-to-day for at least three months, the eGFR indicates Category G1 (>= 90 mL/min/1.73 m2) Lab Interpretation (test code = 04135-9) Abnormal [facility] with [id number] 02:14:49* Test Item Value Reference Range Interpretation Comme nts WBC (test code = 6690-2) 12.73 4.30-11.10 H RBC (test code = 789-8) 4.50 3.93-5.25 HGB (test code = 718-7) 13.2 g/dL 11.6-15.0 HCT (test code = 4544-3) 41.1 % 35.7-45.2 MCV (test code = 787-2) 91.3 fL 80.6-95.5 MCH (test code = 785-6) 29.3 pg 25.9-32.8 MCHC (test code = 786-4) 32.1 g/dL 31.6-35.1 RDW-SD (test code = 65279-6) 42.5 fL 39.0-49.9 RDW-CV (test code = 788-0) 12.8 % 12.0-15.5 PLT (test code = 777-3) 609 166-358 H MPV (test code = 60947-0) 9.5 fL 9.5-12.9 NRBC/100 WBC (test code = 9095896025) 0.0 0.0-10.0 NRBC x10^3 (test code = 6064129569) See_Comment [Automated messa ge] The system which generated this result transmitted reference range: 10*3/?L. The reference range was not used to interpret this result as normal/abnormal. GRAN MAT (NEUT) % (test code = 770-8) 77.3 % IMM GRAN % (test code = 9311474461) 0.30 % LYMPH % (test code = 736-9) 18.0 % MONO % (test code = 5905-5) 3.8 % EOS % (test code = 713-8) 0.2 % BASO % (test code = 706-2) 0.4 % GRAN MAT x10^3(ANC) (test code = 0942488464) 9.85 10*3/uL 1.88-7.09 H IMM GRAN x10^3 (test code = 9384914743) 0.04 10*3/uL 0.00-0.06 LYMPH x10^3 (test code = 731-0) 2.29 10*3/uL 1.32-3.29 MONO x10^3 (test code = 742-7) 0.48 10*3/uL 0.33-0.92 EOS x10^3 (test code = 711-2) 0.03-0.39 L BASO x10^3 (test code = 704-7) 0.05 10*3/uL 0.01-0.07 Lab Interpretation (test code = 05073-0) Abnormal [facility] [id number] 02:03:00* Test Item Value Reference Range Interpretation Comme nts POCT PREG (test code = 1605) Negative On board controls acceptable with C Line (test code = 3574) Yes POCT PREG LOT # (test code = 3571) [id number] POCT PREG TEST DATE ( test code = 3576) 2025-12-05 Lab Interpretation (test cod e = 70012-9) [id number] 18:03:47EXAM: CT HEAD WO CONTRAST HISTORY: Headache. TECHNIQUE: Axial CT of the head was performed and reconstructed at 5 mmintervals. Coronal and sagittal reformatted images were generated. COMPARISON: NoneFINDINGS: The ventricles and cerebral sulci are normal in caliber and configuration.No midline shift or pathological extra-axial fluid collection is present.The basal cisterns are unremarkable. No acute intracranial hemorrhage or significant mass effect is visualized.No parenchymal attenuation abnormality is seen. The ramirez-white matterdifferentiation is preserved. The mastoid air cells and paranasal air sinuses are clear. The calvariumand central skull base are unremarkable. [facility] [id number] 23:13:25* Test Item Value Reference Range Interpretation Comme nts LACTIC ACID (test code = 1556047246) 1.10 mmol/L 0.50-2.20 Lab Interpretation (test cod e = 68786-7) Normal [facility] with [id number] 19:32:27* Test Item Value Reference Range Interpretation Comme nts WBC (test code = 6690-2) 25.72 4.30-11.10 H RBC (test code = 789-8) 4.19 3.93-5.25 HGB (test code = 718-7) 12.3 g/dL 11.6-15.0 HCT (test code = 4544-3) 37.8 % 35.7-45.2 MCV (test code = 787-2) 90.2 fL 80.6-95.5 MCH (test code = 785-6) 29.4 pg 25.9-32.8 MCHC (test code = 786-4) 32.5 g/dL 31.6-35.1 RDW-SD (test code = 93866-7) 44.1 fL 39.0-49.9 RDW-CV (test code = 788-0) 13.4 % 12.0-15.5 PLT (test code = 777-3) 424 166-358 H MPV (test code = 09135-2) 9.9 fL 9.5-12.9 NRBC/100 WBC (test code = 1235210374) 0.0 0.0-10.0 NRBC x10^3 (test code = 7757449655) See_Comment [Automated message] The system which generated this result transmitted reference range: 10*3/?L. The reference range was not used to interpret this result as normal/abnormal. SEG % (test code = 52807-5) 65 % 33-76 BAND % (test code = 93897-2) 19 % 0-1 H LYMPH % (test code = 68172-2) 6 % 14-54 L MONO % (test code = 75763-3) 7 % 0-4 H EOS % (test code = 39175-0) 3 % 0-3 ANC (test code = 753-4) 21.61 10*3/uL 1.88-7.09 H Lab Interpretation (test code = 26309-4) Abnormal [facility]. Metabolic Panel ([id number])2024-05-31 18:47:18* Test Item Value Reference Range Interpretation Comme nts NA (test code = 2263889652) 136 mmol/L 135-145 K (test code = 5491153251) 3.7 mmol/L 3.5-5.0 CL (test code = 0578574250) 97 mmol/L 98-108 L CO2 TOTAL (test code = 1977666252) 28 mmol/L 23-31 AGAP (test code = 7748322862) 11 2-16 BUN (test code = 5778885941) 10 mg/dL 7-23 GLUCOSE (test code = 5640266725) 109 mg/dL 70-110 CREATININE (test code = 2160-0) 0.65 mg/dL 0.50-1.04 TOTAL BILI (test code = 7117229353) 2.2 mg/dL 0.1-1.1 H CALCIUM (test code = 4487694456) 9.5 mg/dL 8.6-10.6 T PROTEIN (test code = 5945571180) 8.7 g/dL 6.3-8.2 H ALBUMIN (test code = 6179602303) 4.9 g/dL 3.5-5.0 ALK PHOS (test code = 1447230552) 81 U/L 34-122 ALTv (test code = 1742-6) 42 U/L 5-35 H AST(SGOT) (test code = 7583100468) 50 U/L 13-40 H eGFR (test code = 57353-4) 125.5 mL/min/1.73m2 CKD-EPI eGFR (2020). Assuming creatinine has been stable day-to-day for at least three months, the eGFR indicates Category G1 (>= 90 mL/min/1.73 m2) Lab Interpretation (test code = 03710-1) [facility] [id number] 18:46:07CT Abdomen and Pelvis with intravenous contrast. CLINICAL [...] lesions. Vessels: Normal. Circumaortic left renal veins noted.Retroperitoneum: No abnormal fluid or lymphadenopathy. Bowel: ?No signs of acute appendicitis. Milddiverticulosis of the sigmoidcolon noted without any definite [...] fluid in the cul-de-sac, consistent with physiologicchanges. [facility]. METABOLIC PANEL ([id number])2023-10-28 16:47:41* Test Item Value Reference Range Interpretation Comme nts NA (test code = 7485341858) 143 mmol/L 135-145 K (test code = 7045340463) 4.4 mmol/L 3.5-5.0 CL (test code = 1862555888) 108 mmol/L 98-108 CO2 TOTAL (test code = 6716949146) 24 mmol/L 23-31 AGAP (test code = 9535886935) 11 2-16 BUN (test code = 1865915220) 12 mg/dL 7-23 GLUCOSE (test code = 7669764980) 107 mg/dL 70-110 CREATININE (test code = 1968857564) 0.62 mg/dL 0.50-1.04 TOTAL BILI (test code = 1883915211) 1.4 mg/dL 0.1-1.1 H CALCIUM (test code = 8997158597) 9.8 mg/dL 8.6-10.6 T PROTEIN (test code = 2007049555) 8.7 g/dL 6.3-8.2 H ALBUMIN (test code = 7261560083) 4.9 g/dL 3.5-5.0 ALK PHOS (test code = 3207428839) 59 U/L 34-122 ALTv (test code = 1742-6) 21 U/L 5-35 AST(SGOT) (test code = 2993722976) 27 U/L 13-40 eGFR (test code = 18017-5) 127.7 mL/min/1.73m2 CKD-EPI eGFR (2020). Assuming creatinine has been stable day-to-day for at least three months, the eGFR indicates Category G1 (>= 90 mL/min/1.73 m2) Lab Interpretation (test code = 21291-5) Abnormal [facility] WITH [id number] 16:35:58* Test Item Value Reference Range Interpretation Comme nts WBC (test code = 6690-2) 9.98 See_Comment [Automated messa ge] The system which [...] 33.5 g/dL 31.6-35.1 RDW-SD (test code = 90217-5) 42.3 fL 39.0-49.9 RDW-CV (test code = 788-0) 12.5 % 12.0-15.5 PLT (test code = 777-3) 431 See_Comment H [Automated messa ge] The system which generated this result transmitted reference range: 166 - 358 10*3/?L. The reference range was not used to interpret this result as normal/abnormal. MPV (test code = 48819-9) 9.0 fL 9.5-12.9 L NRBC/100 WBC (test code = 6876361532) 0.0 See_Comment [Automated [employer] ssage] The system which generated this result transmitted reference range: 0.0 - 10.0 /100 WBCs. The reference range was not used to interpret this result as normal/abnormal. NRBC x10^3 (test code = 9743819379) See_Comment [Automated messa ge] The system which generated this result transmitted reference range: 10*3/?L. The reference range was not used to interpret this result as normal/abnormal. GRAN MAT (NEUT) % (test code = 770-8) 67.8 % IMM GRAN % (test code = 8241978026) 0.30 % LYMPH % (test code = 736-9) 23.1 % MONO % (test code = 5905-5) 6.6 % EOS % (test code = 713-8) 1.6 % BASO % (test code = 706-2) 0.6 % GRAN MAT x10^3(ANC) (test code = 7307349375) 6.76 10*3/uL 1.88-7.09 IMM GRAN x10^3 (test code = 0651220772) 0.03 10*3/uL 0.00-0.06 LYMPH x10^3 (test code = 731-0) 2.31 10*3/uL 1.32-3.29 MONO x10^3 (test code = 742-7) 0.66 10*3/uL 0.33-0.92 EOS x10^3 (test code = 711-2) 0.16 10*3/uL 0.03-0.39 BASO x10^3 (test code = 704-7) 0.06 10*3/uL 0.01-0.07 Lab Interpretation (test code = 11849-9) [facility] [id number] 16:17:00* Test Item Value Reference Range Interpretation Comme nts POCT PREG (test code = 1605) Negative On board controls acceptable with C Line (test code = 3574) Yes POCT PREG LOT # (test code = 3575) [id number] POCT PREG TEST DATE ( test code = 3576) 01-10-25 Lab Interpretation (test cod e = 47254-5) [facility] Consult Notes Date/Time Note Provider Source 2024-11-03 11:10:16 Associated Order(s): CONSULT GROUND PRODUCTS DIRECTOR-ADULT Images from the original note were not included. CARE MANAGEMENT Care Coordinators/Social Workers/CM Specialists/Utilization Review/Patient Placement & Transfer Center 11/03/2024 11:10 AM Consult Comments Reason for Consult - Please give recommendations and opinions on family primary decision maker and appropriate options for discharge destination. Met with Patient/Spouse/Family at bedside for SFA interview. Patient is A&Ox4 and therefore should retain full executive decision making capacity. Patient does not have a MPOA completed. Probable discharge location; Pt is uninsured until 11/05/24. [x] Home [] Home with Home Roverto [] Home with Outpatient Physical Therapy [] Inpatient Rehab [] [facility] ESTUARDO Stoll, RN Inpatient Academic Physician [facility] [email or web address]. [email or web address] [phone] [facility] 2024-11-03 11:02:17 Associated Order(s): CONSULT SPEECH Speech Pathology 11/03/2024 1058 Stroke consult received, chart reviewed. Patient passed primary dysphagia screen and has been ordered a regular textured diet. No s/sx of dysphagia reported by patient. No dysarthria, aphasia, or cognitive-communication deficits reported by patient or observed by DIAMOND CLEANER. No further speech pathology needs indicated at this time; service is signing off. Please re-consult if further needs are indicated. No charge for this screening service d/t no apparent needs/evaluation deferred. Violeta Rodriguez M.A. [facility] DIAMOND CLEANER Speech Pathologist [phone] Pager: [phone] [facility] Violeta Rodriguez [facility] 2024-11-03 09:56:00 Associated Order(s): CONSULT ADULT PHYSICAL THERAPY Patient agreeable to working with physical therapy. Patient semireclining in bed and Heels offloaded? No: not required as patient is alert and oriented, as well as exhibits sufficient LE strength and ability to move/reposition LEs/heels throughout the day, Mother present, Father Present, and Spouse present. Recommend nursing staff utilize supervision to safely assist patient with mobility out of the bed or chair. PHYSICAL THERAPY EVALUATION Consult received, chart reviewed and evaluation complete this date. Patient is referred to PT for evaluation and treatment. Patient is a 23 year old female who presents to hospital for Acute nonintractable headache, unspecified headache type [R51.9]. Discharge Recommendations: Therapy Needs and Potential: Patient without any skilled PT needs at this time. Challenges to Home Transition: NA Equipment recommendations: no device Current Functional Status and/or Treatment: AM-PAC 6 Clicks (Raw Score 0=Dependent,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 Decision Hospitalize Hosp Physician Name Aparna Maza DO Hosp Physician Hospitalist Request Time 1424 Request Date 11/13/24 )( Accepts Hospitalization Yes )( Accepted Time 1424 )( Accepted Date 11/13/24 Call Information will see patient Ryan Mercado 11/13/24 1456: Patient Discharge Departure Supervising Physician Note Emilia Saw Pt Alone I have reviewed the PA/FEATURES EDITOR's note and plan of care. I was available for consultation as needed at all times during the patient's visit in the emergency department. I agree with the clinical impression, plan and disposition. at 1455 at 1456 RPT #:[id number] END OF REPORT [facility] 2024-11-09 11:15:06 Patient has been added to Dr Ulrich wait list. B Tinoco [facility] 2024-11-08 13:47:37 Please assist with getting this pt scheduled. B Bennett RN [facility] 2024-11-08 13:43:38 Glenn Pina is a 23 year old female Pt is calling to schedule her HFU with Dr. Ulrich . Pt has a STAT referral for him. Please advise B Godfrey [facility] 2024-11-04 11:15:49 Problem: Falls, Risk of Goal: Absence of falls 11/04/20241114 by Nivia Fernandes, RN Outcome: Adequate for discharge 11/04/20241114 by Nivia Fernandes, RN Outcome: Progressing as expected Problem: Pain Goal: Control of pain at or below patient's documented comfort goal 11/04/2024 111 by Nivia Fernandes, RN Outcome: Adequate for discharge 11/04/20241114 by Nivia Fernandes RN Outcome: Progressing as expected Goal: Reduction in pain sensation 11/04/20241114 by Nivia Fernandes RN Outcome: Adequate for discharge 11/04/20241114 by Nivia Fernandes RN Outcome: Progressing as expected Problem: Discharge Planning Goal: Adequate for discharge 11/04/20241114 by Nivia Fernandes RN Outcome: Adequate for discharge 11/04/20241114 by Nivia Fernandes RN Outcome: Progressing as expected Goal: Effective communication 11/04/20241114 by Nivia Fernandes RN Outcome: Adequate for discharge 11/04/20241114 by Nivia Fernandes RN Outcome: Progressing as expected [facility] Nivia Fernandes RN [facility] 2024-11-04 11:15:29 Problem: Falls, Risk of Goal: Absence of falls Outcome: Progressing as expected Problem: Pain Goal: Control of pain at or below patient's documented comfort goal Outcome: Progressing as expected Goal: Reduction in pain sensation Outcome: Progressing as expected Problem: Discharge Planning Goal: Adequate for discharge Outcome: Progressing as expected Goal: Effective communication Outcome: Progressing as expected [facility] 2024-11-04 00:07:33 Problem: Falls, Risk of Goal: Absence of falls Outcome: Progressing as expected Problem: Pain Goal: Control of pain at or below patient's documented comfort goal Outcome: Progressing as expected Goal: Reduction in pain sensation Outcome: Progressing as expected Problem: Discharge Planning Goal: Adequate for discharge Outcome: Progressing as expected Goal: Effective communication Outcome: Progressing as expected [facility] 2024-11-03 17:32:17 Problem: Falls, Risk of Goal: Absence of falls Outcome: Progressing as expected Problem: Pain Goal: Control of pain at or below patient's documented comfort goal Outcome: Progressing as expected Goal: Reduction in pain sensation Outcome: Progressing as expected Problem: Discharge Planning Goal: Adequate for discharge Outcome: Progressing as expected Goal: Effective communication Outcome: Progressing as expected [facility] 2024-11-03 15:21:15 1405 TIME Received PT via Hospital Bed from [facility]. [address] Ulrich at bedside and Time Out done and CONSENT PRESENT. N/A- Ventriculostomy present (Yes or No) N/A-TIME Ventriculostomy clamped (Upon arrival or Time you clamped it) Refer to Ventric Order Set 1514 TIME Puncture Time/Access Achieved and Site (R/L Femoral Artery OR R/L Radial Artery) 1540 TIME Procedure completed. Refer to Dr. Ulrich notes for full report. NO- Is there more than ONE Access Site (Yes/No) 1540 TIME Closure Device Deployed and hemostasis Achieved (see implant section for ref/lot/exp) Patient able to Ambulate at 2140 1650 TIME Report given to Primary RN in [facility] along with Right Groin/Radial site with pulse checks ordered and to be checked by receiving nurse. 1650 TIME Transported to [facility], B/P 140/92 [facility] Carina Bee RN [facility] 2024-11-02 21:08:40 Problem: Falls, Risk of Goal: Absence of falls Outcome: Progressing as expected Problem: Pain Goal: Control of pain at or below patient's documented comfort goal Outcome: Progressing as expected Goal: Reduction in pain sensation Outcome: Progressing as expected Problem: Discharge Planning Goal: Adequate for discharge Outcome: Progressing as expected Goal: Effective communication Outcome: Progressing as expected [facility] 2024-11-02 18:54:00 Patient admitted to [facility] for diagnosis of acute nonintractable headache. Patient agrees to admission, discussed plan of care with patient and family. Patient is awake, alert, oriented, resp reg unlabored, color appropriate for race, PIV intact with NS infusing. No adverse reaction to medications administered while in ED. Belongings with patient to unit. ING COORDINATOR Shira Thompson RN [facility] 2024-11-02 18:36:50 Report given to [facility] by ASTRID Pinto. [facility] 2024-11-02 18:09:49 Report called to David RESENDIZ, patient being transferred to [facility]. [facility] 2024-11-02 15:54:16 Nurse Report Report received from ASTRID Boss. Chief complaint, assessment findings, and orders reviewed. Plan of care discussed with both nurses. Shira Thompson RN [facility] 2024-11-02 11:14:33 CT was done last night and there was overread, patient call back for vertebral artery dissection. Complaints of headache. Neurologically intact otherwise. HX: anxiety. ING COORDINATOR Millie Richardson RN 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 History of Present Illness: The patient presents for evaluation after receiving a call back regarding a change in the read of his CT angiogram she had yesterday. She presented yesterday for headache that started around 8:00 in the morning yesterday to the occipital portion of her head. She denied any injury or trauma. No nausea or vomiting. No blurry vision. No weakness to her arms or legs. She was given medication yesterday that did help her headache. She also had a CT of her head as well as CT angio of her head and neck that were initially read as normal and she was discharged home. Radiology did notify us this morning the CT angiogram of her head was concerning for vertebral artery dissection and therefore she was advised to return to the ER. She reports her headache has worsened since being discharged home yesterday. Here for evaluation. Past Medical History/Immunizations: Past Medical History: Diagnosis Date Anxiety Blood clot of vein in shoulder area, right Depression Dysmenorrhea 07/30/2020 Esophageal reflux Hypertension Ovarian cyst 07/2020 Tetanus received in last 5 years: Yes Allergies: Allergies Allergen Reactions Lidocaine Shortness of Breath Tramadol Itching Trazodone Other - See comments "Gives me lesions" as per patient Past Social History: Tobacco Use Former; Cigarettes: 2015 - 09/28/2019 Smokeless Tobacco: Never used smokeless tobacco. Vaping Use Every day; Started 09/28/2019; Counseling given; Substances: Nicotine Alcohol Use Yes. Drug Use Not Currently. Sexual Activity Sexually active; Partners: Female; Control/Protection: None. Past Surgical History: Past Surgical History: Procedure Laterality Date ADENOIDECTOMY TONSILLECTOMY TONSILLECTOMY WITH ADENOIDECTOMY Review of Systems: Review of Systems Constitutional: Negative for chills and fever. Respiratory: Negative for cough and shortness of breath. Cardiovascular: Negative for chest pain. Gastrointestinal: Negative for abdominal pain and vomiting. Genitourinary: Negative for dysuria. Musculoskeletal: Negative for arthralgias, neck pain and neck stiffness. Skin: Negative for wound. Neurological: Positive for headaches. Psychiatric/Behavioral: Negative for agitation. Endocrine: Negative for goiter. Physical Exam: ED Triage Vitals [11/02/24 1111] Weight 99.8 kg (220 lb) Actual or estimated Height 1.626 m (5' 4") BP (!) 138/108 Pulse 115 Resp 20 Temp 37 ?C (98.6 ?F) Temp src SpO2 99 % Measured on Room air Physical Exam Vitals and nursing note reviewed. Constitutional: Appearance: Normal appearance. HENT: Head: Normocephalic and atraumatic. Cardiovascular: Rate and Rhythm: Normal rate. Pulmonary: Effort: Pulmonary effort is normal. Abdominal: General: There is no distension. Palpations: Abdomen is soft. There is no mass. Tenderness: There is no abdominal tenderness. There is no guarding. Hernia: No hernia is present. Musculoskeletal: General: Normal range of motion. Cervical back: Normal range of motion and neck supple. Skin: General: Skin is warm and dry. Neurological: General: No focal deficit present. Mental Status: She is alert and oriented to person, place, and time. Comments: Speech is clear. No facial symmetry. Handgrip right equals left. Muscle strength is 5/5 to upper extremities and lower extremities bilaterally. Radiology: No orders to display Lab Results: Lab Results - No data to display EKG: If EKG completed, see Procedure Note. Orders and Treatments: No orders of the defined types were placed in this encounter. Orders Placed This Encounter Medications metoclopramide HCl (REGLAN) injection 10 mg diphenhydrAMINE (BENADRYL) injection 25 mg NaCl 0.9% (NS) bolus infusion 1,000 mL SUMAtriptan (IMITREX) injection 6 mg clopidogreL (PLAVIX) 300 mg tablet 300 mg aspirin tablet 650 mg NaCl 0.9% (NS) IV infusion 1,000 mL First Provider Eval: ED Events Date/Time Event User Comments 11/02/24 1130 Medical Screening Begins LALITA BAÑUELOS DO -- 11/02/24 1130 First Provider Evaluation LALITA BAÑUELOS DO -- ED COURSE Diagnosis/Impression as of 11/02/24 1706 Acute nonintractable headache, unspecified headache type Procedures: Procedures MDM: Medical Decision Making The patient presents for evaluation after receiving a call back regarding a change in the read of his CT angiogram she had yesterday. She presented yesterday for headache that started around 8:00 in the morning yesterday to the occipital portion of her head. She denied any injury or trauma. No nausea or vomiting. No blurry vision. No weakness to her arms or legs. She was given medication yesterday that did help her headache. She also had a CT of her head as well as CT angio of her head and neck that were initially read as normal and she was discharged home. Radiology did notify us this morning the CT angiogram of her head was concerning for vertebral artery dissection and therefore she was advised to return to the ER. She reports her headache has worsened since being discharged home yesterday. Vital signs are stable here in the ER. Her neck is supple and without meningismus. Her speech is clear. No facial asymmetry. Handgrip right equals left. Muscle strength is 5/5 to upper extremities and lower extremities bilaterally. Will give the patient pain medication here in the ER. She had laboratory studies completed during her visit yesterday that were unremarkable. She does require admission to the [facility] for further evaluation and management of her suspected vertebral artery dissection. 1700 -the patient is doing well here in the ER. Spoke with Dr. Gutierrez with the neurostroke team in [place] who is accepted the patient for admission for continued management. He has requested administration of aspirin and Plavix here in the ER as well as IV fluids. She is pending transportation. Problems Addressed: Acute nonintractable headache, unspecified headache type: acute illness or injury Amount and/or Complexity of Data Reviewed External Data Reviewed: labs and radiology. Risk OTC drugs. Prescription drug management. Decision regarding hospitalization. Flowsheet Documentation: Scoring Tools: No data recorded Disposition/Condition: ED Disposition ED Disposition Transfer [facility] to IP[facility]Obs Condition -- Comment -- Discharge Medications: Patient's Medications START taking these medications No medications on file CONTINUE taking these medications which have NOT CHANGED AMITRIPTYLINE 50 MG TABLET Take 1 tablet by mouth at bedtime. CLONAZEPAM (KLONOPIN ORAL) Take by mouth. CLONAZEPAM 0.5 MG DISINTEGRATING TABLET Take 1 tablet by mouth 3 (three) times daily as needed for Anxiety. CYCLOBENZAPRINE 10 MG TABLET Take 1 tablet by mouth 3 (three) times daily as needed for Muscle Spasms. DOXEPIN 10 MG CAPSULE Take 1 capsule by mouth at bedtime. KETOROLAC 10 MG TABLET Take 1 tablet by mouth 3 (three) times daily as needed for Pain (scale 7-10). LUMATEPERONE (CAPLYTA) 10.5 MG CAP Take 10.5 mg by mouth in the morning. OXYBUTYNIN 10 MG 24 HR TABLET Take 1 tablet by mouth every 24 (twenty-four) hours as needed for Pain (scale 4-6) or Pain (scale 7-10) for up to 7 doses. VENLAFAXINE HCL (EFFEXOR ORAL) Take by mouth. VENLAFAXINE HCL (VENLAFAXINE ORAL) Take 150 mg by mouth in the morning. START taking Modified Medications as Prescribed No medications on file STOP taking these medications No medications on file Follow-up: Electronically signed by: Lalita Bañuelos DO 11/02/24 1706 [facility] 2024-11-01 22:39:59 Dc instructions and prescription for Toradol reviewed with patient. She will fill prescription and take as directed. She will call the [facility] in the morning for an appointment with the referred neurologist. She will return to the ER if her symptoms persist or worsen. She was Dc'd ambulatory-warm, dry, pink, alert, neuro intact. B Dalton RN [facility] 2024-11-01 21:26:55 When I pulled the esgic for the patient, I counted the inventory in the drawer. I counted 14 pills but entered the count of 16. I only pulled one pill out so there should be 13 pills remaining in the drawer. The pixus showed a discrepency for the count so I fixed it. I called pharmacy and spoke to Clint and let her know. She said that everything was cleared up and fixed. B Holt RN [facility] 2024-07-12 13:22:00 Written/verbal d/c instructions, pt states feeling much better, out of er with father Linda Fitzgerald RN [facility] 2024-07-12 10:41:27 Patient to ED for migraine right sided headache x 4 days. Edison Nielson RN [facility] 2024-07-12 10:07:00 [facility] Emergency Department Note Patient Name: Glenn Pina Date of : 2000 23 year old female Treatment Room: Room/bed info not found Primary Care Physician: AVNI ACKERMAN Patient Escorted by: Self [9] Mode of Arrival: Personal means [1] EMS Treatment Prior to ED Arrival: Travel and Exposure Screening: Symptoms Does patient have any of these symptoms?: (not recorded) Exposure Screening Has patient had contact with someone with a communicable disease in the last month?: (not recorded) Diseases exposed to:: (not recorded) Is Patient ?: (not recorded) Exposure Date: (not recorded) Chief Complaint: Chief Complaint Patient presents with Headache History of Present Illness: The patient presents for eval for right sided LOUIS that started 4 days ago. No injury or trauma. No fevers. No neck pain or stiffness. Did have n/v yesterday. None today. She last had a LOUIS like this one week ago. Bright lights do make her LOUIS worse. Tried Ubrelvy at home and not helping. She did have her dad bring her here to the ER for evaluation. She is also concerned as her mom Had a diagnosed brain aneurysm. Here for evaluation. Past Medical History/Immunizations: Past Medical History: Diagnosis Date Anxiety Blood clot of vein in shoulder area, right Depression Dysmenorrhea 07/30/2020 Esophageal reflux Hypertension Ovarian cyst 07/2020 Allergies: Allergies Allergen Reactions Lidocaine Shortness of Breath Tramadol Itching Trazodone Other - See comments "Gives me lesions" as per patient Past Social History: Tobacco Use Former; Cigarettes: 2016 - 09/28/2019 Smokeless Tobacco: Never used smokeless tobacco. Vaping Use Every day; Started 09/28/2019; Counseling given; Substances: Nicotine Alcohol Use Yes. Drug Use Not Currently. Sexual Activity Sexually active; Partners: Female; Control/Protection: None. Past Surgical History: Past Surgical History: Procedure Laterality Date ADENOIDECTOMY TONSILLECTOMY TONSILLECTOMY WITH ADENOIDECTOMY Review of Systems: Review of Systems Constitutional: Negative for chills and fever. Respiratory: Negative for cough and shortness of breath. Cardiovascular: Negative for chest pain. Gastrointestinal: Positive for nausea and vomiting. Negative for abdominal pain. Genitourinary: Negative for dysuria. Musculoskeletal: Negative for arthralgias, neck pain and neck stiffness. Skin: Negative for wound. Neurological: Positive for headaches. Psychiatric/Behavioral: Negative for agitation. Endocrine: Negative for goiter. Physical Exam: ED Triage Vitals [07/12/24 1018] Weight 99.8 kg (220 lb) Actual or estimated Height 1.727 m (5' 8") BP (!) 156/105 Pulse 97 Resp 16 Temp 36.8 ?C (98.2 ?F) Temp source Oral SpO2 99 % Measured on Physical Exam Vitals and nursing note reviewed. Constitutional: Appearance: Normal appearance. She is obese. HENT: Head: Normocephalic and atraumatic. Mouth/Throat: Mouth: Mucous membranes are dry. Cardiovascular: Rate and Rhythm: Normal rate and regular rhythm. Pulses: Normal pulses. Pulmonary: Effort: Pulmonary effort is normal. No respiratory distress. Breath sounds: No stridor. No wheezing or rhonchi. Abdominal: General: There is no distension. Palpations: Abdomen is soft. There is no mass. Tenderness: There is no abdominal tenderness. There is no guarding or rebound. Hernia: No hernia is present. Musculoskeletal: General: Normal range of motion. Cervical back: Normal range of motion and neck supple. No tenderness. Skin: General: Skin is warm and dry. Neurological: General: No focal deficit present. Mental Status: She is alert and oriented to person, place, and time. Comments: Speech is clear. No facial asymmetry. Handgrip right equals left. Muscle strength is 5/5 to upper extremities bilaterally. Steady gait. Radiology: CT HEAD WO CONTRAST Preliminary Result EXAM: CT HEAD WO CONTRAST HISTORY: Headache. TECHNIQUE: Axial CT of the head was performed and reconstructed at 5 mm intervals. Coronal and sagittal reformatted images were generated. COMPARISON: None FINDINGS: The ventricles and cerebral sulci are normal in caliber and configuration. No midline shift or pathological extra-axial fluid collection is present. The basal cisterns are unremarkable. No acute intracranial hemorrhage or significant mass effect is visualized. No parenchymal attenuation abnormality is seen. The ramirez-white matter differentiation is preserved. The mastoid air cells and paranasal air sinuses are clear. The calvarium and central skull base are unremarkable. IMPRESSION No acute intracranial abnormality. Preliminary Report Dictated by Resident: Sb Arita Lab Results: Lab Results - No data to display EKG: If EKG completed, see Procedure Note. Orders and Treatments: Orders Placed This Encounter Procedures CT HEAD WO CONTRAST Orders Placed This Encounter Medications metoclopramide HCl (REGLAN) injection 10 mg diphenhydrAMINE (BENADRYL) injection 25 mg dexamethasone sod phos PF injection 10 mg ketorolac (TORADOL) injection 30 mg cyclobenzaprine 10 mg tablet First Provider Eval: ED Events Date/Time Event User Comments 07/12/24 1008 Medical Screening Begins LALITA BAÑUELOS DO -- 07/12/24 1008 First Provider Evaluation LALITA BAÑUELOS DO -- ED COURSE Diagnosis/Impression as of 07/12/24 1304 Acute nonintractable headache, unspecified headache type Procedures: Procedures MDM: Medical Decision Making The patient presents from home for evaluation for right-sided headache that started 4 days ago. No injury or trauma. No fevers or chills. No neck pain or stiffness. She did have some nausea and vomiting yesterday but none today. No weakness to her arms or legs. She tried Ubrelvy at home today and it has not helped. She does have a history of migraine headaches and her last one was last week. Vital signs are stable in the ER. Her speech is clear. No facial symmetry. Handgrip right equals left. Muscle strength is 5/5 to upper extremities bilaterally. No concern for subarachnoid hemorrhage or bacterial meningitis based on her presentation. Will give the patient pain medication here in the ER. Anticipate discharge home later. 1303 -the patient is doing well here in the ER. Her headache is much improved after the medications given here. The CT of her head shows no bleeding to suggest a brain aneurysm. She remained stable here in the ER and is okay for discharge home with PCP follow-up. Problems Addressed: Acute nonintractable headache, unspecified headache type: acute illness or injury Amount and/or Complexity of Data Reviewed Radiology: ordered and independent interpretation performed. Decision-making details documented in ED Course. Risk OTC drugs. Prescription drug management. Flowsheet Documentation: Scoring Tools: No data recorded Disposition/Condition: ED Disposition ED Disposition Disch - Home Condition Stable Comment -- Discharge Medications: Patient's Medications START taking these medications CYCLOBENZAPRINE 10 MG TABLET Take 1 tablet by mouth 3 (three) times daily as needed for Muscle Spasms. CONTINUE taking these medications which have NOT CHANGED AMITRIPTYLINE 50 MG TABLET Take 1 tablet by mouth at bedtime. CLONAZEPAM (KLONOPIN ORAL) Take by mouth. CLONAZEPAM 0.5 MG DISINTEGRATING TABLET Take 1 tablet by mouth 3 (three) times daily as needed for Anxiety. DOXEPIN 10 MG CAPSULE Take 1 capsule by mouth at bedtime. LUMATEPERONE (CAPLYTA) 10.5 MG CAP Take 10.5 mg by mouth in the morning. OXYBUTYNIN 10 MG 24 HR TABLET Take 1 tablet by mouth every 24 (twenty-four) hours as needed for Pain (scale 4-6) or Pain (scale 7-10) for up to 7 doses. VENLAFAXINE HCL (EFFEXOR ORAL) Take by mouth. VENLAFAXINE HCL (VENLAFAXINE ORAL) Take 150 mg by mouth in the morning. START taking Modified Medications as Prescribed No medications on file STOP taking these medications No medications on file Follow-up: Electronically signed by: Lalita Bañuelos DO 07/12/24 1304 [facility] 2024-06-02 11:33:39 Problem: Skin integrity Impaired (Risk or Actual) Goal: Wound healing Outcome: Adequate for discharge Goal: Prevention of new skin breakdown Outcome: Adequate for discharge Problem: Discharge Planning Goal: Adequate for discharge Outcome: Adequate for discharge Goal: Effective communication Outcome: Adequate for discharge Problem: Pain Goal: Control of pain at or below patient's documented comfort goal Outcome: Adequate for discharge Goal: Reduction in pain sensation Outcome: Adequate for discharge Problem: Venous Thromboembolism, (actual or risk of) Goal: Absence of venous thromboembolism (Risk) Outcome: Adequate for discharge Problem: Infection Risk Goal: Absence of infection Outcome: Adequate for discharge Mis Camacho RN [facility] 2024-06-02 01:10:26 Problem: Skin integrity Impaired (Risk or Actual) Goal: Wound healing Outcome: Progressing as expected Goal: Prevention of new skin breakdown Outcome: Progressing as expected Problem: Discharge Planning Goal: Adequate for discharge Outcome: Progressing as expected Goal: Effective communication Outcome: Progressing as expected Problem: Pain Goal: Control of pain at or below patient's documented comfort goal Outcome: Progressing as expected Goal: Reduction in pain sensation Outcome: Progressing as expected Problem: Venous Thromboembolism, (actual or risk of) Goal: Absence of venous thromboembolism (Risk) Outcome: Progressing as expected Problem: Infection Risk Goal: Absence of infection Outcome: Progressing as expected Lizbeth Garrett RN [facility] 2024-06-01 11:31:17 Problem: Skin integrity Impaired (Risk or Actual) Goal: Wound healing Outcome: Progressing as expected Goal: Prevention of new skin breakdown Outcome: Progressing as expected Problem: Discharge Planning Goal: Adequate for discharge Outcome: Progressing as expected Goal: Effective communication Outcome: Progressing as expected Problem: Pain Goal: Control of pain at or below patient's documented comfort goal Outcome: Progressing as expected Goal: Reduction in pain sensation Outcome: Progressing as expected Problem: Venous Thromboembolism, (actual or risk of) Goal: Absence of venous thromboembolism (Risk) Outcome: Progressing as expected Problem: Infection Risk Goal: Absence of infection Outcome: Progressing as expected Supriya Mayen RN [facility] 2024-05-31 16:53:00 Nurse Report Report given to ASTRID Epps. Chief complaint, assessment findings, infusion verify and orders reviewed. Plan of care discussed. Patient/family members verbalized understanding. Pao Srivastava RN [facility] 2024-05-31 16:53:00 Patient admitted to 2217 for diagnosis of cat bite, cellulitis of right upper extremity. Patient agrees to admission, discussed plan of care with patient and family. Patient is awake, alert, oriented, resp reg unlabored, color appropriate for race, PIV intact. No adverse reaction to medications administered while in ED. Belongings with patient to unit. [facility] 2024-05-31 11:05:00 Patient states: "I was bitten by a stray cat on my right forearm on Thursday, swelling just started yesterday. 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 I took Motrin around 5AM." Tetanus up to date as per patient PMHx: Ovarian cyst, Bipolar PSHx: Tonsillectomy, Adenoidectomy [facility] 2024-05-31 11:04:00 Images from the original note were not included. 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 treatment: Other (comment) SHOE STAINER treatment comments: Motrin at 5AM as per patient Travel and Exposure Screening: Symptoms Does patient have any of these symptoms?: (not recorded) Exposure Screening Has patient had contact with someone with a communicable disease in the last month?: (not recorded) Diseases exposed to:: (not recorded) Is Patient ?: (not recorded) Exposure Date: (not recorded) Chief Complaint: Chief Complaint Patient presents with Animal Bite Cat, on Thursday SWELLING Right forearm Vomiting Fever History of Present Illness: Glenn, 23yF, presents with cellulitis of her right forearm from a cat bite 3 days ago. Cat bite from stray cat on Thursday. Mild tenderness and erythema Thursday and Thursday. She woke at 0400 today with significant swelling, erythema, fever 103.9, and vomiting. She has vomited approximately 8 times. She was able to keep down ibuprofen at 5 AM with improvement of her fever. She notes the erythema is now streaking up her arm. No chest pain or shortness of breath. No other complaints. Past Medical History/Immunizations: Past Medical History: Diagnosis Date Anxiety Depression Esophageal reflux Hypertension Tetanus received in last 5 years: Yes Childhood immunizations: Up-to-date Allergies: Allergies Allergen Reactions Tramadol Itching Trazodone Other - See comments "Gives me lesions" as per patient Past Social History: Tobacco Use Former; Types: Cigarettes Smokeless Tobacco: Never used smokeless tobacco. Tobacco Cessation: Counseling given: Yes Vaping Use Every day Alcohol Use Yes. Drug Use Not Currently. Sexual Activity Sexually active; Partners: Female. Past Surgical History: Past Surgical History: Procedure Laterality Date ADENOIDECTOMY TONSILLECTOMY Review of Systems: Review of Systems Constitutional: Positive for fatigue and fever. Respiratory: Negative for shortness of breath. Cardiovascular: Negative for chest pain. Gastrointestinal: Positive for nausea and vomiting. Negative for diarrhea. Skin: Positive for wound. Physical Exam: ED Triage Vitals [05/31/24 1105] Weight 99.8 kg (220 lb) Actual or estimated Estimated by patient/family report Height 1.727 m (5' 8") BP 139/89 Pulse 104 Resp 17 Temp 37.4 ?C (99.3 ?F) Temp source Oral SpO2 100 % Measured on Room air Physical Exam Vitals and nursing note reviewed. Constitutional: Appearance: She is obese. She is ill-appearing. HENT: Mouth/Throat: Mouth: Mucous membranes are moist. Cardiovascular: Rate and Rhythm: Normal rate and regular rhythm. Pulses: Normal pulses. Heart sounds: Normal heart sounds. No murmur heard. Pulmonary: Effort: Pulmonary effort is normal. No respiratory distress. Breath sounds: Normal breath sounds. Abdominal: General: Bowel sounds are normal. Palpations: Abdomen is soft. Tenderness: There is no abdominal tenderness. Musculoskeletal: General: Tenderness present. Normal range of motion. Skin: Findings: Erythema present. Comments: Right arm with cellulitis, non-circumferential. Soft. No drainage or abscess. Images on chart Neurological: Mental Status: She is alert. Radiology: No orders to display Lab Results: Lab Results CBC WITH DIFF - Abnormal Result Value Ref Range WBC 25.72 (*) 4.30 - 11.10 10*3/?L RBC 4.19 3.93 - 5.25 10*6/?L HGB 12.3 11.6 - 15.0 g/dL HCT 37.8 35.7 - 45.2 % MCV 90.2 80.6 - 95.5 fL MCH 29.4 25.9 - 32.8 pg MCHC 32.5 31.6 - 35.1 g/dL RDW-SD 44.1 39.0 - 49.9 fL RDW-CV 13.4 12.0 - 15.5 % PLT 424 (*) 166 - 358 10*3/?L MPV 9.9 9.5 - 12.9 fL NRBC/100 WBC 0.0 0.0 - 10.0 /100 WBCs NRBC x10 3 <0.01 10*3/?L SEG % 65 33 - 76 % BAND % 19 (*) 0 - 1 % LYMPH % 6 (*) 14 - 54 % MONO % 7 (*) 0 - 4 % EOS % 3 0 - 3 % ANC 21.61 (*) 1.88 - 7.09 10*3/uL COMP. METABOLIC PANEL (52522) - Abnormal NA 136 135 - 145 mmol/L K 3.7 3.5 - 5.0 mmol/L CL 97 (*) 98 - 108 mmol/L CO2 TOTAL 28 23 - 31 mmol/L AGAP 11 2 - 16 BUN 10 7 - 23 mg/dL GLUCOSE 109 70 - 110 mg/dL CREATININE 0.65 0.50 - 1.04 mg/dL TOTAL BILI 2.2 (*) 0.1 - 1.1 mg/dL CALCIUM 9.5 8.6 - 10.6 mg/dL T PROTEIN 8.7 (*) 6.3 - 8.2 g/dL ALBUMIN 4.9 3.5 - 5.0 g/dL ALK PHOS 81 34 - 122 U/L ALTv 42 (*) 5 - 35 U/L AST(SGOT) 50 (*) 13 - 40 U/L eGFR 125.5 mL/min/1.73m2 MRSA / MSSA SCREEN BY PCR, NARES EKG: If EKG completed, see Procedure Note. Orders and Treatments: Orders Placed This Encounter Procedures Cbc with Diff Comp. Metabolic Panel (62358) MRSA / MSSA Screen by PCR, Nares Lactic Acid Whole Blood Lactic Acid Whole Blood Cbc with Diff Basic Metabolic Panel (NA, K, CL, CO2, GLUCOSE, BUN, CREATININE, CA) Orders Placed This Encounter Medications NaCl 0.9% (NS) bolus infusion 1,000 mL DISCONTD: ondansetron (ZOFRAN (PF)) injection 4 mg ketorolac (TORADOL) injection 15 mg ampicillin-sulbactam (UNASYN) 3 g in NaCl 0.9% (NS) 100 mL MINI-BAG morpHINE (4 mg/mL) injection 4 mg ondansetron (ZOFRAN (PF)) injection 4 mg enoxaparin (LOVENOX) injection 40 mg acetaminophen (TYLENOL) tablet 650 mg ondansetron (ZOFRAN (PF)) injection 4 mg venlafaxine HCl (VENLAFAXINE ORAL) lumateperone (CAPLYTA) 10.5 mg Cap amitriptyline 50 mg tablet clonazePAM 0.5 mg disintegrating tablet doxepin 10 mg capsule DISCONTD: ampicillin-sulbactam (UNASYN) 3 g in NaCl 0.9% (NS) 100 mL MINI-BAG morphine (2 mg/mL) injection 2 mg acetaminophen-codeine (TYLENOL #3) 300-30 mg tablet 1 tablet amitriptyline (ELAVIL) tablet 50 mg venlafaxine (EFFEXOR) tablet 150 mg ampicillin-sulbactam (UNASYN) 3 g in NaCl 0.9% (NS) 100 mL MINI-BAG clonazePAM (KLONOPIN) tablet 0.5 mg First Provider Eval: ED Events Date/Time Event User Comments 05/31/241126 Medical Screening Begins PRESLEY COTTER -- 05/31/241126 First Provider Evaluation PRESLEY COTTER -- AdmissionCare Guideline: Cellulitis - INPT, Inpatient Based on the indications selected for the patient, the bed status of Inpatient was determined to be MET The following indications were selected as present at the time of evaluation of the patient: - Clinical Indications for Admission to Inpatient Care - Admission is indicated for 1 or more of the following: - Clinical presentation (eg, acuity of infection, rapidity of progression) or treatment regimen (eg, complex wound care, antibiotic regimen not suitable for administration at lower level of care) is judged to require intensity of patient monitoring (eg, vital sign measurement, checks for infection progression, laboratory testing) or care that cannot be provided at other than inpatient level of care. AdmissionCare documentation entered by: Marlene Henderson [facility], 28th edition, Copyright ? 2023 [facility] All Rights Reserved. [id number]:00 ED COURSE Diagnosis/Impression as of 05/31/242002 Cat bite, initial encounter Cellulitis of right upper extremity Procedures: Procedures MDM: Medical Decision Making Glenn, 23yF, presents with cellulitis of her right forearm from a cat bite 3 days ago. Cat bite from stray cat on Thursday. Mild tenderness and erythema Thursday and Thursday. She woke at 0400 today with significant swelling, erythema, fever 103.9, and vomiting. She has vomited approximately 8 times. She was able to keep down ibuprofen at 5 AM with improvement of her fever. She notes the erythema is now streaking up her arm. No chest pain or shortness of breath. No other complaints. NS IV and unasyn IV started in ER Vomiting controlled with zofran WBC 25,000 Admission recommended Pt d/w Dr Neville for admission Problems Addressed: Cat bite, initial encounter: acute illness or injury Cellulitis of right upper extremity: acute illness or injury Amount and/or Complexity of Data Reviewed Labs: ordered. Decision-making details documented in ED Course. Discussion of management or test interpretation with external provider(s): Pt hx, exam, labs, and tx d/w Dr Neville, hospitalist Risk Prescription drug management. Parenteral controlled substances. Decision regarding hospitalization. Flowsheet Documentation: Disposition/Condition: ED Disposition ED Disposition Admit - Inpatient Condition -- Comment -- Electronically signed by: Marlene Henderson PAC 05/31/242002 Associated attestation - Skip Gonzalez MD - 06/01/2024 8:30 AM CDT I was present and available for this patient encounter [facility] 2024-05-31 11:04:00 AdmissionCare Guideline: Cellulitis - INPT, Inpatient Based on the indications selected for the patient, the bed status of Inpatient was determined to be MET The following indications were selected as present at the time of evaluation of the patient: - Clinical Indications for Admission to Inpatient Care - Admission is indicated for 1 or more of the following: - Clinical presentation (eg, acuity of infection, rapidity of progression) or treatment regimen (eg, complex wound care, antibiotic regimen not suitable for administration at lower level of care) is judged to require intensity of patient monitoring (eg, vital sign measurement, checks for infection progression, laboratory testing) or care that cannot be provided at other than inpatient level of care. AdmissionCare documentation entered by: Marlene Henderson [facility], 28th edition, Copyright ? 2023 [facility] All Rights Reserved. [id number] [facility] 2023-10-28 13:29:39 Patient discharged. Pain controlled. Follow up with OBGYN. ING COORDINATOR [facility] 2023-10-28 09:42:41 Patient to ED RLQ pain that started at 2 am. Reports she had the same pain that happened last month and went to [facility] and was diagnosed with a UTI and cyst on left ovary. Reports this feels the same. Reports of nausea and 1 episode of vomiting at 4 am. B Nielson RN [facility]
[2025-02-11] MEDS ORDERED: HYDROCODONE/APAP 5/325 MG TAB ONE (15:10)
[2025-02-11] MEDS ORDERED: DIAZEPAM 5 MG TABLET ONE (15:10)
[2025-02-11 15:48] LABS: Specific Gravity 1.019 (1.005-1.030); Sqamous Epithelial <5 /HPF (None Seen); Urine Bacteria <20 /HPF (<20); Urine Bilirubin NEGATIVE (Negative); Urine Blood Negative (Negative); Urine Clarity Turbid (Clear); Urine Color Light-Yellow (Yellow); Urine Crystals Unidentified Few /HPF (None Seen); Urine Culture Reflex Order REFLEXED; Urine Glucose NEGATIVE (Negative); Urine Ketones NEGATIVE (Negative); Urine Microscopic Reflex YN ORDER UMIC; Urine Mucus Slight /HPF (None Seen); Urine Nitrite NEGATIVE (Negative); Urine Protein NEGATIVE (Negative); Urine RBC <5 /HPF (None Seen); Urine Urobilinogen Normal (Normal)
[2025-02-11 15:49] LABS: Specific Gravity 1.019 (1.005-1.030)
--- NOTE | 2025-02-11 17:30 | RAD REPORT ---
EXAMINATION: Stone Protocol CLINICAL INDICATION: Abdominal pain. Left flank pain TECHNIQUE: CT abdomen and pelvis was performed, without IV contrast, as per department protocol. Oral contrast not given. Axial, sagittal and coronal reconstructions were obtained. One or more of the following dose reduction techniques were used: Automated exposure control, adjustment of the mA and k V according to the patient size, and iterative reconstruction. Unless otherwise specified, incidental findings do not require dedicated imaging follow-up. COMPARISON: 2022. FINDINGS: The lack of intravenous and oral contrast limits the sensitivity of this exam for evaluation of solid visceral organs, vascular structures, and bowel A renal calculus not seen. No ureteral calculus. A bladder calculus not noted. No hydronephrosis Liver, spleen, pancreas and adrenals grossly normal No evidence of diverticulitis. Normal appendix. No adnexal mass. Small umbilical hernia IMPRESSION: Negative for a genitourinary calculus
--- NOTE | 2025-02-11 17:36 | EDPHYS ---
Physician Documentation [facility] Name: Lara Pina Age: 24 yrs Sex: Female : 2000 Arrival Date: 02/11/2025 Time: 14:52 Bed 9 Private MD: ED Physician Alphonse Azevedo HPI: 02/11 14:59 This 24 yrs old Female presents to ER via Unassigned with complaints of Back Pain. kb 14:59 Pt is a 24 year old female who presents for left sided back pain that radiates to the kb right side. States the pain started yesterday afternoon. Reports history of kidney stones, but the pain was different. Reports she fell up her stairs one day last week, but isn't sure if that would have caused it. . 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 - Infectious Disease History:: Denies. - Social history:: Smoking status: Reported history of juuling and/or vaping. ROS: 15:00 Constitutional: As per HPI kb Exam: 15:00 Constitutional: This is a well developed, well nourished patient who is awake, alert, kb and in no acute distress. Head/Face: Normocephalic, atraumatic. ENT: Moist Mucous membranes Cardiovascular: Regular rate Respiratory: Respirations even and unlabored. No increased work of breathing. Talking in full sentences Skin: Warm, dry with normal turgor. Normal color. MS/ Extremity: Pulses equal, no cyanosis. Neurovascular intact. Full, normal range of motion. Neuro: Awake and alert, GCS 15, oriented to person, place, time, and situation. Vital Signs: 15:01 BP 153 / 103; Pulse 99; Resp 18; Temp 97.8; Pulse Ox 98% on R/A; Weight 99.79 kg; ph Height 5 ft. 8 in. ; 15:01 Body Mass Index 33.45 (99.79 kg, 172.72 cm) ph MDM: 14:55 Medical Screening Exam initiated kb 15:01 Data reviewed: vital signs, nurses notes. kb 17:33 Differential diagnosis: strain, uti, kidney stone. Counseling: I had a detailed kb discussion with the patient and/or guardian regarding the historical points, exam findings, and any diagnostic results supporting the discharge/admit diagnosis, lab results, radiology results, the need for outpatient follow up, a family practitioner, to return to the emergency department if symptoms worsen or persist or if there are any questions or concerns that arise at home. 02/11 15:03 Order name: UA Rfx Kaiser Cult if indicated; Complete Time: 15:51 kb 02/11 15:03 Order name: Test, Urine; Complete Time: 15:51 kb 02/11 15:52 Order name: Urine Culture EDMS 02/11 15:03 Order name: CT Stone Protocol; Complete Time: 17:33 kb Administered Medications: 15:15 Drug: HYDROcodone-acetaminophen PO 5 mg-325 mg 1 tabs PO once Route: PO; ph 17:48 Follow up: Response: No adverse reaction; Marked relief of symptoms jb4 15:15 Drug: Diazepam PO 5 mg PO once Route: PO; ph 17:48 Follow up: Response: No adverse reaction; Marked relief of symptoms jb4 17:48 Drug: Ketorolac IM 30 mg IM once Route: IM; Site: right deltoid; jb4 17:48 Follow up: Response: Medication administered at discharge. jb4 Disposition: 18:17 Co-signature as Attending Physician, Alphonse Azevedo MD I reviewed the patient's care rn provided by the Advanced Practice Provider and agree with the diagnosis and treatment plan. Disposition Summary: 02/11/25 17:35 Discharge Ordered Notes: Location: Home kb Problem: new kb Symptoms: are unchanged kb Condition: Stable kb Diagnosis - Low back pain kb Followup: kb - With: Emergency Department - When: As needed - Reason: Worsening of condition Followup: kb - With: Private Physician - When: 2 - 3 days - Reason: Recheck today's complaints, Continuance of care, Re-evaluation by your physician Discharge Instructions: - Discharge Summary Sheet kb - Acute Back Pain, Adult kb - Musculoskeletal Pain kb Forms: - Medication Reconciliation Form kb - Antibiotic Education kb - Prescription Opioid Use kb - Patient Portal Instructions kb - Leadership Thank You Letter kb Prescriptions: - Diclofenac Sodium 75 mg Oral tablet, delayed release (enteric coated) - take 1 tablet ORAL route 2 times per day As needed; 30 tablet; Refills: 0, kb Product Selection Permitted - orphenadrine citrate 100 mg Oral Tablet Sustained Release - take 1 tablet ORAL route 2 times per day As needed; 20 tablet; Refills: 0, kb Product Selection Permitted Signatures: Dispatcher [employer] Florencia Austin, CLOCKSMITH-C CLOCKSMITH-Alphonse Santiago MD MD rn Hall, Patricia, RN RN Delano Meo RN RN jb4
--- NOTE | 2025-02-11 17:36 | ER ---
Nurse's Notes [facility] Name: Lara Pina Age: 24 yrs Sex: Female : 2000 Arrival Date: 02/11/2025 Time: 14:52 Bed 9 Private MD: Diagnosis: Low back pain Presentation: 02/11 15:01 Chief complaint: Patient states: L low back pain that started yesterday. Coronavirus ph screen: Vaccine status: Patient reports being unvaccinated. Ebola Screen: No symptoms or risks identified at this time. Initial Sepsis Screen: Does the patient meet any 2 criteria? No. Patient's initial sepsis screen is negative. Does the patient have a suspected source of infection? No. Patient's initial sepsis screen is negative. Risk Assessment: Do you want to hurt yourself or someone else? Patient reports no desire to harm self or others. Onset of symptoms was February 11, 2025. 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 - Infectious Disease History:: Denies. - Social history:: Smoking status: Reported history of juuling and/or vaping. Screenin:16 [facility] ED Fall Risk Assessment (Adult) History of falling in the last 3 months, ph including since admission No falls in past 3 months (0 pts) Confusion or Disorientation No (0 pts) Intoxicated or Sedated No (0 pts) Impaired Gait No (0 pts) Mobility Assist Device Used No (0 pt) Altered Elimination No (0 pt) Score/Fall Risk Level 0 - 2 = Low Risk Oriented to surroundings, Maintained a safe environment, Hourly rounding (assess needs \T\ fall precautionary measures) done. Abuse screen: Denies threats or abuse. Denies injuries from another. Nutritional screening: No deficits noted. Tuberculosis screening: No symptoms or risk factors identified. Assessment: 15:15 General: Appears in no apparent distress. Behavior is calm, cooperative. Pain: ph Complains of pain in left low back. Neuro: Level of Consciousness is awake, alert, obeys commands, Oriented to person, place, time, situation. Cardiovascular: Capillary refill < 3 seconds in bilateral fingers Patient's skin is warm and dry. Respiratory: Airway is patent Respiratory effort is even, unlabored, Respiratory pattern is regular, symmetrical. : Reports pain in left in lower back Denies burning with urination, urinary frequency. Derm: Skin is pink, warm \T\ dry. Musculoskeletal: Circulation, motion, and sensation intact. Range of motion: intact in all extremities. 16:26 Reassessment: Patient appears in no apparent distress at this time. Patient and/or jb4 family updated on plan of care and expected duration. Pain level reassessed. Patient is alert, oriented x 3, equal unlabored respirations, skin warm/dry/pink. 17:48 Reassessment: Patient appears in no apparent distress at this time. Patient and/or jb4 family updated on plan of care and expected duration. Pain level reassessed. Patient is alert, oriented x 3, equal unlabored respirations, skin warm/dry/pink. Vital Signs: 15:01 BP 153 / 103; Pulse 99; Resp 18; Temp 97.8; Pulse Ox 98% on R/A; Weight 99.79 kg; ph Height 5 ft. 8 in. ; 15:01 Body Mass Index 33.45 (99.79 kg, 172.72 cm) ph ED Course: 14:54 Patient arrived in ED. mr 14:55 Tom FlorenciaHONORIO aguayo is [facility]. kb 14:55 Alphonse Azevedo MD is Attending Physician. kb 15:03 Triage completed. ph 15:03 Arm band placed on Patient placed in an exam room. ph 15:15 UA Rfx Kaiser Cult if indicated Sent. ph 15:15 Test, Urine Sent. ph 15:15 Urine collected: clean catch specimen, clear. ph 15:17 Patient has correct armband on for positive identification. Bed in low position. Call ph light in reach. Side rails up X 1. Door closed. Noise minimized. Warm blanket given. Pillow given. 17:14 CT Stone Protocol In Process Unspecified. EDMS 17:48 Provided Education on: discharge instructions. jb4 17:48 No provider procedures requiring assistance completed. Patient did not have IV access jb4 during this emergency room visit. Administered Medications: 15:15 Drug: HYDROcodone-acetaminophen PO 5 mg-325 mg 1 tabs PO once Route: PO; ph 17:48 Follow up: Response: No adverse reaction; Marked relief of symptoms jb4 15:15 Drug: Diazepam PO 5 mg PO once Route: PO; ph 17:48 Follow up: Response: No adverse reaction; Marked relief of symptoms jb4 17:48 Drug: Ketorolac IM 30 mg IM once Route: IM; Site: right deltoid; jb4 17:48 Follow up: Response: Medication administered at discharge. jb4 Medication: 15:16 VIS not applicable for this client. ph Outcome: 17:35 Discharge ordered by . truman 17:48 Discharged to home ambulatory, jb4 17:48 Condition: stable 17:48 Discharge instructions given to patient, Instructed on discharge instructions, follow up and referral plans. no drinking with medication, no driving heavy equipment, medication usage, Demonstrated understanding of instructions, follow-up care, medications, Prescriptions given X 2, 17:49 Patient left the ED. jb4 Signatures: Dispatcher [employer] EDMS Florencia Santos, ALEYDA-C GAS WORKER-Mami Travis, Reg Reg mr Imani Ingram, RN RN Delano Moe, RN RN jb4
[2025-02-11] MEDS ORDERED: KETOROLAC 30 MG/ML INJ ONE (17:39)
[2025-02-11 18:01] VITALS: BP 153/103; TEMP 97.8; O2SAT 98
== END 2025-02-11 17:49 | disposition home or self-care (01) ==
LOC: ER 14:52
DX: M54.50 Low back pain, unspecified (principal)
CPT/HCPCS: 74176; 76377; 81001; 81025; 87086; 87088; 96372; 99284